=== PATIENT | male | born 1955 | race Caucasian/White ===

== ENCOUNTER → 2017-07-27 10:10 | Outpatient (POV) | payer BC, SELFPAY ==
[2017-07-27 10:22] VITALS: BP 158/114; PULSE 87; RESP 16; TEMP 36.4; O2SAT 94; BMI 31.2
--- NOTE | 2017-07-27 10:41 | HMH.PAINSOAP ---
[facility] Pain Management SOAP Note Subjective:: This patient is a pleasant 62-year-old white male who presents today for medication refills. Patient is being treated for pain secondary to degenerative disc disease of the cervical lumbar spine and cervical lumbar radiculopathy. Patient also has some low back pain. Patient has bilateral knee pain and right shoulder pain. Patient is currently being medically managed on Percocet 10 mg 1 p.o. 5 times daily. Patient is doing well on this and reports no side effects. Patient was taking anti-inflammatories however is no longer allowed to do to bleeding ulcers. Patient states that his medication helps up to 60-70%. His Kaspar #[id number] reviewed and appropriate. Patient's UDS has been appropriate in the past. Patient states he may be having a bilateral knee replacement I talked him about letting the office know if this occurs. ROS General: no recent weight change, no fever, no sleep disturbances Respiratory: no cough, no shortness of air, no recurring pulmonary infections Cardiovascular/Peripheral Vascular: No chest pain, No palpitations, no edema, no shortness of breath. Gastrointestinal: no incontinence, normal bowel movements reported Genitourinary: no incontinence Musculoskeletal: Back pain, neck pain, right shoulder pain Psychiatric: normal mood/ affect Neurological: [denies weakness in extremities], [denies balance issues] Objective:: Physical Exam General: Alert and oriented x3, no acute distress, pleasant and cooperative, [on room air] Lungs: Resps E/U, Symmetrical chest expansion, Musculoskeletal: Flexion and extension of cervical and lumbar spine somewhat guarded secondary to pain, deep tendon reflexes normal, strength in upper and lower extremities [5/5], no gait noted, positive straight leg test at 30? bilaterally. Neurological: speech clear, equipment service lead equal, no gross sensory deficits Assessment:: Degenerative disc disease cervical spine and lumbar spine, cervical and lumbar radiculopathy. Bilateral knee arthritis. Plan:: We will plan on refilling this patient's medication Percocet 10 mg 1 p.o. 5 times a day. I have discussed this with Dr. Rubio. he has reviewed the chart and approves. Patient's SHAMA #[id number] reviewed and appropriate patient's UDS has been appropriate in the past. We will follow with this patient in 3 months he was told that if he has surgery to us know if the surgeon makes any medication changes. 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 Patient has been prescribed a controlled substance after being counseled on the medication, medication safety, and possible side effects. SHAMA report has been obtained and reviewed prior to prescription and found to be appropriate. Opioid contract was reviewed and signed by the patient, and that they have agreed to all of the terms set forth by our compliance program. This note was dictated using voice recognition software may contain errors or omissions
--- NOTE | 2017-07-27 10:45 | P.CONS_ITS ---
[facility] Pain Management SOAP Note Subjective:: This patient is a pleasant 62-year-old white male who presents today for medication refills. Patient is being treated for pain secondary to degenerative disc disease of the cervical lumbar spine and cervical lumbar radiculopathy. Patient also has some low back pain. Patient has bilateral knee pain and right shoulder pain. Patient is currently being medically managed on Percocet 10 mg 1 p.o. 5 times daily. Patient is doing well on this and reports no side effects. Patient was taking anti-inflammatories however is no longer allowed to do to bleeding ulcers. Patient states that his medication helps up to 60-70%. His Kaspar #[id number] reviewed and appropriate. Patient's UDS has been appropriate in the past. Patient states he may be having a bilateral knee replacement I talked him about letting the office know if this occurs. ROS General: no recent weight change, no fever, no sleep disturbances Respiratory: no cough, no shortness of air, no recurring pulmonary infections Cardiovascular/Peripheral Vascular: No chest pain, No palpitations, no edema, no shortness of breath. Gastrointestinal: no incontinence, normal bowel movements reported Genitourinary: no incontinence Musculoskeletal: Back pain, neck pain, right shoulder pain Psychiatric: normal mood/ affect Neurological: [denies weakness in extremities], [denies balance issues] Objective:: Physical Exam General: Alert and oriented x3, no acute distress, pleasant and cooperative, [ on room air] Lungs: Resps E/U, Symmetrical chest expansion, Musculoskeletal: Flexion and extension of cervical and lumbar spine somewhat guarded secondary to pain, deep tendon reflexes normal, strength in upper and lower extremities [5/5], no gait noted, positive straight leg test at 30? bilaterally. Neurological: speech clear, lens cementer equal, no gross sensory deficits Assessment:: Degenerative disc disease cervical spine and lumbar spine, cervical and lumbar radiculopathy. Bilateral knee arthritis. Plan:: We will plan on refilling this patient's medication Percocet 10 mg 1 p.o. 5 times a day. I have discussed this with Dr. Rubio. he has reviewed the chart and approves. Patient's SHAMA #[id number] reviewed and appropriate patient's UDS has been appropriate in the past. We will follow with this patient in 3 months he was told that if he has surgery to us know if the surgeon makes any medication changes. Patient can pepper picker one prescription in the interim. Patient has been prescribed a controlled substance after being counseled on the medication, medication safety, and possible side effects. SHAMA report has been obtained and reviewed prior to prescription and found to be appropriate. Opioid contract was reviewed and signed by the patient, and that they have agreed to all of the terms set forth by our compliance program. This note was dictated using voice recognition software may contain errors or omissions
[2017-07-27 13:00] LABS: Amphetamine/Metha Screen,Urine Negative ng/mL (<1000); Barbiturates Screen,Urine Negative ng/mL (<200); Benzodiazepines Screen,Urine Negative ng/mL (200); Cannabinoid Screen,Urine Negative ng/mL (<50); Cocaine Screen,Urine Negative ng/g (<300); Methadone Screen,Urine Negative ng/mL (<300); Opiate Screen,Urine Positive ng/mL (<300); Phencyclidine Screen,Urine Negative ng/mL (<25)
[2017-08-02 13:09] LABS: Oxycodone (GC/MS) 2380 ng/mL (Cutoff=100)
[2017-08-03 06:27] LABS: Opiates Negative (Cutoff=100); Oxymorphone (GC/MS) 3100 ng/mL (Cutoff=100)
== END ==
PROVIDERS: Family Provider Family Medicine; PCP Family Medicine; Visit Provider Clinical Nurse Specialist Family Health
DX: M54.12 Radiculopathy, cervical region (principal); M54.16 Radiculopathy, lumbar region
CPT/HCPCS: 80305; 80361; 80365; 99212; G0480

== ENCOUNTER → 2017-10-18 09:41 | Outpatient (POV) | payer BC, SELFPAY ==
[2017-10-18 09:50] VITALS: BP 169/104; PULSE 85; RESP 18; TEMP 36.6; O2SAT 98; BMI 29.9
--- NOTE | 2017-10-18 10:13 | HMH.PAINSOAP ---
[facility] Pain Management SOAP Note Subjective:: Patient is a pleasant 62-year-old white male who presents today for medication refills. Patient is being treated for pain secondary to degenerative disc disease of the cervical and lumbar spine. Patient also is having right shoulder pain and right arm pain. Patient had an accident several years ago he is wearing a right wrist brace. Patient rates his pain a 6 out of 10 today. Patient is currently being medically managed with Percocet 10 mg 1 p.o. 5 times a day. Patient is doing well on this and reports no side effects. Patient is unable to take anti-inflammatories due to bleeding ulcers. Patient states that his medication helps him 60-70%. Patient's SHAMA #[id number] reviewed and appropriate. Patient's UDS has been appropriate in the past. Patient was seen by orthopedic surgeon for potential bilateral knee replacement however they have begun with cortisone injections which were not helpful and are currently trying to get insurance approval for Synvisc injections. ROS General: no recent weight change, no fever, no sleep disturbances Respiratory: no cough, no shortness of air, no recurring pulmonary infections Cardiovascular/Peripheral Vascular: No chest pain, No palpitations, no edema, no shortness of breath. Gastrointestinal: no incontinence, normal bowel movements reported Genitourinary: no incontinence Musculoskeletal: Back pain, neck pain, right shoulder pain, right arm pain, bilateral knee pain Psychiatric: normal mood/ affect Neurological: [denies weakness in extremities], [denies balance issues] Objective:: Physical Exam General: Alert and oriented x3, no acute distress, pleasant and cooperative, [on room air] Lungs: Resps E/U, Symmetrical chest expansion, Eyes: PERRL Musculoskeletal: Flexion and extension of cervical and lumbar spine somewhat guarded secondary to pain, deep tendon reflexes normal, strength in upper and lower extremities [5/5], no gait noted, positive straight leg test at 30? bilaterally Neurological: speech clear, billiard table repairer equal, no gross sensory deficits Assessment:: Degenerative disc disease of the cervical spine and lumbar spine, cervical and lumbar radiculopathy, bilateral knee arthritis Plan:: We will refill the patient's medication Percocet 10 mg 1 p.o. 5 times a day. We will give him 2 months worth of prescriptions. He can order picker the third month in the interim I will follow-up with him in [address] Rubio has reviewed this chart and approves. Shama and urine drug screen both reviewed. Patient has been prescribed a controlled substance after being counseled on the medication, medication safety, and possible side effects. [facility] report has been obtained and reviewed prior to prescription and found to be appropriate. Opioid contract was reviewed and signed by the patient, and that they have agreed to all of the terms set forth by our compliance program. This note was dictated using voice recognition software and may contain errors or omissions
--- NOTE | 2017-10-18 10:16 | P.CONS_ITS ---
[facility] Pain Management SOAP Note Subjective:: Patient is a pleasant 62-year-old white male who presents today for medication refills. Patient is being treated for pain secondary to degenerative disc disease of the cervical and lumbar spine. Patient also is having right shoulder pain and right arm pain. Patient had an accident several years ago he is wearing a right wrist brace. Patient rates his pain a 6 out of 10 today. Patient is currently being medically managed with Percocet 10 mg 1 p.o. 5 times a day. Patient is doing well on this and reports no side effects. Patient is unable to take anti-inflammatories due to bleeding ulcers. Patient states that his medication helps him 60-70%. Patient's SHAMA #[id number] reviewed and appropriate. Patient's UDS has been appropriate in the past. Patient was seen by orthopedic surgeon for potential bilateral knee replacement however they have begun with cortisone injections which were not helpful and are currently trying to get insurance approval for Synvisc injections. ROS General: no recent weight change, no fever, no sleep disturbances Respiratory: no cough, no shortness of air, no recurring pulmonary infections Cardiovascular/Peripheral Vascular: No chest pain, No palpitations, no edema, no shortness of breath. Gastrointestinal: no incontinence, normal bowel movements reported Genitourinary: no incontinence Musculoskeletal: Back pain, neck pain, right shoulder pain, right arm pain, bilateral knee pain Psychiatric: normal mood/ affect Neurological: [denies weakness in extremities], [denies balance issues] Objective:: Physical Exam General: Alert and oriented x3, no acute distress, pleasant and cooperative, [ on room air] Lungs: Resps E/U, Symmetrical chest expansion, Eyes: PERRL Musculoskeletal: Flexion and extension of cervical and lumbar spine somewhat guarded secondary to pain, deep tendon reflexes normal, strength in upper and lower extremities [5/5], no gait noted, positive straight leg test at 30? bilaterally Neurological: speech clear, compensation administrator equal, no gross sensory deficits Assessment:: Degenerative disc disease of the cervical spine and lumbar spine, cervical and lumbar radiculopathy, bilateral knee arthritis Plan:: We will refill the patient's medication Percocet 10 mg 1 p.o. 5 times a day. We will give him 2 months worth of prescriptions. 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 Rubio has reviewed this chart and approves. Shama and urine drug screen both reviewed. Patient has been prescribed a controlled substance after being counseled on the medication, medication safety, and possible side effects. SHAMA report has been obtained and reviewed prior to prescription and found to be appropriate. Opioid contract was reviewed and signed by the patient, and that they have agreed to all of the terms set forth by our compliance program. This note was dictated using voice recognition software and may contain errors or omissions
== END ==
PROVIDERS: Family Provider Family Medicine; PCP Family Medicine; Visit Provider Clinical Nurse Specialist Family Health
DX: M54.16 Radiculopathy, lumbar region (principal); M54.12 Radiculopathy, cervical region; M17.0 Bilateral primary osteoarthritis of knee
CPT/HCPCS: 99212

== ENCOUNTER → 2017-12-20 09:56 | Outpatient (POV) | payer BC, SELFPAY ==
[2017-12-20 10:10] VITALS: BP 156/108; PULSE 73; RESP 18; O2SAT 98; BMI 29.9
--- NOTE | 2017-12-20 10:15 | HMH.PAINSOAP ---
[facility] Pain Management SOAP Note Subjective:: Pleasant 62-year-old white male who presents today for medication refills. Patient is being treated for pain secondary to degenerative disc disease of the cervical and lumbar spine. 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 Patient was being medically managed with Percocet 10 mg however at his last visit he received [place] 10 mg 1 p.o. 5 times a day. We will switch him back to the Percocet he states that it does help him up. Patient's SHAMA #[id number] reviewed and appropriate. Patient has never tried gabapentin we will start him on this today to help with his neuropathy symptoms. Patient states he has burning and tingling in his right hand along with his right leg. Rates his pain an 8 out of 10 today. ROS General: no recent weight change, no fever, no sleep disturbances Respiratory: no cough, no shortness of air, no recurring pulmonary infections Cardiovascular/Peripheral Vascular: No chest pain, No palpitations, no edema, no shortness of breath. Gastrointestinal: no incontinence, normal bowel movements reported Genitourinary: no incontinence Musculoskeletal: Back pain, right arm pain, right leg pain Psychiatric: normal mood/ affect Neurological: [denies weakness in extremities], [denies balance issues] Objective:: Physical Exam General: Alert and oriented x3, no acute distress, pleasant and cooperative, [on room air] Lungs: Resps E/U, Symmetrical chest expansion, Eyes: PERRL Musculoskeletal: Flexion and extension of lumbar spine somewhat guarded secondary to pain, deep tendon reflexes normal, strength in upper and lower extremities [5/5], [abnormal gait noted] Neurological: speech clear, pneumatic tube repairer equal, no gross sensory deficits Assessment:: Degenerative disc disease of the cervical and lumbar spine, neuropathy Plan:: We will start the patient on gabapentin 300 mg 1 p.o. nightly we will give him 2 months worth of this medication. I will follow-up with him in 2 months. We will refill his Percocet 10 mg 1 p.o. 5 times a day and give him 2 months of this as well. Patient's SHAMA and previous urine drug screen reviewed and appropriate. Dr. Rubio has reviewed this chart and agrees with this plan of care. Patient has been prescribed a controlled substance after being counseled on the medication, medication safety, and possible side effects. SHAMA report has been obtained and reviewed prior to prescription and found to be appropriate. Opioid contract was reviewed and signed by the patient, and that they have agreed to all of the terms set forth by our compliance program. This note was dictated using voice recognition software and may contain errors or omissions
== END ==
PROVIDERS: Family Provider Family Medicine; PCP Family Medicine; Visit Provider Clinical Nurse Specialist Family Health
DX: M50.30 Other cervical disc degeneration, unspecified cervical region (principal); M51.36 Other intervertebral disc degeneration, lumbar region
CPT/HCPCS: 99212

== ENCOUNTER → 2018-02-14 14:37 | Outpatient (POV) | payer BC, SELFPAY ==
[2018-02-14 15:13] VITALS: BP 145/98; PULSE 74; RESP 18; O2SAT 98; BMI 30.7
--- NOTE | 2018-02-14 15:22 | HMH.PAINSOAP ---
[facility] Pain Management SOAP Note Subjective:: Patient is a pleasant 63-year-old white male who presents today for medication refills. We are treating him for pain secondary to degenerative disc disease of the cervical spine and lumbar spine with also neuropathy. Patient was started on 300 mg of gabapentin at nighttime and states that this has been helpful. Patient denies side effects to his medication. Patient also on Percocet 10 mg 1 p.o. 5 times a day. Patient Kaspar #[id number] reviewed and appropriate. Patient's urine drug screen has been appropriate in the past. States the medication helps up to 80%. ROS General: no recent weight change, no fever, no sleep disturbances Respiratory: no cough, no shortness of air, no recurring pulmonary infections Cardiovascular/Peripheral Vascular: No chest pain, No palpitations, no edema, no shortness of breath. Gastrointestinal: no incontinence, normal bowel movements reported Genitourinary: no incontinence Musculoskeletal: Neck pain, back pain Psychiatric: normal mood/ affect Neurological: [denies weakness in extremities], [denies balance issues] Objective:: Physical Exam General: Alert and oriented x3, no acute distress, pleasant and cooperative, [on room air] Lungs: Resps E/U, Symmetrical chest expansion, Eyes: PERRL Musculoskeletal: Flexion and extension of the cervical and lumbar spine somewhat guarded secondary to pain, deep tendon reflexes normal, strength in upper and lower extremities [5/5], slightly antalgic gait noted Neurological: speech clear, core winder machine operator equal, no gross sensory deficits Assessment:: Degenerative disc disease of the cervical spine and lumbar spine, neuropathy Plan:: We will refill his Percocet 10 mg 1 p.o. 5 times a day and give him 2 months worth of prescriptions. We will also call in gabapentin 300 mg 1 p.o. 3 times daily. We will follow-up with the patient in 3 months. Patient's Shama and urine drug screen have been reviewed. Dr. Rubio has reviewed this chart and agrees with this plan of care. I will follow-up with the patient in 3 months. Patient has been prescribed a controlled substance after being counseled on the medication, medication safety, and possible side effects. SHAMA report has been obtained and reviewed prior to prescription and found to be appropriate. Opioid contract was reviewed and signed by the patient, and that they have agreed to all of the terms set forth by our compliance program.. This note was dictated using voice recognition software and may contain errors or omissions
--- NOTE | 2018-02-14 15:25 | P.CONS_ITS ---
[facility] Pain Management SOAP Note Subjective:: Patient is a pleasant 63-year-old white male who presents today for medication refills. We are treating him for pain secondary to degenerative disc disease of the cervical spine and lumbar spine with also neuropathy. Patient was started on 300 mg of gabapentin at nighttime and states that this has been helpful. Patient denies side effects to his medication. Patient also on Percocet 10 mg 1 p.o. 5 times a day. Patient Kaspar #[id number] reviewed and appropriate. Patient's urine drug screen has been appropriate in the past. States the medication helps up to 80%. ROS General: no recent weight change, no fever, no sleep disturbances Respiratory: no cough, no shortness of air, no recurring pulmonary infections Cardiovascular/Peripheral Vascular: No chest pain, No palpitations, no edema, no shortness of breath. Gastrointestinal: no incontinence, normal bowel movements reported Genitourinary: no incontinence Musculoskeletal: Neck pain, back pain Psychiatric: normal mood/ affect Neurological: [denies weakness in extremities], [denies balance issues] Objective:: Physical Exam General: Alert and oriented x3, no acute distress, pleasant and cooperative, [on room air] Lungs: Resps E/U, Symmetrical chest expansion, Eyes: PERRL Musculoskeletal: Flexion and extension of the cervical and lumbar spine somewhat guarded secondary to pain, deep tendon reflexes normal, strength in upper and lower extremities [5/5], slightly antalgic gait noted Neurological: speech clear, stick inserter equal, no gross sensory deficits Assessment:: Degenerative disc disease of the cervical spine and lumbar spine, neuropathy Plan:: We will refill his Percocet 10 mg 1 p.o. 5 times a day and give him 2 months worth of prescriptions. We will also call in gabapentin 300 mg 1 p.o. 3 times daily. We will follow-up with the patient in 3 months. Patient's Shama and urine drug screen have been reviewed. Dr. Rubio has reviewed this chart and agrees with this plan of care. I will follow-up with the patient in 3 months. Patient has been prescribed a controlled substance after being counseled on the medication, medication safety, and possible side effects. SHAMA report has been obtained and reviewed prior to prescription and found to be appropriate. Opioid contract was reviewed and signed by the patient, and that they have agreed to all of the terms set forth by our compliance program.. This note was dictated using voice recognition software and may contain errors or omissions
== END ==
PROVIDERS: Family Provider Family Medicine; PCP Family Medicine; Visit Provider Clinical Nurse Specialist Family Health
DX: M50.30 Other cervical disc degeneration, unspecified cervical region (principal); M51.16 Intervertebral disc disorders with radiculopathy, lumbar region
CPT/HCPCS: 99213

== ENCOUNTER → 2018-02-14 15:46 | Outpatient (CLI) | payer BC, SELFPAY ==
[2018-02-14 16:14] LABS: Amphetamine/Metha Screen,Urine Negative ng/mL (<1000); Barbiturates Screen,Urine Negative ng/mL (<200); Benzodiazepines Screen,Urine Negative ng/mL (<200); Cannabinoid Screen,Urine Negative ng/mL (<50); Cocaine Screen,Urine Negative ng/mL (<300); Methadone Screen,Urine Negative ng/mL (<300); Opiate Screen,Urine Positive ng/mL (<300); Phencyclidine Screen,Urine Negative ng/mL (<25)
[2018-02-20 23:06] LABS: Oxycodone (GC/MS) >3000 ng/mL (Cutoff=100)
[2018-02-21 05:24] LABS: Opiates Negative (Cutoff=100); Oxymorphone (GC/MS) >3000 ng/mL (Cutoff=100)
== END ==
PROVIDERS: PCP Family Medicine; Visit Provider Clinical Nurse Specialist Family Health
DX: Z79.899 Other long term (current) drug therapy (principal)
CPT/HCPCS: 80305; 80361; 80365; G0480

== ENCOUNTER → 2018-05-16 11:34 | Outpatient (POV) | payer BC, SELFPAY ==
[2018-05-16 11:35] VITALS: BP 136/106; PULSE 61; RESP 18; TEMP 36.9; O2SAT 95; BMI 30.7
--- NOTE | 2018-05-16 11:49 | P.CONS_ITS ---
[facility] Pain Management SOAP Note Subjective:: Patient is a pleasant 63-year-old white male who presents today for medication refills. Patient is currently on gabapentin 300 mg 1 p.o. 3 times daily and 10 mg 1 p.o. 5 times a day patient's SHAMA reviewed and appropriate he states that it helps up to 80%. He rates his pain a 3 out of 10 today. Most of his pain is secondary to degenerative disc disease of the cervical spine and lumbar spine with neuropathy. ROS General: no recent weight change, no fever, no sleep disturbances Respiratory: no cough, no shortness of air, no recurring pulmonary infections Cardiovascular/Peripheral Vascular: No chest pain, No palpitations, no edema, no shortness of breath. Gastrointestinal: no incontinence, normal bowel movements reported Genitourinary: no incontinence Musculoskeletal: Neck pain, back pain Psychiatric: normal mood/ affect Neurological: [denies weakness in extremities], [denies balance issues] Objective:: Physical Exam General: Alert and oriented x3, no acute distress, pleasant and cooperative, [on room air] Lungs: Resps E/U, Symmetrical chest expansion, [CTA bilateral] Eyes: PERRL Musculoskeletal: Flexion and extension of cervical and lumbar spine somewhat guarded secondary to pain, deep tendon reflexes normal, strength in upper and lower extremities [5/5], lightly antalgic gait noted Neurological: speech clear, beam dyer equal, no gross sensory deficits Assessment:: Degenerative disc disease lumbar spine with lumbar radiculopathy along with cervical degenerative disc disease and neuropathy Plan:: We will refill his Percocet 10 mg 1 p.o. 5 times a day and give him 2 months worth of prescriptions we will also call in his gabapentin 300 mg 1 p.o. 3 times daily. 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 Dr. Rubio is reviewed this chart and agrees with this plan of care. Patient has been prescribed a controlled substance after being counseled on the medication, medication safety, and possible side effects. SHAMA report has been obtained and reviewed prior to prescription and found to be appropriate. Opioid contract was reviewed and signed by the patient, and that they have agreed to all of the terms set forth by our compliance program. This note was dictated using voice recognition software and may contain errors or omissions
[2018-05-16 12:36] LABS: Amphetamine/Metha Screen,Urine Negative ng/mL (<1000); Barbiturates Screen,Urine Negative ng/mL (<200); Benzodiazepines Screen,Urine Negative ng/mL (<200); Cannabinoid Screen,Urine Negative ng/mL (<50); Cocaine Screen,Urine Negative ng/mL (<300); Methadone Screen,Urine Negative ng/mL (<300); Opiate Screen,Urine Positive ng/mL (<300); Phencyclidine Screen,Urine Negative ng/mL (<25)
[2018-05-22 10:08] LABS: Oxycodone (GC/MS) >3000 ng/mL (Cutoff=100)
[2018-05-23 06:30] LABS: Opiates Negative (Cutoff=100); Oxymorphone (GC/MS) >3000 ng/mL (Cutoff=100)
== END ==
PROVIDERS: PCP Family Medicine; Visit Provider Clinical Nurse Specialist Family Health
DX: M51.16 Intervertebral disc disorders with radiculopathy, lumbar region (principal); M50.10 Cervical disc disorder with radiculopathy, unspecified cervical region; Z79.899 Other long term (current) drug therapy
CPT/HCPCS: 80305; 80361; 80365; 99213; G0480

== ENCOUNTER → 2018-08-15 11:37 | Outpatient (POV) | payer BC, SELFPAY ==
--- NOTE | 2018-08-15 11:54 | HMH.PAINSOAP ---
[facility] Pain Management SOAP Note Subjective:: Patient is a pleasant 63-year-old white male who presents today for medication refills. He is currently on Percocet 10 mg 1 p.o. 5 times a day along with gabapentin 300 mg 1 p.o. 3 times daily. He has been out of his gabapentin lately. Patient's SHAMA reviewed and appropriate. Patient's urine drug screen is appropriate. 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 Gastrointestinal: no incontinence, normal bowel movements reported Genitourinary: no incontinence Musculoskeletal: Neck pain, back pain, leg pain Psychiatric: normal mood/ affect, Neurological: [denies weakness in extremities], [denies balance issues] Objective:: Physical Exam General: Alert and oriented x3, no acute distress, pleasant and cooperative, [on room air] Lungs: Resps E/U, Symmetrical chest expansion, Eyes: PERRL Musculoskeletal: Flexion and extension of cervical and lumbar spine somewhat guarded secondary to pain, deep tendon reflexes normal, strength in upper and lower extremities [5/5], antalgic gait noted Neurological: speech clear, felt cutting machine operator equal, no gross sensory deficits Assessment:: Degenerative disc disease cervical spine, 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 5 times a day and give him 2 months worth of prescriptions he can belt picker his third month in the interim. We will also refill his gabapentin 300 mg 1 p.o. 3 times daily. Patient has been instructed to call the office if he has any issues prior to his next appointment we will see him back in 3 months and he can belt picker one prescription in the interim. Patient has been prescribed a controlled substance after being counseled on the medication, medication safety, and possible side effects. SHAMA report has been obtained and reviewed prior to prescription and found to be appropriate. Opioid contract was reviewed and signed by the patient, and that they have agreed to all of the terms set forth by our compliance program. Dr. Rubio has reviewed this note and agrees with this plan of care. This note was dictated using voice recognition software and may contain errors or omissions
[2018-08-15 11:55] VITALS: BP 185/87; PULSE 87; RESP 18; O2SAT 98; BMI 30.7
== END ==
PROVIDERS: PCP Family Medicine; Visit Provider Clinical Nurse Specialist Family Health
DX: M50.30 Other cervical disc degeneration, unspecified cervical region (principal); M51.16 Intervertebral disc disorders with radiculopathy, lumbar region; G62.9 Polyneuropathy, unspecified
CPT/HCPCS: 99213

== ENCOUNTER → 2018-10-13 11:37 | Outpatient (CLI) | payer BC, SELFPAY ==
[2018-10-13 12:11] LABS: Amphetamine/Metha Screen,Urine Negative ng/mL (<1000); Barbiturates Screen,Urine Negative ng/mL (<200); Benzodiazepines Screen,Urine Negative ng/mL (<200); Cannabinoid Screen,Urine Negative ng/mL (<50); Cocaine Screen,Urine Negative ng/mL (<300); Methadone Screen,Urine Negative ng/mL (<300); Opiate Screen,Urine Positive ng/mL (<300); Phencyclidine Screen,Urine Negative ng/mL (<25)
[2018-10-18 15:09] LABS: Oxycodone (GC/MS) >3000 ng/mL (Cutoff=100)
[2018-10-19 06:52] LABS: Opiates Negative (Cutoff=100); Oxymorphone (GC/MS) >3000 ng/mL (Cutoff=100)
== END ==
PROVIDERS: Visit Provider Anesthesiology
DX: Z79.899 Other long term (current) drug therapy (principal)
CPT/HCPCS: 80305; 80361; 80365; G0480

== ENCOUNTER → 2018-11-07 11:39 | Outpatient (POV) | payer BC, SELFPAY ==
[2018-11-07 11:58] VITALS: BP 146/87; PULSE 92; RESP 18; O2SAT 98; BMI 30.9
--- NOTE | 2018-11-07 12:07 | HMH.PAINSOAP ---
[facility] Pain Management SOAP Note Subjective:: Patient is a pleasant 63-year-old white male who presents today for medication refills. 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 He reports his pain is a 3 out of 10 today. Patient takes Percocet 10 mg 1 p.o. 5 times daily along with gabapentin 300 mg 1 p.o. 3 times daily. SHAMA #[id number] has been reviewed and is appropriate. ROS General: no recent weight change, no fever, no sleep disturbances Respiratory: no cough, no shortness of air, no recurring pulmonary infections Cardiovascular/Peripheral Vascular: No chest pain, No palpitations, no edema, no shortness of breath. Gastrointestinal: no incontinence, normal bowel movements reported Genitourinary: no incontinence Musculoskeletal: Pain, back pain, leg pain Psychiatric: normal mood/ affect, [denies depression], [denies anxiety] Neurological: [denies weakness in extremities], [denies balance issues] Objective:: Physical Exam General: Alert and oriented x3, no acute distress, pleasant and cooperative, [on room air] Lungs: Resps E/U, Symmetrical chest expansion, Eyes: PERRL Musculoskeletal: Flexion and extension of lumbar spine somewhat guarded secondary to pain, deep tendon reflexes normal, strength in upper and lower extremities [5/5], [abnormal gait noted] Neurological: speech clear, plumbing assembler 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 5 times daily and give him 2 months worth of prescriptions. He can brain picker his third month in the interim. We also refill his gabapentin 300 mg 1 p.o. 3 times daily. Is been instructed to call the office if he has any issues prior to his next appointment. We will see him back in 3 months Patient has been prescribed a controlled substance after being counseled on the medication, medication safety, and possible side effects. SHAMA report has been obtained and reviewed prior to prescription and found to be appropriate. Opioid contract was reviewed and signed by the patient, and that they have agreed to all of the terms set forth by our compliance program. Dr. Rubio has reviewed this note and agrees with this plan of care. This note was dictated using voice recognition software and may contain errors or omissions
--- NOTE | 2018-11-07 12:11 | P.CONS_ITS ---
[facility] Pain Management SOAP Note Subjective:: Patient is a pleasant 63-year-old white male who presents today for medication refills. 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 He reports his pain is a 3 out of 10 today. Patient takes Percocet 10 mg 1 p.o. 5 times daily along with gabapentin 300 mg 1 p.o. 3 times daily. SHAMA #[id number] has been reviewed and is appropriate. ROS General: no recent weight change, no fever, no sleep disturbances Respiratory: no cough, no shortness of air, no recurring pulmonary infections Cardiovascular/Peripheral Vascular: No chest pain, No palpitations, no edema, no shortness of breath. Gastrointestinal: no incontinence, normal bowel movements reported Genitourinary: no incontinence Musculoskeletal: Pain, back pain, leg pain Psychiatric: normal mood/ affect, [denies depression], [denies anxiety] Neurological: [denies weakness in extremities], [denies balance issues] Objective:: Physical Exam General: Alert and oriented x3, no acute distress, pleasant and cooperative, [on room air] Lungs: Resps E/U, Symmetrical chest expansion, Eyes: PERRL Musculoskeletal: Flexion and extension of lumbar spine somewhat guarded secondary to pain, deep tendon reflexes normal, strength in upper and lower extremities [5/5], [abnormal gait noted] Neurological: speech clear, engineer 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 5 times daily and give him 2 months worth of prescriptions. 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 We also refill his gabapentin 300 mg 1 p.o. 3 times daily. Is been instructed to call the office if he has any issues prior to his next appointment. We will see him back in 3 months Patient has been prescribed a controlled substance after being counseled on the medication, medication safety, and possible side effects. SHAMA report has been obtained and reviewed prior to prescription and found to be appropriate. Opioid contract was reviewed and signed by the patient, and that they have agreed to all of the terms set forth by our compliance program. Dr. Rubio has reviewed this note and agrees with this plan of care. This note was dictated using voice recognition software and may contain errors or omissions
== END ==
PROVIDERS: PCP Family Medicine; Visit Provider Clinical Nurse Specialist Family Health
DX: M48.062 Spinal stenosis, lumbar region with neurogenic claudication (principal)
CPT/HCPCS: 99212

== ENCOUNTER → 2019-02-07 10:17 | Outpatient (POV) | payer BC, SELFPAY ==
[2019-02-07 11:04] VITALS: BP 148/94; PULSE 78; RESP 18; O2SAT 98; BMI 28.5
--- NOTE | 2019-02-07 12:54 | P.CONS_ITS ---
[facility] Pain Management SOAP Note Subjective:: Patient is a pleasant 64-year-old white male who presents today for medication refills he is being treated for pain secondary to degenerative disc disease cervical spinal cervical radiculopathy along with degenerative disc disease lumbar spine with lumbar radiculopathy. He reports his pain is a 3 out of 10. This is his baseline. Patient denies side effects to his current regimen of Percocet 10 mg 1 p.o. 5 times a day. Patient's SHAMA #[id number] reviewed and appropriate. He is also on gabapentin 300 mg 1 p.o. 3 times daily. He states it helps up to 80%. He is currently in the process of losing some weight. Overall he looks well ROS General: no recent weight change, no fever, no sleep disturbances Respiratory: no cough, no shortness of air, no recurring pulmonary infections Cardiovascular/Peripheral Vascular: No chest pain, No palpitations, no edema, no shortness of breath. Gastrointestinal: no incontinence, normal bowel movements reported Genitourinary: no incontinence Musculoskeletal: Neck pain, back pain Psychiatric: normal mood/ affect Neurological: [denies weakness in extremities], [denies balance issues] Objective:: Physical Exam General: Alert and oriented x3, no acute distress, pleasant and cooperative, [on room air] Lungs: Resps E/U, Symmetrical chest expansion, Eyes: PERRL Musculoskeletal: Flexion and extension of cervical and lumbar spine somewhat guarded secondary to pain, deep tendon reflexes normal, strength in upper and lower extremities [5/5], lightly antalgic gait noted Neurological: speech clear, general maintenance mechanic equal, no gross sensory deficits Assessment:: Degenerative disc disease cervical spinal cervical radiculopathy, degenerative disc disease lumbar spine with lumbar radiculopathy Plan:: We will refill the patient's Percocet 10 mg 1 p.o. 5 times a day along with his gabapentin 300 mg 1 p.o. 3 times daily we will give him 2 months with medication we will see him back in 3 months reassess his symptoms at that time he is been instructed to call the office if he has any issues prior to his next appointment. 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 Patient has been prescribed a controlled substance after being counseled on the medication, medication safety, and possible side effects. SHAMA report has been obtained and reviewed prior to prescription and found to be appropriate. Opioid contract was reviewed and signed by the patient, and that they have agreed to all of the terms set forth by our compliance program. Dr. Rubio has reviewed this note and agrees with this plan of care. This note was dictated using voice recognition software and may contain errors or omissions [facility] [employer] [employer] *Have you ever received a pneumonia vaccine?: Yes *Have you received a flu vaccine this season?: Yes - *Social History *Occupational Status:: other *Travel in the last 8 weeks: None
== END ==
PROVIDERS: PCP Family Medicine; Visit Provider Clinical Nurse Specialist Family Health
DX: M50.10 Cervical disc disorder with radiculopathy, unspecified cervical region (principal); M51.16 Intervertebral disc disorders with radiculopathy, lumbar region
CPT/HCPCS: 99212

== ENCOUNTER → 2019-04-07 11:56 | Outpatient (CLI) | payer BC, SELFPAY ==
[2019-04-07 15:49] LABS: Amphetamine/Metha Screen,Urine Negative ng/mL (<1000); Barbiturates Screen,Urine Negative ng/mL (<200); Benzodiazepines Screen,Urine Negative ng/mL (<200); Cannabinoid Screen,Urine Negative ng/mL (<50); Cocaine Screen,Urine Negative ng/mL (<300); Methadone Screen,Urine Negative ng/mL (<300); Opiate Screen,Urine Positive ng/mL (<300); Phencyclidine Screen,Urine Negative ng/mL (<25)
[2019-04-14 10:15] LABS: Oxycodone (GC/MS) >3000 ng/mL (Cutoff=100)
[2019-04-14 17:15] LABS: Opiates Negative (Cutoff=100); Oxymorphone (GC/MS) >3000 ng/mL (Cutoff=100)
== END ==
PROVIDERS: Visit Provider Anesthesiology
DX: Z79.899 Other long term (current) drug therapy (principal)
CPT/HCPCS: 80305; 80361; 80365; G0480

== ENCOUNTER → 2019-05-08 10:44 | Outpatient (POV) | payer BC, SELFPAY ==
--- NOTE | 2019-05-08 11:04 | HMH.PAINSOAP ---
[facility] Pain Management SOAP Note Subjective:: Patient is a pleasant 64-year-old white male who presents today for medication refills he is being treated for pain secondary to degenerative disc disease cervical spinal cervical radiculopathy along with degenerative disc disease lumbar spine with lumbar radiculopathy. Patient reports his pain is a 5 out of 10. This is a little higher than normal due to weather. He denies side effects to his medication. Shama #[id number] reviewed and appropriate. Urine drug screens have been appropriate. Patient is currently on Percocet 10 mg 1 p.o. 5 times daily. Patient is also on gabapentin 300 mg 1 p.o. 3 times daily. Patient has lost 40 pounds and is continuing to lose weight. ROS General: no recent weight change, no fever, no sleep disturbances Respiratory: no cough, no shortness of air, no recurring pulmonary infections Cardiovascular/Peripheral Vascular: No chest pain, No palpitations, no edema, no shortness of breath. Gastrointestinal: no new onset incontinence, normal bowel movements reported Genitourinary: no new onset incontinence Musculoskeletal: Back pain, leg pain Psychiatric: normal mood/ affect, Neurological: [denies new onset weakness in extremities], [denies new onset balance issues] Objective:: Physical Exam General: Alert and oriented x3, no acute distress, pleasant and cooperative, [on room air] Lungs: Resps E/U, Symmetrical chest expansion, Eyes: PERRL Musculoskeletal: Flexion and extension of lumbar spine somewhat guarded secondary to pain, deep tendon reflexes normal, strength in upper and lower extremities [5/5], antalgic gait noted Neurological: speech clear, occupational health nurse equal, no gross sensory deficits Assessment:: Degenerative disc disease cervical spinal cervical radiculopathy degenerative disc disease lumbar spine with lumbar radiculopathy Plan:: We will give the patient his Percocet 10 mg 1 p.o. 5 times a day and gabapentin 300 mg 1 p.o. 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 We will see him back in 3 months reassess his symptoms at that time he is been instructed to call the office if he has any issues prior to his next appointment. Patient has been prescribed a controlled substance after being counseled on the medication, medication safety, and possible side effects. SHAMA report has been obtained and reviewed prior to prescription and found to be appropriate. Opioid contract was reviewed and signed by the patient, and that they have agreed to all of the terms set forth by our compliance program. Dr. Rubio has reviewed this note and agrees with this plan of care. This note was dictated using voice recognition software and may contain errors or omissions [facility] History I have reviewed the patient's past medical history: Yes *Have you ever received a pneumonia vaccine?: Yes *Have you received a flu vaccine this season?: Yes - *Social History *Occupational Status:: other *Travel in the last 8 weeks: None Family Hx:: Non-contributory
--- NOTE | 2019-05-08 11:08 | P.CONS_ITS ---
[facility] Pain Management SOAP Note Subjective:: Patient is a pleasant 64-year-old white male who presents today for medication refills he is being treated for pain secondary to degenerative disc disease cervical spinal cervical radiculopathy along with degenerative disc disease lumbar spine with lumbar radiculopathy. Patient reports his pain is a 5 out of 10. This is a little higher than normal due to weather. He denies side effects to his medication. Shama #[id number] reviewed and appropriate. Urine drug screens have been appropriate. Patient is currently on Percocet 10 mg 1 p.o. 5 times daily. Patient is also on gabapentin 300 mg 1 p.o. 3 times daily. Patient has lost 40 pounds and is continuing to lose weight. ROS General: no recent weight change, no fever, no sleep disturbances Respiratory: no cough, no shortness of air, no recurring pulmonary infections Cardiovascular/Peripheral Vascular: No chest pain, No palpitations, no edema, no shortness of breath. Gastrointestinal: no new onset incontinence, normal bowel movements reported Genitourinary: no new onset incontinence Musculoskeletal: Back pain, leg pain Psychiatric: normal mood/ affect, Neurological: [denies new onset weakness in extremities], [denies new onset balance issues] Objective:: Physical Exam General: Alert and oriented x3, no acute distress, pleasant and cooperative, [on room air] Lungs: Resps E/U, Symmetrical chest expansion, Eyes: PERRL Musculoskeletal: Flexion and extension of lumbar spine somewhat guarded secondary to pain, deep tendon reflexes normal, strength in upper and lower extremities [5/5], antalgic gait noted Neurological: speech clear, riffler tender equal, no gross sensory deficits Assessment:: Degenerative disc disease cervical spinal cervical radiculopathy degenerative disc disease lumbar spine with lumbar radiculopathy Plan:: We will give the patient his Percocet 10 mg 1 p.o. 5 times a day and gabapentin 300 mg 1 p.o. 3 times daily we will give him 1 month worth of medication he can pickle processor 2 months in the interim. We will see him back in 3 months reassess his symptoms at that time he is been instructed to call the office if he has any issues prior to his next appointment. Patient has been prescribed a controlled substance after being counseled on the medication, medication safety, and possible side effects. SHAMA report has been obtained and reviewed prior to prescription and found to be appropriate. Opioid contract was reviewed and signed by the patient, and that they have agreed to all of the terms set forth by our compliance program. Dr. Rubio has reviewed this note and agrees with this plan of care. This note was dictated using voice recognition software and may contain errors or omissions [facility] History I have reviewed the patient's past medical history: Yes *Have you ever received a pneumonia vaccine?: Yes *Have you received a flu vaccine this season?: Yes - *Social History *Occupational Status:: other *Travel in the last 8 weeks: None Family Hx:: Non-contributory
[2019-05-08 11:34] VITALS: BP 147/97; PULSE 89; RESP 18; O2SAT 99; BMI 27.4
== END ==
PROVIDERS: PCP Family Medicine; Visit Provider Clinical Nurse Specialist Family Health
DX: M50.10 Cervical disc disorder with radiculopathy, unspecified cervical region (principal); M51.16 Intervertebral disc disorders with radiculopathy, lumbar region
CPT/HCPCS: 99212

== ENCOUNTER → 2019-07-31 10:12 | Outpatient (POV) | payer BC, SELFPAY ==
[2019-07-31 10:40] VITALS: BP 127/92; PULSE 67; RESP 18; O2SAT 99; BMI 27.1
--- NOTE | 2019-07-31 10:47 | P.CONS_ITS ---
[facility] Pain Management SOAP Note Subjective:: Patient is a pleasant 64-year-old white male who presents today for medication refills. Patient rates his pain a 4 out of 10 today overall doing well. He is being treated for pain secondary to degenerative disc disease cervical spine with cervical radiculopathy along with degenerative disc disease lumbar spine with lumbar radiculopathy. Patient is currently on Percocet 10 mg 1 p.o. 5 times a day and gabapentin 300 mg 1 p.o. 3 times daily. Patient also ran out of his compounding cream. Patient states the medication helps him up to 80%. [facility] #[id number] reviewed and appropriate. ROS General: no recent weight change, no fever, no sleep disturbances Respiratory: no cough, no shortness of air, no recurring pulmonary infections Cardiovascular/Peripheral Vascular: No chest pain, No palpitations, no edema, no shortness of breath. Gastrointestinal: no new onset incontinence, normal bowel movements reported Genitourinary: no new onset incontinence Musculoskeletal: Back pain, leg pain Psychiatric: normal mood/ affect Neurological: [denies new onset weakness in extremities], [denies new onset balance issues] Objective:: Physical Exam General: Alert and oriented x3, no acute distress, pleasant and cooperative, [on room air] Lungs: Resps E/U, Symmetrical chest expansion, Eyes: PERRL Musculoskeletal: Flexion and extension of lumbar spine somewhat guarded secondary to pain, deep tendon reflexes normal, strength in upper and lower extremities [5/5], lightly antalgic gait noted Neurological: speech clear, pharmacy aide equal, no gross sensory deficits Assessment:: Degenerative disc disease lumbar spine with lumbar radiculopathy degenerative disc disease cervical spine with cervical radiculopathy Plan:: We will schedule the patient for a 3-month follow-up. We will refill his Percocet 10 mg 1 p.o. 5 times a day and gabapentin 3 mg 1 p.o. 3 times daily. We will also give him his compounding cream prescription. Patient will be given 2 months worth of medication and be able to pick his third month up in the interim. Dr. Rubio has reviewed this note and agrees with this plan of care. This note was dictated using voice recognition software and may contain errors or omissions [facility] History I have reviewed the patient's past medical history: Yes *Have you ever received a pneumonia vaccine?: Yes *Have you received a flu vaccine this season?: Yes - *Social History *Occupational Status:: other *Travel in the last 8 weeks: None Family Hx:: Non-contributory
== END ==
PROVIDERS: PCP Family Medicine; Visit Provider Clinical Nurse Specialist Family Health
DX: M51.16 Intervertebral disc disorders with radiculopathy, lumbar region (principal); M50.10 Cervical disc disorder with radiculopathy, unspecified cervical region
CPT/HCPCS: 99212

== ENCOUNTER → 2019-07-31 11:01 | Outpatient (CLI) | payer BC, SELFPAY ==
[2019-07-31 13:28] LABS: Amphetamine/Metha Screen,Urine Negative ng/ml (<1000)
[2019-07-31 13:29] LABS: Barbiturates Screen,Urine Negative ng/ml (<200); Benzodiazepines Screen,Urine Negative ng/ml (<200)
[2019-07-31 13:30] LABS: Cannabinoid Screen,Urine Negative ng/ml (<50)
[2019-07-31 13:31] LABS: Cocaine Screen,Urine Negative ng/ml (<300); Methadone Screen,Urine Negative ng/ml (<300)
[2019-07-31 13:32] LABS: Opiate Screen,Urine Positive ng/ml (<300); Phencyclidine Screen,Urine Negative ng/ml (<25)
[2019-08-04 13:06] LABS: Oxycodone (GC/MS) >3000 ng/mL (Cutoff=100)
[2019-08-04 14:07] LABS: Opiates Negative (Cutoff=100); Oxymorphone (GC/MS) >3000 ng/mL (Cutoff=100)
== END ==
PROVIDERS: Visit Provider Clinical Nurse Specialist Family Health
DX: Z79.899 Other long term (current) drug therapy (principal)
CPT/HCPCS: 80305; 80361; 80365; G0480

== ENCOUNTER → 2019-10-23 10:03 | Outpatient (POV) | payer BC, SELFPAY ==
[2019-10-23 10:14] VITALS: BP 158/82; PULSE 85; RESP 18; TEMP 36.4; O2SAT 98; BMI 28.5
--- NOTE | 2019-10-23 10:43 | P.CONS_ITS ---
[facility] Pain Management SOAP Note Subjective:: Patient is a pleasant 64-year-old white male who presents today for medication refills. Patient rates his pain today a 4 out of 10 and overall doing well he is being treated for pain secondary to degenerative disc disease cervical spine with cervical radiculopathy along with degenerative disc disease lumbar spine with lumbar radiculopathy. He is currently on Percocet 10 mg 1 p.o. 5 times a day and gabapentin 300 mg 1 p.o. 3 times daily. He is also on a compounding cream which helps him up to 80%. [facility] #[id number] reviewed and appropriate. Urine drug screens have been appropriate. Patient denies side effects to his medication. ROS General: no recent weight change, no fever, no sleep disturbances Respiratory: no cough, no shortness of air, no recurring pulmonary infections Cardiovascular/Peripheral Vascular: No chest pain, No palpitations, no edema, no shortness of breath. Gastrointestinal: no new onset incontinence, normal bowel movements reported Genitourinary: no new onset incontinence Musculoskeletal: Back pain, neck pain Psychiatric: normal mood/ affect Neurological: [denies new onset weakness in extremities], [denies new onset balance issues] Objective:: Physical Exam General: Alert and oriented x3, no acute distress, pleasant and cooperative, [on room air] Lungs: Resps E/U, Symmetrical chest expansion, Eyes: PERRL Musculoskeletal: Flexion and extension of cervical and lumbar spine somewhat guarded secondary to pain, deep tendon reflexes normal, strength in upper and lower extremities [5/5], slightly antalgic gait noted Neurological: speech clear, radioisotope technologist equal, no gross sensory deficits Assessment:: Degenerative disc disease lumbar spine with lumbar radiculopathy, degenerative disc disease cervical spine with cervical radiculopathy Plan:: We will refill the patient when he is due for his Percocet 10 mg 1 p.o. 5 times a day and gabapentin 300 mg 1 p.o. 3 times daily. We will also continue his gout compounding cream. He will be given 2 months worth of medication to be able to spanish moss picker 1 in the third month. He will see him back in 3 months reassess his symptoms at that time he has been instructed to call the office if he has any issues prior to his next appointment. Dr. Rubio has reviewed this note and agrees with this plan of care. This note was dictated using voice recognition software and may contain errors or omissions [facility] History I have reviewed the patient's past medical history: Yes *Have you ever received a pneumonia vaccine?: Yes *Have you received a flu vaccine this season?: Yes - *Social History *Occupational Status:: other *Travel in the last 8 weeks: None Family Hx:: Non-contributory
== END ==
PROVIDERS: PCP Family Medicine; Visit Provider Clinical Nurse Specialist Family Health
DX: M51.16 Intervertebral disc disorders with radiculopathy, lumbar region (principal); M50.10 Cervical disc disorder with radiculopathy, unspecified cervical region; Z76.0 Encounter for issue of repeat prescription
CPT/HCPCS: 99212

== ENCOUNTER → 2020-01-22 11:35 | Outpatient (POV) | payer BC, SELFPAY ==
[2020-01-22 11:43] VITALS: BP 125/78; PULSE 71; RESP 18; O2SAT 99; BMI 29.2
--- NOTE | 2020-01-22 13:18 | P.CONS_ITS ---
[facility] Pain Management SOAP Note Subjective:: Is a pleasant 65-year-old white male who presents today for medication refills. Patient rates his pain today a 3 out of 10. Overall doing well. He is currently on Percocet 10 mg 1 p.o. 5 times a day. Is also on gabapentin 300 mg 1 p.o. 3 times daily. He is also on compounding cream. Patient's [facility] #[id number] reviewed and appropriate. His current morphine equivalent is 75. He denies side effects to his medication. ROS General: no recent weight change, no fever, no sleep disturbances Respiratory: no cough, no shortness of air, no recurring pulmonary infections Cardiovascular/Peripheral Vascular: No chest pain, No palpitations, no edema, no shortness of breath. Gastrointestinal: no new onset incontinence, normal bowel movements reported Genitourinary: no new onset incontinence Musculoskeletal: Back pain, neck pain Psychiatric: normal mood/ affect Neurological: [denies new onset weakness in extremities], [denies new onset balance issues] Objective:: Physical Exam General: Alert and oriented x3, no acute distress, pleasant and cooperative, [on room air] Lungs: Resps E/U, Symmetrical chest expansion, Eyes: PERRL Musculoskeletal: Flexion and extension of cervical and lumbar spine somewhat guarded secondary to pain, deep tendon reflexes normal, strength in upper and lower extremities [5/5], antalgic gait noted Neurological: speech clear, clip riveter equal, no gross sensory deficits Assessment:: Degenerative disc disease lumbar spine with lumbar radiculopathy, degenerative disc disease cervical spine with cervical radiculopathy Plan:: We will continue his Percocet 10 mg 1 p.o. 5 times a day and gabapentin 3 mg 1 p.o. 3 times daily. We will continue his compounding cream. 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 He has been instructed to call the office if he has any issues prior to his next appointment. Patient has been prescribed a controlled substance after being counseled on the medication, medication safety, and possible side effects. [facility] report has been obtained and reviewed prior to prescription and found to be appropriate. Opioid contract was reviewed and signed by the patient, and that they have agreed to all of the terms set forth by our compliance program. Dr. Rubio has reviewed this note and agrees with this plan of care. This note was dictated using voice recognition software and may contain errors or omissions [facility] History I have reviewed the patient's past medical history: Yes *Have you ever received a pneumonia vaccine?: Yes *Have you received a flu vaccine this season?: Yes - *Social History *Occupational Status:: other *Travel in the last 8 weeks: None Family Hx:: Non-contributory
== END ==
PROVIDERS: PCP Family Medicine; Visit Provider Clinical Nurse Specialist Family Health
DX: M51.16 Intervertebral disc disorders with radiculopathy, lumbar region (principal); M50.10 Cervical disc disorder with radiculopathy, unspecified cervical region
CPT/HCPCS: 99212

== ENCOUNTER → 2020-04-15 11:33 | Outpatient (POV) | payer BC, SELFPAY ==
[2020-04-15 12:05] VITALS: BP 154/105; PULSE 79; RESP 19; TEMP 37.1; O2SAT 97; BMI 29.9
--- NOTE | 2020-04-15 12:22 | P.CONS_ITS ---
[facility] Pain Management SOAP Note Subjective:: Is a pleasant 65-year-old white male who presents today for medication refills. He rates his pain today 3 out of 10. He is overall doing well he currently is on Percocet 10 mg 1 p.o. 5 times a day. [facility] #[id number] reviewed and appropriate urine drug screens have been appropriate. His current morphine equivalent is 75. He denies side effects to his medication states it helps up to 80%. ROS General: no recent weight change, no fever, no sleep disturbances Respiratory: no cough, no shortness of air, no recurring pulmonary infections Cardiovascular/Peripheral Vascular: No chest pain, No palpitations, no edema, no shortness of breath. Gastrointestinal: no new onset incontinence, normal bowel movements reported Genitourinary: no new onset incontinence Musculoskeletal: Back pain, leg pain, neck pain Psychiatric: normal mood/ affect Neurological: [denies new onset weakness in extremities], [denies new onset balance issues] Objective:: Physical Exam General: Alert and oriented x3, no acute distress, pleasant and cooperative, [on room air] Lungs: Resps E/U, Symmetrical chest expansion, Eyes: PERRL Musculoskeletal: Flexion and extension of lumbar spine somewhat guarded secondary to pain, deep tendon reflexes normal, strength in upper and lower extremities [5/5], [abnormal gait noted] Neurological: speech clear, speeder tender equal, no gross sensory deficits Assessment:: Degenerative disc disease lumbar spine lumbar radiculopathy, degenerative disc disease cervical spine cervical radiculopathy Plan:: We will continue his Percocet 10 mg 1 p.o. 5 times a day and gabapentin 300 mg 1 p.o. 3 times daily. We will continue his compounding cream. We will see him back in 3 months reassess his symptoms at that time he has been instructed to call the office if he has any issues prior to his next appointment. Dr. Rubio has reviewed this note and agrees with this plan of care. This note was dictated using voice recognition software and may contain errors or omissions [facility] History I have reviewed the patient's past medical history: Yes *Have you ever received a pneumonia vaccine?: No *Have you received a flu vaccine this season?: No - *Social History *Occupational Status:: retired *Travel in the last 8 weeks: None Family Hx:: Non-contributory
== END ==
PROVIDERS: PCP Family Medicine; Visit Provider Clinical Nurse Specialist Family Health
DX: M51.16 Intervertebral disc disorders with radiculopathy, lumbar region (principal); M50.10 Cervical disc disorder with radiculopathy, unspecified cervical region
CPT/HCPCS: 99212

== ENCOUNTER → 2020-07-15 11:47 | Outpatient (POV) | payer BC, SELFPAY ==
[2020-07-15 12:00] VITALS: BP 144/95; PULSE 74; RESP 18; TEMP 36.6; O2SAT 97; BMI 30.1
--- NOTE | 2020-07-15 12:34 | P.CONS_ITS ---
[facility] Pain Management SOAP Note Subjective:: Patient is a pleasant 65-year-old white male who presents today for follow-up. Patient medically managed with Percocet 10 mg 1 p.o. 5 times a day. He rates his pain today 4 out of 10. Patient's [facility] #[id number] reviewed and appropriate. Drug screens have been appropriate. His current morphine eq uivalent is 75. He states his medications help up to 80% he denies any side effects. ROS General: no recent weight change, no fever, no sleep disturbances Respiratory: no cough, no shortness of air, no recurring pulmonary infections Cardiovascular/Peripheral Vascular: No chest pain, No palpitations, no edema, no shortness of breath. Gastrointestinal: no new onset incontinence, normal bowel movements reported Genitourinary: no new onset incontinence Musculoskeletal: Back pain, leg pain Psychiatric: normal mood/ affect Neurological: [denies new onset weakness in extremities], [denies new onset balance issues] Objective:: Physical Exam General: Alert and oriented x3, no acute distress, pleasant and cooperative, [on room air] Lungs: Resps E/U, Symmetrical chest expansion, Eyes: PERRL Musculoskeletal: Flexion and extension of lumbar spine somewhat guarded secondary to pain, deep tendon reflexes normal, strength in upper and lower extremities [5/5], [abnormal gait noted] Neurological: speech clear, recreation counselor equal, no gross sensory deficits Assessment:: Degenerative disc disease lumbar spine lumbar radiculopathy generative disc disease cervical spine cervical radiculopathy Plan:: We will continue the patient's Percocet 10 mg 1 p.o. 5 times a day and gabapentin 300 mg 1 p.o. 3 times daily. We will continue his compounding cream. We will see him back in 3 months reassess his symptoms at that time he has been instructed to call the office if he has any issues prior to his next appoint ment. Dr. Rubio has reviewed this note and agrees with this plan of care. This note was dictated using voice recognition software and may contain errors or omissions Patient has been prescribed a controlled substance after being counseled on the medication, medication safety, and possible side effects. [facility] report has been obtained and reviewed prior to prescription and found to be appropriate. Opioid contract was reviewed and signed by the patient, and that they have agreed to all of the terms set forth by our compliance program. [facility] History I have reviewed the patient's past medical history: Yes *Have you ever received a pneumonia vaccine?: No *Have you received a flu vaccine this season?: No - *Social History *Occupational Status:: retired *Travel in the last 8 weeks: None Family Hx:: Non-contributory
== END ==
PROVIDERS: PCP Family Medicine; Visit Provider Clinical Nurse Specialist Family Health
DX: M51.16 Intervertebral disc disorders with radiculopathy, lumbar region (principal); M50.10 Cervical disc disorder with radiculopathy, unspecified cervical region
CPT/HCPCS: 99212; G0463

== ENCOUNTER → 2020-10-10 11:06 | Outpatient (POV) | payer BC, SELFPAY ==
[2020-10-10 11:50] VITALS: BP 141/61; PULSE 69; RESP 18; O2SAT 98; BMI 29.9
--- NOTE | 2020-10-10 12:32 | P.CONS_ITS ---
[facility] Pain Management SOAP Note Subjective:: Patient is a pleasant 65-year-old white male who presents today for follow-up. Patient is being medically managed with Percocet 10 mg 1 p.o. 5 times a day he rates his pain a 4 out of 10. He is also on gabapentin 300 mg 1 p.o. 3 times daily. Patient's [facility] #[id number] reviewed and appropriate. Drug screens have been appropriate. He denies any side effects. His current morphine equivalent is 75. He states that it helps up to 80% with his pain symptomology ROS General: no recent weight change, no fever, no sleep disturbances Respiratory: no cough, no shortness of air, no recurring pulmonary infections Cardiovascular/Peripheral Vascular: No chest pain, No palpitations, no edema, no shortness of breath. Gastrointestinal: no new onset incontinence, normal bowel movements reported Genitourinary: no new onset incontinence Musculoskeletal: Back pain, leg pain Psychiatric: normal mood/ affect Neurological: [denies new onset weakness in extremities], [denies new onset balance issues] Objective:: Physical Exam General: Alert and oriented x3, no acute distress, pleasant and cooperative, [on room air] Lungs: Resps E/U, Symmetrical chest expansion, Eyes: PERRL Musculoskeletal: Flexion and extension of lumbar spine somewhat guarded secondary to pain, deep tendon reflexes normal, strength in upper and lower extremities [5/5], antalgic gait noted Neurological: speech clear, credit risk review officer equal, no gross sensory deficits Assessment:: Degenerative disc disease lumbar spine lumbar radiculopathy degenerative disc disease cervical spine cervical radiculopathy Plan:: We will continue his Percocet 10 mg 1 p.o. 5 times a day and gabapentin 300 mg 1 p.o. 3 times daily. Patient will be seen back in 3 months be reassessed at that time he has been instructed to call the office if he has any issues prior to his next appointment. Dr. Rubio has reviewed this note and agrees with this plan of care. This note was dictated using voice recognition software and may contain errors or omissions Patient has been prescribed a controlled substance after being counseled on the medication, medication safety, and possible side effects. [facility] report has been obtained and reviewed prior to prescription and found to be appropriate. Opioid contract was reviewed and signed by the patient, and that they have agreed to all of the terms set forth by our compliance program. [facility] History I have reviewed the patient's past medical history: Yes *Have you ever received a pneumonia vaccine?: Yes *Have you received a flu vaccine this season?: Yes - *Social History Smoking Status: Current every day smoker Alcohol Intake: never *Occupational Status:: other *Travel in the last 8 weeks: None Family Hx:: Non-contributory
== END ==
PROVIDERS: Visit Provider Clinical Nurse Specialist Family Health
DX: M51.16 Intervertebral disc disorders with radiculopathy, lumbar region (principal); M50.10 Cervical disc disorder with radiculopathy, unspecified cervical region
CPT/HCPCS: 99212; G0463

== ENCOUNTER → 2020-12-12 10:34 | Outpatient (POV) | payer BC, SELFPAY ==
[2020-12-12 10:53] VITALS: BP 153/100; PULSE 77; RESP 18; O2SAT 94; BMI 30.4
--- NOTE | 2020-12-12 12:47 | HMH.PAINSOAP ---
[facility] Pain Management SOAP Note Subjective:: Patient is a 65-year-old white male who presents today for medication refill and follow-up. He has been treated for degenerative disc disease cervical and lumbar spine with cervical and lumbar radiculopathy symptoms. He is managed with Percocet 10 mg 1 tablet p.o. 5 times a day and gabapentin 300 mg 1 tablet p.o. 3 times a day. He denies any side effects to the medication is doing well with his medicines at this time. His pain is a 3 out of 10. He gets up to 80% relief with his medication regimen. [facility] #[id number] has been reviewed and is appropriate. Drug screen is appropriate. He denies any side effects to the medication. Review of Systems General: No recent weight changes, no fever, no sleep disturbances Respiratory: No cough, no shortness of air, no recurring pulmonary infections Cardiovascular/peripheral vascular: No chest pain, no palpitations, no edema, no shortness of breath Gastrointestinal: No new onset incontinence, normal bowel movements reported Genitourinary: No new onset incontinence Musculoskeletal: Low back pain, neck pain Psychiatric: Normal mood/affect Neurological: [Denies weakness in extremities], [denies balance issues] Objective:: Physical exam General: Alert and oriented x3, no acute distress, pleasant and cooperative, [on room air] Lungs: Respirations even and unlabored, symmetrical chest expansion Eyes: PERRL Musculoskeletal: Flexion and extension of [] cervical and lumbar spine somewhat guarded secondary to pain, deep tendon reflexes normal, strength in upper and lower extremities [5/5], [abnormal gait noted] Neurological: Speech clear, pulverizer operator equal, no gross sensory deficit Assessment:: Degenerative disc disease cervical and lumbar spine with cervical and lumbar radiculopathy symptoms Plan:: We will refill the patient's Percocet 10 mg 1 tablet p.o. 5 times daily and gabapentin 300 mg 1 tablet p.o. 3 times daily. We will give the patient a month medication see him back in clinic in 1 month for reevaluation of symptoms. Patient has been instructed to contact the clinic with any concerns before the next appointment. Dr. Rubio has reviewed this note and agrees with this plan of care. This note was dictated using voice recognition software and make contain errors or omissions. Patient has been prescribed a controlled substance after being counseled on the medication, medication safety, and possible side effects. [facility] report has been obtained and reviewed prior to prescription and found to be appropriate. Opioid contract was reviewed and signed by the patient, and that they have agreed to all of the terms set forth by our compliance program. Risks and benefits of the medication have been explained in detail to the patient. The patient has been advised to consult with his/her primary care provider and pharmacist regarding drug-drug interaction of medications currently prescribed. [facility] History I have reviewed the patient's past medical history: Yes *Have you ever received a pneumonia vaccine?: No *Have you received a flu vaccine this season?: No - *Social History Smoking Status: Current every day smoker Alcohol Intake: never *Occupational Status:: unemployed *Travel in the last 8 weeks: None Family Hx:: Non-contributory
== END ==
PROVIDERS: Visit Provider Clinical Nurse Specialist Family Health
DX: M50.10 Cervical disc disorder with radiculopathy, unspecified cervical region (principal); M51.16 Intervertebral disc disorders with radiculopathy, lumbar region
CPT/HCPCS: 99212; G0463

== ENCOUNTER → 2021-01-02 11:44 | Outpatient (POV) | payer BC, MEDICARE, SELFPAY ==
[2021-01-02 11:49] VITALS: BP 136/89; PULSE 76; RESP 20; O2SAT 97; BMI 29.9
--- NOTE | 2021-01-02 11:53 | HMH.PAINSOAP ---
[facility] Pain Management SOAP Note Subjective:: Patient is a 65-year-old white male who presents today for follow-up. he is being treated for degenerative disc disease cervical and lumbar spine. Patient does have cervical and lumbar radicular symptoms as well. His pain is a 4.5 out of 10 today. He is managed with Percocet 10 mg 1 tablet p.o. 5 times daily, gabapentin 300 mg 1 tablet p.o. 3 times daily. Patient says that the medications are working well for him at this time. He is more functional and able to do more activity. He denies any side effects to the medication. [facility] #[id number] has been reviewed and is appropriate. Morphine equivalent is 75. Review of Systems General: No recent weight changes, no fever, no sleep disturbances Respiratory: No cough, [no shortness of air], no recurring pulmonary infections Cardiovascular/peripheral vascular: No chest pain, no palpitations, [no edema], no shortness of breath Gastrointestinal: No new onset incontinence, normal bowel movements reported Genitourinary: No new onset incontinence Musculoskeletal: [] Chronic neck and low back pain Psychiatric: [Normal mood/affect] Neurological: [Denies weakness in extremities], [denies balance issues] Objective:: Physical exam General: Alert and oriented x3, no acute distress, pleasant and cooperative, [on room air] Lungs: Respirations even and unlabored, symmetrical chest expansion Eyes: PERRL Musculoskeletal: Flexion and extension of [] lumbar and cervical [spine] somewhat guarded secondary to pain, strength in upper and lower extremities [5/5], [antalgic gait noted] Neurological: Speech clear, [regional recruiter equal], no gross sensory deficit Assessment:: Degenerative disc disease cervical spine and lumbar spine with cervical and lumbar radicular symptoms Plan:: We will refill the patient's Percocet 10 mg 1 tablet p.o. 5 times daily and gabapentin 3 mg 1 tablet p.o. 3 times daily. Patient was sent this week for a pill count which was appropriate. We will follow-up with him in 1 month for medication refill. Risks and benefits of the medication have been explained in detail to the patient. The patient has been advised to consult with his/her primary care provider and pharmacist regarding drug-drug interaction of medications currently prescribed. Patient has been prescribed a controlled substance after being counseled on the medication, medication safety, and possible side effects. [facility] report has been obtained and reviewed prior to prescription and found to be appropriate. Opioid contract was reviewed and signed by the patient, and that they have agreed to all of the terms set forth by our compliance program. Patient has been instructed to contact the clinic with any concerns before the next appointment. Dr. Rubio has reviewed this note and agrees with this plan of care. This note was dictated using voice recognition software and make contain errors or omissions. [facility] History I have reviewed the patient's past medical history: Yes *Have you ever received a pneumonia vaccine?: No *Have you received a flu vaccine this season?: No - *Social History Smoking Status: Current every day smoker Alcohol Intake: never *Occupational Status:: retired *Travel in the last 8 weeks: None Family Hx:: Non-contributory
== END ==
PROVIDERS: Visit Provider Clinical Nurse Specialist Family Health
DX: M50.10 Cervical disc disorder with radiculopathy, unspecified cervical region (principal); M51.16 Intervertebral disc disorders with radiculopathy, lumbar region
CPT/HCPCS: 99212; G0463

== ENCOUNTER → 2021-01-30 11:54 | Outpatient (POV) | payer BC, MEDICARE, SELFPAY ==
[2021-01-30 11:59] VITALS: BP 162/80; PULSE 71; RESP 18; O2SAT 96; BMI 29.9
--- NOTE | 2021-01-30 12:00 | P.CONS_ITS ---
[facility] Pain Management SOAP Note Subjective:: Patient is a 66-year-old white male who presents today for medication refills and follow-up. The patient is being treated for degenerative disc disease cervical and lumbar spine. Patient says that his medicines seem to be working very well for him at this time. His pain is 3 out of 10. The patient's baseline is a 4 to a 5 out of 10. He takes Percocet 10 mg 1 tablet p.o. 5 times daily and gabapentin 300 mg p.o. 3 times daily. He denies any side effects to the medication. Patient's [facility] #[id number] has been reviewed and is appropriate. Morphine equivalent is 75. Review of Systems General: No recent weight changes, no fever, no sleep disturbances Respiratory: No cough, no shortness of air, no recurring pulmonary infections Cardiovascular/peripheral vascular: No chest pain, no palpitations, no edema, no shortness of breath Gastrointestinal: No new onset incontinence, normal bowel movements reported Genitourinary: No new onset incontinence Musculoskeletal: Chronic neck and low back pain Psychiatric: [Normal mood/affect] Neurological: [Denies weakness in extremities], [denies balance issues] Objective:: Physical exam General: Alert and oriented x3, no acute distress, pleasant and cooperative, [on room air] Lungs: Respirations even and unlabored, symmetrical chest expansion Eyes: PERRL Musculoskeletal: Flexion and extension of cervical and lumbar [spine] somewhat guarded secondary to pain, strength in upper and lower extremities [5/5], [antalgic gait noted] Neurological: Speech clear, [medicaid biller equal], no gross sensory deficit Assessment:: Degenerative disc disease cervical lumbar spine with cervical and lumbar radicular symptoms Plan:: We will refill the patient's Percocet 10 mg 1 tablet p.o. 5 times daily and gabapentin 3 mg 1 tablet p.o. 3 times daily. We will give the patient a month medication see him back in the clinic in 1 month for reevaluation of symptoms. Patient has been instructed to contact clinic if he has any concerns before his next appointment. Risks and benefits of the medication have been explained in detail to the patient. The patient has been advised to consult with his/her primary care provider and pharmacist regarding drug-drug interaction of medications currently prescribed. Patient has been prescribed a controlled substance after being counseled on the medication, medication safety, and possible side effects. [facility] report has been obtained and reviewed prior to prescription and found to be appropriate. Opioid contract was reviewed and signed by the patient, and that they have agreed to all of the terms set forth by our compliance program. Patient has been instructed to contact the clinic with any concerns before the next appointment. Dr. Rubio has reviewed this note and agrees with this plan of care. This note was dictated using voice recognition software and make contain errors or omissions. [facility] History I have reviewed the patient's past medical history: Yes *Have you ever received a pneumonia vaccine?: No *Have you received a flu vaccine this season?: No - *Social History Smoking Status: Current every day smoker Alcohol Intake: never *Occupational Status:: retired *Travel in the last 8 weeks: None Family Hx:: Non-contributory
== END ==
PROVIDERS: Visit Provider Clinical Nurse Specialist Family Health
DX: M50.10 Cervical disc disorder with radiculopathy, unspecified cervical region (principal); M54.16 Radiculopathy, lumbar region
CPT/HCPCS: 99212; G0463

== ENCOUNTER → 2021-02-27 11:45 | Outpatient (POV) | payer BC, MEDICARE, SELFPAY ==
--- NOTE | 2021-02-27 11:55 | P.CONS_ITS ---
[facility] Pain Management SOAP Note Subjective:: Patient is a 66-year-old white male who presents today for medication refills. He has been treated for degenerative disc disease cervical spine with cervical radicular symptoms. Is also treated for degenerative disc disease lumbar spine with lumbar radicular symptoms. He rates his pain a 4 out of 10. Patient says his pain is worse in the mornings and when the weather is bad?raining or snow. He has managed with Percocet 10 mg 1 tablet p.o. 5 times daily and gabapentin 3 mg 1 tablet p.o. 3 times daily. He denies any side effects to medication. [facility] #[id number] has been reviewed and is appropriate. Drug screen is appropriate. Morphine equivalent is 75. Patient does continue with home s tretching and ice and heat therapies as well. Review of Systems General: No recent weight changes, no fever, no sleep disturbances Respiratory: No cough, no shortness of air, no recurring pulmonary infections Cardiovascular/peripheral vascular: No chest pain, no palpitations, no edema, no shortness of breath Gastrointestinal: No new onset incontinence, normal bowel movements reported Genitourinary: No new onset incontinence Musculoskeletal: Chronic neck and low back pain Psychiatric: [Normal mood/affect] Neurological: [Denies weakness in extremities], [denies balance issues] Objective:: Physical exam General: Alert and oriented x3, no acute distress, pleasant and cooperative, [on room air] Lungs: Respirations even and unlabored, symmetrical chest expansion Eyes: PERRL Musculoskeletal: Flexion and extension of [] cervical and lumbar [spine] somewhat guarded secondary to pain, strength in upper and lower extremities [5/5], [antalgic gait noted] Neurological: 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 3 times daily and Percocet 10 mg 1 tablet p.o. 5 times daily. The patient will get a month medication will be seen back in the clinic in 1 month for reevaluation of symptoms. He is doing well with his medication regimen. He does continue with home stretching and ice and heat therapies. Patient has been instructed to contact clinic if he has any concerns before his next appointment. Risks and benefits of the medication have been explained in detail to the patient. The patient has been advised to consult with his/her primary care provider and pharmacist regarding drug-drug interaction of medications currently prescribed. Patient has been prescribed a controlled substance after being counseled on the medication, medication safety, and possible side effects. [facility] report has been obtained and reviewed prior to prescription and found to be appropriate. Opioid contract was reviewed and signed by the patient, and that they have agreed to all of the terms set forth by our compliance program. Patient has been instructed to contact the clinic with any concerns before the next appointment. Dr. Rubio has reviewed this note and agrees with this plan of care. This note was dictated using voice recognition software and make contain errors or omissions. [facility] History I have reviewed the patient's past medical history: Yes *Have you ever received a pneumonia vaccine?: No *Have you received a flu vaccine this season?: No - *Social History Smoking Status: Current every day smoker Alcohol Intake: never *Occupational Status:: retired *Travel in the last 8 weeks: None Family Hx:: Non-contributory
[2021-02-27 12:59] VITALS: BP 148/90; PULSE 75; RESP 18; O2SAT 96; BMI 29.9
[2021-02-27 13:47] LABS: Amphetamine/Metha Screen,Urine Negative ng/ml (<1000); Benzodiazepines Screen,Urine Negative ng/ml (<200)
[2021-02-27 13:48] LABS: Barbiturates Screen,Urine Negative ng/ml (<200); Cannabinoid Screen,Urine Negative ng/ml (<50)
[2021-02-27 13:49] LABS: Cocaine Screen,Urine Negative ng/ml (<300)
[2021-02-27 13:50] LABS: Methadone Screen,Urine Negative ng/ml (<300); Opiate Screen,Urine Positive ng/ml (<300)
[2021-02-27 13:51] LABS: Phencyclidine Screen,Urine Negative ng/ml (<25)
== END ==
PROVIDERS: PCP Family Medicine; Visit Provider Clinical Nurse Specialist Family Health
DX: M50.10 Cervical disc disorder with radiculopathy, unspecified cervical region (principal); M54.16 Radiculopathy, lumbar region
CPT/HCPCS: 80305; 99212; G0463

== ENCOUNTER → 2021-03-27 12:48 | Outpatient (POV) | payer BC, MEDICARE, SELFPAY ==
[2021-03-27 13:01] VITALS: BP 152/85; PULSE 75; RESP 18; O2SAT 98; BMI 29.9
--- NOTE | 2021-03-27 13:09 | HMH.PAINSOAP ---
[facility] Pain Management SOAP Note Subjective:: Patient is a 66-year-old white male who presents today for medication refills. The patient says that he is doing well with his medication regimen overall. He has managed for chronic neck and low back pain. He does say that he has worsening pain with weather. He says when the weather turns to rain his pain does seem to worsen. We discussed anti-inflammatories. He is unable to take anti-inflammatories due to history of GI bleeding. We also discussed Tylenol. He has not tried Tylenol this may be an option for him in the future for breakthrough pain. He has managed in the clinic with Percocet 10 mg 1 tablet p.o. 5 times daily and gabapentin 300 mg 1 tablet p.o. 3 times daily. Medications are working well for him. [facility] #[id number] has been reviewed and is appropriate. Morphine equivalent is 75. Drug screens have been appropriate. Review of Systems General: No recent weight changes, no fever, no sleep disturbances Respiratory: No cough, no shortness of air, no recurring pulmonary infections Cardiovascular/peripheral vascular: No chest pain, no palpitations, no edema, no shortness of breath Gastrointestinal: No new onset incontinence, normal bowel movements reported Genitourinary: No new onset incontinence Musculoskeletal: Chronic neck and low back pain Psychiatric: [Normal mood/affect] Neurological: [Denies weakness in extremities], [denies balance issues] Objective:: Physical exam General: Alert and oriented x3, no acute distress, pleasant and cooperative Lungs: Respirations even and unlabored, symmetrical chest expansion Eyes: PERRL Musculoskeletal: Flexion and extension of cervical and lumbar [spine] somewhat guarded secondary to pain, [antalgic gait noted] Neurological: Speech clear, no gross sensory deficit Assessment:: Degenerative disc disease cervical lumbar spine with cervical and lumbar radiculopathy symptoms Plan:: We will refill the patient's Percocet 10 mg 1 tablet p.o. 5 times daily and the patient's gabapentin 300 mg 1 tablet p.o. 3 times daily. We will give the patient a month medication and see him back in the clinic in 1 month for reevaluation of symptoms. Risks and benefits of the medication have been explained in detail to the patient. The patient does understand the risk of dependence on the medication when given over a prolonged period. Patient has been advised of risks of oversedation with the prescribed medication. Narcan has been offered to the paitent in the event of oversedation. Patient has been advised that a family member should also be educated regarding administration of Narcan. The patient has been advised to consult with his/her primary care provider and pharmacist regarding drug-drug interaction of medications currently prescribed. Patient has been prescribed a controlled substance after being counseled on the medication, medication safety, and possible side effects. [facility] report has been obtained and reviewed prior to prescription and found to be appropriate. Opioid contract was reviewed and signed by the patient, and that they have agreed to all of the terms set forth by our compliance program. Patient has been instructed to contact the clinic with any concerns before the next appointment. Dr. Rubio has reviewed this note and agrees with this plan of care. This note was dictated using voice recognition software and make contain errors or omissions. [facility] History I have reviewed the patient's past medical history: Yes *Have you ever received a pneumonia vaccine?: No *Have you received a flu vaccine this season?: No - *Social History Smoking Status: Current every day smoker Alcohol Intake: never *Occupational Status:: unemployed *Travel in the last 8 weeks: None Family Hx:: Non-contributory
== END ==
PROVIDERS: Visit Provider Clinical Nurse Specialist Family Health
DX: M50.10 Cervical disc disorder with radiculopathy, unspecified cervical region (principal); M54.12 Radiculopathy, cervical region
CPT/HCPCS: 99212; G0463

== ENCOUNTER → 2021-04-24 11:43 | Outpatient (POV) | payer BC, MEDICARE, SELFPAY ==
[2021-04-24 11:49] VITALS: BP 175/80; PULSE 76; RESP 18; O2SAT 97; BMI 29.9
--- NOTE | 2021-04-24 11:55 | HMH.PAINSOAP ---
[facility] Pain Management SOAP Note Subjective:: Patient is a 66-year-old white male who presents today for medication refills. Patient does get Percocet 10 mg 1 tablet p.o. 5 times daily and gabapentin 3 mg 1 tablet p.o. 3 times daily. He is doing well with his medication regimen at this time and rates his pain a 4 out of 10 which is baseline. He denies any side effects. The cj that he has is in his low back area and neck. He is unable to take anti-inflammatories due to history of GI bleeding. He does take Tylenol as needed. He denies any side effects to the medicine. [facility] #[id number] has been reviewed and is appropriate. Drug screen is appropriate. Morphine equivalent is 75. Review of Systems General: No recent weight changes, no fever, no sleep disturbances Respiratory: No cough, no shortness of air, no recurring pulmonary infections Cardiovascular/peripheral vascular: No chest pain, no palpitations, no edema, no shortness of breath Gastrointestinal: No new onset incontinence, normal bowel movements reported Genitourinary: No new onset incontinence Musculoskeletal: Low back pain, neck pain Psychiatric: [Normal mood/affect] Neurological: [Denies weakness in extremities], [denies balance issues] Objective:: Physical exam General: Alert and oriented x3, no acute distress, pleasant and cooperative Lungs: Respirations even and unlabored, symmetrical chest expansion Eyes: PERRL Musculoskeletal: Flexion and extension of cervical and lumbar [spine] somewhat guarded secondary to pain, [antalgic gait noted] Neurological: Speech clear, no gross sensory deficit Assessment:: Degenerative disc disease lumbar spine and cervical spine with cervical lumbar radiculopathy symptoms Plan:: We will refill the patient's Percocet 10 mg 1 tablet p.o. 5 times daily and gabapentin 3 her milligrams 1 tablet p.o. 3 times daily. Patient will get a month medication will be seen back in clinic in 1 month. Risks and benefits of the medication have been explained in detail to the patient. The patient does understand the risk of dependence on the medication when given over a prolonged period. Patient has been advised of risks of oversedation with the prescribed medication. Narcan has been offered to the paitent in the event of oversedation. Patient has been advised that a family member should also be educated regarding administration of Narcan. The patient has been advised to consult with his/her primary care provider and pharmacist regarding drug-drug interaction of medications currently prescribed. Patient has been prescribed a controlled substance after being counseled on the medication, medication safety, and possible side effects. [facility] report has been obtained and reviewed prior to prescription and found to be appropriate. Opioid contract was reviewed and signed by the patient, and that they have agreed to all of the terms set forth by our compliance program. Patient has been instructed to contact the clinic with any concerns before the next appointment. Dr. Rubio has reviewed this note and agrees with this plan of care. This note was dictated using voice recognition software and make contain errors or omissions. [facility] History I have reviewed the patient's past medical history: Yes *Have you ever received a pneumonia vaccine?: No *Have you received a flu vaccine this season?: No - *Social History Smoking Status: Current every day smoker Alcohol Intake: never *Occupational Status:: unemployed *Travel in the last 8 weeks: None Family Hx:: Non-contributory
== END ==
PROVIDERS: Visit Provider Clinical Nurse Specialist Family Health
DX: M50.10 Cervical disc disorder with radiculopathy, unspecified cervical region (principal)
CPT/HCPCS: 99212; G0463

== ENCOUNTER → 2021-05-22 10:53 | Outpatient (POV) | payer BC, MEDICARE, SELFPAY ==
[2021-05-22 11:01] VITALS: PULSE 73; RESP 18; O2SAT 97; BMI 29.9
--- NOTE | 2021-05-22 11:36 | HMH.PAINSOAP ---
[facility] Pain Management SOAP Note Subjective:: Patient is a 66-year-old white male who presents today for follow-up and medication refills. He does have chronic low back pain with radiation to the into his bilateral lower extremities as well as chronic neck pain with radiation into bilateral upper extremities. Patient does take Tylenol as well as oral medications prescribed by our clinic. He does get Percocet 10 mg 1 tablet p.o. 5 times daily and gabapentin 300 mg 1 tablet p.o. 3 times daily. He says the medications do give him significant relief. He gets up to 60 to 70% relief with the medicines. He is at baseline pain scale of 4 out of 10 today. He denies any side effects to the medication. [facility] #[id number] has been reviewed and appropriate. Drug screen is appropriate. Morphine equivalent is 75. Review of Systems General: No recent weight changes, no fever, no sleep disturbances Respiratory: No cough, no shortness of air, no recurring pulmonary infections Cardiovascular/peripheral vascular: No chest pain, no palpitations, no edema, no shortness of breath Gastrointestinal: No new onset incontinence, normal bowel movements reported Genitourinary: No new onset incontinence Musculoskeletal: Neck and low back pain with radiation into upper and lower extremities Psychiatric: [Normal mood/affect] Neurological: [Denies weakness in extremities], [denies balance issues] Objective:: Physical exam General: Alert and oriented x3, no acute distress, pleasant and cooperative Lungs: Respirations even and unlabored, symmetrical chest expansion Eyes: PERRL Musculoskeletal: Flexion and extension of cervical and lumbar [spine] somewhat guarded secondary to pain, [antalgic gait noted] Neurological: Speech clear, no gross sensory deficit Assessment:: Degenerative disc disease cervical and lumbar spine with cervical lumbar radiculopathy symptoms Plan:: We will continue the patient's Percocet 10 mg 1 tablet p.o. 5 times daily and gabapentin 300 g 1 tablet p.o. 3 times daily. Patient will get a month medication will be seen back in the clinic in 1 month for further evaluation. Risks and benefits of the medication have been explained in detail to the patient. The patient does understand the risk of dependence on the medication when given over a prolonged period. Patient has been advised of risks of oversedation with the prescribed medication. Narcan has been offered to the paitent in the event of oversedation. Patient has been advised that a family member should also be educated regarding administration of Narcan. The patient has been advised to consult with his/her primary care provider and pharmacist regarding drug-drug interaction of medications currently prescribed. Patient has been prescribed a controlled substance after being counseled on the medication, medication safety, and possible side effects. [facility] report has been obtained and reviewed prior to prescription and found to be appropriate. Opioid contract was reviewed and signed by the patient, and that they have agreed to all of the terms set forth by our compliance program. Patient has been instructed to contact the clinic with any concerns before the next appointment. Dr. Rubio has reviewed this note and agrees with this plan of care. This note was dictated using voice recognition software and make contain errors or omissions. [facility] History I have reviewed the patient's past medical history: Yes *Have you ever received a pneumonia vaccine?: No *Have you received a flu vaccine this season?: No - *Social History Smoking Status: Current every day smoker Alcohol Intake: never *Occupational Status:: unemployed *Travel in the last 8 weeks: None Family Hx:: Non-contributory
[2021-05-22 12:33] LABS: Amphetamine/Metha Screen,Urine Negative ng/ml (<1000)
[2021-05-22 12:34] LABS: Barbiturates Screen,Urine Negative ng/ml (<200); Benzodiazepines Screen,Urine Negative ng/ml (<200)
[2021-05-22 12:35] LABS: Cannabinoid Screen,Urine Negative ng/ml (<50)
[2021-05-22 12:36] LABS: Cocaine Screen,Urine Negative ng/ml (<300); Methadone Screen,Urine Negative ng/ml (<300)
[2021-05-22 12:37] LABS: Opiate Screen,Urine Positive ng/ml (<300)
[2021-05-22 12:38] LABS: Phencyclidine Screen,Urine Negative ng/ml (<25)
[2021-06-10 12:25] LABS: Opiates Negative (Cutoff=100); Oxycodone (GC/MS) >3000 ng/mL (Cutoff=100); Oxymorphone (GC/MS) >3000 ng/mL (Cutoff=100)
== END ==
PROVIDERS: Visit Provider Clinical Nurse Specialist Family Health
DX: M50.10 Cervical disc disorder with radiculopathy, unspecified cervical region (principal); M51.36 Other intervertebral disc degeneration, lumbar region; Z79.891 Long term (current) use of opiate analgesic
CPT/HCPCS: 80305; 80361; 80365; 99212; G0463; G0480

== ENCOUNTER → 2021-07-08 11:24 | Outpatient (POV) | payer BC, MEDICARE, SELFPAY ==
--- NOTE | 2021-07-19 10:54 | P.CONS_ITS ---
[facility] PM Virtual Visit SOAP Consent for virtual visit:: With the recent concerns about the COVID-19, we are trying to minimize exposure to you by shifting to telehealth appointments whenever possible. It restricts me from seeing you in person, but the trade off is protecting you during this pandemic. Can you see and hear me okay, and do you consent to this option? If not, I would be happy to see if we can reschedule your appointment in the future, when feasible. Has patient consented to this virtual visit?: Yes Subjective:: Patient is a 66-year-old white male who is following up via telehealth medicine. He is treated for chronic low back pain with lumbar radicular symptoms in the clinic. We do manage him with Percocet 10 mg 1 tablet p.o. 5 times daily and gabapentin 300 mg 1 tablet p.o. 3 times daily. Patient says that he is doing well with his medication regimen at this time and does not need any changes. [facility] #[id number] has been reviewed and is appropriate. Drug screen is appropriate. Review of Systems General: No recent weight changes, no fever, no sleep disturbances Respiratory: No cough, no shortness of air, no recurring pulmonary infections Cardiovascular/peripheral vascular: No chest pain, no palpitations, no edema, no shortness of breath Gastrointestinal: No new onset incontinence, normal bowel movements reported Genitourinary: No new onset incontinence Musculoskeletal: Chronic low back pain Psychiatric: [Normal mood/affect] Neurological: [Denies weakness in extremities], [denies balance issues] Objective:: Physical exam General: Alert and oriented x3, no acute distress, pleasant and cooperative Assessment:: Degenerative disc disease lumbar spine with lumbar radiculopathy symptoms Plan:: We will continue the patient's Percocet 10 mg 1 tablet p.o. 5 times daily and gabapentin 300 mg 1 tablet p.o. 3 times daily. He will get a month medication will be seen in the clinic in 1 month. Risks and benefits of the medication have been explained in detail to the patient. The patient does understand the risk of dependence on the medication when given over a prolonged period. Patient has been advised of risks of oversedation with the prescribed medic ation. Narcan has been offered to the paitent in the event of oversedation. Patient has been advised that a family member should also be educated regarding administration of Narcan. The patient has been advised to consult with his/her primary care provider and pharmacist regarding drug-drug interaction of medications currently prescribed. Patient has been prescribed a controlled substance after being counseled on the medication, medication safety, and possible side effects. [facility] report has been obtained and reviewed prior to prescription and found to be appropriate. Opioid contract was reviewed and signed by the patient, and that they have agreed to all of the terms set forth by our compliance program. Patient has been instructed to contact the clinic with any concerns before the next appointment. Dr. Rubio has reviewed this note and agrees with this plan of care. This note was dictated using voice recognition software and make contain errors or omissions. Time In:: 11:00 Time Out:: 11:10 [facility] History I have reviewed the patient's past medical history: Yes *Have you ever received a pneumonia vaccine?: No *Have you received a flu vaccine this season?: No - *Social History Smoking Status: Current every day smoker Alcohol Intake: never *Occupational Status:: unemployed *Travel in the last 8 weeks: None Family Hx:: Non-c
== END ==
PROVIDERS: Visit Provider Clinical Nurse Specialist Family Health
DX: M51.16 Intervertebral disc disorders with radiculopathy, lumbar region (principal)
CPT/HCPCS: 99212; G0463

== ENCOUNTER → 2021-08-11 10:43 | Outpatient (POV) | payer BC, MEDICARE, SELFPAY ==
[2021-08-11 11:30] VITALS: BP 140/88; PULSE 81; RESP 18; TEMP 37.5; O2SAT 98; BMI 29.9
[2021-08-11 12:19] LABS: Amphetamine/Metha Screen,Urine Negative ng/ml (<1000); Barbiturates Screen,Urine Negative ng/ml (<200)
[2021-08-11 12:20] LABS: Benzodiazepines Screen,Urine Negative ng/ml (<200)
[2021-08-11 12:21] LABS: Cannabinoid Screen,Urine Negative ng/ml (<50); Cocaine Screen,Urine Negative ng/ml (<300)
[2021-08-11 12:22] LABS: Methadone Screen,Urine Negative ng/ml (<300); Opiate Screen,Urine Positive ng/ml (<300)
[2021-08-11 12:23] LABS: Phencyclidine Screen,Urine Negative ng/ml (<25)
--- NOTE | 2021-08-11 12:44 | HMH.PAINSOAP ---
[facility] Pain Management SOAP Note Subjective:: Patient is a 66 year old male who is here today for a follow-up and medication refill. Patient is currently being treated for degenerative disc disease of the lumbar spine with lumbar radiculopathy symptoms. Patient is being managed with gabapentin 300 mg 3 times a day and Percocet 10 mg 5 times a day. Patient reports no change in the location and type of pain. Patient says the current regimen is working well. Patient rates his pain today as 5 out of 10. [facility] number [id number] with an active morphine equivalent of 75. Drug screen has been reviewed and [no/appropriate]. ODT score is low risk. Review of Systems General: No recent weight changes, no fever, no sleep disturbances Respiratory: No cough, no shortness of air, no recurring pulmonary infections Cardiovascular/peripheral vascular: No chest pain, no palpitations, no edema, no shortness of breath Gastrointestinal: No new onset incontinence, normal bowel movements reported Genitourinary: No new onset incontinence Musculoskeletal: Low back pain Psychiatric: [Normal mood/affect] Neurological: [Denies weakness in extremities], [denies balance issues] Objective:: Physical exam General: Alert and oriented x3, no acute distress, pleasant and cooperative Lungs: Respirations even and unlabored, symmetrical chest expansion Eyes: PERRL Musculoskeletal: Flexion and extension of lumbar [spine] somewhat guarded secondary to pain, [antalgic gait noted] Neurological: Speech clear, no gross sensory deficit Assessment:: Degenerative disc disease of the lumbar spine with lumbar radiculopathy symptoms Plan:: We will continue the patient's gabapentin 300 mg 3 times a day and Percocet 10 mg 5 times a day. We will provide the patient with 1 month worth of refill. We would like to see the patient back in 1 month for follow-up and reevaluation of chronic pain syndrome. Patient has been instructed to contact the clinic with any concerns before the next appointment. This note was dictated using voice recognition software and may contain errors or omissions. [facility] History *Have you ever received a pneumonia vaccine?: No *Have you received a flu vaccine this season?: No - *Social History Smoking Status: Current every day smoker Alcohol Intake: never *Occupational Status:: retired *Travel in the last 8 weeks: None Family Hx:: Non-contributory
[2021-08-22 09:47] LABS: Opiates Negative (Cutoff=100); Oxycodone (GC/MS) >3000 ng/mL (Cutoff=100); Oxymorphone (GC/MS) >3000 ng/mL (Cutoff=100)
== END ==
PROVIDERS: Anesthesiology Pain Medicine; Visit Provider Student in an Organized Health Care Education/Training Program
DX: M51.16 Intervertebral disc disorders with radiculopathy, lumbar region (principal)
CPT/HCPCS: 80305; 80361; 80365; 99212; G0463; G0480

== ENCOUNTER → 2021-09-11 11:33 | Outpatient (POV) | payer BC, MEDICARE, SELFPAY ==
[2021-09-11 11:37] VITALS: BP 173/101; PULSE 71; RESP 20; O2SAT 97; BMI 30.8
--- NOTE | 2021-09-11 12:08 | P.CONS_ITS ---
[facility] Pain Management SOAP Note Subjective:: Patient is a pleasant 66-year-old male who is here for medication refill and follow-up. Patient is currently being treated for degenerative disc disease of lumbar spine with lumbar radiculopathy symptoms. Patient is being managed with gabapentin 300 mg 3 times a day and Percocet 10 mg 5 times a day. Patient denies any side effects from the medications. Patient denies any changes to the location and type of pain. Patient states that this is adequately helping manage their pain. Rates pain as 4 out of 10. [facility] number [id number] with an active morphine equivalent 75. Drug screens have been reviewed and appropriate. Review of Systems: General: No recent weight changes, no fever, no sleep disturbances Respiratory: No cough, no shortness of air, no recurring pulmonary infections Cardiovascular/peripheral vascular: No chest pain, no palpitations, no edema, no shortness of breath Gastrointestinal: No new onset incontinence, normal bowel movements reported Genitourinary: No new onset incontinence Musculoskeletal: Low back pain Psychiatric: [Normal mood/affect] Neurological: [Denies weakness in extremities], [denies balance issues] Objective:: Physical Exam: General: Alert and oriented x3, no acute distress, pleasant and cooperative, [on room air] Lungs: Respirations even and unlabored, symmetrical chest expansion Eyes: PERRL Musculoskeletal: Flexion and extension of lumbar [spine] somewhat guarded secondary to pain, [antalgic gait noted] Neurological: Speech clear, no gross sensory deficit Assessment:: Degenerative disc disease of lumbar spine with lumbar radiculopathy symptoms Plan:: We will continue the patient's gabapentin 300 mg 3 times a day and Percocet 10 mg 5 times a day. We will provide the patient with 1 month of refills. We would like to see the patient back in 1 month for follow-up and reevaluation of chronic pain syndrome. Patient has been advised of risks of oversedation with the prescribed medication. Narcan has been offered to the patient in the event of oversedat ion. Patient has been advised that a family member should also be educated regarding administration of Narcan. Patient has been instructed to contact the clinic with any concerns before the next appointment. Dr. Rubio has reviewed this note and agrees with this plan of care. This note was dictated using voice recognition software and make contain errors or omissions. [facility] History *Have you ever received a pneumonia vaccine?: No *Have you received a flu vaccine this season?: No - *Social History Smoking Status: Current every day smoker Alcohol Intake: never *Occupational Status:: retired *Travel in the last 8 weeks: None Family Hx:: Non-contributory
== END ==
PROVIDERS: Visit Provider Student in an Organized Health Care Education/Training Program
DX: M51.16 Intervertebral disc disorders with radiculopathy, lumbar region (principal)
CPT/HCPCS: 99212; G0463

== ENCOUNTER → 2021-10-09 11:39 | Outpatient (POV) | payer BC, MEDICARE, SELFPAY ==
--- NOTE | 2021-10-09 12:14 | P.CONS_ITS ---
[facility] Pain Management SOAP Note Subjective:: Patient is a pleasant 66-year-old male who is here for medication refill and follow-up. Patient is currently being treated for degenerative disc disease of lumbar spine with lumbar radiculopathy symptoms. Patient is being managed with gabapentin 300 mg 3 times a day and Percocet 10 mg 5 times a day. Patient denies any side effects from the medications. Patient denies any changes to the location and type of pain. Patient states that this is adequately helping manage their pain. Rates pain as 6 out of 10. [facility] number [id number] with an active morphine equivalent 75. Drug screens have been reviewed and appropriate. Review of Systems: General: No recent weight changes, no fever, no sleep disturbances Respiratory: No cough, no shortness of air, no recurring pulmonary infections Cardiovascular/peripheral vascular: No chest pain, no palpitations, no edema, no shortness of breath Gastrointestinal: No new onset incontinence, normal bowel movements reported Genitourinary: No new onset incontinence Musculoskeletal: Low back pain Psychiatric: [Normal mood/affect] Neurological: [Denies weakness in extremities], [denies balance issues] Objective:: Physical Exam: General: Alert and oriented x3, no acute distress, pleasant and cooperative Lungs: Respirations even and unlabored, symmetrical chest expansion Eyes: PERRL Musculoskeletal: Flexion and extension of lumbar [spine] somewhat guarded secondary to pain, [antalgic gait noted] Neurological: Speech clear, no gross sensory deficit Assessment:: Degenerative disc disease of lumbar spine with lumbar radiculopathy symptoms Plan:: We will continue the patient's gabapentin 300 mg 3 times a day and Percocet 10 mg 5 times a day. We will provide the patient with 1 month of refills. We would like to see the patient back in 1 month for follow-up and reevaluation of chronic pain syndrome. Patient has been advised of risks of oversedation with the prescribed medication. Narcan has been offered to the patient in the event of oversedation. Patient has been advised that a family member should also be educated regarding administration of Narcan. Patient has been instructed to contact the clinic with any concerns before the next appointment. Dr. Rubio has reviewed this note and agrees with this plan of care. This note was dictated using voice recognition software and make contain errors or omissions. [facility] History *Have you ever received a pneumonia vaccine?: No *Have you received a flu vaccine this season?: No - *Social History Smoking Status: Current every day smoker Alcohol Intake: never *Occupational Status:: retired *Travel in the last 8 weeks: [facility] Family Hx:: Non-contributory
[2021-10-09 12:18] VITALS: BP 160/116; PULSE 82; RESP 18; TEMP 36.2; O2SAT 95; BMI 29.2
== END ==
PROVIDERS: Visit Provider Student in an Organized Health Care Education/Training Program
DX: M51.16 Intervertebral disc disorders with radiculopathy, lumbar region (principal)
CPT/HCPCS: 99212; G0463

== ENCOUNTER → 2021-11-06 11:33 | Outpatient (POV) | payer BC, MEDICARE, SELFPAY ==
[2021-11-06 12:53] VITALS: BP 122/75; PULSE 74; RESP 18; TEMP 36.7; O2SAT 95; BMI 30.7
--- NOTE | 2021-11-06 15:27 | HMH.PAINSOAP ---
[facility] Pain Management SOAP Note Subjective:: Patient is a pleasant 66-year-old male who is here for medication refill and follow-up. Patient is currently being treated for degenerative disc disease of the lumbar spine with lumbar radiculopathy symptoms. Patient is being managed with gabapentin 300 mg 3 times a day and Percocet 10 mg 5 times a day. Patient denies any side effects from the medications. Patient denies any changes to the location and type of pain. Patient states that this is adequately helping manage their pain. Rates pain as 4 out of 10. [facility] number [id number] with an active morphine equivalent 60. Drug screens have been reviewed and appropriate. Review of Systems: General: No recent weight changes, no fever, no sleep disturbances Respiratory: No cough, no shortness of air, no recurring pulmonary infections Cardiovascular/peripheral vascular: No chest pain, no palpitations, no edema, no shortness of breath Gastrointestinal: No new onset incontinence, normal bowel movements reported Genitourinary: No new onset incontinence Musculoskeletal: Low back pain Psychiatric: [Normal mood/affect] Neurological: [Denies weakness in extremities], [denies balance issues] Objective:: Physical Exam: General: Alert and oriented x3, no acute distress, pleasant and cooperative Lungs: Respirations even and unlabored, symmetrical chest expansion Eyes: PERRL Musculoskeletal: Flexion and extension of lumbar [spine] somewhat guarded secondary to pain, [antalgic gait noted] Neurological: Speech clear, no gross sensory deficit Assessment:: Degenerative disc disease of the lumbar spine with lumbar radiculopathy symptoms Plan:: We will continue the patient's gabapentin 300 mg 3 times a day and Percocet 10 mg 5 times a day. We will provide the patient with 3 months worth of refill on his gabapentin and 1 month of refill for the Percocet. We would like to see the patient back in 1 month for follow-up and reevaluation of chronic pain syndrome. Patient has been advised of risks of oversedation with the prescribed medication. Narcan has been offered to the patient in the event of oversedation. Patient has been advised that a family member should also be educated regarding administration of Narcan. Patient has been instructed to contact the clinic with any concerns before the next appointment. Dr. Rubio has reviewed this note and agrees with this plan of care. This note was dictated using voice recognition software and make contain errors or omissions. [facility] History *Have you ever received a pneumonia vaccine?: No *Have you received a flu vaccine this season?: No - *Social History Smoking Status: Current every day smoker Alcohol Intake: never *Occupational Status:: employed *Travel in the last 8 weeks: None Family Hx:: Non-contributory
== END ==
PROVIDERS: Visit Provider Student in an Organized Health Care Education/Training Program
DX: M51.16 Intervertebral disc disorders with radiculopathy, lumbar region (principal)
CPT/HCPCS: 99212; G0463

== ENCOUNTER → 2021-11-06 12:20 | Outpatient (CLI) | payer BC, MEDICARE, SELFPAY ==
[2021-11-06 13:04] LABS: Amphetamine/Metha Screen,Urine Negative ng/ml (<1000); Benzodiazepines Screen,Urine Negative ng/ml (<200)
[2021-11-06 13:05] LABS: Barbiturates Screen,Urine Negative ng/ml (<200)
[2021-11-06 13:06] LABS: Cannabinoid Screen,Urine Negative ng/ml (<50); Cocaine Screen,Urine Negative ng/ml (<300)
[2021-11-06 13:07] LABS: Methadone Screen,Urine Negative ng/ml (<300)
[2021-11-06 13:08] LABS: Opiate Screen,Urine Positive ng/ml (<300); Phencyclidine Screen,Urine Negative ng/ml (<25)
[2021-11-24 16:30] LABS: Opiates Negative (Cutoff=100); Oxycodone (GC/MS) >3000 ng/mL (Cutoff=100); Oxymorphone (GC/MS) >3000 ng/mL (Cutoff=100)
== END ==
PROVIDERS: PCP Family Medicine; Visit Provider Student in an Organized Health Care Education/Training Program
DX: Z79.891 Long term (current) use of opiate analgesic (principal)
CPT/HCPCS: 80305; 80361; 80365; G0480

== ENCOUNTER → 2021-11-27 11:37 | Outpatient (POV) | payer BC, MEDICARE, SELFPAY ==
[2021-11-27 11:49] VITALS: BP 141/98; PULSE 74; RESP 20; O2SAT 95; BMI 29.9
--- NOTE | 2021-11-27 13:24 | HMH.PAINSOAP ---
[facility] Pain Management SOAP Note Subjective:: Patient is a pleasant 66-year-old white male who is here for medication refill and follow-up. Patient is currently being treated for degenerative disc disease of the lumbar spine with lumbar radiculopathy symptoms. We have been managing his pain with gabapentin 300 mg 3 times a day and Percocet 10 mg 5 times a day. He denies any side effects from this medication. And he denies any changes to the location or type of pain. He does state that this medication is helping manage his pain. Today he rates his pain a 3 out of 10. According to the patient, he has had injective therapy in the past but states it did not provide adequate pain relief. His Damian is [id number]. It has been reviewed and is appropriate. Review of Systems: General: No recent weight changes, no fever, no sleep disturbances Respiratory: No cough, no shortness of air, no recurring pulmonary infections Cardiovascular/peripheral vascular: No chest pain, no palpitations, no edema, no shortness of breath Gastrointestinal: No new onset incontinence, normal bowel movements reported Genitourinary: No new onset incontinence Musculoskeletal: low Back pain Psychiatric: [Normal mood/affect] Neurological: [Denies weakness in extremities], [denies balance issues] Objective:: Physical Exam: General: Alert and oriented x3, no acute distress, pleasant and cooperative Lungs: Respirations even and unlabored, symmetrical chest expansion Eyes: PERRL Musculoskeletal: Flexion and extension of bar [spine] somewhat guarded secondary to pain, [antalgic gait noted] Neurological: Speech clear, no gross sensory deficit Assessment:: Degenerative disc disease of the lumbar spine with lumbar radiculopathy symptoms Plan:: We will continue the patient's gabapentin 300 mg 3 times a day and Percocet 10 mg 5 times a day. I did discuss with patient about injective therapy however patient declines injections at this time. Patient will return to clinic in 1 month for follow-up and medication refill. Patient has been advised of the risk of oversedation with the prescribed medication. Narcan has been offered to the patient in the event of oversedation. Patient has been advised that a family member should also be educated regarding administration of Narcan. Patient has been instructed to contact the clinic with any concerns before the next appointment. Dr. Rubio has reviewed this note and agrees with this plan of care. This note was dictated using voice recognition software and make contain errors or omissions. [facility] History I have reviewed the patient's past medical history: Yes *Have you ever received a pneumonia vaccine?: No *Have you received a flu vaccine this season?: No - *Social History Smoking Status: Current every day smoker Alcohol Intake: never *Occupational Status:: retired *Travel in the last 8 weeks: Inside the [place] Family Hx:: Non-contributory
== END ==
PROVIDERS: Visit Provider Student in an Organized Health Care Education/Training Program
DX: M51.16 Intervertebral disc disorders with radiculopathy, lumbar region (principal); Z72.0 Tobacco use
CPT/HCPCS: 99212; G0463

== ENCOUNTER → 2021-12-25 10:45 | Outpatient (POV) | payer BC, MEDICARE, SELFPAY ==
[2021-12-25 10:51] VITALS: BP 137/97; PULSE 73; RESP 20; O2SAT 91; BMI 29.2
--- NOTE | 2021-12-25 13:18 | HMH.PAINSOAP ---
[facility] Pain Management SOAP Note Subjective:: Patient is a pleasant 66-year-old male who is here for medication refill and follow-up. Patient is currently being treated for degenerative disc disease of the lumbar spine with lumbar radiculopathy symptoms. Patient is being managed with gabapentin 300 mg 3 times a day and Percocet 10 mg 5 times a day. Patient denies any side effects from the medications. Patient denies any changes to the location and type of pain. Patient states that this is adequately helping manage their pain. Rates pain as 4 out of 10. [facility] number [id number] with an active morphine equivalent 75. Drug screens have been reviewed and appropriate. Patient also states that he pulled his back a few days ago while working on his yard. He is still having some pain around his left lower back. Review of Systems: General: No recent weight changes, no fever, no sleep disturbances Respiratory: No cough, no shortness of air, no recurring pulmonary infections Cardiovascular/peripheral vascular: No chest pain, no palpitations, no edema, no shortness of breath Gastrointestinal: No new onset incontinence, normal bowel movements reported Genitourinary: No new onset incontinence Musculoskeletal: Low back pain Psychiatric: [Normal mood/affect] Neurological: [Denies weakness in extremities], [denies balance issues] Objective:: Physical Exam: General: Alert and oriented x3, no acute distress, pleasant and cooperative Lungs: Respirations even and unlabored, symmetrical chest expansion Eyes: PERRL Musculoskeletal: Flexion and extension of lumbar [spine] somewhat guarded secondary to pain, [antalgic gait noted] Neurological: Speech clear, no gross sensory deficit Assessment:: Degenerative disc disease of lumbar spine with lumbar radiculopathy symptoms Plan:: We will continue the patient's gabapentin 300 mg 3 times a day and Percocet 10 mg 5 times a day. We will provide the patient with 1 month of refills. We would like to see the patient back in 1 month for follow-up and reevaluation of chronic pain syndrome. I will also start this patient on prednisone 20 mg twice a day for 5 days for his acute low back pain. Patient has been advised of risks of oversedation with the prescribed medication. Narcan has been offered to the patient in the event of oversedation. Patient has been advised that a family member should also be educated regarding administration of Narcan. Patient has been instructed to contact the clinic with any concerns before the next appointment. Dr. Rubio has reviewed this note and agrees with this plan of care. This note was dictated using voice recognition software and make contain errors or omissions. [facility] History *Have you ever received a pneumonia vaccine?: No *Have you received a flu vaccine this season?: No - *Social History Smoking Status: Current every day smoker Alcohol Intake: never *Occupational Status:: retired *Travel in the last 8 weeks: None Family Hx:: Non-contributory
== END ==
PROVIDERS: Visit Provider Student in an Organized Health Care Education/Training Program
DX: M51.16 Intervertebral disc disorders with radiculopathy, lumbar region (principal)
CPT/HCPCS: 99212; G0463

== ENCOUNTER → 2022-01-22 11:08 | Outpatient (POV) | payer BC, MEDICARE, SELFPAY ==
[2022-01-22 11:21] VITALS: BP 120/97; PULSE 86; RESP 20; BMI 29.9
--- NOTE | 2022-01-22 12:50 | HMH.PAINSOAP ---
[facility] Pain Management SOAP Note Subjective:: Patient is a pleasant 67-year-old male who is here for medication refill and follow-up. Patient is currently being treated for degenerative disc disease of the lumbar spine with lumbar radiculopathy symptoms. Patient is being managed with gabapentin 300 mg 3 times a day and Percocet 10 mg 5 times a day. Patient denies any side effects from the medications. Patient denies any changes to the location and type of pain. Patient states that this is adequately helping manage their pain. Rates pain as 3 out of 10. [facility] number [id number] with an active morphine equivalent 75. Drug screens have been reviewed and appropriate. Review of Systems: General: No recent weight changes, no fever, no sleep disturbances Respiratory: No cough, no shortness of air, no recurring pulmonary infections Cardiovascular/peripheral vascular: No chest pain, no palpitations, no edema, no shortness of breath Gastrointestinal: No new onset incontinence, normal bowel movements reported Genitourinary: No new onset incontinence Musculoskeletal: Low back pain Psychiatric: [Normal mood/affect] Neurological: [Denies weakness in extremities], [denies balance issues] Objective:: Physical Exam: General: Alert and oriented x3, no acute distress, pleasant and cooperative Lungs: Respirations even and unlabored, symmetrical chest expansion Eyes: PERRL Musculoskeletal: Flexion and extension of lumbar [spine] somewhat guarded secondary to pain, [antalgic gait noted] Neurological: Speech clear, no gross sensory deficit Assessment:: Degenerative disc disease of the lumbar spine with lumbar radiculopathy symptoms Plan:: We will continue the patient's Percocet 10 mg 5 times a day and gabapentin 300 mg 3 times a day. We will provide the patient with 1 month of refills. We would like to see the patient back in 1 month for follow-up and reevaluation of chronic pain syndrome. Patient has been advised of risks of oversedation with the prescribed medication. Narcan has been offered to the patient in the event of oversedation. Patient has been advised that a family member should also be educated regarding administration of Narcan. Patient has been instructed to contact the clinic with any concerns before the next appointment. Dr. Rubio has reviewed this note and agrees with this plan of care. This note was dictated using voice recognition software and make contain errors or omissions. [facility] History *Have you ever received a pneumonia vaccine?: No *Have you received a flu vaccine this season?: No - *Social History Smoking Status: Current every day smoker Alcohol Intake: never *Occupational Status:: retired *Travel in the last 8 weeks: None Family Hx:: Non-contributory
== END ==
PROVIDERS: PCP Family Medicine; Visit Provider Student in an Organized Health Care Education/Training Program
DX: M51.16 Intervertebral disc disorders with radiculopathy, lumbar region (principal)
CPT/HCPCS: 99212; G0463

== ENCOUNTER → 2022-02-16 11:23 | Outpatient (POV) | payer BC, MEDICARE, SELFPAY ==
--- NOTE | 2022-02-16 11:41 | A.OFFVIS_ITS ---
[facility] Pain Management SOAP Note Subjective:: Patient is a pleasant 66-year-old male who presents today for follow-up and medication refill. 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 Today the patient rates his pain a 3 out of 10. He states this pain is in his low back that radiates into his bilateral lower extremities. Patient denies any new trauma or injury to the site. Patient denies any change to the location or type of pain he experiences. Patient is currently managed with gabapentin 300 mg 3 times a day and Percocet 10 mg 5 times a day. Patient denies any side effects to this medication. He states this medication is adequately managing his pain. He is requesting refill at today's visit. His Damian is [id number]. It has been reviewed and appropriate. Review of Systems: General: No recent weight changes, no fever, no sleep disturbances Respiratory: No cough, no shortness of air, no recurring pulmonary infections Cardiovascular/peripheral vascular: No chest pain, no palpitations, no edema, no shortness of breath Gastrointestinal: No new onset incontinence, normal bowel movements reported Genitourinary: No new onset incontinence Musculoskeletal: Low back pain bilateral leg pain Psychiatric: [Normal mood/affect] Neurological: [Denies weakness in extremities], [denies balance issues] Objective:: Physical Exam: General: Alert and oriented x3, no acute distress, pleasant and cooperative Lungs: Respirations even and unlabored, symmetrical chest expansion Eyes: PERRL Musculoskeletal: Flexion and extension of lumbar [spine] somewhat guarded secondary to pain, [antalgic gait noted] Neurological: Speech clear, no gross sensory deficit Assessment:: Degenerative disc disease of lumbar spine with lumbar radiculopathy symptoms Plan:: Patient continues to have improvement in his pain symptoms with his current medication regimen. I will refill his gabapentin 300 mg 3 times a day and Percocet 10 mg 5 times a day and provide a 1 month supply of these medications. Patient will return to clinic in 1 month for follow-up, reevaluation of symptoms and medication refill. Patient has been advised of risks of oversedation with the prescribed medication. Narcan has been offered to the patient in the event of oversedation. Patient has been advised that a family member should also be educated regarding administration of Narcan. Patient has been instructed to contact the clinic with any concerns before the next appointment. Dr. Rubio has reviewed this note and agrees with this plan of care. This note was dictated using voice recognition software and make contain errors or omissions. PFSH PFSH Social History Smoking Status: Current every day smoker alcohol intake: never current occupational status: retired Travel in the last 8 weeks: None
[2022-02-16 11:45] VITALS: BP 115/73; PULSE 77; RESP 18; TEMP 36.5; O2SAT 94; BMI 29.2
== END | disposition home or self-care (01) ==
PROVIDERS: Visit Provider Nurse Practitioner Family
DX: M51.16 Intervertebral disc disorders with radiculopathy, lumbar region (principal)
CPT/HCPCS: 99212; G0463

== ENCOUNTER → 2022-03-16 11:34 | Outpatient (POV) | payer BC, MEDICARE, SELFPAY ==
[2022-03-16 12:01] VITALS: BP 160/86; PULSE 83; RESP 18; TEMP 36.5; O2SAT 94; BMI 29.9
--- NOTE | 2022-03-16 12:49 | A.OFFVIS_ITS ---
[facility] Pain Management SOAP Note Subjective:: Patient is a pleasant 67-year-old male who is here for medication refill and follow-up. Patient is currently being treated for degenerative disease lumbar spine with lumbar radiculopathy symptoms. Patient is being managed with gabapentin 300 mg 3 times a day and Percocet 10 mg 5 times a day. Patient denies any side effects from the medications. Patient denies any changes to the location and type of pain. Patient states that this is adequately helping manage their pain. Rates pain as 5 out of 10. [facility] number [id number] with an active morphine equivalent 75. Drug screens have been reviewed and appropriate. Patient has been having a lot of generalized joint pains especially in his shoulders and knees. He states that he used to be very active in the past; he has done skydiving and scuba diving. 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 Review of Systems: General: No recent weight changes, no fever, no sleep disturbances Respiratory: No cough, no shortness of air, no recurring pulmonary infections Cardiovascular/peripheral vascular: No chest pain, no palpitations, no edema, no shortness of breath Gastrointestinal: No new onset incontinence, normal bowel movements reported Genitourinary: No new onset incontinence Musculoskeletal: Low back pain Psychiatric: [Normal mood/affect] Neurological: [Denies weakness in extremities], [denies balance issues] Objective:: Physical Exam: General: Alert and oriented x3, no acute distress, pleasant and cooperative Lungs: Respirations even and unlabored, symmetrical chest expansion Eyes: PERRL Musculoskeletal: Flexion and extension of lumbar [spine] somewhat guarded seco ndary to pain, [antalgic gait noted] Neurological: Speech clear, no gross sensory deficit Assessment:: Degenerative disease of lumbar spine with lumbar radiculopathy symptoms, osteoarthritis of bilateral shoulders and knees Plan:: We will continue the patient's Percocet 10 mg 5 times a day and gabapentin 300 mg 3 times a day. We will provide the patient with 1 month of refills. We would like to see the patient back in 1 month for follow-up and reevaluation of chronic pain syndrome. We will also start this patient on Voltaren gel to help with his generalized joint pains. Patient has been advised of risks of oversedation with the prescribed medication. Narcan has been offered to the patient in the event of oversedation. Patient has been advised that a family member should also be educated regarding administration of Narcan. Patient has been instructed to contact the clinic with any concerns before the next appointment. Dr. Rubio has reviewed this note and agrees with this plan of care. This note was dictated using voice recognition software and make contain errors or omissions. PFSH PFS Social History Smoking Status: Current every day smoker alcohol intake: never current occupational status: retired Travel in the last 8 weeks: None
== END | disposition home or self-care (01) ==
PROVIDERS: Visit Provider Nurse Practitioner Family
DX: M51.16 Intervertebral disc disorders with radiculopathy, lumbar region (principal); M17.0 Bilateral primary osteoarthritis of knee; M19.011 Primary osteoarthritis, right shoulder; M19.012 Primary osteoarthritis, left shoulder; Z72.0 Tobacco use
CPT/HCPCS: 99212; G0463

== ENCOUNTER → 2022-04-16 11:47 | Outpatient (POV) | payer BC, MEDICARE, SELFPAY ==
[2022-04-16 12:03] VITALS: BP 142/105; PULSE 77; RESP 18; O2SAT 93; BMI 29.9
--- NOTE | 2022-04-16 12:11 | A.OFFVIS_ITS ---
[facility] Pain Management SOAP Note Subjective:: Patient is a pleasant 67-year-old male who presents today for medication refill and follow-up. 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 Today the patient rates his pain a 4 out of 10. He states his pain is in his low back that radiates into his bilateral lower extremities. Patient denies any new trauma or injury. He denies any change to location or type of pain he experiences. Patient is currently managed with gabapentin 300 mg 3 times a day and Percocet 10 mg 5 times a day. Patient states he does occasionally have some constipation however he does take [id number] medications to treat these. Patient states these medications do adequately help manage his pain symptoms. He is requesting a refill at today's visit. Patient did state that he recently changed pharmacies. His Damian is [id number]. It has been reviewed and appropriate. Review of Systems: General: No recent weight changes, no fever, no sleep disturbances Respiratory: No cough, no shortness of air, no recurring pulmonary infections Cardiovascular/peripheral vascular: No chest pain, no palpitations, no edema, no shortness of breath Gastrointestinal: No new onset incontinence, normal bowel movements reported Genitourinary: No new onset incontinence Musculoskeletal: Low back pain Psychiatric: [Normal mood/affect] Neurological: [Denies weakness in extremities], [denies balance issues] Objective:: Physical Exam: General: Alert and oriented x3, no acute distress, pleasant and cooperative Lungs: Respirations even and unlabored, symmetrical chest expansion Eyes: PERRL Musculoskeletal: Flexion and extension of lumbar [spine] somewhat guarded secondary to pain, [antalgic gait noted] Neurological: Speech clear, no gross sensory deficit Assessment:: Degenerative disc disease of lumbar spine with lumbar radiculopathy symptoms Plan:: Patient continues to have pain in his low back that radiates into his bilateral lower extremities however patient is managed well with his current medication regimen. I will refill the patient's gabapentin 300 mg 3 times a day and Percocet 10 mg 5 times a day and provide a 1 month supply of this medication. Patient will return to clinic in 1 month for reevaluation of symptoms, medication refill and follow-up. Patient has been advised of risks of oversedation with the prescribed medication. Narcan has been offered to the patient in the event of oversedation. Patient has been advised that a family member should also be educated regarding administration of Narcan. Patient has been instructed to contact the clinic with any concerns before the next appointment. Dr. Rubio has reviewed this note and agrees with this plan of care. This note was dictated using voice recognition software and make contain errors or omissions. PFSH PFS Social History Smoking Status: Current every day smoker alcohol intake: never current occupational status: retired Travel in the last 8 weeks: None
[2022-04-16 15:22] LABS: Amphetamine/Metha Screen,Urine Negative ng/ml (<1000)
[2022-04-16 15:23] LABS: Barbiturates Screen,Urine Negative ng/ml (<200)
[2022-04-16 15:24] LABS: Benzodiazepines Screen,Urine Negative ng/ml (<200); Cannabinoid Screen,Urine Negative ng/ml (<50)
[2022-04-16 15:25] LABS: Cocaine Screen,Urine Negative ng/ml (<300); Methadone Screen,Urine Negative ng/ml (<300)
[2022-04-16 15:26] LABS: Opiate Screen,Urine Positive ng/ml (<300)
[2022-04-16 15:27] LABS: Phencyclidine Screen,Urine Negative ng/ml (<25)
[2022-04-25 08:14] LABS: Opiates Negative (Cutoff=100); Oxycodone (GC/MS) >3000 ng/mL (Cutoff=100); Oxymorphone (GC/MS) >3000 ng/mL (Cutoff=100)
== END | disposition home or self-care (01) ==
PROVIDERS: PCP Family Medicine; Visit Provider Nurse Practitioner Family
DX: M51.16 Intervertebral disc disorders with radiculopathy, lumbar region (principal)
CPT/HCPCS: 80305; 80361; 80365; 99212; G0463; G0480

== ENCOUNTER → 2022-05-19 11:39 | Outpatient (POV) | payer BC, MEDICARE, SELFPAY ==
--- NOTE | 2022-05-19 11:49 | EXP.PAIN.SOA ---
[facility] Pain Management SOAP Note Subjective:: Patient is a pleasant 67-year-old male who presents today for medication refill and follow-up. 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 Today he rates his pain a 4 out of 10. Patient denies any new trauma or injury. Patient denies any change location or type of pain he experiences. Patient is currently managed with gabapentin 300 mg 3 times a day and Percocet 10 mg 5 times a day. Patient denies any side effects from this medication. He states these medications do adequately help manage his pain symptoms. He is requesting refill at today's visit. His Damian is [id number]. It has been reviewed and appropriate. Review of Systems: General: No recent weight changes, no fever, no sleep disturbances Respiratory: No cough, no shortness of air, no recurring pulmonary infections Cardiovascular/peripheral vascular: No chest pain, no palpitations, no edema, no shortness of breath Gastrointestinal: No new onset incontinence, normal bowel movements reported Genitourinary: No new onset incontinence Musculoskeletal: Low back pain Psychiatric: [Normal mood/affect] Neurological: [Denies weakness in extremities], [denies balance issues] Objective:: Physical Exam: General: Alert and oriented x3, no acute distress, pleasant and cooperative Lungs: Respirations even and unlabored, symmetrical chest expansion Eyes: PERRL Musculoskeletal: Flexion and extension of lumbar [spine] somewhat guarded secondary to pain, [antalgic gait noted] Neurological: Speech clear, no gross sensory deficit Assessment:: Degenerative disc disease of lumbar spine with lumbar radiculopathy symptoms Plan:: Patient is experiencing significant pain in his low back however he is managed well with his current medication regimen. I will refill the patient's Percocet 10 mg 5 times a day and gabapentin 300 mg 3 times a day and provide a 1 month supply of this medication. Patient will return to clinic in 1 month for reevaluation of symptoms, medication refill and follow-up. Patient has been advised of risks of oversedation with the prescribed medication. Narcan has been offered to the patient in the event of oversedation. Patient has been advised that a family member should also be educated regarding administration of Narcan. Patient has been instructed to contact the clinic with any concerns before the next appointment. Dr. Rubio has reviewed this note and agrees with this plan of care. This note was dictated using voice recognition software and make contain errors or omissions. [facility] Disclaimer: The information contained in this section may have been updated after the patient was seen, as this information can be updated by other users. Social History Smoking Status: Current every day smoker alcohol intake: never current occupational status: retired Travel in the last 8 weeks: None
[2022-05-19 11:51] VITALS: BMI 29.9
== END | disposition home or self-care (01) ==
PROVIDERS: PCP Family Medicine; Visit Provider Nurse Practitioner Family
DX: M51.16 Intervertebral disc disorders with radiculopathy, lumbar region (principal); F17.210 Nicotine dependence, cigarettes, uncomplicated
CPT/HCPCS: 99212; G0463

== ENCOUNTER → 2022-06-15 11:38 | Outpatient (POV) | payer BC, MEDICARE, SELFPAY ==
[2022-06-15 11:48] VITALS: BP 133/97; PULSE 77; RESP 18; O2SAT 98; BMI 29.9
--- NOTE | 2022-06-15 12:16 | A.OFFVIS_ITS ---
[facility] Pain Management SOAP Note Subjective:: Patient is a pleasant 67-year-old male who presents today for medication refill and follow-up. 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 He rates his pain today a 4 out of 10. Patient denies any new trauma or injury. Patient denies any change location or type of pain he experiences. Patient does state his pain is all in his low back with some radiating symptoms into his legs. He is currently managed with Percocet 10 mg 5 times a day and gabapentin 300 mg 3 times a day. Patient denies any side effects from these medications. He states these medications do adequately manage his pain symptoms. He is requesting a refill at today's visit. His Damian is [id number]. Its been reviewed and appropriate. Review of Systems: General: No recent weight changes, no fever, no sleep disturbances Respiratory: No cough, no shortness of air, no recurring pulmonary infections Cardiovascular/peripheral vascular: No chest pain, no palpitations, no edema, no shortness of breath Gastrointestinal: No new onset incontinence, normal bowel movements reported Genitourinary: No new onset incontinence Musculoskeletal: Low back pain Psychiatric: [Normal mood/affect] Neurological: [Denies weakness in extremities], [denies balance issues] Objective:: Physical Exam: General: Alert and oriented x3, no acute distress, pleasant and cooperative Lungs: Respirations even and unlabored, symmetrical chest expansion Eyes: PERRL Musculoskeletal: Flexion and extension of lumbar [spine] somewhat guarded secondary to pain, [antalgic gait noted] Neurological: Speech clear, no gross sensory deficit ORT score updated with low risk of 0 Assessment:: Degenerative disc disease of lumbar spine with lumbar radiculopathy symptoms Plan:: Patient continues to experience significant pain in his low back and bilateral lower extremities however he is doing well on his current medication regimen. I will refill the patient's Percocet 10 mg 5 times a day and gabapentin 300 mg 3 times a day and provide a 1 month supply of this medication. Patient will return to clinic in 1 month for reevaluation of symptoms, medication refill and follow-up. Patient has been advised of risks of oversedation with the prescribed medication. Narcan has been offered to the patient in the event of ov ersedation. Patient has been advised that a family member should also be educated regarding administration of Narcan. Patient has been instructed to contact the clinic with any concerns before the next appointment. Dr. Rubio has reviewed this note and agrees with this plan of care. This note was dictated using voice recognition software and make contain errors or omissions. [facility] Disclaimer: The information contained in this section may have been updated after the patient was seen, as this information can be updated by other users. Social History Smoking Status: Current every day smoker alcohol intake: never current occupational status: retired Travel in the last 8 weeks: None
== END | disposition home or self-care (01) ==
PROVIDERS: Visit Provider Nurse Practitioner Family
DX: M51.16 Intervertebral disc disorders with radiculopathy, lumbar region (principal); Z72.0 Tobacco use; Z79.899 Other long term (current) drug therapy
CPT/HCPCS: 99212; G0463

== ENCOUNTER → 2022-07-14 11:49 | Outpatient (POV) | payer BC, MEDICARE, SELFPAY ==
--- NOTE | 2022-07-14 12:09 | A.OFFVIS_ITS ---
[facility] Pain Management SOAP Note Subjective:: This patient is a very pleasant 67-year-old male that comes our clinic today for medication refill appointment. We currently manage him with Percocet 10 mg 5 times daily. Also gabapentin 300 mg 1 p.o. 3 times daily. Patient is doing very well with his current medications. He does not report any side effects from the medications. He rates his pain today 4/10. He is under our care for degenerative disc lumbar spine multilevels. Lumbar radiculopathy. Objective:: Patient is awake alert [place] x3. No acute distress. Flexion-extension lumbar spine normal. Deep tendon reflexes upper and lower extremities normal. Motor strength upper and lower extremities normal. There is no gross sensory deficit. Gait is normal. Assessment:: Degenerative disc disease lumbar spine multilevels. Lumbar radiculopathy Plan:: We will refill the patient's pain medication as above. His Damian and UDS have always been appropriate. [facility] Disclaimer: The information contained in this section may have been updated after the patient was seen, as this information can be updated by other users. Social History Smoking Status: Current every day smoker alcohol intake: never substance use type: denies use current occupational status: retired Travel in the last 8 weeks: None
== END | disposition home or self-care (01) ==
PROVIDERS: PCP Family Medicine; Visit Provider Nurse Anesthetist, Certified Registered
DX: M51.16 Intervertebral disc disorders with radiculopathy, lumbar region (principal)
CPT/HCPCS: 99212; G0463

== ENCOUNTER → 2022-08-10 11:40 | Outpatient (POV) | payer BC, MEDICARE, SELFPAY ==
--- NOTE | 2022-08-10 11:41 | A.OFFVIS_ITS ---
[facility] Pain Management SOAP Note Subjective:: Patient is a pleasant 67-year-old male who presents today for 1 month follow-up and medication refill.? We are currently treating the patient for degenerative disc disease of lumbar spine with lumbar radiculopathy symptoms.? He rates his pain today a 4 out of 10.? Patient denies any new trauma or injury.? Patient denies any change location or type of pain he experiences.? His pain is a aching, throbbing sensation in his low back with radiating symptoms into his bilateral lower extremities. He is currently managed with Percocet 10 mg 5 times a day and gabapentin 300 mg 3 times a day.? Patient denies any side effects from these medications.? He states these medications do adequately alejandrina ge his pain symptoms. Patient is also on testosterone therapy by Dr. Macdonald.? He does state that 05 September his son is scheduled to go for a baseball tournament in [place] and that he would like to go to this. He states it is his son senior year and that he does have some concerns for making sure that he has his prescriptions filled prior to leaving. His Damian is [id number].? Its been reviewed and appropriate. Review of Systems: General: No recent weight changes, no fever, no sleep disturbances Respiratory: No cough, no shortness of air, no recurring pulmonary infections Cardiovascular/peripheral vascular: No chest pain, no palpitations, no edema, no shortness of breath Gastrointestinal: No new onset incontinence, normal bowel movements reported Genitourinary: No new onset incontinence Musculoskeletal: Low back pain Psychiatric: [Normal mood/affect] Neurological: [Denies weakness in extremities], [denies balance issues] Objective:: Physical Exam: General: Alert and oriented x3, no acute distress, pleasant and cooperative Lungs: Respirations even and unlabored, symmetrical chest expansion Eyes: PERRL Musculoskeletal: Flexion and extension of lumbar [spine] somewhat guarded secondary to pain, [antalgic gait noted] Neurological: Speech clear, no gross sensory deficit Assessment:: Degenerative disc disease of lumbar spine with lumbar radiculopathy symptoms Plan:: Patient continues to experience pain in his low back however he is doing well with his current medication regimen. I will refill his Percocet 10 mg 5 times a day and gabapentin 300 mg 3 times a day and provide a 1 month supply of this medication. Patient has been counseled to make his follow-up appointments a little under 1 month in order to get his prescription refill prior to leaving for [place]. Patient will return to clinic at the end of this month for ree valuation of symptoms, medication refill and follow-up. Patient has been advised of risks of oversedation with the prescribed medication. Narcan has been offered to the patient in the event of over sedation. Patient has been advised that a family member should also be educated regarding administration of Narcan. Patient has been instructed to contact the clinic with any concerns before the next appointment. Dr. Rubio has reviewed this note and agrees with this plan of care. This note was dictated using voice recognition software and make contain errors or omissions. [facility] Disclaimer: The information contained in this section may have been updated after the patient was seen, as this information can be updated by other users. Social History (Updated 07/14/22 @ 12:10 by Mack Deleon CRNA) Smoking Status: Current every day smoker alcohol intake: never substance use type: denies use current occupational status: retired Travel in the last 8 weeks: None
[2022-08-10 12:18] VITALS: BP 147/99; PULSE 77; RESP 18; O2SAT 97; BMI 30.7
== END | disposition home or self-care (01) ==
PROVIDERS: PCP Family Medicine; Visit Provider Nurse Practitioner Family
DX: M51.16 Intervertebral disc disorders with radiculopathy, lumbar region (principal); Z79.899 Other long term (current) drug therapy; Z72.0 Tobacco use
CPT/HCPCS: 99212; G0463

== ENCOUNTER → 2022-08-10 11:57 | Outpatient (CLI) | payer BC, MEDICARE, SELFPAY ==
[2022-08-10 13:15] LABS: Amphetamine/Metha Screen,Urine Negative ng/ml (<1000)
[2022-08-10 13:16] LABS: Barbiturates Screen,Urine Negative ng/ml (<200); Benzodiazepines Screen,Urine Negative ng/ml (<200)
[2022-08-10 13:21] LABS: Cannabinoid Screen,Urine Negative ng/ml (<50)
[2022-08-10 13:22] LABS: Cocaine Screen,Urine Negative ng/ml (<300)
[2022-08-10 13:23] LABS: Methadone Screen,Urine Negative ng/ml (<300)
[2022-08-10 13:25] LABS: Opiate Screen,Urine Positive ng/ml (<300)
[2022-08-10 13:26] LABS: Phencyclidine Screen,Urine Negative ng/ml (<25)
[2022-08-17 07:13] LABS: Opiates Negative (Cutoff=100); Oxycodone (GC/MS) >3000 ng/mL (Cutoff=100); Oxymorphone (GC/MS) >3000 ng/mL (Cutoff=100)
== END ==
PROVIDERS: PCP Family Medicine; Visit Provider Nurse Practitioner Family
DX: Z79.891 Long term (current) use of opiate analgesic (principal)
CPT/HCPCS: 80305; 80361; 80365; G0480

== ENCOUNTER → 2022-09-02 12:17 | Outpatient (POV) | payer BC, MEDICARE, SELFPAY ==
--- NOTE | 2022-09-02 12:30 | EXP.PAIN.SOA ---
[facility] Pain Management SOAP Note Subjective:: Patient is a pleasant 67-year-old male who presents today for 1 month follow-up and medication refill. We are currently treating the patient for degenerative disc disease of lumbar spine with lumbar radiculopathy symptoms today he rates his pain a 5 out of 10. Patient denies any new trauma or injury. Patient denies any change to location or type of pain he experiences. He is currently managed with Percocet 10 mg 5 times a day and gabapentin 300 mg 3 times a day. Patient denies any side effects from these medications. He is requesting refills at today's visit. He is scheduled to leave for [place] for a baseball tournament with his son coming up. His Damian is [id number]. Its been reviewed and appropriate. Review of Systems: General: No recent weight changes, no fever, no sleep disturbances Respiratory: No cough, no shortness of air, no recurring pulmonary infections Cardiovascular/peripheral vascular: No chest pain, no palpitations, no edema, no shortness of breath Gastrointestinal: No new onset incontinence, normal bowel movements reported Genitourinary: No new onset incontinence Musculoskeletal: Low back pain Psychiatric: [Normal mood/affect] Neurological: [Denies weakness in extremities], [denies balance issues] Objective:: Physical Exam: General: Alert and oriented x3, no acute distress, pleasant and cooperative Lungs: Respirations even and unlabored, symmetrical chest expansion Eyes: PERRL Musculoskeletal: Flexion and extension of lumbar [spine] somewhat guarded secondary to pain, [antalgic gait noted] Neurological: Speech clear, no gross sensory deficit Assessment:: Degenerative disc disease of lumbar spine with lumbar radiculopathy symptoms Plan:: Patient is doing well with his current medication regimen. I will refill his gabapentin 300 mg 3 times a day and Percocet 10 mg 5 times a day and provide a 1 month supply of this medication. Patient will return to clinic in 1 month for reevaluation of symptoms, medication refill and follow-up. Patient has been advised of risks of oversedation with the prescribed medication. Narcan has been offered to the patient in the event of oversedation. Patient has been advised that a family member should also be educated regarding administration of Narcan. Patient has been instructed to contact the clinic with any concerns before the next appointment. Dr. Rubio has reviewed this note and agrees with this plan of care. This note was dictated using voice recognition software and make contain errors or omissions. [facility] Disclaimer: The information contained in this section may have been updated after the patient was seen, as this information can be updated by other users. Social History (Updated 07/14/22 @ 12:10 by Mack Deleon CRNA) Smoking Status: Current every day smoker alcohol intake: never substance use type: denies use current occupational status: retired Travel in the last 8 weeks: None
[2022-09-02 13:15] VITALS: BP 137/96; PULSE 83; RESP 18; O2SAT 97; BMI 29.9
== END | disposition home or self-care (01) ==
PROVIDERS: PCP Family Medicine; Visit Provider Nurse Practitioner Family
DX: M51.16 Intervertebral disc disorders with radiculopathy, lumbar region (principal)
CPT/HCPCS: 99212; G0463

== ENCOUNTER → 2022-10-01 11:49 | Outpatient (POV) | payer BC, MEDICARE, SELFPAY ==
--- NOTE | 2022-10-01 12:01 | EXP.PAIN.SOA ---
[facility] Pain Management SOAP Note Subjective:: Patient is a pleasant 67-year-old male who presents today for medication refill and follow-up. 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 Today he rates his pain a 4 out of 10. Patient denies any new trauma or injury. Patient denies any change in location or type of pain he experiences. Patient did just get back from his son's baseball tournament there in [place] and states they had a wonderful time. He is currently managed with Percocet 10 mg 5 times a day and gabapentin 300 mg 3 times a day. Patient denies any side effects from this medication. His Damian is [id number]. Its been reviewed and appropriate. Review of Systems: General: No recent weight changes, no fever, no sleep disturbances Respiratory: No cough, no shortness of air, no recurring pulmonary infections Cardiovascular/peripheral vascular: No chest pain, no palpitations, no edema, no shortness of breath Gastrointestinal: No new onset incontinence, normal bowel movements reported Genitourinary: No new onset incontinence Musculoskeletal: Low back pain Psychiatric: [Normal mood/affect] Neurological: [Denies weakness in extremities], [denies balance issues] Objective:: Physical Exam: General: Alert and oriented x3, no acute distress, pleasant and cooperative Lungs: Respirations even and unlabored, symmetrical chest expansion Eyes: PERRL Musculoskeletal: Flexion and extension of lumbar [spine] somewhat guarded secondary to pain, [antalgic gait noted] Neurological: Speech clear, no gross sensory deficit Assessment:: Degenerative disc disease of lumbar spine with lumbar radiculopathy symptoms Plan:: Patient continues to do well with his medication regimen. I will refill his Percocet 10 mg 5 times a day and gabapentin 300 mg 3 times a day and provide a 1 month supply of this medication. Patient will return to clinic in 1 month for reevaluation of symptoms and medication refill. Patient has been advised of risks of oversedation with the prescribed medication. Narcan has been offered to the patient in the event of oversedation. Patient has been advised that a family member should also be educated regarding administration of Narcan. Patient has been instructed to contact the clinic with any concerns before the next appointment. Dr. Rubio has reviewed this note and agrees with this plan of care. This note was dictated using voice recognition software and make contain errors or omissions. [facility] Disclaimer: The information contained in this section may have been updated after the patient was seen, as this information can be updated by other users. Social History (Updated 07/14/22 @ 12:10 by Mack Deleon CRNA) Smoking Status: Current every day smoker alcohol intake: never substance use type: denies use current occupational status: retired Travel in the last 8 weeks: None
[2022-10-01 12:20] VITALS: BP 128/76; PULSE 85; RESP 18; O2SAT 97; BMI 30.7
== END | disposition home or self-care (01) ==
PROVIDERS: PCP Family Medicine; Visit Provider Nurse Practitioner Family
DX: M51.16 Intervertebral disc disorders with radiculopathy, lumbar region (principal)
CPT/HCPCS: 99212; G0463

== ENCOUNTER → 2022-10-29 11:21 | Outpatient (POV) | payer BC, MEDICARE, SELFPAY ==
--- NOTE | 2022-10-29 11:23 | EXP.PAIN.SOA ---
[facility] Pain Management SOAP Note Subjective:: Patient is a pleasant 67-year-old male who presents today for medication refill and follow-up.? We are currently treating the patient for degenerative disc disease of lumbar spine with lumbar radiculopathy symptoms.? Today he rates his pain a 4 out of 10.? Patient denies any new trauma or injury.? Patient denies any change in location or type of pain he experiences.? He states he continues to have low back pain that is worse with increased walking or standing. He states he has been trying to increase his activity to lose some weight and help his overall back pain however it is difficult and he frequently has to take a break after 20 to 30 yards. He does state the pain interferes with his ability to perform activities of daily living such as cooking and cleaning. He also states that he frequently has to lean over a shopping cart when he is at the grocery store or in times of doing things like the dishes. He is currently managed with Percocet 10 mg 5 times a day and gabapentin 300 mg 3 times a day.? Patient denies any side effects from this medication.? His Damian is [id number]. Its been reviewed and appropriate..? Its been reviewed and appropriate. Review of Systems: General: No recent weight changes, no fever, no sleep disturbances Respiratory: No cough, no shortness of air, no recurring pulmonary infections Cardiovascular/peripheral vascular: No chest pain, no palpitations,? no edema, no shortness of breath Gastrointestinal: No new onset incontinence, normal bowel movements reported Genitourinary: No new onset incontinence Musculoskeletal: Low back pain Psychiatric: [Normal mood/affect] Neurological: [Denies weakness in extremities], [denies balance issues] Objective:: Physical Exam: General: Alert and oriented x3, no acute distress, pleasant and cooperative Lungs: Respirations even and unlabored, symmetrical chest expansion Eyes: PERRL Musculoskeletal: Flexion and extension of lumbar [spine] somewhat guarded secondary to pain, [antalgic gait noted] Neurological: Speech clear, no gross sensory deficit Assessment:: Degenerative disc disease of lumbar spine with lumbar radiculopathy symptoms Spinal stenosis with neurogenic claudication symptoms Plan:: Patient is experiencing worsening pain in his low back with limited range of motion. I have discussed with patient that he may benefit in the future from a minimally invasive lumbar decompression procedure. Patient does have findings consistent with neurogenic claudication and spinal stenosis. Risk and benefits and educational handouts were given during today's visit. We will discuss this at a later date and in the future plan for a lumbar epidural steroid injection with epidurogram to see if he is a candidate for the lumbar decompression. We will refill his Percocet 10 mg 5 times a day and gabapentin 300 mg 3 times a day and provide a 1 month supply of this medication. Patient will return to clinic in 1 month for reevaluation of symptoms and medication refill. Patient has been advised of risks of oversedation with the prescribed medication. Narcan has been offered to the patient in the event of oversedation. Patient has been advised that a family member should also be educated regarding administration of Narcan. Patient has been instructed to contact the clinic with any concerns before the next appointment. Dr. Rubio has reviewed this note and agrees with this plan of care. This note was dictated using voice recognition software and make contain errors or omissions. [facility] Disclaimer: The information contained in this section may have been updated after the patient was seen, as this information can be updated by other users. Social History (Updated 07/14/22 @ 12:10 by Mack Deleon CRNA) Smoking Status: Current every day smoker alcohol intake: never substance use type: denies use current occupational status: retired Travel in the last 8 weeks
[2022-10-29 11:30] VITALS: BP 150/97; PULSE 75; RESP 18; O2SAT 97; BMI 31.8
== END | disposition home or self-care (01) ==
PROVIDERS: PCP Family Medicine; Visit Provider Nurse Practitioner Family
DX: M51.16 Intervertebral disc disorders with radiculopathy, lumbar region (principal); M48.062 Spinal stenosis, lumbar region with neurogenic claudication
CPT/HCPCS: 99212; G0463

== ENCOUNTER → 2022-11-26 11:22 | Outpatient (POV) | payer BC, MEDICARE, SELFPAY ==
--- NOTE | 2022-11-26 11:46 | EXP.PAIN.SOA ---
[facility] Pain Management SOAP Note Subjective:: Patient is a pleasant 67-year-old male who presents today for medication refill and follow-up. 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 Today he rates his pain a 5 out of 10. Patient denies any new trauma or injury. Patient denies any change to location or type of pain he experiences. Patient is currently managed with Percocet 10 mg 5 times a day and gabapentin 300 mg 3 times a day. Patient denies any side effects from his medications. His Damian is [id number]. Its been reviewed and appropriate. Review of Systems: General: No recent weight changes, no fever, no sleep disturbances Respiratory: No cough, no shortness of air, no recurring pulmonary infections Cardiovascular/peripheral vascular: No chest pain, no palpitations, no edema, no shortness of breath Gastrointestinal: No new onset incontinence, normal bowel movements reported Genitourinary: No new onset incontinence Musculoskeletal: Low back pain Psychiatric: [Normal mood/affect] Neurological: [Denies weakness in extremities], [denies balance issues] Objective:: Physical Exam: General: Alert and oriented x3, no acute distress, pleasant and cooperative Lungs: Respirations even and unlabored, symmetrical chest expansion Eyes: PERRL Musculoskeletal: Flexion and extension of lumbar [spine] somewhat guarded secondary to pain, [antalgic gait noted] Neurological: Speech clear, no gross sensory deficit Assessment:: Degenerative disc disease of lumbar spine with lumbar radiculopathy symptoms Plan:: Patient continues to do well with his current medication regimen. I will refill his Percocet 10 mg 5 times a day and gabapentin 300 mg 3 times a day and provide a 1 month supply of this medication. Patient will return to clinic in 1 month for reevaluation of symptoms and medication refill. Patient has been advised of risks of oversedation with the prescribed medication. Narcan has been offered to the patient in the event of oversedation. Patient has been advised that a family member should also be educated regarding administration of Narcan. Patient has been instructed to contact the clinic with any concerns before the next appointment. Dr. Rubio has reviewed this note and agrees with this plan of care. This note was dictated using voice recognition software and make contain errors or omissions. [facility] Disclaimer: The information contained in this section may have been updated after the patient was seen, as this information can be updated by other users. Social History (Updated 07/14/22 @ 12:10 by Mack Deleon CRNA) Smoking Status: Current every day smoker alcohol intake: never substance use type: denies use current occupational status: retired Travel in the last 8 weeks: None
[2022-11-26 12:24] VITALS: BP 128/95; PULSE 71; RESP 18; O2SAT 97; BMI 31.4
== END | disposition home or self-care (01) ==
PROVIDERS: PCP Family Medicine; Visit Provider Nurse Practitioner Family
DX: M51.16 Intervertebral disc disorders with radiculopathy, lumbar region (principal)
CPT/HCPCS: 99212; G0463

== ENCOUNTER → 2022-12-28 11:08 | Outpatient (POV) | payer BC, MEDICARE, SELFPAY ==
[2022-12-28 11:10] VITALS: BP 168/99; PULSE 70; RESP 20; BMI 30.7
--- NOTE | 2022-12-28 11:10 | EXP.PAIN.SOA ---
[facility] Pain Management SOAP Note Subjective:: Patient is a pleasant 67-year-old male who presents today for medication refill and follow-up. 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 Today he rates his pain a 5 out of 10. He does state that he has recently torn his hamstring along the left leg. He does also state he continues to have significant pain in his low back and legs and describes it as an aching, throbbing sensation that is worse with increased activity. He states he frequently cannot tolerate prolonged standing or walking due to the pain. He has to sit down and take multiple breaks to get relief. He also states that even while doing grocery shopping he has to lean over the cart for relief. In previous we have talked about that he may be a beneficial candidate for the minimally invasive lumbar decompression. Today he states he would like to proceed forward with this option. Patient is currently managed with Percocet 10 mg 5 times a day and gabapentin 300 mg 3 times a day. Patient denies any side effects from his medications. He does state that he feels like the medication is not working as well is what it originally had and that he has more increased pain. His Damian is [id number]. Its been reviewed and appropriate. Review of Systems: General: No recent weight changes, no fever, no sleep disturbances Respiratory: No cough, no shortness of air, no recurring pulmonary infections Cardiovascular/peripheral vascular: No chest pain, no palpitations, no edema, no shortness of breath Gastrointestinal: No new onset incontinence, normal bowel movements reported Genitourinary: No new onset incontinence Musculoskeletal: Low back pain, bilateral leg pain Psychiatric: [Normal mood/affect] Neurological: [Denies weakness in extremities], [denies balance issues] Objective:: Physical Exam: General: Alert and oriented x3, no acute distress, pleasant and cooperative Lungs: Respirations even and unlabored, symmetrical chest expansion Eyes: PERRL Musculoskeletal: Flexion and extension of lumbar [spine] somewhat guarded secondary to pain, [antalgic gait noted] positive shopping cart sign Neurological: Speech clear, no gross sensory deficit Assessment:: Degenerative disc disease of lumbar spine with lumbar radiculopathy symptoms, spinal stenosis with neurogenic claudication symptoms Plan:: We will refill the patient's Percocet 10 mg 5 times a day and gabapentin 300 mg 3 times a day and provide a 1 month supply of this medication. I will also send in a new prescription of methocarbamol 500 mg twice daily and provide a 2-week supply of this medication. I have counseled the patient that he still can take his tizanidine at bedtime. I have reviewed over the risk and benefits of the minimally invasive lumbar decompression and he would like to proceed forward with this plan of care. Patient had a positive shopping cart sign and symptoms consistent with spinal stenosis with neurogenic claudication symptoms. We will schedule the patient for a LESI L4-L5 with epidurogram for possible M ILD in the future. Patient has been advised of risks of oversedation with the prescribed medication. Narcan has been offered to the patient in the event of oversedation. Patient has been advised that a family member should also be educated regarding administration of Narcan. Patient has been instructed to contact the clinic with any concerns before the next appointment. Dr. Rubio has reviewed this note and agrees with this plan of care. This note was dictated using voice recognition software and make contain errors or omissions. [facility] Disclaimer: The information contained in this section may have been updated after the patient was seen, as this information can be updated by other users. Social History (Updated 07/14/22 @ 12:10 by Mack Deleon CRNA) Smoking Status: Current every day smoker alcohol i
== END | disposition home or self-care (01) ==
PROVIDERS: PCP Family Medicine; Visit Provider Nurse Practitioner Family
DX: M51.16 Intervertebral disc disorders with radiculopathy, lumbar region (principal); M48.062 Spinal stenosis, lumbar region with neurogenic claudication
CPT/HCPCS: 99212; G0463

== ENCOUNTER 2023-01-01 13:51 | Day surgery (SDC) | payer BC, MEDICARE, SELFPAY ==
[2023-01-01 14:12] VITALS: BP 139/85; PULSE 81; RESP 16; TEMP 36.4; O2SAT 95; BMI 31.4
[2023-01-01 15:18] VITALS: BP 150/93; PULSE 70; RESP 18; O2SAT 98
--- NOTE | 2023-01-01 15:30 | P.PCN_ITS ---
Procedure Date: 01/01/23 Time: 15:30 Anesthesiologist:: Wiley Rubio MD Complications:: None Pre-procedure Diagnosis:: Degenerative disc disease of lumbar spine with lumbar spinal stenosis and neurogenic claudication symptoms Post-procedure Diagnosis:: Same Indications for Procedure:: This patient is a pleasant 67-year-old white male who we are treating for low back pain with lumbar spinal stenosis and neurogenic claudication symptoms. He has increasing pain while walking and standing. MRI does show significant stenosis with ligamentum flavum hypertrophy. He presents for lumbar epidural steroid injection with epidurogram today we will assess levels of stenosis and candidacy for minimally invasive lumbar decompression. Procedure Details:: Informed consent was obtained and the risk and benefits of the procedure was explained to the patient. The patient was taken to the procedure room. The patient was placed prone on the procedure table. The patient was prepped and draped in sterile fashion. C-arm fluoroscopy was used to view the lumbar spine. Skin and subcutaneous tissues were anesthetized using lidocaine. I placed an 18-gauge epidural needle and advanced into the L4-L5 interspace using fluoroscopic guidance and [id number] to air. After confirmation of needle placement in the epidural space with dye I injected 2 mL of lidocaine 1.5% with Depo-Medrol 80 mg. Patient tolerated the procedure well with no com plications. Plan and Disposition:: Based on epidurogram the patient does have significant stenosis at L3-L4 and L4- L5 and most likely would benefit from the mild procedure. We will plan on minimally invasive lumbar decompression bilateral L3-L4 and L4-L5.
== END 2023-01-01 15:21 | disposition home or self-care (01) ==
LOC: SC.PAINP 13:54
PROVIDERS: PCP Family Medicine; Visit Provider Anesthesiology
DX: M51.36 Other intervertebral disc degeneration, lumbar region (principal); M48.062 Spinal stenosis, lumbar region with neurogenic claudication
CPT/HCPCS: 62323; J1040; Q9966

== ENCOUNTER → 2023-01-14 13:53 | Outpatient (POV) | payer BC, MEDICARE, SELFPAY ==
--- NOTE | 2023-01-14 14:35 | EXP.PAIN.SOA ---
[facility] Pain Management SOAP Note Subjective:: Patient is a pleasant 68-year-old male who presents today for medication refill and follow-up of lumbar epidural steroid injection with epidurogram L4-L5 on 01/01/2023. We are currently treating the patient for degenerative disc disease of lumbar spine with lumbar radiculopathy symptoms, lumbar spinal stenosis with neurogenic claudication symptoms, chronic pain. Today he rates his pain a 6 out of 10. He states that he did get approximately 60% improvement following this injection however it only lasted 2 days. Patient does state that he was able to move around easier with decreased pain and felt overall more functional. He does state he is back to his baseline today and that can only tolerate approximately 10 to 15 minutes up on his feet or walking. Patient does state he continues to walk hunched over due to having some improvement in this posture. Patient states that frequently when he has been up about 15 minutes he does get very pale due to the pain and even causes nausea. Patient has to take frequent breaks and even feels like his legs have gotten weaker. Patient's epidurogram did show that he was a appropriate candidate for the minimally invasive lumbar decompression most prominent at L3-L4 and L4-L5 bilaterally however his insurance has denied this procedure. Patient would like to still proceed forward with this option. He is currently managed with Percocet 10 mg 5 times a day and gabapentin 300 mg 3 times a day. Patient denies any side effects from this medication. His Damian is [id number]. Its been reviewed and appropriate. Review of Systems: General: No recent weight changes, no fever, no sleep disturbances Respiratory: No cough, no shortness of air, no recurring pulmonary infections Cardiovascular/peripheral vascular: No chest pain, no palpitations, no edema, no shortness of breath Gastrointestinal: No new onset incontinence, normal bowel movements reported Genitourinary: No new onset incontinence Musculoskeletal: Low back pain, leg pain Psychiatric: [Normal mood/affect] Neurological: [Denies weakness in extremities], [denies balance issues] Objective:: Physical Exam: General: Alert and oriented x3, no acute distress, pleasant and cooperative Lungs: Respirations even and unlabored, symmetrical chest expansion Eyes: PERRL Musculoskeletal: Flexion and extension of lumbar [spine] somewhat guarded secondary to pain, [antalgic gait noted] Neurological: Speech clear, no gross sensory deficit Assessment:: Degenerative disc disease of lumbar spine with lumbar radiculopathy symptoms, lumbar spinal stenosis with neurogenic claudication symptoms, chronic pain syndrome Plan:: I will refill the patient's Percocet 10 mg 5 times a day and gabapentin 300 mg 3 times a day and provide a 1 month supply of this medication. I have counseled the patient to contact his insurance company and see if he can also discuss with them regarding getting scheduled for the lumbar decompression procedure. We will continue to appeal giovana's decision against doing the minimally invasive lumbar decompression. Patient will return to clinic in 1 month for reevaluation of symptoms, medication refill and follow-up. Patient has been advised of risks of oversedation with the prescribed medication. Narcan has been offered to the patient in the event of oversedation. Patient has been advised that a family member should also be educated regarding administration of Narcan. Patient has been instructed to contact the clinic with any concerns before the next appointment. Dr. Rubio has reviewed this note and agrees with this plan of care. This note was dictated using voice recognition software and make contain errors or omissions. [facility] Disclaimer: The information contained in this section may have been updated after the patient was seen, as this information can be updated by other users. Medical History (Updated 01/01/23 @ 14:16 by Jonas
[2023-01-14 14:44] VITALS: BP 139/98; PULSE 81; RESP 18; O2SAT 94; BMI 31.4
== END | disposition home or self-care (01) ==
PROVIDERS: PCP Family Medicine; Visit Provider Nurse Practitioner Family
DX: M51.16 Intervertebral disc disorders with radiculopathy, lumbar region (principal); M48.062 Spinal stenosis, lumbar region with neurogenic claudication; G89.29 Other chronic pain
CPT/HCPCS: 99212; G0463

== ENCOUNTER → 2023-02-18 10:06 | Outpatient (POV) | payer BC, MEDICARE, SELFPAY ==
--- NOTE | 2023-02-18 11:41 | EXP.PAIN.SOA ---
[facility] Pain Management SOAP Note Subjective:: Patient is a pleasant 68-year-old male who presents today for medication refill and follow-up. We are currently treating the patient for degenerative disc disease of lumbar spine with lumbar radiculopathy symptoms, lumbar spinal stenosis with neurogenic claudication symptoms, chronic pain. Today he rates his pain a 6 out of 10. Patient denies any new trauma or injury. Patient did previously have a lumbar epidural with epidurogram that showed he would be a beneficial candidate of the minimally invasive lumbar decompression however his insurance has denied this both times its been submitted stating it was experimental and not covered. Patient states that he continues to have low back pain that is worse with ambulation. He states he can only walk about 3 minutes before having to stop and take multiple breaks. Patient is currently managed with Percocet 10 mg 5 times a day and gabapentin 300 mg 3 times a day along with methocarbamol 500 mg twice daily. She denies any side effects from these medications. He does state that at his last refill his pharmacist said initially they did not have his medication then ended up calling back saying they had 120 tablets. Patient states then he received another phone call stating that they can give him 145 tablets. Patient states that once he had gotten the prescription home and after a couple of weeks he noticed that it seemed like the numbers were still off. Patient states he believes that he only got 120 tablets however they did state they gave 145. Patient does state that he has concerns with the lack of medications for that extra week. His Damian is [id number]. Its been reviewed and appropriate. Review of Systems: General: No recent weight changes, no fever, no sleep disturbances Respiratory: No cough, no shortness of air, no recurring pulmonary infections Cardiovascular/peripheral vascular: No chest pain, no palpitations, no edema, no shortness of breath Gastrointestinal: No new onset incontinence, normal bowel movements reported Genitourinary: No new onset incontinence Musculoskeletal: Low back pain, bilateral leg pain Psychiatric: [Normal mood/affect] Neurological: [Denies weakness in extremities], [denies balance issues] Objective:: Physical Exam: General: Alert and oriented x3, no acute distress, pleasant and cooperative Lungs: Respirations even and unlabored, symmetrical chest expansion Eyes: PERRL Musculoskeletal: Flexion and extension of lumbar [spine] somewhat guarded secondary to pain, [antalgic gait noted] Neurological: Speech clear, no gross sensory deficit Assessment:: Degenerative disc disease of lumbar spine with lumbar radiculopathy symptoms lumbar spinal stenosis with neurogenic claudication symptoms, chronic pain syndrome Plan:: Patient continues to experience significant pain in his low back and legs with limited range of motion. I have discussed with the patient in future he may be a beneficial candidate for a intrathecal pain pump trial. Risk and benefits and educational handouts were given during today's visit. We will discuss this at future visits. I will refill the patient's Percocet 10 mg 5 times a day, gabapentin 300 mg 3 times a day and methocarbamol 500 mg twice daily and provide a 1 month supply of these medications. Patient will return to clinic in 1 month for reevaluation of symptoms and plan of care. I have counseled the patient due to the documentation from his pharmacy that it does show 145 tablets were given that we cannot do anything further if there was a true discrepancy within the medication. Patient has requested his medications be sent to [facility] in [place] instead of [facility]. Patient has been advised of risks of oversedation with the prescribed medication. Narcan has been offered to the patient in the event of oversedation. Patient has been advised that a family member should also be educated regarding administration of Narcan.
[2023-02-18 12:05] VITALS: BP 149/101; PULSE 86; RESP 20; O2SAT 95; BMI 30.7
== END | disposition home or self-care (01) ==
PROVIDERS: PCP Family Medicine; Visit Provider Nurse Practitioner Family
DX: M51.16 Intervertebral disc disorders with radiculopathy, lumbar region (principal); M48.062 Spinal stenosis, lumbar region with neurogenic claudication; G89.4 Chronic pain syndrome
CPT/HCPCS: 99212; G0463

== ENCOUNTER → 2023-03-19 11:22 | Outpatient (POV) | payer BC, MEDICARE, SELFPAY ==
[2023-03-19 11:41] VITALS: BP 146/100; PULSE 78; RESP 20; BMI 31.4
--- NOTE | 2023-03-19 12:02 | EXP.PAIN.SOA ---
[facility] Pain Management SOAP Note Subjective:: This patient is a very pleasant 68-year-old male that comes our clinic today for medication refills. We have been treating this patient for multiple years regarding low back pain he describes as constant, dull, aching. Also bilateral hip and leg radicular symptoms. Patient's lumbar MRI shows degenerative disc lumbar spine multilevels. Lumbar radiculopathy. Lumbar spinal stenosis with neurogenic claudication symptoms. He rates his pain today 10. Patient is currently being managed with gabapentin 300 mg 1 p.o. 3 times daily. Patient requesting increase in this medication. I think this is reasonable. We will increase him to 600 mg 1 p.o. 3 times daily. Oxycodone 10 mg 1 p.o. 5 times daily. Patient also requesting a refill on compound pain cream. Patient does not complain of any side effects from the above medications. Patient had lumbar epidural steroid injection on 01/01/2023. He reports some relief in terms of his low back pain. However, significant improvement in his bilateral hip and leg radicular symptoms. Patient's Damian #[id number] is been reviewed and appropriate. I discussed at length with the patient and his regarding intrathecal pain pump therapy. I talked in detail with him regarding trial, implantation, risk versus benefits. Answered his questions. Answered the 's questions. This is something they are seriously considering. I think this would be a viable option for this patient given his pathology as well as dose of medication required. Patient states he has not been able to do any light housework or light yard work for several years due to the pain. Objective:: Patient is awake alert [place] x3. In no acute distress. Flexion-extension lumbar spine very guarded secondary to pain. Deep tendon reflexes upper lower extremities normal. Motor strength upper and lower extremities normal. There is no gross sensory deficit. Gait is normal. Assessment:: Degenerative disc lumbar spine multilevels. Lumbar radiculopathy. Lumbar spinal stenosis. Chronic pain syndrome. Plan:: We julianna refill the patient's pain medications as noted above. Also, I gave the patient a brochure regarding intrathecal pain pump management. He and his will discuss and get back with us regarding moving forward. [facility] Disclaimer: The information contained in this section may have been updated after the patient was seen, as this information can be updated by other users. Medical History (Updated 01/01/23 @ 14:16 by Josy Ramirez RN) Benign prostatic hyperplasia Chronic pain Hypertension Surgical History (Updated 01/01/23 @ 14:16 by Josy Ramirez RN) No significant past surgical history Family History (Updated 01/01/23 @ 14:13 by Josy Ramirez RN) Other No significant family history Social History (Updated 01/01/23 @ 14:13 by Josy Ramirez RN) Smoking Status: Never smoker alcohol intake: current substance use type: denies use current occupational status: other Travel in the last 8 weeks: None
[2023-03-19 13:50] LABS: Amphetamine/Metha Screen,Urine Negative ng/ml (<1000); Barbiturates Screen,Urine Negative ng/ml (<200)
[2023-03-19 13:51] LABS: Cannabinoid Screen,Urine Negative ng/ml (<50)
[2023-03-19 13:52] LABS: Benzodiazepines Screen,Urine Negative ng/ml (<200); Methadone Screen,Urine Negative ng/ml (<300)
[2023-03-19 13:53] LABS: Cocaine Screen,Urine Negative ng/ml (<300); Phencyclidine Screen,Urine Negative ng/ml (<25)
[2023-03-19 13:54] LABS: Opiate Screen,Urine Positive ng/ml (<300)
[2023-03-24 17:20] LABS: Opiates Negative (Cutoff=100); Oxycodone (GC/MS) >3000 ng/mL (Cutoff=100); Oxymorphone (GC/MS) >3000 ng/mL (Cutoff=100)
== END | disposition home or self-care (01) ==
PROVIDERS: Nurse Practitioner Family; PCP Family Medicine; Visit Provider Nurse Anesthetist, Certified Registered
DX: M51.16 Intervertebral disc disorders with radiculopathy, lumbar region (principal); M48.061 Spinal stenosis, lumbar region without neurogenic claudication; G89.4 Chronic pain syndrome
CPT/HCPCS: 80305; 80361; 80365; 99212; G0463; G0480

== ENCOUNTER → 2023-04-22 10:57 | Outpatient (POV) | payer BC, MEDICARE, SELFPAY ==
[2023-04-22 11:37] VITALS: RESP 18; BMI 31.4
--- NOTE | 2023-04-22 11:46 | EXP.PAIN.SOA ---
[facility] Pain Management SOAP Note Subjective:: Patient is a pleasant 68-year-old male who presents today for medication refill and follow-up. We are currently treating the patient for degenerative disc disease of lumbar spine with lumbar radiculopathy symptoms, lumbar spinal stenosis, chronic pain syndrome. Today he rates his pain a 6 out of 10. Patient denies any new trauma or injury. He denies any change in location or type of pain he experiences. Patient does state he constantly deals with low back and leg pain that is worse with increased activity or ambulation. He does state that his back pain can be debilitating. Patient states the pain continues to interfere with activities of daily living such as cooking and cleaning. Patient has continued to do with this pain for years. He is currently managed with gabapentin 600 mg 3 times a day and oxycodone 10 mg 5 times a day. He denies any side effects from this medication. He has been previously prescribed diclofenac gel in the past and states that did help some of his daily arthritis symptoms. His Damian has been reviewed and is appropriate. Review of Systems: General: No recent weight changes, no fever, no sleep disturbances Respiratory: No cough, no shortness of air, no recurring pulmonary infections Cardiovascular/peripheral vascular: No chest pain, no palpitations, no edema, no shortness of breath Gastrointestinal: No new onset incontinence, normal bowel movements reported Genitourinary: No new onset incontinence Musculoskeletal: Low back pain, leg pain Psychiatric: [Normal mood/affect] Neurological: [Denies weakness in extremities], [denies balance issues] Objective:: Physical Exam: General: Alert and oriented x3, no acute distress, pleasant and cooperative Lungs: Respirations even and unlabored, symmetrical chest expansion Eyes: PERRL Musculoskeletal: Flexion and extension of lumbar [spine] somewhat guarded secondary to pain, [antalgic gait noted] Neurological: Speech clear, no gross sensory deficit Assessment:: Degenerative disc disease of lumbar spine with lumbar radiculopathy symptoms, lumbar spinal stenosis with neurogenic claudication symptoms, chronic pain syndrome Plan:: Patient continues to experience significant pain in his low back and legs with limited range of motion. I have discussed with the patient that he may be a beneficial candidate of a intrathecal pain pump trial in the future. Risk and benefits and educational handouts were given to the patient and he would like to proceed forward with this plan of care. I will order the patient a psychological evaluation and if he is deemed an appropriate candidate we will plan on proceeding forward with the trial at a later date. I have also discussed with the patient that we will have to decrease his pain medication prior to the trial to get a accurate picture of how much improvement the trial would provide. Patient acknowledges this. I will refill the patient's gabapentin 600 mg 3 times a day oxycodone 10 mg 5 times a day and diclofenac gel and provide a 1 month supply of these medications. Patient has been advised of risks of oversedation with the prescribed medication. Narcan has been offered to the patient in the event of oversedation. Patient has been advised that a family member should also be educated regarding administration of Narcan. Patient has been instructed to contact the clinic with any concerns before the next appointment. Dr. Rubio has reviewed this note and agrees with this plan of care. This note was dictated using voice recognition software and make contain errors or omissions. [facility] Disclaimer: The information contained in this section may have been updated after the patient was seen, as this information can be updated by other users. Medical History (Updated 01/01/23 @ 14:16 by Josy Ramirez RN) Benign prostatic hyperplasia Chronic pain Hypertension Surgical History (Updated 01/01/23 @ 14:16 b
== END | disposition home or self-care (01) ==
PROVIDERS: PCP Family Medicine; Visit Provider Nurse Practitioner Family
DX: M51.16 Intervertebral disc disorders with radiculopathy, lumbar region (principal); M48.062 Spinal stenosis, lumbar region with neurogenic claudication; G89.4 Chronic pain syndrome
CPT/HCPCS: 99212; G0463

== ENCOUNTER → 2023-05-20 11:30 | Outpatient (POV) | payer BC, MEDICARE, SELFPAY ==
--- NOTE | 2023-05-20 12:08 | A.OFFVIS_ITS ---
[facility] Pain Management SOAP Note Subjective:: Patient is a pleasant 68-year-old male who presents today for medication refill and follow-up. We are currently treating the patient for degenerative disc disease of lumbar spine with lumbar radiculopathy symptoms, lumbar spinal stenosis, chronic pain syndrome. Today he rates his pain a 6 out of 10. Patient denies any new trauma or injury. At his last visit he did want to proceed forward with a intrathecal pain pump trial in the future and we did send him for referral for a psychological evaluation. He states he has decided to hold off on this until after the first of the year due to scheduling conflicts and the holidays. Patient is currently managed with gabapentin 600 mg 3 times a day and oxycodone 10 mg 5 times a day. He denies any side effects from these medications. His Damian has been reviewed and is appropriate. Review of Systems: General: No recent weight changes, no fever, no sleep disturbances Respiratory: No cough, no shortness of air, no recurring pulmonary infections Cardiovascular/peripheral vascular: No chest pain, no palpitations, no edema, no shortness of breath Gastrointestinal: No new onset incontinence, normal bowel movements reported Genitourinary: No new onset incontinence Musculoskeletal: Low back pain Psychiatric: [Normal mood/affect] Neurological: [Denies weakness in extremities], [denies balance issues] Objective:: Physical Exam: General: Alert and oriented x3, no acute distress, pleasant and cooperative Lungs: Respirations even and unlabored, symmetrical chest expansion Eyes: PERRL Musculoskeletal: Flexion and extension of lumbar [spine] somewhat guarded secondary to pain, [antalgic gait noted] Neurological: Speech clear, no gross sensory deficit Assessment:: Degenerative disc disease of lumbar spine with lumbar radiculopathy symptoms, lumbar spinal stenosis, chronic pain syndrome Plan:: We will refill the patient's gabapentin 600 mg 3 times a day and oxycodone 10 mg 5 times a day and provide a 1 month supply of this medication. Patient will return to clinic in 1 month for reevaluation of symptoms and plan of care. Patient has been advised of risks of oversedation with the prescribed medication. Narcan has been offered to the patient in the event of oversedation. Patient has been advised that a family member should also be educated regarding administration of Narcan. Patient has been instructed to contact the clinic with any concerns before the next appointment. Dr. Rubio has reviewed this note and agrees with this plan of care. This note was dictated using voice recognition software and make contain errors or omissions. [facility] Disclaimer: The information contained in this section may have been updated after the patient was seen, as this information can be updated by other users. Medical History (Updated 01/01/23 @ 14:16 by Joys Ramirez RN) Benign prostatic hyperplasia Chronic pain Hypertension Surgical History (Updated 01/01/23 @ 14:16 by Josy Ramirez RN) No significant past surgical history Family History (Updated 01/01/23 @ 14:13 by Josy Ramirez RN) Other No significant family history Social History (Updated 01/01/23 @ 14:13 by Josy Ramirez RN) Smoking Status: Never smoker alcohol intake: current substance use type: denies use current occupational status: other Travel in the last 8 weeks: None
[2023-05-20 12:15] VITALS: BP 111/72; PULSE 78; RESP 18; O2SAT 95; BMI 32.1
== END ==
PROVIDERS: PCP Family Medicine; Visit Provider Nurse Practitioner Family
DX: M51.16 Intervertebral disc disorders with radiculopathy, lumbar region (principal); M48.061 Spinal stenosis, lumbar region without neurogenic claudication; G89.4 Chronic pain syndrome
CPT/HCPCS: 99212; G0463

== ENCOUNTER → 2023-06-17 11:18 | Outpatient (POV) | payer BC, MEDICARE, SELFPAY ==
--- NOTE | 2023-06-17 12:04 | EXP.PAIN.SOA ---
[facility] Pain Management SOAP Note Subjective:: Patient is a pleasant 68-year-old male who presents today for medication refill and follow-up. We are currently treating the patient for degenerative disc disease of lumbar spine with lumbar radiculopathy symptoms, lumbar spinal stenosis, chronic pain syndrome. Today he rates his pain a 6 out of 10. Patient denies any new trauma or injury. Patient had previously discussed doing a psychological evaluation for a pain pump trial in the future however he wanted to hold off to the new year. Patient does state he is still interested in this option as well as the mild procedure that we have discussed in the past. Patient does state that his medication last month was a little messed up with pharmacy and then he ended up going without medicine for about a day and really had to struggle to get back on his schedule and feels that the pain was improved with the medication. 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 He is currently managed with gabapentin 600 mg 3 times a day and oxycodone 10 mg 5 times a day. He denies any side effects from these medications. His Damian has been reviewed and is appropriate. Review of Systems: General: No recent weight changes, no fever, no sleep disturbances Respiratory: No cough, no shortness of air, no recurring pulmonary infections Cardiovascular/peripheral vascular: No chest pain, no palpitations, no edema, no shortness of breath Gastrointestinal: No new onset incontinence, normal bowel movements reported Genitourinary: No new onset incontinence Musculoskeletal: Low back pain, leg pain Psychiatric: [Normal mood/affect] Neurological: [Denies weakness in extremities], [denies balance issues] Objective:: Physical Exam: General: Alert and oriented x3, no acute distress, pleasant and cooperative Lungs: Respirations even and unlabored, symmetrical chest expansion Eyes: PERRL Musculoskeletal: Flexion and extension of lumbar [spine] somewhat guarded secondary to pain, [antalgic gait noted] Neurological: Speech clear, no gross sensory deficit Assessment:: Degenerative disc disease of lumbar spine with lumbar radiculopathy symptoms, lumbar spinal stenosis with neurogenic claudication symptoms, chronic pain syndrome Plan:: I have reviewed over the risk and benefits of the intrathecal pain pump trial and mild procedure again with the patient. We will follow-up with this at future visits. I have also discussed with the patient that I will send in a prescription again with it stating that it can be picked up early. I will send in refills of his oxycodone 10 mg 5 times a day and gabapentin 600 mg 3 times a day and provide a 1 month supply of these medications. Patient will return to clinic in 1 month for reevaluation of symptoms and plan of care. Patient has been advised of risks of oversedation with the prescribed medication. Narcan has been offered to the patient in the event of oversedation. Patient has been advised that a family member should also be educated regarding administration of Narcan. Patient has been instructed to contact the clinic with any concerns before the next appointment. Dr. Rubio has reviewed this note and agrees with this plan of care. This note was dictated using voice recognition software and make contain errors or omissions. [facility] Disclaimer: The information contained in this section may have been updated after the patient was seen, as this information can be updated by other users. Medical History (Updated 01/01/23 @ 14:16 by Josy Ramirez RN) Benign prostatic hyperplasia Chronic pain Hypertension Surgical History (Updated 01/01/23 @ 14:16 by Josy Ramirez RN) No significant past surgical history Family History (Updated 01/01/23 @ 14:13 by Josy Ramirez RN) Other No significant family history Social History (Updated 01/01/23 @ 14:13 by Josy Ramirez RN) Smoking Status: Never smoker alcohol intake: current substance use type: denies use current occupational status: retired Travel in the last 8 weeks: None
[2023-06-17 12:05] VITALS: BP 139/95; PULSE 81; RESP 18; O2SAT 94; BMI 32.8
== END | disposition home or self-care (01) ==
PROVIDERS: PCP Family Medicine; Visit Provider Nurse Practitioner Family
DX: M51.16 Intervertebral disc disorders with radiculopathy, lumbar region (principal); M48.062 Spinal stenosis, lumbar region with neurogenic claudication; G89.4 Chronic pain syndrome
CPT/HCPCS: 99212; G0463

== ENCOUNTER → 2023-07-19 11:18 | Outpatient (POV) | payer BC, MEDICARE, SELFPAY ==
[2023-07-19 11:44] VITALS: BP 158/99; PULSE 80; RESP 18; O2SAT 94; BMI 32.8
--- NOTE | 2023-07-19 11:44 | EXP.PAIN.SOA ---
[facility] Pain Management SOAP Note Subjective:: Patient is a pleasant 68-year-old male who presents today for medication refill and follow-up. We are currently treating the patient for degenerative disc disease of lumbar spine with lumbar radiculopathy symptoms, lumbar spinal stenosis with neurogenic claudication symptoms, chronic pain syndrome. Today he rates his pain a 6 out of 10. Patient denies any new trauma or injury. He does state that he continues to have his typical aches and pains on a daily basis. From his last visit he was still having some trouble with his pharmacy however he states that they ended up saying they were out of his pain medication and so he had to wait a couple of days. He states that he is contemplating switching pharmacies but is going to see how this month and denies. Patient in the past was found to be a beneficial candidate of the intrathecal pain pump trial or the minimally invasive lumbar decompression procedure however due to his current insurance he states he will have to wait. Patient is currently managed with Percocet 10 mg 5 times a day, gabapentin 600 mg 3 times a day and methocarbamol 500 mg twice daily. He denies any side effects from this medication. His Damian has been reviewed and is appropriate. Review of Systems: General: No recent weight changes, no fever, no sleep disturbances Respiratory: No cough, no shortness of air, no recurring pulmonary infections Cardiovascular/peripheral vascular: No chest pain, no palpitations, no edema, no shortness of breath Gastrointestinal: No new onset incontinence, normal bowel movements reported Genitourinary: No new onset incontinence Musculoskeletal: Low back pain Psychiatric: [Normal mood/affect] Neurological: [Denies weakness in extremities], [denies balance issues] Objective:: Physical Exam: General: Alert and oriented x3, no acute distress, pleasant and cooperative Lungs: Respirations even and unlabored, symmetrical chest expansion Eyes: PERRL Musculoskeletal: Flexion and extension of lumbar [spine] somewhat guarded secondary to pain, [antalgic gait noted] Neurological: Speech clear, no gross sensory deficit Assessment:: Degenerative disc disease of lumbar spine with lumbar radiculopathy symptoms, lumbar spinal stenosis with neurogenic claudication symptoms, chronic pain syndrome Plan:: I will refill the patient's gabapentin 600 mg 3 times a day, Percocet 10 mg 5 times a day and methocarbamol 500 mg twice daily and provide a 1 month supply of this medication. I have counseled the patient that he does have to take his medication as prescribed. Patient will return to clinic in 1 month for reevaluation of symptoms and plan of care. Risks and benefits of the medication have been explained in detail to the patient. The patient does understand the risk of dependence on the medication when given over a prolonged period. Patient has been advised of risks of oversedation with the prescribed medication. Narcan has been offered to the paitent in the event of oversedation. Patient has been advised that a family member should also be educated regarding administration of Narcan. The patient has been advised to consult with his/her primary care provider and pharmacist regarding drug-drug interaction of medications currently prescribed. Patient has been prescribed a controlled substance after being counseled on the medication, medication safety, and possible side effects. Opioid contract was reviewed and signed by the patient, and that they have agreed to all of the terms set forth by our compliance program. Patient has been instructed to contact the clinic with any concerns before the next appointment. Dr. Rubio has reviewed this note and agrees with this plan of care. This note was dictated using voice recognition software and make contain errors or omissions. [facility] Disclaimer: The information contained in this section may have been updated after the patient was seen, as this information can be updated by other users. Medical History (Updated 01/01/23 @ 14:16 by Josy Ramirez RN) Benign prostatic hyperplasia Chronic pain Hypertension Surgical History (Updated 01/01/23 @ 14:16 by Josy Ramirez RN) No significant past surgical history Family History (Updated 01/01/23 @ 14:13 by Josy Ramirez RN) Other No significant family history Social History (Updated 01/01/23 @ 14:13 by Josy Ramirez RN) Smoking Status: Never smoker alcohol intake: current substance use type: denies use current occupational status: retired Travel in the last 8 weeks: None
[2023-07-19 15:36] LABS: Barbiturates Screen,Urine Negative ng/ml (<200)
[2023-07-19 15:38] LABS: Cannabinoid Screen,Urine Negative ng/ml (<50); Cocaine Screen,Urine Negative ng/ml (<300)
[2023-07-19 15:39] LABS: Methadone Screen,Urine Negative ng/ml (<300)
[2023-07-19 15:40] LABS: Opiate Screen,Urine Positive ng/ml (<300)
[2023-07-19 15:54] LABS: Benzodiazepines Screen,Urine Negative ng/ml (<200); Phencyclidine Screen,Urine Negative ng/ml (<25)
[2023-07-19 15:55] LABS: Amphetamine/Metha Screen,Urine Negative ng/ml (<1000)
[2023-07-24 17:37] LABS: Opiates Negative (Cutoff=100); Oxycodone (GC/MS) >3000 ng/mL (Cutoff=100); Oxymorphone (GC/MS) >3000 ng/mL (Cutoff=100)
== END ==
LOC: SC.PAIN 11:18
PROVIDERS: PCP Family Medicine; Visit Provider Nurse Practitioner Family
DX: M51.16 Intervertebral disc disorders with radiculopathy, lumbar region (principal); M48.062 Spinal stenosis, lumbar region with neurogenic claudication; G89.4 Chronic pain syndrome
CPT/HCPCS: 80307; 80361; 80365; 99212; G0463; G0480

== ENCOUNTER 2023-08-16 11:01 | Outpatient (POV) | payer BC, MEDICARE, SELFPAY ==
[2023-08-16 11:11] VITALS: BP 144/103; PULSE 79; RESP 18; O2SAT 94; BMI 32.8
--- NOTE | 2023-08-16 11:17 | EXP.PAIN.SOA ---
[facility] Pain Management SOAP Note Subjective:: Patient is a pleasant 68-year-old male who presents today for medication refill. We are currently treating the patient for degenerative disc disease of lumbar spine with lumbar radiculopathy symptoms, lumbar spinal stenosis with neurogenic claudication symptoms, chronic pain syndrome. Today he rates his pain a 6 out of 10. Patient denies any new trauma or injury. He is currently managed with Percocet 10 mg 5 times a day, gabapentin 600 mg 3 times a day and methocarbamol 500 mg twice a day. Patient denies any side effects from these medications. He is requesting a refill at today's visit as well has on his compounded cream. He states that this is helping with his hands, shoulders and low back. His Damian has been reviewed and is appropriate. Review of Systems: General: No recent weight changes, no fever, no sleep disturbances Respiratory: No cough, no shortness of air, no recurring pulmonary infections Cardiovascular/peripheral vascular: No chest pain, no palpitations, no edema, no shortness of breath Gastrointestinal: No new onset incontinence, normal bowel movements reported Genitourinary: No new onset incontinence Musculoskeletal: Low back pain Psychiatric: [Normal mood/affect] Neurological: [Denies weakness in extremities], [denies balance issues] Objective:: Physical Exam: General: Alert and oriented x3, no acute distress, pleasant and cooperative Lungs: Respirations even and unlabored, symmetrical chest expansion Eyes: PERRL Musculoskeletal: Flexion and extension of lumbar [spine] somewhat guarded secondary to pain, [antalgic gait noted] Neurological: Speech clear, no gross sensory deficit Assessment:: degenerative disc disease of lumbar spine with lumbar radiculopathy symptoms, lumbar spinal stenosis with neurogenic claudication symptoms, chronic pain syndrome Plan:: I will refill the patient's compounded cream, Percocet 10 mg 5 times a day, gabapentin 600 mg 3 times a day and methocarbamol 500 mg twice a day and provide a 1 month supply of these medications. Patient will return to clinic in 1 month for reevaluation of symptoms and plan of care. Risks and benefits of the medication have been explained in detail to the patient. The patient does understand the risk of dependence on the medication when given over a prolonged period. Patient has been advised of risks of oversedation with the prescribed medication. Narcan has been offered to the paitent in the event of oversedation. Patient has been advised that a family member should also be educated regarding administration of Narcan. The patient has been advised to consult with his/her primary care provider and pharmacist regarding drug-drug interaction of medications currently prescribed. Patient has been prescribed a controlled substance after being counseled on the medication, medication safety, and possible side effects. Opioid contract was reviewed and signed by the patient, and that they have agreed to all of the terms set forth by our compliance program. Patient has been instructed to contact the clinic with any concerns before the next appointment. Dr. Rubio has reviewed this note and agrees with this plan of care. This note was dictated using voice recognition software and make contain errors or omissions. [facility] Disclaimer: The information contained in this section may have been updated after the patient was seen, as this information can be updated by other users. Medical History (Updated 01/01/23 @ 14:16 by Josy Ramirez RN) Chronic pain Benign prostatic hyperplasia Hypertension Surgical History (Updated 01/01/23 @ 14:16 by Josy Ramirez RN) No significant past surgical history Family History (Updated 01/01/23 @ 14:13 by Josy Ramirez RN) Other No significant family history Social History (Updated 01/01/23 @ 14:13 by Josy Ramirez RN) Smoking Status: Never smoker alcohol intake: current substance use type: denies use current occupational status: retired Travel in the last 8 weeks: None
== END 2023-08-16 23:59 | disposition home or self-care (01) ==
PROVIDERS: PCP Family Medicine; Visit Provider Nurse Practitioner Family
DX: M51.16 Intervertebral disc disorders with radiculopathy, lumbar region (principal); M48.062 Spinal stenosis, lumbar region with neurogenic claudication; G89.4 Chronic pain syndrome
CPT/HCPCS: 99212; G0463

== ENCOUNTER 2023-09-16 11:23 | Outpatient (POV) | payer BC, MEDICARE, SELFPAY ==
[2023-09-16 11:34] VITALS: BP 156/106; PULSE 76; RESP 16; O2SAT 94; BMI 32.1
--- NOTE | 2023-09-16 11:39 | EXP.PAIN.SOA ---
[facility] Pain Management SOAP Note Subjective:: Patient is a pleasant 68-year-old male who presents today for medication refill and 1 month follow-up. Today he rates his pain a 6 out of 10. He denies any new trauma or injury. He is managed with Percocet 10 mg 5 times a day, gabapentin 600 mg 3 times a day and methocarbamol 500 mg twice a day. He denies any side effects from this medication. He does state he is doing well with this current medication regimen and that it is helping. He does state that the muscle relaxer significantly improves his daytime symptoms without causing drowsiness. His Damian has been reviewed and is appropriate. Appointment review of Systems: General: No recent weight changes, no fever, no sleep disturbances Respiratory: No cough, no shortness of air, no recurring pulmonary infections Cardiovascular/peripheral vascular: No chest pain, no palpitations, no edema, no shortness of breath Gastrointestinal: No new onset incontinence, normal bowel movements reported Genitourinary: No new onset incontinence Musculoskeletal: Low back pain Psychiatric: [Normal mood/affect] Neurological: [Denies weakness in extremities], [denies balance issues] Objective:: Physical Exam: General: Alert and oriented x3, no acute distress, pleasant and cooperative Lungs: Respirations even and unlabored, symmetrical chest expansion Eyes: PERRL Musculoskeletal: Flexion and extension of lumbar [spine] somewhat guarded secondary to pain, [antalgic gait noted] Neurological: Speech clear, no gross sensory deficit Assessment:: degenerative disc disease of lumbar spine with lumbar radiculopathy symptoms, lumbar spinal stenosis with neurogenic claudication symptoms, chronic pain syndrome Plan:: I will refill the patient's Percocet 10 mg 5 times a day, gabapentin 600 mg 3 times a day and methocarbamol 500 mg twice a day and provide a 1 month supply of this medication. Patient presents to clinic for reevaluation of symptoms and plan of care. Risks and benefits of the medication have been explained in detail to the patient. The patient does understand the risk of dependence on the medication when given over a prolonged period. Patient has been advised of risks of oversedation with the prescribed medication. Narcan has been offered to the paitent in the event of oversedation. Patient has been advised that a family member should also be educated regarding administration of Narcan. The patient has been advised to consult with his/her primary care provider and pharmacist regarding drug-drug interaction of medications currently prescribed. Patient has been prescribed a controlled substance after being counseled on the medication, medication safety, and possible side effects. Opioid contract was reviewed and signed by the patient, and that they have agreed to all of the terms set forth by our compliance program. Patient has been instructed to contact the clinic with any concerns before the next appointment. Dr. Rubio has reviewed this note and agrees with this plan of care. This note was dictated using voice recognition software and make contain errors or omissions. [facility] Disclaimer: The information contained in this section may have been updated after the patient was seen, as this information can be updated by other users. Medical History Chronic pain Benign prostatic hyperplasia Hypertension Surgical History No significant past surgical history Family History Other No significant family history Social History Smoking Status: Never smoker alcohol intake: current substance use type: denies use current occupational status: other Travel in the last 8 weeks: None
== END 2023-09-16 23:59 | disposition home or self-care (01) ==
PROVIDERS: PCP Family Medicine; Visit Provider Nurse Practitioner Family
DX: M51.16 Intervertebral disc disorders with radiculopathy, lumbar region (principal); M48.062 Spinal stenosis, lumbar region with neurogenic claudication; G89.4 Chronic pain syndrome
CPT/HCPCS: 99212; G0463

== ENCOUNTER 2023-10-14 11:23 | Outpatient (POV) | payer BC, MEDICARE, SELFPAY ==
[2023-10-14 11:46] VITALS: BP 125/78; PULSE 84; RESP 18; O2SAT 97; BMI 32.1
--- NOTE | 2023-10-14 11:51 | EXP.PAIN.SOA ---
[facility] Pain Management SOAP Note Subjective:: Patient is a pleasant 68-year-old male who presents today for medication refill. Today he rates his pain a 6 out of 10. He denies any trauma or injury. He states he is still doing well with his medicine of Percocet 10 mg 5 times a day, gabapentin 600 mg 3 times a day and methocarbamol 500 mg twice a day. He denies any side effects from these medications. His Damian has been reviewed and is appropriate. Review of Systems: General: No recent weight changes, no fever, no sleep disturbances Respiratory: No cough, no shortness of air, no recurring pulmonary infections Cardiovascular/peripheral vascular: No chest pain, no palpitations, no edema, no shortness of breath Gastrointestinal: No new onset incontinence, normal bowel movements reported Genitourinary: No new onset incontinence Musculoskeletal: Low back pain Psychiatric: [Normal mood/affect] Neurological: [Denies weakness in extremities], [denies balance issues] Objective:: Physical Exam: General: Alert and oriented x3, no acute distress, pleasant and cooperative Lungs: Respirations even and unlabored, symmetrical chest expansion Eyes: PERRL Musculoskeletal: Flexion and extension of lumbar [spine] somewhat guarded secondary to pain, [antalgic gait noted] Neurological: Speech clear, no gross sensory deficit Assessment:: Degenerative disc disease of lumbar spine with lumbar radiculopathy symptoms, lumbar spinal stenosis with neurogenic claudication symptoms, chronic pain syndrome Plan:: I will refill the patient's Percocet and gabapentin along with his methocarbamol and provide a 1 month supply of these medications. Patient will return to clinic in 1 month for reevaluation of symptoms and plan of care. Risks and benefits of the medication have been explained in detail to the patient. The patient does understand the risk of dependence on the medication when given over a prolonged period. Patient has been advised of risks of oversedation with the prescribed medication. Narcan has been offered to the paitent in the event of oversedation. Patient has been advised that a family member should also be educated regarding administration of Narcan. The patient has been advised to consult with his/her primary care provider and pharmacist regarding drug-drug interaction of medications currently prescribed. Patient has been prescribed a controlled substance after being counseled on the medication, medication safety, and possible side effects. Opioid contract was reviewed and signed by the patient, and that they have agreed to all of the terms set forth by our compliance program. Patient has been instructed to contact the clinic with any concerns before the next appointment. Dr. Rubio has reviewed this note and agrees with this plan of care. This note was dictated using voice recognition software and make contain errors or omissions. [facility] Disclaimer: The information contained in this section may have been updated after the patient was seen, as this information can be updated by other users. Medical History Chronic pain Benign prostatic hyperplasia Hypertension Surgical History No significant past surgical history Family History Other No significant family history Social History Smoking Status: Never smoker alcohol intake: current substance use type: denies use current occupational status: other Travel in the last 8 weeks: None
== END 2023-10-14 23:59 | disposition home or self-care (01) ==
PROVIDERS: PCP Family Medicine; Visit Provider Nurse Practitioner Family
DX: M51.16 Intervertebral disc disorders with radiculopathy, lumbar region (principal); M48.062 Spinal stenosis, lumbar region with neurogenic claudication; G89.4 Chronic pain syndrome
CPT/HCPCS: 99212; G0463

== ENCOUNTER 2023-11-18 11:20 | Outpatient (POV) | payer BC, MEDICARE, SELFPAY ==
[2023-11-18 11:39] VITALS: BP 145/90; BP 147/90; PULSE 74; RESP 16; O2SAT 95; BMI 32.2
--- NOTE | 2023-11-18 11:44 | EXP.PAIN.SOA ---
[facility] Pain Management SOAP Note Subjective:: Patient is a pleasant 68-year-old male who presents today for medication refill and follow-up. Today he rates his pain a 5 out of 10. Patient denies any new trauma or injury. He states overall he is still been doing well and maintaining. Patient states when the weather was a little bit cooler he felt like he had a little bit worse pain however the warmer weather it has seemed to improve his symptoms. Patient is currently managed with Percocet 10 mg 5 times a day, gabapentin 600 mg 3 times a day and methocarbamol 500 mg twice a day. He denies any side effects from this medication. His Damian has been reviewed and is appropriate. Review of Systems: General: No recent weight changes, no fever, no sleep disturbances Respiratory: No cough, no shortness of air, no recurring pulmonary infections Cardiovascular/peripheral vascular: No chest pain, no palpitations, no edema, no shortness of breath Gastrointestinal: No new onset incontinence, normal bowel movements reported Genitourinary: No new onset incontinence Musculoskeletal: Low back pain Psychiatric: [Normal mood/affect] Neurological: [Denies weakness in extremities], [denies balance issues] Objective:: physical Exam: General: Alert and oriented x3, no acute distress, pleasant and cooperative Lungs: Respirations even and unlabored, symmetrical chest expansion Eyes: PERRL Musculoskeletal: Flexion and extension of lumbar [spine] somewhat guarded secondary to pain, [antalgic gait noted] Neurological: Speech clear, no gross sensory deficit Assessment:: Degenerative disc disease of lumbar spine with lumbar radiculopathy symptoms, lumbar spinal stenosis with neurogenic claudication symptoms, chronic pain syndrome Plan:: I will refill the patient's Percocet, gabapentin and methocarbamol and provide a 1 month supply of this medication. Patient will return to clinic in 1 month for reevaluation of symptoms and plan of care. Risks and benefits of the medication have been explained in detail to the patient. The patient does understand the risk of dependence on the medication when given over a prolonged period. Patient has been advised of risks of oversedation with the prescribed medication. Narcan has been offered to the paitent in the event of oversedation. Patient has been advised that a family member should also be educated regarding administration of Narcan. The patient has been advised to consult with his/her primary care provider and pharmacist regarding drug-drug interaction of medications currently prescribed. Patient has been prescribed a controlled substance after being counseled on the medication, medication safety, and possible side effects. Opioid contract was reviewed and signed by the patient, and that they have agreed to all of the terms set forth by our compliance program. Patient has been instructed to contact the clinic with any concerns before the next appointment. Dr. Rubio has reviewed this note and agrees with this plan of care. This note was dictated using voice recognition software and make contain errors or omissions. [facility] Disclaimer: The information contained in this section may have been updated after the patient was seen, as this information can be updated by other users. Medical History Chronic pain Benign prostatic hyperplasia Hypertension Surgical History No significant past surgical history Family History Other No significant family history Social History Smoking Status: Never smoker alcohol intake: current substance use type: denies use current occupational status: retired Travel in the last 8 weeks: None
[2023-11-18 12:30] LABS: Amphetamine/Metha Screen,Urine Negative ng/ml (<1000)
[2023-11-18 12:31] LABS: Barbiturates Screen,Urine Negative ng/ml (<200); Benzodiazepines Screen,Urine Negative ng/ml (<200)
[2023-11-18 12:32] LABS: Cannabinoid Screen,Urine Negative ng/ml (<50)
[2023-11-18 12:33] LABS: Cocaine Screen,Urine Negative ng/ml (<300); Methadone Screen,Urine Negative ng/ml (<300)
[2023-11-18 12:34] LABS: Opiate Screen,Urine Positive ng/ml (<300)
[2023-11-18 12:35] LABS: Phencyclidine Screen,Urine Negative ng/ml (<25)
[2023-11-23 08:18] LABS: Opiates Negative (Cutoff=100); Oxycodone (GC/MS) >3000 ng/mL (Cutoff=100); Oxymorphone (GC/MS) >3000 ng/mL (Cutoff=100)
== END 2023-11-18 23:59 | disposition home or self-care (01) ==
PROVIDERS: PCP Family Medicine; Visit Provider Nurse Practitioner Family
DX: M51.16 Intervertebral disc disorders with radiculopathy, lumbar region (principal); M48.062 Spinal stenosis, lumbar region with neurogenic claudication; G89.4 Chronic pain syndrome
CPT/HCPCS: 80307; 80361; 80365; 99212; G0463; G0480

== ENCOUNTER 2023-12-16 11:21 | Outpatient (POV) | payer BC, MEDICARE, SELFPAY ==
--- NOTE | 2023-12-16 11:55 | EXP.PAIN.SOA ---
[facility] Disclaimer: The information contained in this section may have been updated after the patient was seen, as this information can be updated by other users. Medical History (Updated 12/16/23 @ 11:57 by Fabienne Young APRN) Chronic pain Benign prostatic hyperplasia Hypertension Surgical History No significant past surgical history Family History Other No significant family history Social History Smoking Status: Never smoker alcohol intake: current substance use type: denies use current occupational status: retired Travel in the last 8 weeks: None PM Subjective & Objective Subjective Subjective:: Patient is a pleasant 68-year-old male who presents today for medication refill. Today he rates his pain a 5 out of 10. He denies any new trauma or injury. He does state that [place]. Patient is currently managed with Percocet 10 mg 5 times a day, gabapentin 600 mg 3 times a day and methocarbamol 500 mg twice a day. He denies any side effects from this medication. His Damian has been reviewed and is appropriate. Review of Systems: General: No recent weight changes, no fever, no sleep disturbances Respiratory: No cough, no shortness of air, no recurring pulmonary infections Cardiovascular/peripheral vascular: No chest pain, no palpitations, no edema, no shortness of breath Gastrointestinal: No new onset incontinence, normal bowel movements reported Genitourinary: No new onset incontinence Musculoskeletal: Low back pain Psychiatric: [Normal mood/affect] Neurological: [Denies weakness in extremities], [denies balance issues] Pain at rest (0-10 scale): 5 Objective Objective:: Physical Exam: General: Alert and oriented x3, no acute distress, pleasant and cooperative Lungs: Respirations even and unlabored, symmetrical chest expansion Eyes: PERRL Musculoskeletal: Flexion and extension of lumbar [spine] somewhat guarded secondary to pain, [antalgic gait noted] Neurological: Speech clear, no gross sensory deficit Has patient had previous pain injection?: No Conservative treatment options previously tried: Home exercise plan Length of treatment: Longer than 6 weeks and Prescription medications Length of treatment: Longer than 6 weeks Meds Home Medications and Allergies Home Medications Medication Instructions Recorded Confirmed Type amlodipine 5 mg tablet 5 mg PO DAILY BLOOD PRESSURE 01/02/21 11/18/23 History carvedilol 25 mg tablet 25 mg PO BID BLOOD PRESSURE 01/02/21 11/18/23 History lisinopril 40 mg tablet 40 mg PO DAILY BLOOD PRESSURE 01/02/21 11/18/23 History sildenafil (pulm.hypertension) 20 20 mg PO DAILYP PRN . 01/02/21 11/18/23 History mg tablet tamsulosin 0.4 mg capsule 0.4 mg PO HS PROSTATE 01/02/21 11/18/23 History testosterone 30 mg/actuation (1.5 2 pump TD DAILY HRT 01/02/21 11/18/23 History mL) transderm solution metered pump tizanidine 4 mg capsule 4 mg PO Q6HP PRN MUSCLE SPASMS 01/02/21 11/18/23 History naloxone 4 mg/actuation nasal spray 4 mg NS ONCE . 08/11/21 11/18/23 History gabapentin 300 mg capsule 300 mg PO TID Pain #90 caps 02/18/23 11/18/23 Rx diclofenac sodium 1 % topical gel 4 g topical QID Pain #100 grams 04/22/23 11/18/23 Rx gabapentin 600 mg tablet 600 mg PO TID #90 tabs 11/18/23 Rx methocarbamol 500 mg tablet 500 mg PO BID #60 tabs 11/18/23 Rx oxycodone-acetaminophen 10 mg-325 1 tab PO 5XDAY #150 tabs 11/18/23 Rx mg tablet (Percocet) New Prescriptions to Start Prescriptions: Allergies Allergy/AdvReac Type Severity Reaction Status Date / Time No Known Allergies Allergy Verified 09/16/23 11:35 Assessment and Plan *Assessment and plan (1) Degenerative disc disease, lumbar: Status: Acute Category: Medical Code(s): M51.36 - Other intervertebral disc degeneration, lumbar region (2) Lumbar radiculopathy: Status: Acute Category: Medical Code(s): M54.16 - Radiculopathy, lumbar region (3) Spinal stenosis, lumbar region with neurogenic claudication: Status: Acute Category: Medical Code(s): M48.062 - Spinal stenosis, lumbar region with neurogenic claudication Plan I will refill the patient's Percocet, gabapentin and methocarbamol provide a 1 month supply of this medication. Patient will return to clinic in 1 month for reevaluation of symptoms and plan of care. Risks and benefits of the medication have been explained in detail to the patient. The patient does understand the risk of dependence on the medication when given over a prolonged period. Patient has been advised of risks of oversedation with the prescribed medication. Narcan has been offered to the paitent in the event of oversedation. Patient has been advised that a family member should also be educated regarding administration of Narcan. The patient has been advised to consult with his/her primary care provider and pharmacist regarding drug-drug interaction of medications currently prescribed. Patient has been prescribed a controlled substance after being counseled on the medication, medication safety, and possible side effects. Opioid contract was reviewed and signed by the patient, and that they have agreed to all of the terms set forth by our compliance program. Patient has been instructed to contact the clinic with any concerns before the next appointment. Dr. Rubio has reviewed this note and agrees with this plan of care. This note was dictated using voice recognition software and make contain errors or omissions.
[2023-12-16 12:34] VITALS: BP 143/98; PULSE 72; RESP 18; O2SAT 94; BMI 31.4
== END 2023-12-16 23:59 | disposition home or self-care (01) ==
PROVIDERS: PCP Family Medicine; Visit Provider Nurse Practitioner Family
DX: M51.16 Intervertebral disc disorders with radiculopathy, lumbar region (principal); M48.062 Spinal stenosis, lumbar region with neurogenic claudication; Z79.899 Other long term (current) drug therapy
CPT/HCPCS: 99212; G0463

== ENCOUNTER 2024-01-13 11:14 | Outpatient (POV) | payer BC, MEDICARE, SELFPAY ==
--- NOTE | 2024-01-13 11:25 | EXP.PAIN.SOA ---
[facility] Disclaimer: The information contained in this section may have been updated after the patient was seen, as this information can be updated by other users. Medical History (Updated 12/16/23 @ 11:57 by Fabienne Young APRN) Chronic pain Benign prostatic hyperplasia Hypertension Surgical History No significant past surgical history Family History Other No significant family history Social History Smoking Status: Never smoker alcohol intake: current substance use type: denies use current occupational status: retired Travel in the last 8 weeks: None PM Subjective & Objective Subjective Subjective:: Patient is a pleasant 68-year-old male who presents today for medication refill. Today he rates his pain a 5 out of 10. He denies any new trauma or injury. He does state today overall he is still doing well and maintaining. Patient is currently managed with Percocet 10 mg 5 times a day, gabapentin 600 mg 3 times a day and methocarbamol 500 mg twice a day. He denies any side effects from this medication. His Damian has been reviewed and is appropriate. Review of Systems: General: No recent weight changes, no fever, no sleep disturbances Respiratory: No cough, no shortness of air, no recurring pulmonary infections Cardiovascular/peripheral vascular: No chest pain, no palpitations, no edema, no shortness of breath Gastrointestinal: No new onset incontinence, normal bowel movements reported Genitourinary: No new onset incontinence Musculoskeletal: Low back pain Psychiatric: [Normal mood/affect] Neurological: [Denies weakness in extremities], [denies balance issues] Pain at rest (0-10 scale): 5 Objective Objective:: Physical Exam: General: Alert and oriented x3, no acute distress, pleasant and cooperative Lungs: Respirations even and unlabored, symmetrical chest expansion Eyes: PERRL Musculoskeletal: Flexion and extension of lumbar [spine] somewhat guarded secondary to pain, [antalgic gait noted] Neurological: Speech clear, no gross sensory deficit Has patient had previous pain injection?: No Conservative treatment options previously tried: Home exercise plan Length of treatment: Longer than 6 weeks and Prescription medications Length of treatment: Longer than 6 weeks Meds Home Medications and Allergies Home Medications ?Medication ?Instructions ?Recorded ?Confirmed ?Type amlodipine 5 mg tablet 5 mg PO DAILY BLOOD PRESSURE 01/02/21 12/16/23 History carvedilol 25 mg tablet 25 mg PO BID BLOOD PRESSURE 01/02/21 12/16/23 History lisinopril 40 mg tablet 40 mg PO DAILY BLOOD PRESSURE 01/02/21 12/16/23 History sildenafil (pulm.hypertension) 20 20 mg PO DAILYP PRN . 01/02/21 12/16/23 History mg tablet tamsulosin 0.4 mg capsule 0.4 mg PO HS PROSTATE 01/02/21 12/16/23 History testosterone 30 mg/actuation (1.5 2 pump TD DAILY HRT 01/02/21 12/16/23 History mL) transderm solution metered pump tizanidine 4 mg capsule 4 mg PO Q6HP PRN MUSCLE SPASMS 01/02/21 12/16/23 History naloxone 4 mg/actuation nasal spray 4 mg NS ONCE . 08/11/21 12/16/23 History gabapentin 300 mg capsule 300 mg PO TID Pain #90 caps 02/18/23 12/16/23 Rx diclofenac sodium 1 % topical gel 4 g topical QID Pain #100 grams 04/22/23 12/16/23 Rx gabapentin 600 mg tablet 600 mg PO TID #90 tabs 12/16/23 Rx methocarbamol 500 mg tablet 500 mg PO BID #60 tabs 12/16/23 Rx oxycodone-acetaminophen 10 mg-325 1 tab PO 5XDAY #150 tabs 12/16/23 Rx mg tablet (Percocet) New Prescriptions to Start Prescriptions: Allergies Allergy/AdvReac Type Severity Reaction Status Date / Time No Known Allergies Allergy Verified 09/16/23 11:35 Assessment and Plan *Assessment and plan (1) Spinal stenosis, lumbar region with neurogenic claudication: Status: Acute Category: Medical Code(s): M48.062 - Spinal stenosis, lumbar region with neurogenic claudication (2) Lumbar radiculopathy: Status: Acute Category: Medical Code(s): M54.16 - Radiculopathy, lumbar region (3) Degenerative disc disease, lumbar: Status: Acute Category: Medical Code(s): M51.36 - Other intervertebral disc degeneration, lumbar region Plan Patient is still doing well with his current medication regimen. We will refill his Percocet, gabapentin and methocarbamol provide 1 month supply of his medications. Patient will return to clinic in 1 month for reevaluation of symptoms and plan of care. Risks and benefits of the medication have been explained in detail to the patient. The patient does understand the risk of dependence on the medication when given over a prolonged period. Patient has been advised of risks of oversedation with the prescribed medication. Narcan has been offered to the paitent in the event of oversedation. Patient has been advised that a family member should also be educated regarding administration of Narcan. The patient has been advised to consult with his/her primary care provider and pharmacist regarding drug-drug interaction of medications currently prescribed. Patient has been prescribed a controlled substance after being counseled on the medication, medication safety, and possible side effects. Opioid contract was reviewed and signed by the patient, and that they have agreed to all of the terms set forth by our compliance program. Patient has been instructed to contact the clinic with any concerns before the next appointment. Dr. Rubio has reviewed this note and agrees with this plan of care. This note was dictated using voice recognition software and make contain errors or omissions.
[2024-01-13 11:36] VITALS: BP 153/80; PULSE 75; RESP 19; O2SAT 94; BMI 31.4
== END 2024-01-13 23:59 | disposition home or self-care (01) ==
PROVIDERS: PCP Family Medicine; Visit Provider Nurse Practitioner Family
DX: M48.062 Spinal stenosis, lumbar region with neurogenic claudication (principal); M51.16 Intervertebral disc disorders with radiculopathy, lumbar region; Z79.899 Other long term (current) drug therapy
CPT/HCPCS: 99212; G0463

== ENCOUNTER 2024-03-09 11:23 | Outpatient (POV) | payer BC, MEDICARE, SELFPAY ==
--- NOTE | 2024-03-09 11:26 | A.OFFVIS_ITS ---
[facility] Disclaimer: The information contained in this section may have been updated after the patient was seen, as this information can be updated by other users. Medical History (Updated 03/09/24 @ 11:41 by Fabienne Young APRN) Chronic pain Benign prostatic hyperplasia Hypertension Surgical History No significant past surgical history Family History Other No significant family history Social History Smoking Status: Never smoker alcohol intake: current substance use type: denies use current occupational status: other Travel in the last 8 weeks: None PM Subjective & Objective Subjective Subjective:: Patient is a pleasant 69-year-old male who presents today for medication refill. Today he rates his pain a 6 out of 10. He does state starting last night he was experiencing nosebleed that just would not stop. He ended up going to the ER where they did apply pressure and then he ended up trying to cauterize the bleed however did not have any success. Today he does present with a Rhino Rocket in his nose to help stop the bleeding. He does state that he is scheduled to see ENT on Wednesday. Patient does state that he has had nosebleed issues in the past about 20 years ago and it was on the right nostril however this is the left. He is currently managed with Percocet 10 mg 5 times a day, gabapentin 600 mg 3 times a day and methocarbamol 500 mg twice a day. He denies any side effects from this medication. His Damian has been reviewed and is appropriate. Review of Systems: General: No recent weight changes, no fever, no sleep disturbances Respiratory: No cough, no shortness of air, no recurring pulmonary infections Cardiovascular/peripheral vascular: No chest pain, no palpitations, no edema, no shortness of breath Gastrointestinal: No new onset incontinence, normal bowel movements reported Genitourinary: No new onset incontinence Musculoskeletal: Low back pain Psychiatric: [Normal mood/affect] Neurological: [Denies weakness in extremities], [denies balance issues] Pain at rest (0-10 scale): 6 Objective Objective:: Physical Exam: General: Alert and oriented x3, no acute distress, pleasant and cooperative Lungs: Respirations even and unlabored, symmetrical chest expansion Eyes: PERRL Musculoskeletal: Flexion and extension of lumbar [spine] somewhat guarded secondary to pain, [antalgic gait noted] Neurological: Speech clear, no gross sensory deficit Has patient had previous pain injection?: No Conservative treatment options previously tried: Home exercise plan Length of treatment: Longer than 12 weeks Meds Home Medications and Allergies Home Medications ?Medication ?Instructions ?Recorded ?Confirmed ?Type amlodipine 5 mg tablet 5 mg PO DAILY BLOOD PRESSURE 01/02/21 01/13/24 History carvedilol 25 mg tablet 25 mg PO BID BLOOD PRESSURE 01/02/21 01/13/24 History lisinopril 40 mg tablet 40 mg PO DAILY BLOOD PRESSURE 01/02/21 01/13/24 History sildenafil (pulm.hypertension) 20 20 mg PO DAILYP PRN . 01/02/21 01/13/24 History mg tablet tamsulosin 0.4 mg capsule 0.4 mg PO HS PROSTATE 01/02/21 01/13/24 History testosterone 30 mg/actuation (1.5 2 pump TD DAILY HRT 01/02/21 01/13/24 History mL) transderm solution metered pump tizanidine 4 mg capsule 4 mg PO Q6HP PRN MUSCLE SPASMS 01/02/21 01/13/24 History naloxone 4 mg/actuation nasal spray 4 mg NS ONCE . 08/11/21 01/13/24 History gabapentin 300 mg capsule 300 mg PO TID Pain #90 caps 02/18/23 01/13/24 Rx diclofenac sodium 1 % topical gel 4 g topical QID Pain #100 grams 04/22/23 01/13/24 Rx oxycodone-acetaminophen 10 mg-325 1 tab PO 5XDAY #150 tabs 01/13/24 Rx mg tablet (Percocet) gabapentin 600 mg tablet 600 mg PO TID #90 tabs 02/16/24 Rx methocarbamol 500 mg tablet 500 mg PO BID #60 tabs 02/16/24 Rx New Prescriptions to Start Prescriptions: Allergies Allergy/AdvReac Type Severity Reaction Status Date / Time No Known Allergies Allergy Verified 09/16/23 11:35 Assessment and Plan *Assessment and plan (1) Spinal stenosis, lumbar region with neurogenic claudication: Status: Acute Category: Medical Code(s): M48.062 - Spinal stenosis, lumbar region with neurogenic claudication (2) Lumbar radiculopathy: Status: Acute Category: Medical Code(s): M54.16 - Radiculopathy, lumbar region (3) Degenerative disc disease, lumbar: Status: Acute Qualifiers: Disc-related pain type: discogenic back pain and lower extremity pain Qualified Code(s): M51.362 - Other intervertebral disc degeneration, lumbar region with discogenic back pain and lower extremity pain Category: Medical Code(s): M51.36 - Other intervertebral disc degeneration, lumbar region Plan We will refill the patient's Percocet, gabapentin and methocarbamol and provide a 1 month supply of these medications. Patient was counseled in future if something like this happens again that he can call and we can just do a telehealth visit. Patient was counseled this would only be a random occurrence that we could do it however due to the fact that I do know he has been in the ER all night and did not leave until around 3 AM that we can make exceptions from time to time. Patient acknowledges understanding. Patient will return to clinic in 1 month for reevaluation of symptoms and plan of care. Risks and benefits of the medication have been explained in detail to the patient. The patient does understand the risk of dependence on the medication when given over a prolonged period. Patient has been advised of risks of oversedation with the prescribed medication. Narcan has been offered to the paitent in the event of oversedation. Patient has been advised that a family member should also be educated regarding administration of Narcan. The patient has been advised to consult with his/her primary care provider and pharmacist regarding drug-drug interaction of medications currently prescribed. Patient has been prescribed a controlled substance after being counseled on the medication, medication safety, and possible side effects. Opioid contract was reviewed and signed by the patient, and that they have agreed to all of the terms set forth by our compliance program. Patient has been instructed to contact the clinic with any concerns before the next appointment. Dr. Rubio has reviewed this note and agrees with this plan of care. This note was dictated using voice recognition software and make contain errors or omissions.
[2024-03-09 11:40] VITALS: BP 141/86; PULSE 82; RESP 18; O2SAT 94; BMI 31.4
== END 2024-03-09 23:59 | disposition home or self-care (01) ==
PROVIDERS: PCP Family Medicine; Visit Provider Nurse Practitioner Family
DX: M48.062 Spinal stenosis, lumbar region with neurogenic claudication (principal); M51.16 Intervertebral disc disorders with radiculopathy, lumbar region
CPT/HCPCS: 99212; G0463

== ENCOUNTER 2024-04-10 11:26 | Outpatient (POV) | payer BC, SELFPAY ==
[2024-04-10 11:44] VITALS: BP 136/89; PULSE 77; RESP 18; O2SAT 95; BMI 30.7
--- NOTE | 2024-04-10 11:56 | EXP.PAIN.SOA ---
[facility] Disclaimer: The information contained in this section may have been updated after the patient was seen, as this information can be updated by other users. Medical History (Updated 03/09/24 @ 11:41 by Fabienne Young APRN) Chronic pain Benign prostatic hyperplasia Hypertension Surgical History No significant past surgical history Family History Other No significant family history Social History Smoking Status: Never smoker alcohol intake: current substance use type: denies use current occupational status: other Travel in the last 8 weeks: None PM Subjective & Objective Subjective Subjective:: Patient is a pleasant 69-year-old male who presents today for medication refill and follow-up. Today he rates his pain a 6 out of 10. Patient does state that he ended up getting his nose cauterized after he had the last bleed. He states as of right now he is doing well and has not had any other issues with this. Patient does state from the last visit he did end up having issues with his pharmacy and that they ended up losing their pharmacist and did not tell anybody but did not fill the medications when they were due. He states he had about a day and a half where he was completely out of medication and in severe pain. Patient does states he is planning on switching to [facility] there in [place]. Patient is currently managed with Percocet 10 mg 5 times a day, gabapentin 600 mg 3 times a day and methocarbamol 500 mg twice a day. He denies any side effects from this medication. His Damian has been reviewed and is appropriate. Review of Systems: General: No recent weight changes, no fever, no sleep disturbances Respiratory: No cough, no shortness of air, no recurring pulmonary infections Cardiovascular/peripheral vascular: No chest pain, no palpitations, no edema, no shortness of breath Gastrointestinal: No new onset incontinence, normal bowel movements reported Genitourinary: No new onset incontinence Musculoskeletal: Low back pain Psychiatric: [Normal mood/affect] Neurological: [Denies weakness in extremities], [denies balance issues] Pain at rest (0-10 scale): 6 Objective Objective:: Physical Exam: General: Alert and oriented x3, no acute distress, pleasant and cooperative Lungs: Respirations even and unlabored, symmetrical chest expansion Eyes: PERRL Musculoskeletal: Flexion and extension of lumbar [spine] somewhat guarded secondary to pain, [antalgic gait noted] Neurological: Speech clear, no gross sensory deficit Has patient had previous pain injection?: No Conservative treatment options previously tried: Home exercise plan Length of treatment: Longer than 12 weeks Meds Home Medications and Allergies Home Medications ?Medication ?Instructions ?Recorded ?Confirmed ?Type amlodipine 5 mg tablet 5 mg PO DAILY BLOOD PRESSURE 01/02/21 04/10/24 History carvedilol 25 mg tablet 25 mg PO BID BLOOD PRESSURE 01/02/21 04/10/24 History lisinopril 40 mg tablet 40 mg PO DAILY BLOOD PRESSURE 01/02/21 04/10/24 History sildenafil (pulm.hypertension) 20 20 mg PO DAILYP PRN . 01/02/21 04/10/24 History mg tablet tamsulosin 0.4 mg capsule 0.4 mg PO HS PROSTATE 01/02/21 04/10/24 History testosterone 30 mg/actuation (1.5 2 pump TD DAILY HRT 01/02/21 04/10/24 History mL) transderm solution metered pump tizanidine 4 mg capsule 4 mg PO Q6HP PRN MUSCLE SPASMS 01/02/21 04/10/24 History naloxone 4 mg/actuation nasal spray 4 mg NS ONCE . 08/11/21 04/10/24 History gabapentin 300 mg capsule 300 mg PO TID Pain #90 caps 02/18/23 04/10/24 Rx diclofenac sodium 1 % topical gel 4 g topical QID Pain #100 grams 04/22/23 04/10/24 Rx gabapentin 600 mg tablet 600 mg PO TID #90 tabs 03/09/24 04/10/24 Rx methocarbamol 500 mg tablet 500 mg PO BID #60 tabs 03/09/24 04/10/24 Rx oxycodone-acetaminophen 10 mg-325 1 tab PO 5XDAY #150 tabs 03/09/24 04/10/24 Rx mg tablet (Percocet) New Prescriptions to Start Prescriptions: Allergies Allergy/AdvReac Type Severity Reaction Status Date / Time No Known Allergies Allergy Verified 09/16/23 11:35 Assessment and Plan *Assessment and plan (1) Spinal stenosis, lumbar region with neurogenic claudication: Status: Acute Category: Medical Code(s): M48.062 - Spinal stenosis, lumbar region with neurogenic claudication (2) Lumbar radiculopathy: Status: Acute Category: Medical Code(s): M54.16 - Radiculopathy, lumbar region (3) Degenerative disc disease, lumbar: Status: Acute Qualifiers: Disc-related pain type: discogenic back pain and lower extremity pain Qualified Code(s): M51.362 - Other intervertebral disc degeneration, lumbar region with discogenic back pain and lower extremity pain Category: Medical Code(s): M51.36 - Other intervertebral disc degeneration, lumbar region Plan We will refill the patient's gabapentin, Percocet and methocarbamol and provide a 1 month supply of these medications. Patient will return to clinic in 1 month for reevaluation of symptoms and plan of care Risks and benefits of the medication have been explained in detail to the patient. The patient does understand the risk of dependence on the medication when given over a prolonged period. Patient has been advised of risks of oversedation with the prescribed medication. Narcan has been offered to the paitent in the event of oversedation. Patient has been advised that a family member should also be educated regarding administration of Narcan. The patient has been advised to consult with his/her primary care provider and pharmacist regarding drug-drug interaction of medications currently prescribed. Patient has been prescribed a controlled substance after being counseled on the medication, medication safety, and possible side effects. Opioid contract was reviewed and signed by the patient, and that they have agreed to all of the terms set forth by our compliance program. Patient has been instructed to contact the clinic with any concerns before the next appointment. Dr. Rubio has reviewed this note and agrees with this plan of care. This note was dictated using voice recognition software and make contain errors or omissions.
== END 2024-04-10 23:59 | disposition home or self-care (01) ==
PROVIDERS: PCP Family Medicine; Visit Provider Nurse Practitioner Family
DX: M48.062 Spinal stenosis, lumbar region with neurogenic claudication (principal); M51.16 Intervertebral disc disorders with radiculopathy, lumbar region
CPT/HCPCS: 99212; G0463

== ENCOUNTER 2024-05-11 11:32 | Outpatient (POV) | payer BC, SELFPAY ==
[2024-05-11 11:57] VITALS: BP 155/88; PULSE 68; RESP 14; O2SAT 94; BMI 30.7
--- NOTE | 2024-05-11 12:09 | EXP.PAIN.SOA ---
[facility] Disclaimer: The information contained in this section may have been updated after the patient was seen, as this information can be updated by other users. Medical History (Updated 03/09/24 @ 11:41 by Fabienne Young APRN) Chronic pain Benign prostatic hyperplasia Hypertension Surgical History No significant past surgical history Family History Other No significant family history Social History Smoking Status: Never smoker alcohol intake: current substance use type: denies use current occupational status: other Travel in the last 8 weeks: None PM Subjective & Objective Subjective Subjective:: Patient is a pleasant 69-year-old male who presents today for medication refill and follow-up. Today he rates his pain a 5 out of 10. He denies any new changes. He is currently managed with Percocet 10 mg 5 times a day, gabapentin 600 mg 3 times a day and methocarbamol 500 mg twice a day. He denies any side effects from this medication. His Damian has been reviewed and is appropriate. Patient is requesting that his prescriptions be sent to [facility]. Review of Systems: General: No recent weight changes, no fever, no sleep disturbances Respiratory: No cough, no shortness of air, no recurring pulmonary infections Cardiovascular/peripheral vascular: No chest pain, no palpitations, no edema, no shortness of breath Gastrointestinal: No new onset incontinence, normal bowel movements reported Genitourinary: No new onset incontinence Musculoskeletal: Low back pain Psychiatric: [Normal mood/affect] Neurological: [Denies weakness in extremities], [denies balance issues] Pain at rest (0-10 scale): 5 Objective Objective:: Physical Exam: General: Alert and oriented x3, no acute distress, pleasant and cooperative Lungs: Respirations even and unlabored, symmetrical chest expansion Eyes: PERRL Musculoskeletal: Flexion and extension of lumbar [spine] somewhat guarded secondary to pain, [antalgic gait noted] Neurological: Speech clear, no gross sensory deficit Has patient had previous pain injection?: No Conservative treatment options previously tried: Prescription medications Length of treatment: Longer than 12 weeks Meds Home Medications and Allergies Home Medications ?Medication ?Instructions ?Recorded ?Confirmed ?Type amlodipine 5 mg tablet 5 mg PO DAILY BLOOD PRESSURE 01/02/21 05/11/24 History carvedilol 25 mg tablet 25 mg PO BID BLOOD PRESSURE 01/02/21 05/11/24 History lisinopril 40 mg tablet 40 mg PO DAILY BLOOD PRESSURE 01/02/21 05/11/24 History sildenafil (pulm.hypertension) 20 20 mg PO DAILYP PRN . 01/02/21 05/11/24 History mg tablet tamsulosin 0.4 mg capsule 0.4 mg PO HS PROSTATE 01/02/21 05/11/24 History testosterone 30 mg/actuation (1.5 2 pump TD DAILY HRT 01/02/21 05/11/24 History mL) transderm solution metered pump tizanidine 4 mg capsule 4 mg PO Q6HP PRN MUSCLE SPASMS 01/02/21 05/11/24 History naloxone 4 mg/actuation nasal spray 4 mg NS ONCE . 08/11/21 05/11/24 History gabapentin 300 mg capsule 300 mg PO TID Pain #90 caps 02/18/23 05/11/24 Rx diclofenac sodium 1 % topical gel 4 g topical QID Pain #100 grams 04/22/23 05/11/24 Rx gabapentin 600 mg tablet 600 mg PO TID #90 tabs 04/10/24 05/11/24 Rx methocarbamol 500 mg tablet 500 mg PO BID #60 tabs 04/10/24 05/11/24 Rx oxycodone-acetaminophen 10 mg-325 1 tab PO 5XDAY #150 tabs 04/12/24 05/11/24 Rx mg tablet (Percocet) New Prescriptions to Start Prescriptions: Allergies Allergy/AdvReac Type Severity Reaction Status Date / Time No Known Allergies Allergy Verified 09/16/23 11:35 Assessment and Plan *Assessment and plan (1) Spinal stenosis, lumbar region with neurogenic claudication: Status: Acute Category: Medical Code(s): M48.062 - Spinal stenosis, lumbar region with neurogenic claudication (2) Lumbar radiculopathy: Status: Acute Category: Medical Code(s): M54.16 - Radiculopathy, lumbar region (3) Degenerative disc disease, lumbar: Status: Acute Qualifiers: Disc-related pain type: discogenic back pain and lower extremity pain Qualified Code(s): M51.362 - Other intervertebral disc degeneration, lumbar region with discogenic back pain and lower extremity pain Category: Medical Code(s): M51.36 - Other intervertebral disc degeneration, lumbar region Plan I will refill the patient's Percocet, gabapentin and methocarbamol and provide a 1 month supply of this medication. Patient will return to clinic in 1 month for reevaluation of symptoms and plan of care. Risks and benefits of the medication have been explained in detail to the patient. The patient does understand the risk of dependence on the medication when given over a prolonged period. Patient has been advised of risks of oversedation with the prescribed medication. Narcan has been offered to the paitent in the event of oversedation. Patient has been advised that a family member should also be educated regarding administration of Narcan. The patient has been advised to consult with his/her primary care provider and pharmacist regarding drug-drug interaction of medications currently prescribed. Patient has been prescribed a controlled substance after being counseled on the medication, medication safety, and possible side effects. Opioid contract was reviewed and signed by the patient, and that they have agreed to all of the terms set forth by our compliance program. Patient has been instructed to contact the clinic with any concerns before the next appointment. Dr. Rubio has reviewed this note and agrees with this plan of care. This note was dictated using voice recognition software and make contain errors or omissions.
== END 2024-05-11 23:59 | disposition home or self-care (01) ==
PROVIDERS: PCP Family Medicine; Visit Provider Nurse Practitioner Family
DX: M48.062 Spinal stenosis, lumbar region with neurogenic claudication (principal); M51.16 Intervertebral disc disorders with radiculopathy, lumbar region
CPT/HCPCS: 99212; G0463

== ENCOUNTER 2024-06-08 11:21 | Outpatient (POV) | payer BC, SELFPAY ==
[2024-06-08 12:11] VITALS: BP 165/115; PULSE 78; RESP 16; O2SAT 98; BMI 32.1
--- NOTE | 2024-06-08 12:13 | A.OFFVIS_ITS ---
[facility] Disclaimer: The information contained in this section may have been updated after the patient was seen, as this information can be updated by other users. Medical History (Updated 03/09/24 @ 11:41 by Fabienne Young APRN) Chronic pain Benign prostatic hyperplasia Hypertension Surgical History No significant past surgical history Family History Other No significant family history Social History Smoking Status: Never smoker alcohol intake: current substance use type: denies use current occupational status: other Travel in the last 8 weeks: None Have you lived/traveled outside [place] in past 30 days?: No Contact w/someone who lives/traveled outside [place] past 30 days?: No Exposure to someone with infectious disease in past 14 days?: No Do you have a fever (greater than 100.4 F or 38 C)?: No Have you tested positive for COVID-19: No Exposed to someone with COVID-19 in past 14 days?: No Do you have a sore throat?: No Do you have a cough?: No Do you have any weakness?: No Do you have any diarrhea?: No Are you experiencing any unusual bleeding?: No Do you have any muscle aches/pain?: No Do you have any abdominal pain?: No Are you experiencing loss of taste or smell?: No PM Subjective & Objective Subjective Subjective:: Patient is a pleasant 69-year-old male who presents today for medication refill. Today he rates his pain a 6 out of 10. He denies any new trauma or injury. He is currently managed with Percocet 10 mg 5 times a day, gabapentin 600 mg 3 times a day and methocarbamol 500 mg twice a day. He denies any side effects. His Damian has been reviewed and is appropriate. Review of Systems: General: No recent weight changes, no fever, no sleep disturbances Respiratory: No cough, no shortness of air, no recurring pulmonary infections Cardiovascular/peripheral vascular: No chest pain, no palpitations, no edema, no shortness of breath Gastrointestinal: No new onset incontinence, normal bowel movements reported Genitourinary: No new onset incontinence Musculoskeletal: Low back pain Psychiatric: [Normal mood/affect] Neurological: [Denies weakness in extremities], [denies balance issues] Pain at rest (0-10 scale): 6 Objective Objective:: Physical Exam: General: Alert and oriented x3, no acute distress, pleasant and cooperative Lungs: Respirations even and unlabored, symmetrical chest expansion Eyes: PERRL Musculoskeletal: Flexion and extension of lumbar [spine] somewhat guarded secondary to pain, [antalgic gait noted] Neurological: Speech clear, no gross sensory deficit Has patient had previous pain injection?: No Conservative treatment options previously tried: Prescription medications Length of treatment: Longer than 12 weeks Meds Home Medications and Allergies Home Medications ?Medication ?Instructions ?Recorded ?Confirmed ?Type amlodipine 5 mg tablet 5 mg PO DAILY BLOOD PRESSURE 01/02/21 05/11/24 History carvedilol 25 mg tablet 25 mg PO BID BLOOD PRESSURE 01/02/21 05/11/24 History lisinopril 40 mg tablet 40 mg PO DAILY BLOOD PRESSURE 01/02/21 05/11/24 History sildenafil (pulm.hypertension) 20 20 mg PO DAILYP PRN . 01/02/21 05/11/24 History mg tablet tamsulosin 0.4 mg capsule 0.4 mg PO HS PROSTATE 01/02/21 05/11/24 History testosterone 30 mg/actuation (1.5 2 pump TD DAILY HRT 01/02/21 05/11/24 History mL) transderm solution metered pump tizanidine 4 mg capsule 4 mg PO Q6HP PRN MUSCLE SPASMS 01/02/21 05/11/24 History naloxone 4 mg/actuation nasal spray 4 mg NS ONCE . 08/11/21 05/11/24 History gabapentin 300 mg capsule 300 mg PO TID Pain #90 caps 02/18/23 05/11/24 Rx diclofenac sodium 1 % topical gel 4 g topical QID Pain #100 grams 04/22/23 05/11/24 Rx gabapentin 600 mg tablet 600 mg PO TID #90 tabs 04/10/24 05/11/24 Rx methocarbamol 500 mg tablet 500 mg PO BID #60 tabs 04/10/24 05/11/24 Rx oxycodone-acetaminophen 10 mg-325 1 tab PO 5XDAY #150 tabs 05/11/24 Rx mg tablet (Percocet) New Prescriptions to Start Prescriptions: Allergies Allergy/AdvReac Type Severity Reaction Status Date / Time No Known Allergies Allergy Verified 09/16/23 11:35 Assessment and Plan *Assessment and plan (1) Spinal stenosis, lumbar region with neurogenic claudication: Status: Acute Category: Medical Code(s): M48.062 - Spinal stenosis, lumbar region with neurogenic claudication (2) Lumbar radiculopathy: Status: Acute Category: Medical Code(s): M54.16 - Radiculopathy, lumbar region (3) Degenerative disc disease, lumbar: Status: Acute Qualifiers: Disc-related pain type: discogenic back pain and lower extremity pain Qualified Code(s): M51.362 - Other intervertebral disc degeneration, lumbar region with discogenic back pain and lower extremity pain Category: Medical Code(s): M51.369 - Other intervertebral disc degeneration, lumbar region without mention of lumbar back pain or lower extremity pain Plan We will refill the patient's Percocet, gabapentin and methocarbamol. Patient will return to clinic in 1 month for reevaluation of symptoms and plan of care. Risks and benefits of the medication have been explained in detail to the patient. The patient does understand the risk of dependence on the medication when given over a prolonged period. Patient has been advised of risks of oversedation with the prescribed medication. Narcan has been offered to the paitent in the event of o versedation. Patient has been advised that a family member should also be educated regarding administration of Narcan. The patient has been advised to consult with his/her primary care provider and pharmacist regarding drug-drug interaction of medications currently prescribed. Patient has been prescribed a controlled substance after being counseled on the medication, medication safety, and possible side effects. Opioid contract was reviewed and signed by the patient, and that they have agreed to all of the terms set forth by our compliance program. A UDS is needed to verify patient's compliance with our office pain contract. This is ordered based off specific treatments related to chronic pain with the potential to abuse certain medications. Patient has been instructed to contact the clinic with any concerns before the next appointment. Dr. Rubio has reviewed this note and agrees with this plan of care. This note was dictated using voice recognition software and make contain errors or omissions.
== END 2024-06-08 23:59 | disposition home or self-care (01) ==
PROVIDERS: PCP Family Medicine; Visit Provider Nurse Practitioner Family
DX: M48.062 Spinal stenosis, lumbar region with neurogenic claudication (principal); M51.16 Intervertebral disc disorders with radiculopathy, lumbar region
CPT/HCPCS: 99212; G0463

== ENCOUNTER 2024-07-06 11:25 | Outpatient (POV) | payer BC, SELFPAY ==
[2024-07-06 11:40] VITALS: BP 129/110; PULSE 72; RESP 14; O2SAT 97; BMI 30.7
--- NOTE | 2024-07-06 11:53 | EXP.PAIN.SOA ---
[facility] Disclaimer: The information contained in this section may have been updated after the patient was seen, as this information can be updated by other users. Medical History Chronic pain Benign prostatic hyperplasia Hypertension Surgical History No significant past surgical history Family History Other No significant family history Social History Smoking Status: Never smoker alcohol intake: current substance use type: denies use current occupational status: other Travel in the last 8 weeks: None PM Subjective & Objective Subjective Subjective:: Patient is a pleasant 69-year-old male who presents today for medication refill and follow-up. Today he rates his pain a 6 out of 10. He denies any new trauma or injury. He states he is still doing well with his medication. He is currently managed with Percocet 10 mg 5 times a day, gabapentin 600 mg 3 times a day and methocarbamol 500 mg twice a day. He denies any side effects. His Damian has been reviewed and is appropriate. Review of Systems: General: No recent weight changes, no fever, no sleep disturbances Respiratory: No cough, no shortness of air, no recurring pulmonary infections Cardiovascular/peripheral vascular: No chest pain, no palpitations, no edema, no shortness of breath Gastrointestinal: No new onset incontinence, normal bowel movements reported Genitourinary: No new onset incontinence Musculoskeletal: Low back pain Psychiatric: [Normal mood/affect] Neurological: [Denies weakness in extremities], [denies balance issues] Pain at rest (0-10 scale): 6 Objective Objective:: Physical Exam: General: Alert and oriented x3, no acute distress, pleasant and cooperative Lungs: Respirations even and unlabored, symmetrical chest expansion Eyes: PERRL Musculoskeletal: Flexion and extension of lumbar [spine] somewhat guarded secondary to pain, [antalgic gait noted] Neurological: Speech clear, no gross sensory deficit Has patient had previous pain injection?: No Conservative treatment options previously tried: Prescription medications Length of treatment: Longer than 12 weeks Meds Home Medications and Allergies Home Medications ?Medication ?Instructions ?Recorded ?Confirmed ?Type amlodipine 5 mg tablet 5 mg PO DAILY BLOOD PRESSURE 01/02/21 07/06/24 History carvedilol 25 mg tablet 25 mg PO BID BLOOD PRESSURE 01/02/21 07/06/24 History lisinopril 40 mg tablet 40 mg PO DAILY BLOOD PRESSURE 01/02/21 07/06/24 History sildenafil (pulm.hypertension) 20 20 mg PO DAILYP PRN . 01/02/21 07/06/24 History mg tablet tamsulosin 0.4 mg capsule 0.4 mg PO HS PROSTATE 01/02/21 07/06/24 History testosterone 30 mg/actuation (1.5 2 pump TD DAILY HRT 01/02/21 07/06/24 History mL) transderm solution metered pump tizanidine 4 mg capsule 4 mg PO Q6HP PRN MUSCLE SPASMS 01/02/21 07/06/24 History naloxone 4 mg/actuation nasal spray 4 mg NS ONCE . 08/11/21 07/06/24 History gabapentin 300 mg capsule 300 mg PO TID Pain #90 caps 02/18/23 07/06/24 Rx diclofenac sodium 1 % topical gel 4 g topical QID Pain #100 grams 04/22/23 07/06/24 Rx gabapentin 600 mg tablet 600 mg PO TID #90 tabs 04/10/24 07/06/24 Rx methocarbamol 500 mg tablet 500 mg PO BID #60 tabs 04/10/24 07/06/24 Rx oxycodone-acetaminophen 10 mg-325 1 tab PO 5XDAY #150 tabs 06/08/24 07/06/24 Rx mg tablet (Percocet) New Prescriptions to Start Prescriptions: Allergies Allergy/AdvReac Type Severity Reaction Status Date / Time No Known Allergies Allergy Verified 09/16/23 11:35 Assessment and Plan *Assessment and plan (1) Degenerative disc disease, lumbar: Status: Acute Qualifiers: Disc-related pain type: discogenic back pain and lower extremity pain Qualified Code(s): M51.362 - Other intervertebral disc degeneration, lumbar region with discogenic back pain and lower extremity pain Category: Medical Code(s): M51.369 - Other intervertebral disc degeneration, lumbar region without mention of lumbar back pain or lower extremity pain (2) Lumbar radiculopathy: Status: Acute Category: Medical Code(s): M54.16 - Radiculopathy, lumbar region Plan I will refill his medication including the Percocet, gabapentin and methocarbamol. Patient will return to clinic in 1 month for reevaluation of symptoms and plan of care. Risks and benefits of the medication have been explained in detail to the patient. The patient does understand the risk of dependence on the medication when given over a prolonged period. Patient has been advised of risks of oversedation with the prescribed medication. Narcan has been offered to the paitent in the event of oversedation. Patient has been advised that a family member should also be educated regarding administration of Narcan. The patient has been advised to consult with his/her primary care provider and pharmacist regarding drug-drug interaction of medications currently prescribed. Patient has been prescribed a controlled substance after being counseled on the medication, medication safety, and possible side effects. Opioid contract was reviewed and signed by the patient, and that they have agreed to all of the terms set forth by our compliance program. A UDS is needed to verify patient's compliance with our office pain contract. This is ordered based off specific treatments related to chronic pain with the potential to abuse certain medications. Patient has been instructed to contact the clinic with any concerns before the next appointment. Dr. Rubio has reviewed this note and agrees with this plan of care. This note was dictated using voice recognition software and make contain errors or omissions.
== END 2024-07-06 23:59 | disposition home or self-care (01) ==
PROVIDERS: PCP Family Medicine; Visit Provider Nurse Practitioner Family
DX: M51.16 Intervertebral disc disorders with radiculopathy, lumbar region (principal)
CPT/HCPCS: 99212; G0463

== ENCOUNTER 2024-08-03 11:31 | Outpatient (POV) | payer BC, SELFPAY ==
[2024-08-03 11:47] VITALS: BP 153/93; PULSE 69; RESP 14; O2SAT 99; BMI 30.7
--- NOTE | 2024-08-03 12:00 | EXP.PAIN.SOA ---
[facility] Disclaimer: The information contained in this section may have been updated after the patient was seen, as this information can be updated by other users. Medical History Chronic pain Benign prostatic hyperplasia Hypertension Surgical History No significant past surgical history Family History Other No significant family history Social History Smoking Status: Never smoker alcohol intake: current substance use type: denies use current occupational status: other Travel in the last 8 weeks: None Have you lived/traveled outside US in past 30 days?: No Contact w/someone who lives/traveled outside US past 30 days?: No Exposure to someone with infectious disease in past 14 days?: No Do you have a fever (greater than 100.4 F or 38 C)?: No Have you tested positive for COVID-19: No Exposed to someone with COVID-19 in past 14 days?: No Do you have a sore throat?: No Do you have a cough?: No Do you have any weakness?: No Do you have any diarrhea?: No Are you experiencing any unusual bleeding?: No Do you have any muscle aches/pain?: No Do you have any abdominal pain?: No Are you experiencing loss of taste or smell?: No PM Subjective & Objective Subjective Subjective:: Patient is a pleasant 69-year-old male who presents today for medication refill and follow-up. Today he rates his pain a 6 out of 10. He denies any new trauma or injury. He states that overall his medications are working well. He is prescribed Percocet 10 mg 5 times a day, gabapentin 600 mg 3 times a day and methocarbamol 500 mg twice a day. He denies any side effects. His Damian has been reviewed and is appropriate. Review of Systems: General: No recent weight changes, no fever, no sleep disturbances Respiratory: No cough, no shortness of air, no recurring pulmonary infections Cardiovascular/peripheral vascular: No chest pain, no palpitations, no edema, no shortness of breath Gastrointestinal: No new onset incontinence, normal bowel movements reported Genitourinary: No new onset incontinence Musculoskeletal: Low back pain Psychiatric: [Normal mood/affect] Neurological: [Denies weakness in extremities], [denies balance issues] Pain at rest (0-10 scale): 6 Objective Objective:: Physical Exam: General: Alert and oriented x3, no acute distress, pleasant and cooperative Lungs: Respirations even and unlabored, symmetrical chest expansion Eyes: PERRL Musculoskeletal: Flexion and extension of lumbar [spine] somewhat guarded secondary to pain, [antalgic gait noted] Neurological: Speech clear, no gross sensory deficit Has patient had previous pain injection?: No Conservative treatment options previously tried: Home exercise plan Length of treatment: Longer than 12-week Meds Home Medications and Allergies Home Medications ?Medication ?Instructions ?Recorded ?Confirmed ?Type amlodipine 5 mg tablet 5 mg PO DAILY BLOOD PRESSURE 01/02/21 07/06/24 History carvedilol 25 mg tablet 25 mg PO BID BLOOD PRESSURE 01/02/21 07/06/24 History lisinopril 40 mg tablet 40 mg PO DAILY BLOOD PRESSURE 01/02/21 07/06/24 History sildenafil (pulm.hypertension) 20 20 mg PO DAILYP PRN . 01/02/21 07/06/24 History mg tablet tamsulosin 0.4 mg capsule 0.4 mg PO HS PROSTATE 01/02/21 07/06/24 History testosterone 30 mg/actuation (1.5 2 pump TD DAILY HRT 01/02/21 07/06/24 History mL) transderm solution metered pump tizanidine 4 mg capsule 4 mg PO Q6HP PRN MUSCLE SPASMS 01/02/21 07/06/24 History naloxone 4 mg/actuation nasal spray 4 mg NS ONCE . 08/11/21 07/06/24 History gabapentin 300 mg capsule 300 mg PO TID Pain #90 caps 02/18/23 07/06/24 Rx diclofenac sodium 1 % topical gel 4 g topical QID Pain #100 grams 04/22/23 07/06/24 Rx gabapentin 600 mg tablet 600 mg PO TID #90 tabs 07/06/24 Rx methocarbamol 500 mg tablet 500 mg PO BID #60 tabs 07/06/24 Rx oxycodone-acetaminophen 10 mg-325 1 tab PO 5XDAY #150 tabs 07/06/24 Rx mg tablet (Percocet) New Prescriptions to Start Prescriptions: Allergies Allergy/AdvReac Type Severity Reaction Status Date / Time No Known Allergies Allergy Verified 09/16/23 11:35 Assessment and Plan *Assessment and plan (1) Lumbar radiculopathy: Status: Acute Category: Medical Code(s): M54.16 - Radiculopathy, lumbar region (2) Degenerative disc disease, lumbar: Status: Acute Qualifiers: Disc-related pain type: discogenic back pain and lower extremity pain Qualified Code(s): M51.362 - Other intervertebral disc degeneration, lumbar region with discogenic back pain and lower extremity pain Category: Medical Code(s): M51.369 - Other intervertebral disc degeneration, lumbar region without mention of lumbar back pain or lower extremity pain (3) Spinal stenosis, lumbar region with neurogenic claudication: Status: Acute Category: Medical Code(s): M48.062 - Spinal stenosis, lumbar region with neurogenic claudication Plan I will refill the patient's Percocet, gabapentin and methocarbamol provide a 1 month supply of this medication. Patient will return to clinic in 1 month. Risks and benefits of the medication have been explained in detail to the patient. The patient does understand the risk of dependence on the medication when given over a prolonged period. Patient has been advised of risks of oversedation with the prescribed medication. Narcan has been offered to the paitent in the event of oversedation. Patient has been advised that a family member should also be educated regarding administration of Narcan. The patient has been advised to consult with his/her primary care provider and pharmacist regarding drug-drug interaction of medications currently prescribed. Patient has been prescribed a controlled substance after being counseled on the medication, medication safety, and possible side effects. Opioid contract was reviewed and signed by the patient, and that they have agreed to all of the terms set forth by our compliance program. A UDS is needed to verify patient's compliance with our office pain contract. This is ordered based off specific treatments related to chronic pain with the potential to abuse certain medications. Patient has been instructed to contact the clinic with any concerns before the next appointment. Dr. Rubio has reviewed this note and agrees with this plan of care. This note was dictated using voice recognition software and make contain errors or omissions.
== END 2024-08-03 23:59 | disposition home or self-care (01) ==
PROVIDERS: PCP Family Medicine; Visit Provider Nurse Practitioner Family
DX: M51.16 Intervertebral disc disorders with radiculopathy, lumbar region (principal); M48.062 Spinal stenosis, lumbar region with neurogenic claudication
CPT/HCPCS: 99212; G0463

== ENCOUNTER 2024-08-30 11:20 | Outpatient (POV) | payer BC, SELFPAY ==
[2024-08-30 11:43] VITALS: BP 154/93; BP 156/118; RESP 16; O2SAT 97; BMI 31.4
--- NOTE | 2024-08-30 12:06 | EXP.PAIN.SOA ---
[facility] Disclaimer: The information contained in this section may have been updated after the patient was seen, as this information can be updated by other users. Medical History Chronic pain Benign prostatic hyperplasia Hypertension Surgical History No significant past surgical history Family History Other No significant family history Social History Smoking Status: Never smoker alcohol intake: current substance use type: denies use current occupational status: other Travel in the last 8 weeks: None PM Subjective & Objective Subjective Subjective:: Patient is a pleasant 69-year-old male who presents today for his monthly medication refill. Today he rates his pain a 7 out of 10. He denies any new falls or injuries. Overall he states everything is maintaining. Patient is currently managed with Percocet 10 mg 5 times a day, gabapentin 600 mg 3 times a day and methocarbamol 500 mg twice a day. He denies any side effects from this medication. He does state that he did still have difficulty getting his prescriptions at the last visit. He states that he frequently has trouble with the Percocet not being in stock. Patient states that he will contact these pharmacies after our appointment today and get clarification as if they have the medication in stock. And let our office know where to send the prescriptions. His Damian has been reviewed and is appropriate. Review of Systems: General: No recent weight changes, no fever, no sleep disturbances Respiratory: No cough, no shortness of air, no recurring pulmonary infections Cardiovascular/peripheral vascular: No chest pain, no palpitations, no edema, no shortness of breath Gastrointestinal: No new onset incontinence, normal bowel movements reported Genitourinary: No new onset incontinence Musculoskeletal: Low back pain Psychiatric: [Normal mood/affect] Neurological: [Denies weakness in extremities], [denies balance issues] Pain at rest (0-10 scale): 7 Objective Objective:: Physical Exam: General: Alert and oriented x3, no acute distress, pleasant and cooperative Lungs: Respirations even and unlabored, symmetrical chest expansion Eyes: PERRL Musculoskeletal: Flexion and extension of lumbar [spine] somewhat guarded secondary to pain, [antalgic gait noted] Neurological: Speech clear, no gross sensory deficit Has patient had previous pain injection?: No Conservative treatment options previously tried: Home exercise plan Length of treatment: Longer than 12 weeks Meds Home Medications and Allergies Home Medications ?Medication ?Instructions ?Recorded ?Confirmed ?Type amlodipine 5 mg tablet 5 mg PO DAILY BLOOD PRESSURE 01/02/21 08/30/24 History carvedilol 25 mg tablet 25 mg PO BID BLOOD PRESSURE 01/02/21 08/30/24 History lisinopril 40 mg tablet 40 mg PO DAILY BLOOD PRESSURE 01/02/21 08/30/24 History sildenafil (pulm.hypertension) 20 20 mg PO DAILYP PRN . 01/02/21 08/30/24 History mg tablet tamsulosin 0.4 mg capsule 0.4 mg PO HS PROSTATE 01/02/21 08/30/24 History testosterone 30 mg/actuation (1.5 2 pump TD DAILY HRT 01/02/21 08/30/24 History mL) transderm solution metered pump tizanidine 4 mg capsule 4 mg PO Q6HP PRN MUSCLE SPASMS 01/02/21 08/30/24 History naloxone 4 mg/actuation nasal spray 4 mg NS ONCE . 08/11/21 08/30/24 History gabapentin 300 mg capsule 300 mg PO TID Pain #90 caps 02/18/23 08/30/24 Rx diclofenac sodium 1 % topical gel 4 g topical QID Pain #100 grams 04/22/23 08/30/24 Rx gabapentin 600 mg tablet 600 mg PO TID #90 tabs 07/06/24 08/30/24 Rx methocarbamol 500 mg tablet 500 mg PO BID #60 tabs 07/06/24 08/30/24 Rx oxycodone-acetaminophen 10 mg-325 1 tab PO 5XDAY #150 tabs 08/03/24 08/30/24 Rx mg tablet (Percocet) New Prescriptions to Start Prescriptions: Allergies Allergy/AdvReac Type Severity Reaction Status Date / Time No Known Allergies Allergy Verified 09/16/23 11:35 Assessment and Plan *Assessment and plan (1) Lumbar radiculopathy: Status: Acute Category: Medical Code(s): M54.16 - Radiculopathy, lumbar region (2) Degenerative disc disease, lumbar: Status: Acute Qualifiers: Disc-related pain type: discogenic back pain and lower extremity pain Qualified Code(s): M51.362 - Other intervertebral disc degeneration, lumbar region with discogenic back pain and lower extremity pain Category: Medical Code(s): M51.369 - Other intervertebral disc degeneration, lumbar region without mention of lumbar back pain or lower extremity pain (3) Spinal stenosis, lumbar region with neurogenic claudication: Status: Acute Category: Medical Code(s): M48.062 - Spinal stenosis, lumbar region with neurogenic claudication Plan We will refill the patient's gabapentin, methocarbamol and Percocet and provide a 1 month supply of these medications. We will wait to send these prescriptions until after the patient has clarified that the pharmacy does have these in stock. Patient agrees with this plan of care. Risks and benefits of the medication have been explained in detail to the patient. The patient does understand the risk of dependence on the medication when given over a prolonged period. Patient has been advised of risks of oversedation with the prescribed medication. Narcan has been offered to the paitent in the event of oversedation. Patient has been advised that a family member should also be educated regarding administration of Narcan. The patient has been advised to consult with his/her primary care provider and pharmacist regarding drug-drug interaction of medications currently prescribed. Patient has been prescribed a controlled substance after being counseled on the medication, medication safety, and possible side effects. Opioid contract was reviewed and signed by the patient, and that they have agreed to all of the terms set forth by our compliance program. A UDS is needed to verify patient's compliance with our office pain contract. This is ordered based off specific treatments related to chronic pain with the potential to abuse certain medications. Patient has been instructed to contact the clinic with any concerns before the next appointment. Dr. Rubio has reviewed this note and agrees with this plan of care. This note was dictated using voice recognition software and make contain errors or omissions.
== END 2024-08-30 23:59 | disposition home or self-care (01) ==
PROVIDERS: PCP Family Medicine; Visit Provider Nurse Practitioner Family
DX: M51.16 Intervertebral disc disorders with radiculopathy, lumbar region (principal); M48.062 Spinal stenosis, lumbar region with neurogenic claudication
CPT/HCPCS: 99212; G0463

== ENCOUNTER 2024-09-27 11:28 | Outpatient (POV) | payer BC, SELFPAY ==
--- OUTSIDE RECORDS SUMMARY | 2024-09-27 11:31 | XMS_ITS | Continuity of Care Document ---
Author Organization [facility] Adam [facility] Address [address] [place] [address] Care Team Providers Care Fruit Sprayer Name Role Phone ELIMIKEYA Primary Care Provider ROGER WYATT Referring Provider Assessment Encounter Date Assessment Date Assessment LastModified by Organization Details LastModified Time 08/25/2024 08/25/2024 We reviewed the risks of testosterone replacement therapy including cardiovascular disease, stroke risk, hepatic dysfunction, polycythemia, prostate growth - benign and cancerous, decreased sperm count, etc. Medical management of testicular hypofunction with Axiron. Medical management of erectile dysfunction with sildenafil and tamsulosin for treatment of lower urinary symptoms. [email or web address] Not available 08/25/2024 09:43:56 Plan of Treatment Reminders Order Date Submit Date Provider Last Modified By Organization Details Last Modified Time Details Appointments RECHECK 2024 11:30A Juan Carlos MINAYA MD Not available Not available Not available Lab CBC w/ auto diff 2024 025 [email or web address] 4 [facility], [address] [place] [address], [id number], 08/25/2024 16:28:21 CMP, serum or plasma 2024 025 [facility], [address] [place] [address], [phone], 08/25/2024 18:04:45 testoster one, total, serum 2024 025 [facility], [address] [place] [address], [phone], 08/25/2024 18:11:14 PSA, total, serum or plasma 2024 025 [facility], [address] [place], [phone], 08/25/2024 18:11:13 Referral None recorded. Procedures None recorded. Surgeries None recorded. Imaging None recorded. Medication Orders testoster one 30 mg/actuat ion (1.5 mL) transderm solution metered pump 2024 025 [facility], [address] [place], [place], [address], 08/27/2024 10:51:49 Patient TargetsNo targets recorded. Patient InstructionsNo instructions recorded. Reason for Referral None Reported. Problems Name Problem SNOMED Code Status Onset Date Resolution Date Notes Provider Name and Address Organization Details Recorded Time Testicula r hypofunct ion 239749349 Active 2015 From Automated Load;Provi en: Mellissa Minaya;Sta tus: Active Not Available [facility] 6 04:00:35 Problem Notes None recorded. Procedures Surgical History Date Name Laterality Status Provider Name and Address Organization Details Recorded Time 021 Tympanogram completed ROCKY HANCOCK [address] [place], [address], [facility] 03/13/2021 15:11:54 021 Cerumen removal - Instruments, Unilateral completed Kirsten Keller [facility] 03/13/2021 15:52:28 018 Electromyography (EMG) with Nerve Conduction Study (NCV) completed Kirsten Cornejo (Nicky) [facility] 11/15/2017 15:01:44 Vasectomy completed Davidson Dunne [facility] 11/05/2016 14:38:08 procedure on hand completed Luli Lemons [facility] 03/13/2021 14:52:03 Imaging Results None recorded. Procedure Notes None recorded. Medical Equipment None Reported. Allergies No known drug allergies Medications Name Sig Start Date Stop Date Status Note LastModified by Organization Details LastModified Time Multiple Vitamin capsule Daily active Duration : 30 days;Ruddy quency: daily;Me dication Descript ion: multivit kimbrough; Dosage:1 ; Route:or al; refills: 3; Quantity :100 capsule Not Available Not Available Not Available tizanidin e 4 mg tablet Take 1 tablet every 6 hours by oral route. active Not Available Not Available No t Available Zyrtec 10 mg tablet active Duration : 10 days;Med ication Descript ion: cetirizi ne; Route:or al; refills: 0; Quantity :30 tablet Not Available Not Available Not Available amlodipin e 5 mg tablet Take 1 tablet every day by oral route. active Not Available Not Available No t Available sildenafi l 100 mg tablet Take 1 tablet every day by oral route as needed for 90 days. 03/13 completed Not Available Not Available Not Available tamsulosi n 0.4 mg capsule Take 1 capsule by mouth once daily 2023 active Not Available Not Available Not Avai lable Cipro 500 mg tablet Take 1 tablet twice a day by oral route for 7 days. 04/15 completed Not Available Not Available Not Available diclofena c potassium 50 mg tablet Every eight hours 03/13 completed Duration : 30 days;Ruddy quency: q8h;Alt Frequenc y: prn;Medi cation Descript ion: diclofen ac; Dosage:1 ; Route:or al; refills: 0; Quantity :90 tablet Not Available Not Available Not Available gabapenti n 300 mg capsule Take 1 capsule 3 times a day by oral route. active Not Available Not Available No t Available lisinopri l 40 mg tablet Take 1 tablet every day by oral route. active Not Available Not Available No t Available sildenafi l (pulmonar y hypertens ion) 20 mg tablet Take by oral route for 6 days. 2023 active Not Available Not Available Not Avai lable carvedilo l active Medicati on Descript ion: carvedil ol; Route:or al; refills: 0 Not Available Not Available Not Available fluticaso ne propionat e active Medicati on Descript ion: fluticas one topical; Route:to pical; refills: 0 Not Available Not Available Not Available Oxycodone Hydrochlo ride active Medicati on Descript ion: oxycodon e; refills: 0 Not Available Not Available Not Available loratadin e 5 mg disintegr ating tablet Take by oral route. active Not Available Not Available No t Available testoster one 30 mg/actuat ion (1.5 mL) transderm solution metered pump Apply 2 pumps every day by topical route for 30 days. 2024 active Not Available Not Available Not Avai lable Vitals Date Recorded Body height Body mass index (BMI) Body weight Provider Name and Address Organization Details Last Updated DateTime 08/25/2024 179.07 cm 31.8 kg/m2 115336.28 g Alejandra Neil [facility] 08/25/2024 10:59:53 Social History Question Answer Notes LastModified by Organizat ion Details LastModified Time Tobacco Smoking Status [facility]/2016 14:37:44 What Is Your Level Of Alcohol Consumption? Occasional [email or web address] Information not available 03/13/2021 How Much Tobacco Do You Chew? None [email or web address] Information not available 07/12/2018 Marital Status [email or web address] Informati on not available 11/05/2016 What Was The Date Of Your Most Recent Tobacco Screening? 07/12/2018 Information not available 07/25/2019 What Is Your Relationship Status? [email or web address] Information not available 04/15/2021 How Much Tobacco Do You Smoke? No [email or web address] Information not available 01/27/2019 Do You Use Any Illicit Or Recreational Drugs? No [email or web address] Information not available 04/15/2021 Has Tobacco Cessation Counseling Been Provided? No [email or web address] Information not available 04/15/2021 Have You Recently Traveled Abroad? No [email or web address] Information not available 04/15/2021 Do You Or Have You Ever Used Any Other Forms Of Tobacco Or Nicotine? No [email or web address] Information not available 04/15/2021 Sex: Unknown Functional Status None recorded. Mental Status None recorded. Family History Relationship Description Onset Age of this Age Resolved Age Notes LastModified by Organization Details LastModified Time Father No current problems or disability [email or web address] Not available 06/2016 14:37:40 Mother No current problems or disability [email or web address] Not available 06/2016 14:37:40 Sister Family history of malignant neoplasm [email or web address] Not available 03/13 14:58:53 Medical History Condition Response Allergies/Hayfever Y Arthritis Y Hypertension Y Sleep Apnea Y Sleep Disorder Y Past Encounters Encounter ID Performer Location Encounter Start Date Encounter Closed Date Diagnosis/Indication Diagnosis SNOMED-CT Code Diagnosis ICD10 Code Diagnosis Note [id number] MELLISSA MINAYA MD [facility] [address] [place] [address] 08/25/2024 10:24:09 08/25/2024 11:33:35 Testicular hypofunction 887699231 E29.1 Benign pro static hyperplasia with outflow obstruction 589135371 N40.1 Primary er ectile dysfunction 025062593 N52.9 Health Concerns Section Related Observation LastModified by Organization Detai ls LastModified Time None Recorded Concern Status LastModified by Organization Details LastModified Time None Recorded Payers Encounter Date Sequence Insurance Name Policy Number Policy Guevara Covered Member ID Guevara Member ID Guarantor Name 08/25/2024 1 [place] [id number] Opal Meier [id number] Bethel Meier Notes Date Note Type Note Provider Name and Address Organization Details Recorded Time 08/25/2024 text/html 69-year-old male in the office for follow-up evaluation of testicular hypofunction, benign prostatic hyperplasia with lower urinary symptoms, and erectile dysfunction. He uses Axiron 2 pumps daily and reports good energy level. He uses sildenafil as needed for erectile dysfunction. He uses tamsulosin for management of lower urinary symptoms. Occasional hesitancy. Daytime frequency every 2-2.5 hours. No nocturia. No gross hematuria. No dysuria. MELLISSA MINAYA MD [facility] [place], [address], [facility] 08/27/2024 10:51:55
--- NOTE | 2024-09-27 11:40 | A.OFFVIS_ITS ---
[facility] Disclaimer: The information contained in this section may have been updated after the patient was seen, as this information can be updated by other users. Medical History Chronic pain Benign prostatic hyperplasia Hypertension Surgical History No significant past surgical history Family History Other No significant family history Social History Smoking Status: Never smoker alcohol intake: current substance use type: denies use current occupational status: other Travel in the last 8 weeks: None PM Subjective & Objective Subjective Subjective:: Patient is a pleasant 69-year-old male who presents today for 1 month follow-up medication refill. He rates his pain today a 5 out of 10. He denies any new trauma or injury.patient is still doing well with his current medications Percocet 10 mg 5 times a day, gabapentin 600 mg 3 times a day methocarbamol 500 mg twice a day. He does state that he did call his pharmacy before coming today and they did verify that they had enough of his current medications. His Damian has been reviewed and is appropriate. Review of Systems: General: No recent weight changes, no fever, no sleep disturbances Respiratory: No cough, no shortness of air, no recurring pulmonary infections Cardiovascular/peripheral vascular: No chest pain, no palpitations, no edema, no shortness of breath Gastrointestinal: No new onset incontinence, normal bowel movements reported Genitourinary: No new onset incontinence Musculoskeletal: Low back pain Psychiatric: [Normal mood/affect] Neurological: [Denies weakness in extremities], [denies balance issues] Pain at rest (0-10 scale): 5 Objective Objective:: Physical Exam: General: Alert and oriented x3, no acute distress, pleasant and cooperative Lungs: Respirations even and unlabored, symmetrical chest expansion Eyes: PERRL Musculoskeletal: Flexion and extension of lumbar [spine] somewhat guarded secondary to pain, [antalgic gait noted] Neurological: Speech clear, no gross sensory deficit Has patient had previous pain injection?: No Conservative treatment options previously tried: Prescription medications Length of treatment: Longer than 12 weeks Meds Home Medications and Allergies Home Medications ?Medication ?Instructions ?Recorded ?Confirmed ?Type amlodipine 5 mg tablet 5 mg PO DAILY BLOOD PRESSURE 01/02/21 08/30/24 History carvedilol 25 mg tablet 25 mg PO BID BLOOD PRESSURE 01/02/21 08/30/24 History lisinopril 40 mg tablet 40 mg PO DAILY BLOOD PRESSURE 01/02/21 08/30/24 History sildenafil (pulm.hypertension) 20 20 mg PO DAILYP PRN . 01/02/21 08/30/24 History mg tablet tamsulosin 0.4 mg capsule 0.4 mg PO HS PROSTATE 01/02/21 08/30/24 History testosterone 30 mg/actuation (1.5 2 pump TD DAILY HRT 01/02/21 08/30/24 History mL) transderm solution metered pump tizanidine 4 mg capsule 4 mg PO Q6HP PRN MUSCLE SPASMS 01/02/21 08/30/24 History naloxone 4 mg/actuation nasal spray 4 mg NS ONCE . 08/11/21 08/30/24 History gabapentin 300 mg capsule 300 mg PO TID Pain #90 caps 02/18/23 08/30/24 Rx diclofenac sodium 1 % topical gel 4 g topical QID Pain #100 grams 04/22/23 08/30/24 Rx oxycodone-acetaminophen 10 mg-325 1 tab PO 5XDAY #150 tabs 08/30/24 Rx mg tablet (Percocet) gabapentin 600 mg tablet 600 mg PO TID #90 tabs 09/27/24 Rx methocarbamol 500 mg tablet 500 mg PO BID #60 tabs 09/27/24 Rx New Prescriptions to Start Prescriptions: gabapentin Fabienne Young A methocarbamol Fabienne Young Allergies Allergy/AdvReac Type Severity Reaction Status Date / Time No Known Allergies Allergy Verified 09/16/23 11:35 Assessment and Plan *Assessment and plan (1) Spinal stenosis, lumbar region with neurogenic claudication: Status: Acute Category: Medical Code(s): M48.062 - Spinal stenosis, lumbar region with neurogenic claudication (2) Lumbar radiculopathy: Status: Acute Category: Medical Code(s): M54.16 - Radiculopathy, lumbar region (3) Degenerative disc disease, lumbar: Status: Acute Qualifiers: Disc-related pain type: discogenic back pain and lower extremity pain Qualified Code(s): M51.362 - Other intervertebral disc degeneration, lumbar region with discogenic back pain and lower extremity pain Category: Medical Code(s): M51.369 - Other intervertebral disc degeneration, lumbar region without mention of lumbar back pain or lower extremity pain Plan Patient will be refilled on his Percocet, gabapentin and methocarbamol. Patient will return to clinic in 1 month. Risks and benefits of the medication have been explained in detail to the patient. The patient does understand the risk of dependence on the medication when given over a prolonged period. Patient has been advised of risks of oversedation with the prescribed medication. Narcan has been offered to the paitent in the event of oversedation. Patient has been advised that a family member should also be educated regarding administration of Narcan. The patient has been advised to consult with his/her primary care provider and pharmacist regarding drug-drug interaction of medications currently prescribed. Patient has been prescribed a controlled substance after being counseled on the medication, medication safety, and possible side effects. Opioid contract was reviewed and signed by the patient, and that they have agreed to all of the terms set forth by our compliance program. A UDS is needed to verify patient's compliance with our office pain contract. This is ordered based off specific treatments related to chronic pain with the potential to abuse certain medications. Patient has been instructed to contact the clinic with any concerns before the next appointment. Dr. Rubio has reviewed this note and agrees with this plan of care. This note was dictated using voice recognition software and make contain errors or omissions.
[2024-09-27 11:53] VITALS: BP 140/89; PULSE 71; RESP 14; O2SAT 96; BMI 30.7
== END 2024-09-27 23:59 | disposition home or self-care (01) ==
PROVIDERS: PCP Family Medicine; Visit Provider Nurse Practitioner Family
DX: M48.062 Spinal stenosis, lumbar region with neurogenic claudication (principal); M51.16 Intervertebral disc disorders with radiculopathy, lumbar region
CPT/HCPCS: 99212; G0463

== ENCOUNTER 2024-10-26 11:29 | Outpatient (POV) | payer BC, SELFPAY ==
--- OUTSIDE RECORDS SUMMARY | 2024-10-26 11:32 | XMS_ITS | Data Portability ---
Author Organization 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 Plan of Treatment Reminders Order Date Submit Date Provider Last Modified By Organization Details Last Modified Time Details Appointments None recorded. Lab None recorded. Referral None recorded. Procedures None recorded. Surgeries None recorded. Imaging None recorded. Medication Orders mupirocin 2 % topical ointment 2023 [facility], [address] [place] [address], [id number], 15:29:00 Augmentin 875 mg-125 mg tablet 2023 [facility] [address], [address] [place] [address], [id number], 09:30:54 Patient TargetsNo targets recorded. Patient InstructionsNo instructions recorded. Reason for Referral None Reported. Problems Name Problem SNOMED Code Status Onset Date Resolution Date Notes Provider Name and Address Organization Details Recorded Time Acute sinusitis 90614948 Active 2023 NAVEEN BENITO MD [address], [address], [place], [address], [facility] & [place] 09:36:14 Nasal vestibulitis 75404851 Active 2023 NAVEEN BENITO MD [address], [address], [place], [address], [facility] [place] 16:02:53 Anterior epistaxis 718296051 Active 2023 NAVEEN BENITO MD [address], [address], [place], [address], [facility] & [place] 09:17:27 Problem Notes None recorded. Procedures Surgical History Date Name Laterality Status Provider Name and Address Organization Details Recorded Time 4 Nasal Endoscopy completed NAVEEN BENITO MD [address] [facility], [address], [place], [address], [facility] & [place] 03/24/2024 15:36:32 Control Nasal Hemorrhage, Simple completed NAVEEN BENITO MD [address] [facility], [address], [place], [address], [facility] & [place] 03/15/2024 14:41:56 4 Control Nasal Hemorrhage, Complex completed NAVEEN BENITO MD [address] [facility], [address], [place], [address], [facility] & [place] 03/13/2024 11:54:07 Imaging Results None recorded. Procedure Notes None recorded. Medical Equipment None Reported. Allergies No known drug allergies Medications Name Sig Start Date Stop Date Status Note LastModified by Organization Details LastModified Time mupirocin (dispersapr o) 20mg capsule # EMPTY CONTENTS OF ONE CAPSULE INTO NETIFLO, ADD DISTILLED WATER AND IRRIGATE 2 TIMES DAILY active Not Available Not Available No t Available amantadine HCl 100 mg tablet active Not Available Not Available Not Available methocarbam ol 500 mg tablet TAKE 1 TABLET BY MOUTH TWICE DAILY active Not Available Not Available No t Available carvedilol 25 mg tablet TAKE 1 TABLET BY MOUTH TWICE DAILY . APPOINTME NT REQUIRED FOR FUTURE REFILLS active Not Available Not Available No t Available gabapentin 600 mg tablet TAKE 1 TABLET BY MOUTH THREE TIMES DAILY active Not Available Not Available No t Available doxycycline hyclate 100 mg capsule TAKE 1 CAPSULE BY MOUTH TWICE DAILY FOR 10 DAYS active Not Available Not Available No t Available tizanidine 4 mg tablet TAKE 1 TABLET BY MOUTH EVERY 6 TO 8 HOURS NEEDED active Not Available Not Available No t Available amlodipine 5 mg tablet TAKE 1 TABLET BY MOUTH ONCE DAILY active Not Available Not Available No t Available oxycodone-a cetaminophe n 10 mg-325 mg tablet TAKE 1 TABLET BY MOUTH FIVE TIMES DAILY active Not Available Not Available No t Available tamsulosin 0.4 mg capsule TAKE 1 CAPSULE BY MOUTH ONCE DAILY active Not Available Not Available No t Available mupirocin 2 % topical ointment APPLY A SMALL AMOUNT OF OINTMENT TO EACH NOSTRIL TWICE DAILY FOR 14 DAYS active Not Available Not Available No t Available albuterol sulfate HFA 90 mcg/actuati on aerosol inhaler INHALE 2 PUFFS BY MOUTH EVERY 4 HOURS NEEDED active Not Available Not Available No t Available lisinopril 40 mg tablet TAKE 1 TABLET BY MOUTH ONCE DAILY . APPOINTME NT REQUIRED FOR FUTURE REFILLS active Not Available Not Available No t Available fluticasone propionate 50 mcg/actuati on nasal spray,suspe nsion USE 2 SPRAY(S) IN EACH NOSTRIL ONCE DAILY NEEDED active Not Available Not Available No t Available amoxicillin 875 mg-potassiu m clavulanate 125 mg tablet TAKE 1 TABLET BY MOUTH EVERY 12 HOURS FOR 7 DAYS 04/20 completed Not Available Not Available Not Available sildenafil (pulmonary hypertensio n) 20 mg tablet TAKE 1 TO 5 TABLETS BY MOUTH ONCE DAILY NEEDED 1 HOUR PRIOR TO ACTIVITY active Not Available Not Available No t Available diclofenac 1 % topical gel active Not Available Not Available Not Available testosteron e 30 mg/actuatio n (1.5 mL) transderm solution metered pump APPLY 2 PUMPS TOPICALLY ONCE DAILY FOR 30 DAYS active Not Available Not Available No t Available Vitals Date Recorded Body height Body mass index (BMI) Body weight Body temperature Oxygen saturation Oxygen saturation in Arterial blood by Pulse oximetry Provider Name and Address Organization Details Last Updated DateTime 4 180.34 cm 31.4 kg/m2 247382. 56 g 97.8 [degF] 98 % 98 % Marilu Raphael [place] - [place] - [place] & [place] 4 08:30:13 Date Recorded Body height Body mass index (BMI) Body weight Body temperature Oxygen saturation Oxygen saturation in Arterial blood by Pulse oximetry Provider Name and Address Organization Details Last Updated DateTime 4 180.34 cm 31.4 kg/m2 069472. 92 g 98.2 [degF] 99 % 99 % Marilu TRAMME[facility] & [place] 4 13:55:20 Date Recorded Body height Body mass index (BMI) Body weight Body temperature Oxygen saturation Oxygen saturation in Arterial blood by Pulse oximetry Provider Name and Address Organization Details Last Updated DateTime 4 180.34 cm 31.4 kg/m2 400157. 28 g 97.8 [degF] 99 % 99 % Marilu TRAMMELL [facility] & [place] 4 15:11:09 Date Recorded Body height Body mass index (BMI) Body weight Body temperature Oxygen saturation Oxygen saturation in Arterial blood by Pulse oximetry Provider Name and Address Organization Details Last Updated DateTime 4 180.34 cm 35.1 kg/m2 056557. 28 g 98.1 [degF] 98 % 98 % Marilu TRAMME[facility] & [place] 4 15:05:10 Social History Question Answer Notes LastModified by [employer] Details LastModified Time Tobacco Smoking Status Never Smoker Marilu parry [place] [facility] & [place] 03/13/2024 08:23:41 Has Tobacco Cessation Counseling Been Provided? No Information not available 03/13/2024 Sex: Unknown Functional Status Question Answer Note LastModified by [employer] Details LastModified Time Do you use any illicit or recreational drugs? No Information not available 03/13/2024 Do you or have you ever used any other forms of tobacco or nicotine? No Information not available 03/13/2024 What is your level of alcohol consumption? None Information not available 03/13/2024 Mental Status None recorded. Family History Relationship Description Onset Age of this Age Resolved Age Notes LastModified by Organization Details LastModified Time Father No current problems or disability Not available 03/13 08:23:35 Mother No current problems or disability Not available 03/13 08:23:35 Medical History Condition Response Allergies/Hayfever N Heart Problems N None N Heart Conditions N Emphysema N Migraines N Thyroid Problems N Developmental Delay N Depression N Glaucoma N Anemia N Immune System Disorder N Anesthesia Complications N Heart Attack ([place]) N Anxiety Disorder N Diabetes N Bleeding Disorder N Arthritis N Hearing Loss N Tuberculosis N Acid Reflux (GERD) N Hyperlipidemia N Cancer N Stroke N Asthma N Sleep Disorder N GERD/Reflux N Heart Disease N Fibromyalgia N Headaches N Hypertension N Speech Delay N Kidney Disease N Past Encounters Encounter ID Performer Location Encounter Start Date Encounter Closed Date Diagnosis/Indication Diagnosis SNOMED-CT Code Diagnosis ICD10 Code Diagnosis Note [id number] NAVEEN BENITO MD [facility] [address] [place] [address] 03/13/2024 08:26:05 03/13/2024 09:37:33 Anterior epistaxis 501528482 R04.0 - Left sided rhinorocke t removed and dissolvabl e packing placed- Start Augmentin x 7 days for purulent nasal drainage- Stop flonase use for now- Recommend conservati ve medical treatment with use of {{Vaseline * Mupiroci n}} applied inside the nasal vestibule twice daily and nasal saline spray 3-4x daily for 2 weeks - Humidifica tion while sleeping at night - In 3 days start nasal saline spray 2-3x daily- Return to clinic in 2 weeks [id number] NAVEEN BENITO MD [facility] [address] [place] [address] 03/15/2024 13:50:04 03/15/2024 14:20:03 Anterior epistaxis 874945098 R04.0 - Left anterior nasal cavity cauterized in office today- Continue Augmentin- Start vaseline and saline spray tomorrow- Continue sinus precaution s x 2 weeks- Return to clinic in 2 weeks [id number] NAVEEN BENITO MD [facility] [address] [place] [address] 03/24/2024 15:03:02 03/24/2024 15:33:54 Anterior epistaxis 031795931 R04.0 - Significan t crusting in the left nasal cavity which was debrided in office today. No further bleeding- Continue saline and Vaseline use- Get a humidifier - Return to clinic in 3-4 weeks [id number] NAVEEN BENITO MD [facility] [address] [place] [address] 04/21/2024 15:05:18 04/21/2024 15:31:22 Anterior epistaxis 568804601 R04.0 - Significan t crusting in the left nasal cavity which was debrided in office today. No further bleeding- Continue saline and Vaseline use- Get a humidifier - Return to clinic in 3-4 weeks Nasal vestibulitis [address] 000 J34.89 [id number] NAVEEN BENITO MD [facility] [address] [place] [address] 05/26/2024 15:01:12 05/26/2024 15:10:47 Anterior epistaxis 607750606 R04.0 - Nose looks the best I have seen it. No further crusting- Continue vaseline and saline spray BID- Return to clinic as needed Health Concerns Section Related Observation LastModified by Organization Detai ls LastModified Time None Recorded Concern Status LastModified by Organization Details LastModified Time None Recorded Advance Directives Directive None Recorded Payers Insurance Date Sequence Insurance Name Policy Number Policy Guevara Covered Member ID Guevara Member ID Guarantor Name 05/29/2024 1 [place] HART [facility] [id number] Bethel Meier [id number] Opal Meier Notes Date Note Type Note Provider Name and Address Organization Details Recorded Time 03/13/2024 text/html Patient presents to clinic for evaluation and management of epistaxis. Bleeding started on Wednesday night. Symptoms worsened Wednesday night which prompted him to present to the ED in [place] where his nose was ultimately packed. He has had issues with nosebleeds for several years. Mainly the right side. This is the first time he has had issues on the left. He is currently on flonase on a daily basis. He is not currently on anticoagulation. NAVEEN BENITO MD [address] [place] [address], [address], [place], [address], [facility] - [facility] & [place] 03/13/2024 11:54:51 03/15/2024 text/html Patient presents to clinic for follow up of epistaxis. Had some issues with bleeding yesterday. This stopped on its own with use of Afrin. NAVEEN BENITO MD [address] [place] [address], [address], [place], [address], [place] - [facility] - [place] & [place] 03/15/2024 14:43:00 03/24/2024 text/html Patient presents to clinic for follow up of epistaxis. No bleeding since last visit. Has been using saline spray and Vaseline in his nose. Isn't breathing well through the left side of his nose. NAVEEN BENITO MD [address] [place] [address], [address], [place], [address], [facility] - [facility] & [place] 03/24/2024 15:37:51 04/21/2024 text/html Patient presents to clinic for follow up of epistaxis. No recent bleeding from the nose. Has a lot of crusting in his left nostril however which he frequently has to blow out. He is currently using nasal rinses and saline spray. NAVEEN BENITO MD [address] [place] [address], [address], [place], [address], [facility] - [facility] & [place] 04/21/2024 16:03:10 05/26/2024 text/html Patient presents to clinic for follow up of epistaxis. Nose has been doing very well. No bleeding. Feels like he is breathing much better through the left side. NAVEEN BENITO MD [address] [facility], [address], [place], [address], [facility] - [facility] & [place] 05/26/2024 15:12:23
--- OUTSIDE RECORDS SUMMARY | 2024-10-26 11:33 | XMS_ITS | Data Portability ---
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 35.4 g/dL 32.0-3 6.0 normal Not Available [facility] [place] [facility] [address] [place], [address], 04/01/2019 08:35:17 03/31/2004/01/2019 CBC w/ auto diff RDW 13.3 % 11.0-1 5.0 normal Not Available [facility] [address] [place], [address], 04/01/2019 08:35:17 03/31/2004/01/2019 CBC w/ auto diff platelet count 275 thous and/u L 140-40 0 normal Not Available [facility] [address] [place], [address], 04/01/2019 08:35:17 03/31/2004/01/2019 CBC w/ auto diff MPV 10.4 fL 7.5-12 .5 normal Not Available [facility] [place] [facility] [address], [place], [address], 04/01/2019 08:35:17 03/31/20 19 04/01/2019 CBC w/ auto diff absolute neutrophils 28925 cells /uL 1500-7 800 high Not Available [facility] [place] [facility] [address], [place], [address], 04/01/2019 08:35:17 03/31/2004/01/2019 CBC w/ auto diff absolute lymphocytes 4197 cells /uL 850-39 00 high Not Available [facility] [place] [facility] [address] [place], [address], 04/01/2019 08:35:17 03/31/2004/01/2019 CBC w/ auto diff absolute monocytes 1084 cells /uL 200-95 0 high Not Available [facility] [place] [facility] [address], [place], [address], 04/01/2019 08:35:17 03/31/20 19 04/01/2019 CBC w/ auto diff absolute eosinophils 310 cells /uL 15-500 normal Not Available [facility] [place] [facility] [address], [place], [address], 04/01/2019 08:35:17 03/31/2004/01/2019 CBC w/ auto diff absolute basophils 86 cells /uL 0-200 normal Not Available [facility] [place] [facility] [address] [place], [address], 04/01/2019 08:35:17 03/31/2004/01/2019 CBC w/ auto diff neutrophils 67 % normal Not Available [facility] [place] [facility] [address], [place], [address], 04/01/2019 08:35:17 03/31/20 19 04/01/2019 CBC w/ auto diff lymphocytes 24.4 % normal Not Available [facility] [place] [facility] [address] [place], [address], 04/01/2019 08:35:17 03/31/20 19 04/01/2019 CBC w/ auto diff monocytes 6.3 % normal Not Available [facility] [place] [address] [place], [address], 04/01/2019 08:35:17 03/31/20 19 04/01/2019 CBC w/ auto diff eosinophils 1.8 % normal Not Available [facility] [place] [facility] [address] [place], [address], 04/01/2019 08:35:17 03/31/20 19 04/01/2019 CBC w/ auto diff basophils 0.5 % normal Not Available [facility] [place], [address], 04/01/2019 08:35:17 04/12/20 20 04/13/2020 lipid panel , serum cholesterol, total 151 mg/dL <200 normal Not Available [facility] [place], [address], 04/13/2020 08:06:49 04/12/2004/13/2020 lipid panel , serum HDL cholesterol 32 mg/dL > or = 40 low Not Available [facility] [address] [place] [address], [address], 04/13/2020 08:06:49 04/12/2004/13/2020 lipid panel , serum triglyceride s 203 mg/dL <150 high If a non-f astin g speci men was colle cted, consi en repea t trigl yceri de testi ng on a fasti ng speci men if clini nichelle indic ated. Rick torres et al. J. of Clin. Lipid ol. 2015; 9:129 -169. Not Available [facility] [place] [facility] [address], [place], [address], 04/13/2020 08:06:49 04/12/20 20 04/13/2020 lipid panel , serum LDL-choleste rol 90 mg/dL _(oliva c) normal Refer ence range : <100 Jenae able range <100 mg/dL for prima ry preve ntion ; <70 mg/dL for patie nts with CHD or diabe tic patie nts with > or = 2 CHD risk facto rs. LDL-C is now calcu lated using the Sharri n-Hop kins calcu latio n, which is a valid ated novel aj marrufo chaz r accur acy than the Fried micha equat ion in the estim ation of LDL-C . Sharri kimbrough SS et al. KENNEDY. 2013; 310(1 9): 2061- 2068 (http ://ed ucati on.Qu darrellPharmaco K[employer]is. Salesfusion/f aq/FA Q164) Not Available [email or web address] [place] [facility] [address], [place], [address], 04/13/2020 08:06:49 04/12/2004/13/2020 lipid panel , serum chol/HDLC ratio 4.7 (calc ) <5.0 normal Not Available [facility] [place] [facility] [address] [facility], [place], [address], 04/13/2020 08:06:49 04/12/20 20 04/13/2020 lipid panel , serum non HDL cholesterol 119 mg/dL _(oliva c) <130 normal For patie nts with diabe adam plus 1 major ASCVD risk facto r, treat ing to a non-H DL-C goal of <100 mg/dL (LDL- C of <70 mg/dL ) is consi dered a therladi huerta c optio n. Not Available [facility] [place] [facility] [address], [place], [address], 04/13/2020 08:06:49 04/12/2004/13/2020 CMP, serum or plasm a glucose 112 mg/dL 65-99 high Fasti ng refer ence inter merle For someo ne witho ut known diabe adam, a gluco se value betwe en 100 and 125 mg/dL is consi stent with predi abete s and shoul d be confi rmed with a follo w-up test. Not Available [email or web address] [place] [facility] [address] [place], [address], 04/13/2020 08:06:50 04/12/2004/13/2020 CMP, serum or plasm a urea nitrogen (BUN) 19 mg/dL 7-25 normal Not Available [email or web address] [place] [facility] [address] [place], [address], 04/13/2020 08:06:50 04/12/2004/13/2020 CMP, serum or plasm a creatinine 1.03 mg/dL 0.70-1 .25 normal For patie nts >49 years of age, the refer ence limit for Creat inine is appro ximat nigel 13% highe r for peopl e ident ified as Afric an-Am micah n. Not Available [email or web address] [place] [facility] [address] [place], [address], 04/13/2020 08:06:50 04/12/2004/13/2020 CMP, serum or plasm a eGFR non-afr. [place] 76 mL/mi n/1.7 3m2 > or = 60 normal Not Available [email or web address] [place] [facility] [address] [place], [address], 04/13/2020 08:06:50 04/12/2004/13/2020 CMP, serum or plasm a eGFR 89 mL/mi n/1.7 3m2 > or = 60 normal Not Available [email or web address] [place] [facility] [address] [place], [address], 04/13/2020 08:06:50 04/12/2004/13/2020 CMP, serum or plasm a BUN/creatini ne ratio NOT APPLIC ABLE (calc ) 6-22 Not Available [facility] [place] [place], [address], 04/13/2020 08:06:50 04/12/2004/13/2020 CMP, serum or plasm a sodium 142 mmol/ L 135-14 6 normal Not Available [facility] [address] [place], [place] [address], [address], 04/13/2020 08:06:50 04/12/2004/13/2020 CMP, serum or plasm a potassium 4.5 mmol/ L 3.5-5. 3 normal Not Available [facility] [address] [place], [place] [address], [address], 04/13/2020 08:06:50 04/12/2004/13/2020 CMP, serum or plasm a chloride 105 mmol/ L 98-110 normal Not Available [facility] [address] [place], [place] [address], [place], [address], 04/13/2020 08:06:50 04/12/2004/13/2020 CMP, serum or plasm a carbon dioxide 30 mmol/ L 20-32 normal Not Available [facility] [address] [place], [place] [address], [address], 04/13/2020 08:06:50 04/12/2004/13/2020 CMP, serum or plasm a calcium 10.0 mg/dL 8.6-10 .3 normal Not Available [facility] [address] [place], [place] [address], [address], 04/13/2020 08:06:50 04/12/2004/13/2020 CMP, serum or plasm a protein, total 6.8 g/dL 6.1-8. 1 normal Not Available [facility] [address] [place], [place] [address], [place], [address], 04/13/2020 08:06:50 04/12/2004/13/2020 CMP, serum or plasm a albumin 4.5 g/dL 3.6-5. 1 normal Not Available [facility] [address] [place], [address], 04/13/2020 08:06:50 04/12/2004/13/2020 CMP, serum or plasm a globulin 2.3 g/dL_ (calc ) 1.9-3. 7 normal Not Available [facility] [address] [place], [place] [address], [address], 04/13/2020 08:06:50 04/12/2004/13/2020 CMP, serum or plasm a albumin/glob ulin ratio 2.0 (calc ) 1.0-2. 5 normal Not Available [facility] [address] [place], [place] [address], [address], 04/13/2020 08:06:50 04/12/2004/13/2020 CMP, serum or plasm a bilirubin, total 0.8 mg/dL 0.2-1. 2 normal Not Available [facility] [place] [place], [address], 04/13/2020 08:06:50 04/12/2004/13/2020 CMP, serum or plasm a alkaline phosphatase 46 U/L 35-144 normal Not Available [facility] [address] [place], [place] [address], [place], [address], 04/13/2020 08:06:50 04/12/2004/13/2020 CMP, serum or plasm a AST 26 U/L 10-35 normal Not Available [facility] [place] [place], [address], 04/13/2020 08:06:50 04/12/2004/13/2020 CMP, serum or plasm a ALT 32 U/L 9-46 normal Not Available [facility] [place] [facility] [address] [place], [address], 04/13/2020 08:06:50 04/12/2004/13/2020 HbA1c (hemo globi n A1c), blood hemoglobin A1C 5.8 %_of_ total _HGB <5.7 high For someo ne witho ut known diabe adam, a hemog lobin A1c value betwe en 5.7% and 6.4% is consi stent with predi abete s and shoul d be confi rmed with a follo w-up test. For someo ne with known diabe adam, a value <7% indic ates that their diabe adam is well contr olled . A1c targe ts shoul d be indiv idual ized based on durat ion of diabe adam, age, comor bid condi tions , and other consi derat ions. This assay resul t is consi stent with an incre ased risk of diabe adam. Curre ntly, no conse nsus exist s regar ding use of hemog lobin A1c for diagn osis of diabe adam for child carmen. Not Available [email or web address] [place] [facility] [address] [place], [address], 04/13/2020 08:06:50 04/12/2004/13/2020 TSH, serum or plasm a TSH 3.04 mIU/L 0.40-4 .50 normal Not Available [facility] [place] [facility] [address] [place], [address], 04/13/2020 08:06:50 04/12/2004/13/2020 CBC w/ auto diff white blood cell count 9.6 thous and/u L 3.8-10 .8 normal Not Available [facility] [place] [facility] [address] [place], [address], 04/13/2020 08:06:51 04/12/2004/13/2020 CBC w/ auto diff red blood cell count 6.14 keysha on/uL 4.20-5 .80 high Not Available [facility] [address] [place], [address], 04/13/2020 08:06:51 04/12/2004/13/2020 CBC w/ auto diff hemoglobin 18.6 g/dL 13.2-1 7.1 high Not Available [facility] [address] [place] [place], [address], 04/13/2020 08:06:51 04/12/2004/13/2020 CBC w/ auto diff hematocrit 55.0 % 38.5-5 0.0 high Not Available [facility] [address] [place], [address], 04/13/2020 08:06:51 04/12/2004/13/2020 CBC w/ auto diff MCV 89.6 fL 80.0-1 00.0 normal Not Available [facility] [address] [place], [place] [address], [address], 04/13/2020 08:06:51 04/12/2004/13/2020 CBC w/ auto diff MCH 30.3 pg 27.0-3 3.0 normal Not Available [facility] [address] [place] [address], [address], 04/13/2020 08:06:51 04/12/2004/13/2020 CBC w/ auto diff MCHC 33.8 g/dL 32.0-3 6.0 normal Not Available [facility] [address] [place], [place] [address], [address], 04/13/2020 08:06:51 04/12/2004/13/2020 CBC w/ auto diff RDW 13.1 % 11.0-1 5.0 normal Not Available [facility] [address] [place] [address], [address], 04/13/2020 08:06:51 04/12/2004/13/2020 CBC w/ auto diff platelet count 231 thous and/u L 140-40 0 normal Not Available [facility] [place] [facility] [address] [place], [address], 04/13/2020 08:06:51 04/12/2004/13/2020 CBC w/ auto diff MPV 10.3 fL 7.5-12 .5 normal Not Available [facility] [address] [place], [address], 04/13/2020 08:06:51 04/12/2004/13/2020 CBC w/ auto diff absolute neutrophils 4934 cells /uL 1500-7 800 normal Not Available [facility] [address] [place], [address], 04/13/2020 08:06:51 04/12/2004/13/2020 CBC w/ auto diff absolute lymphocytes 3600 cells /uL 850-39 00 normal Not Available [facility] [address] [place], [address], 04/13/2020 08:06:51 04/12/2004/13/2020 CBC w/ auto diff absolute monocytes 787 cells /uL 200-95 0 normal Not Available [facility] [address] [place], [address], 04/13/2020 08:06:51 04/12/2004/13/2020 CBC w/ auto diff absolute eosinophils 221 cells /uL 15-500 normal Not Available [facility] [address] [place], [address], 04/13/2020 08:06:51 04/12/2004/13/2020 CBC w/ auto diff absolute basophils 58 cells /uL 0-200 normal Not Available [facility] [address] [place], [address], 04/13/2020 08:06:51 04/12/20 20 04/13/2020 CBC w/ auto diff neutrophils 51.4 % normal Not Available [facility] [place] [facility] [address] [place], [address], 04/13/2020 08:06:51 04/12/20 20 04/13/2020 CBC w/ auto diff lymphocytes 37.5 % normal Not Available [facility] [place] [facility] [address] [place], [address], 04/13/2020 08:06:51 04/12/20 20 04/13/2020 CBC w/ auto diff monocytes 8.2 % normal Not Available [facility] [place] [facility] [address] [place], [address], 04/13/2020 08:06:51 04/12/20 20 04/13/2020 CBC w/ auto diff eosinophils 2.3 % normal Not Available [facility] [place] [facility] [address] [place], [address], 04/13/2020 08:06:51 04/12/2004/13/2020 CBC w/ auto diff basophils 0.6 % normal Not Available [facility] [place] [facility] [address] [place], [address], 04/13/2020 08:06:51 06/24/19 22 06/24/2021 CBC AUTO W DIFF WBC 8.2 10 4.5-11 .5 Not Available [facility] (Lab Registration) [address] [place], [address], 06/24/2021 13:47:08 06/24/19 22 06/24/2021 CBC AUTO W DIFF RBC 5.93 10 4.25-5 .57 high Not Available [facility] (Lab Registration) [address] [place], [address], 06/24/2021 13:47:08 06/24/19 22 06/24/2021 CBC AUTO W DIFF HGB 17.8 g/dL 13.5-1 7.2 high Not Available [facility] (Lab Registration) [address] [place], [address], 06/24/2021 13:47:08 06/24/19 22 06/24/2021 CBC AUTO W DIFF HCT 53.0 % 42.0-5 2.0 high Not Available [facility] [place] (Lab Registration) [address] [place], [address], 06/24/2021 13:47:08 06/24/19 22 06/24/2021 CBC AUTO W DIFF MCV 89.4 fL 80-95 Not Available [facility] [place] [facility] (Lab Registration) [address] [place], [address], 06/24/2021 13:47:08 06/24/19 22 06/24/2021 CBC AUTO W DIFF MCH 30.0 pg 27.0-3 4.0 Not Available [facility] (Lab Registration) [address] [place], [address], 06/24/2021 13:47:08 06/24/19 22 06/24/2021 CBC AUTO W DIFF MCHC 33.6 g/dL 32.0-3 6.0 Not Available [facility] (Lab Registration) [address] [place], [address], 06/24/2021 13:47:08 06/24/19 22 06/24/2021 CBC AUTO W DIFF platelet count 214 10 150-45 0 Not Available [facility] (Lab Registration) [address] [place], [address], 06/24/2021 13:47:08 06/24/19 22 06/24/2021 CBC AUTO W DIFF RDW 12.6 % 12.3-1 5.1 Not Available [facility] (Lab Registration) [address] [place], [address], 06/24/2021 13:47:08 06/24/19 22 06/24/2021 CBC AUTO W DIFF MPV 10.5 fL 7.4-10 .4 high Not Available [facility] (Lab Registration) [address] [place], [address], 06/24/2021 13:47:08 06/24/19 22 06/24/2021 CBC AUTO W DIFF granulocyte% 61.6 % 40-75 Not Available [facility] (Lab Registration) [address] [place], [address], 06/24/2021 13:47:08 06/24/19 22 06/24/2021 CBC AUTO W DIFF lymphocyte% 27.4 % 15-57 Not Available [facility] (Lab Registration) [address] [place], [address], 06/24/2021 13:47:08 06/24/19 22 06/24/2021 CBC AUTO W DIFF monocyte% 10.3 % 4.0-12 .0 Not Available [facility] (Lab Registration) [address] [place], [address], 06/24/2021 13:47:08 06/24/19 22 06/24/2021 CBC AUTO W DIFF eosinophil% 0.0 % 0.0-4. 0 Not Available [facility] (Lab Registration) [address] [place], [address], 06/24/2021 13:47:08 06/24/19 22 06/24/2021 CBC AUTO W DIFF basophil% 0.1 % 0.0-1. 0 Not Available [facility] (Lab Registration) [address] [place], [address], 06/24/2021 13:47:08 06/24/19 22 06/24/2021 CBC AUTO W DIFF immature granulocytes % 0.6 % 0.0-0. 8 Not Available [facility] (Lab Registration) [address] [place], [address], 06/24/2021 13:47:08 06/24/19 22 06/24/2021 CBC AUTO W DIFF granulocyte# 5.02 10 Not Available [facility] (Lab Registration) [address] [place], [address], 06/24/2021 13:47:08 06/24/19 22 06/24/2021 CBC AUTO W DIFF lymphocyte# 2.23 10 Not Available [facility] (Lab Registration) [address] [place], [address], 06/24/2021 13:47:08 06/24/19 22 06/24/2021 CBC AUTO W DIFF monocyte# 0.84 10 Not Available [facility] (Lab Registration) [address] [place], [address], 06/24/2021 13:47:08 06/24/19 22 06/24/2021 CBC AUTO W DIFF eosinophil# 0.00 10 Not Available [facility] (Lab Registration) [address] [place], [address], 06/24/2021 13:47:08 06/24/19 22 06/24/2021 CBC AUTO W DIFF basophil# 0.01 10 Not Available [facility] (Lab Registration) [address] [place], [address], 06/24/2021 13:47:08 06/24/19 22 06/24/2021 CBC AUTO W DIFF immature granulocytes # 0.05 10 Not Available [facility] (Lab Registration) [address] [place], [address], 06/24/2021 13:47:08 06/24/19 22 06/24/2021 CBC AUTO W DIFF manual differential NO Not Available [facility] (Lab Registration) [address] [place], [address], 06/24/2021 13:47:08 06/24/19 22 06/24/2021 CBC AUTO W DIFF note Unles s other sequeira noted testi ng perfo rmed at: [facility] [address] [place] [address] [phone] Dez haley MD CLIA: [id number] Not Available [facility] (Lab Registration) [address] [place], [address], 06/24/2021 13:47:08 06/24/19 22 06/24/2021 COMP METAB OLIC PANEL sodium 138 mmol/ L 136-14 5 Not Available [facility] (Lab Registration) [address] [place], [address], 06/24/2021 14:03:51 06/24/19 22 06/24/2021 COMP METAB OLIC PANEL potassium 4.3 mmol/ L 3.5-5. 1 Not Available [facility] (Lab Registration) [address] [place], [address], 06/24/2021 14:03:51 06/24/19 22 06/24/2021 COMP METAB OLIC PANEL chloride 99 mmol/ L 98-107 Not Available [facility] (Lab Registration) [address] [place], [address], 06/24/2021 14:03:51 06/24/19 22 06/24/2021 COMP METAB OLIC PANEL carbon dioxide 26 mmol/ L 21-32 Not Available [facility] (Lab Registration) [address] [place], [address], 06/24/2021 14:03:51 06/24/19 22 06/24/2021 COMP METAB OLIC PANEL anion gap 13.0 Not Available [facility] (Lab Registration) [address] [place], [address], 06/24/2021 14:03:51 06/24/19 22 06/24/2021 COMP METAB OLIC PANEL glucose 102 mg/dL 70-110 Not Available [facility] (Lab Registration) [address] [place], [address], 06/24/2021 14:03:51 06/24/19 22 06/24/2021 COMP METAB OLIC PANEL blood urea nitrogen 30 mg/dL 7-18 high Not Available [facility] (Lab Registration) [address] [place], [address], 06/24/2021 14:03:51 06/24/19 22 06/24/2021 COMP METAB OLIC PANEL creatinine 1.3 mg/dL 0.8-1. 3 Not Available [facility] (Lab Registration) [address] [place], [address], 06/24/2021 14:03:51 06/24/19 22 06/24/2021 COMP METAB OLIC PANEL BUN/creatini ne ratio 23.1 ratio 9-21 high Not Available [facility] (Lab Registration) [address] [place], [address], 06/24/2021 14:03:51 06/24/19 22 06/24/2021 COMP METAB OLIC PANEL estimated glom filtration rate 59 mL/mi n >60- low Not Available [facility] (Lab Registration) [address] [place], [address], 06/24/2021 14:03:51 06/24/19 22 06/24/2021 COMP METAB OLIC PANEL total protein 8.2 g/dL 6.4-8. 2 Not Available [facility] (Lab Registration) [address] [place], [address], 06/24/2021 14:03:51 06/24/19 22 06/24/2021 COMP METAB OLIC PANEL albumin 3.4 g/dL 3.4-5. 0 Not Available [facility] (Lab Registration) [address] [place], [address], 06/24/2021 14:03:51 06/24/19 22 06/24/2021 COMP METAB OLIC PANEL calcium 9.0 mg/dL 8.5-10 .1 Not Available [facility] (Lab Registration) [address] [place], [address], 06/24/2021 14:03:51 06/24/19 22 06/24/2021 COMP METAB OLIC PANEL corrected calcium 9.5 mg/dL 8.5-10 .1 Not Available [facility] (Lab Registration) [address] [place], [address], 06/24/2021 14:03:51 06/24/19 22 06/24/2021 COMP METAB OLIC PANEL bilirubin total 0.9 mg/dL 0.4-1. 5 Not Available [facility] (Lab Registration) [address] [place], [address], 06/24/2021 14:03:51 06/24/19 22 06/24/2021 COMP METAB OLIC PANEL AST (SGOT) 104 U/L 15-37 high Not Available [facility] (Lab Registration) [address] [place], [address], 06/24/2021 14:03:51 06/24/19 22 06/24/2021 COMP METAB OLIC PANEL ALT (SGPT) 67 U/L 12-78 Not Available [facility] (Lab Registration) [address] [place], [address], 06/24/2021 14:03:51 06/24/19 22 06/24/2021 COMP METAB OLIC PANEL alk phosphatase 41 U/L 56-119 low Not Available [facility] (Lab Registration) [address] [place], [address], 06/24/2021 14:03:51 06/24/19 22 06/24/2021 COMP METAB OLIC PANEL note Unles s other sequeira noted testi ng perfo rmed at: [facility] [address] [place] [address] [phone] Dez haley MD CLIA: [id number] Not Available [facility] (Lab Registration) [address], [place], [address], 06/24/2021 14:03:51 06/24/19 22 06/24/2021 TROPO [place] QUANT troponin 12.2 pg/mL 0-5 critical high HIGH SENSI TVITY TROPO [place] I REFER ENCE RANGE LOW RISK OF CARDI AC EVENT IF RESUL TS ARE /= 75.1 PG/ML FOR MALE PATIE NTS >/= 50.1 PG/ML FOR FEMAL E PATIE NTS 2-JARAD R TROPO [place] IS RECOM VERENA D FOR ANY PATIE NT THAT FALLS INTO THE INDET ERMIN ATE OR HIGH RISK CATEG ORIES . BIO TIN AND OTHER SUPPL EMENT S HAVE BEEN KNOWN TO ELEVA TE TROPO [place] VAUES IN IRVING L INDIV IDUAL S Not Available [facility] (Lab Registration) [address], [place], [address], 06/24/2021 14:26:56 06/24/19 22 06/24/2021 TROPO [place] QUANT note Unles s other sequeira noted testi ng perfo rmed at: [facility] [address] [id number] [phone] Dez perry haley MD CLIA: [id number] Not Available [facility] (Lab Registration) [address] [place], [address], 06/24/2021 14:26:56 06/24/19 22 06/24/2021 D-DIM ER QUANT ITATI VE D-dimer quantitative 587 NG/mL 0-500 critical high Not Available [facility] (Lab Registration) [address] [place], [address], 06/24/2021 14:52:16 06/24/19 22 06/24/2021 D-DIM ER QUANT ITATI VE note Unles s other sequeira noted testi ng perfo rmed at: [facility] [address] [place] [address] [phone] Dez haley MD CLIA: [id number] Not Available [facility] (Lab Registration) [address], [place], [address], 06/24/2021 14:52:16 06/24/19 22 06/24/2021 TROPO [place] I 2 HOUR MARIANNA COL troponin 14.2 pg/mL 0-5 critical high HIGH SENSI TVITY TROPO [place] I REFER ENCE RANGE LOW RISK OF CARDI AC EVENT IF RESUL TS ARE /= 75.1 PG/ML FOR MALE PATIE NTS >/= 50.1 PG/ML FOR FEMAL E PATIE NTS 2-JARAD R TROPO [place] IS RECOM VERENA D FOR ANY PATIE NT THAT FALLS INTO THE INDET ERMIN ATE OR HIGH RISK CATEG ORIES . BIO TIN AND OTHER SUPPL EMENT S HAVE BEEN KNOWN TO ELEVA TE TROPO [place] VAUES IN IRVING L INDIV IDUAL S Not Available [facility] (Lab Registration) [address], [place], [address], 06/24/2021 15:57:27 06/24/19 22 06/24/2021 TROPO [place] I 2 HOUR MARIANNA COL note Unles s other sequeira noted testi ng perfo rmed at: [facility] [address] [place] [address] [phone] Dez haley MD CLIA: [id number] Not Available [facility] (Lab Registration) [address] [place], [address], 06/24/2021 15:57:27 06/24/19 22 06/24/2021 RVP PANEL WITH COVID 19 - [facility] adenovirus NOT DETECT ED not detect ed Not Available [facility] (Lab Registration) [address], [place], [address], 06/24/2021 16:07:58 06/24/19 22 06/24/2021 RVP PANEL WITH COVID 19 - [facility] coronavirus 229E NOT DETECT ED not detect ed Not Available [facility] (Lab Registration) [address] [place], [address], 06/24/2021 16:07:58 06/24/19 22 06/24/2021 RVP PANEL WITH COVID 19 - [facility] coronavirus hku1 NOT DETECT ED not detect ed Not Available [facility] (Lab Registration) [address] [place], [address], 06/24/2021 16:07:58 06/24/19 22 06/24/2021 RVP PANEL WITH COVID 19 - [facility] coronavirus [id number] NOT DETECT ED not detect ed Not Available [facility] (Lab Registration) [address] [place], [address], 06/24/2021 16:07:58 06/24/19 22 06/24/2021 RVP PANEL WITH COVID 19 - [facility] coronavirus oc43 NOT DETECT ED not detect ed Not Available [facility] (Lab Registration) [address] [place], [address], 06/24/2021 16:07:58 06/24/19 22 06/24/2021 RVP PANEL WITH COVID 19 - [facility] coronavirus 2 (sars-cov-2) DETECT ED not detect ed delta Not Available [facility] (Lab Registration) [address] [place], [address], 06/24/2021 16:07:58 06/24/19 22 06/24/2021 RVP PANEL WITH COVID 19 - [facility] human metapneumovi roxi NOT DETECT ED not detect ed Not Available [facility] (Lab Registration) [address] [place], [address], 06/24/2021 16:07:58 06/24/19 22 06/24/2021 RVP PANEL WITH COVID 19 - [facility] human rhinovirus/e nterovirus NOT DETECT ED not detect ed Not Available [facility] (Lab Registration) [address] [place], [address], 06/24/2021 16:07:58 06/24/19 22 06/24/2021 RVP PANEL WITH COVID 19 - [facility] influenza A NOT DETECT ED not detect ed Not Available [facility] (Lab Registration) [address] [place], [address], 06/24/2021 16:07:58 06/24/19 22 06/24/2021 RVP PANEL WITH COVID 19 - [facility] influenza A/H1 N/A not detect ed Not Available [facility] (Lab Registration) [address] [place], [address], 06/24/2021 16:07:58 06/24/19 22 06/24/2021 RVP PANEL WITH COVID 19 - [facility] influenza A/H1 2009 N/A not detect ed Not Available [facility] (Lab Registration) [address] [place], [address], 06/24/2021 16:07:58 06/24/19 22 06/24/2021 RVP PANEL WITH COVID 19 - [facility] influenza A/H3 N/A not detect ed Not Available [facility] (Lab Registration) [address] [place], [address], 06/24/2021 16:07:58 06/24/19 22 06/24/2021 RVP PANEL WITH COVID 19 - [facility] influenza B NOT DETECT ED not detect ed Not Available [facility] (Lab Registration) [address] [place], [address], 06/24/2021 16:07:58 06/24/19 22 06/24/2021 RVP PANEL WITH COVID 19 - [facility] parainfluenz a 1 (piv1) NOT DETECT ED not detect ed Not Available [facility] (Lab Registration) [address] [place], [address], 06/24/2021 16:07:58 06/24/19 22 06/24/2021 RVP PANEL WITH COVID 19 - [facility] parainfluenz a 2 (piv2) NOT DETECT ED not detect ed Not Available [facility] (Lab Registration) [address], [place], [address], 06/24/2021 16:07:58 06/24/19 22 06/24/2021 RVP PANEL WITH COVID 19 - [facility] parainfluenz a 3 (piv3) NOT DETECT ED not detect ed Not Available [facility] (Lab Registration) [address], [place], [address], 06/24/2021 16:07:58 06/24/19 22 06/24/2021 RVP PANEL WITH COVID 19 - [facility] parainfluenz a 4 (piv4) NOT DETECT ED not detect ed Not Available [facility] (Lab Registration) [address], [place], [address], 06/24/2021 16:07:58 06/24/19 22 06/24/2021 RVP PANEL WITH COVID 19 - [facility] respiratory syncytial virus NOT DETECT ED not detect ed Not Available [facility] (Lab Registration) [address] [place], [address], 06/24/2021 16:07:58 06/24/19 22 06/24/2021 RVP PANEL WITH COVID 19 - [facility] bordetella parapertussi s NOT DETECT ED not detect ed Not Available [facility] (Lab Registration) [address] [place], [address], 06/24/2021 16:07:58 06/24/19 22 06/24/2021 RVP PANEL WITH COVID 19 - [facility] bordetella pertussis NOT DETECT ED not detect ed Not Available [facility] (Lab Registration) [address] [place], [address], 06/24/2021 16:07:58 06/24/19 22 06/24/2021 RVP PANEL WITH COVID 19 - [facility] chlamydophil a pneumoniae NOT DETECT ED not detect ed Not Available [facility] (Lab Registration) [address] , [place], [address], 06/24/2021 16:07:58 06/24/19 22 06/24/2021 RVP PANEL WITH COVID 19 - [facility] mycoplasma pneumoniae NOT DETECT ED not detect ed Not Available [facility] (Lab Registration) [address] , [place], [address], 06/24/2021 16:07:58 06/24/19 22 06/24/2021 RVP PANEL WITH COVID 19 - BRBN note Unles s other sequeira noted testi ng perfo rmed at: [facility] [address] [address] [phone] Dez haley MD CLIA: [id number] Not Available [facility] (Lab Registration) [address] , [place], [address], 06/24/2021 16:07:58 03/19/20 23 03/22/2023 LIPID PANEL , STAND SARAN cholesterol, total 152 mg/dL <200 normal Not Available [facility] [address] [place], [address], 03/22/2023 12:35:59 03/19/2003/22/2023 LIPID PANEL , STAND SARAN HDL cholesterol 29 mg/dL > or = 40 low Not Available [facility] [address] [place], [address], 03/22/2023 12:35:59 03/19/2003/22/2023 LIPID PANEL , STAND SARAN triglyceride s 233 mg/dL <150 high If a non-f astin g speci men was colle cted, consi en repea t trigl yceri de testi ng on a fasti ng speci men if clini nichelle indic ated. Rick torres et al. J. of Clin. Lipid ol. 2015; 9:129 -169. Not Available [facility] [address], [place], [address], 03/22/2023 12:35:59 03/19/2003/22/2023 LIPID PANEL , STAND SARAN LDL-choleste rol 91 mg/dL _(oliva c) normal Refer ence range : <100 Jenae able range <100 mg/dL for prima ry preve ntion ; <70 mg/dL for patie nts with CHD or diabe tic patie nts with > or = 2 CHD risk facto rs. LDL-C is now calcu lated using the Sharri n-Hop kins calcu latio n, which is a valid ated novel metho d provi ding chaz r accur acy than the Fried micha equat ion in the estim ation of LDL-C . Sharri kimbrough SS et al. KENNEDY. 2013; 310(1 9): 2061- 2068 (http ://ed ucati on.Goomeo darrellPharmaco Kinesis. Salesfusion/f aq/FA Q164) Not Available [facility] [address], [place], [address], 03/22/2023 12:35:59 03/19/2003/22/2023 LIPID PANEL , STAND SARAN chol/HDLC ratio 5.2 (calc ) <5.0 high Not Available [facility] [address], [place], [address], 03/22/2023 12:35:59 03/19/2003/22/2023 LIPID PANEL , STAND SARAN non HDL cholesterol 123 mg/dL _(oliva c) <130 normal For patie nts with diabe adam plus 1 major ASCVD risk facto r, treat ing to a non-H DL-C goal of <100 mg/dL (LDL- C of <70 mg/dL ) is consi rachana huerta c optio n. Not Available [email or web address] [address], [place], [address], 03/22/2023 12:35:59 03/19/2003/22/2023 COMPR EHENS EMELY METAB OLIC PANEL glucose 113 mg/dL 65-99 high Fasti ng refer ence inter merle For someo ne witho ut known diabe adam, a gluco se value betwe en 100 and 125 mg/dL is consi stent with predi abete s and shoul d be confi rmed with a follo w-up test. Not Available [email or web address] [address] [place], [address], 03/22/2023 12:36:00 03/19/2003/22/2023 COMPR EHENS EMELY METAB OLIC PANEL urea nitrogen (BUN) 13 mg/dL 7-25 normal Not Available [facility] [address] [place], [address], 03/22/2023 12:36:00 03/19/2003/22/2023 COMPR EHENS EMELY METAB OLIC PANEL creatinine 1.03 mg/dL 0.70-1 .35 normal Not Available [email or web address] [address] [place], [address], 03/22/2023 12:36:00 03/19/2003/22/2023 COMPR EHENS EMELY METAB OLIC PANEL eGFR 80 mL/mi n/1.7 3m2 > or = 60 normal Not Available [email or web address] [address] [place], [address], 03/22/2023 12:36:00 03/19/2003/22/2023 COMPR EHENS EMELY METAB OLIC PANEL BUN/creatini ne ratio SEE NOTE: (calc ) 6-22 Not Repor carmen: BUN and Creat inine are withi n refer ence range . Not Available [email or web address] [address] [place], [address], 03/22/2023 12:36:00 03/19/2003/22/2023 COMPR EHENS EMELY METAB OLIC PANEL sodium 134 mmol/ L 135-14 6 low Not Available [facility] [address] [place], [address], 03/22/2023 12:36:00 03/19/2003/22/2023 COMPR EHENS EMELY METAB OLIC PANEL potassium 4.5 mmol/ L 3.5-5. 3 normal Not Available [facility] [address] [place], [address], 03/22/2023 12:36:00 03/19/2003/22/2023 COMPR EHENS EMELY METAB OLIC PANEL chloride 99 mmol/ L 98-110 normal Not Available [facility] [address] [place], [address], 03/22/2023 12:36:00 03/19/2003/22/2023 COMPR EHENS EMELY METAB OLIC PANEL carbon dioxide 26 mmol/ L 20-32 normal Not Available [facility] [address] [place], [address], 03/22/2023 12:36:00 03/19/2003/22/2023 COMPR EHENS EMELY METAB OLIC PANEL calcium 9.6 mg/dL 8.6-10 .3 normal Not Available [facility] [address] [place], [address], 03/22/2023 12:36:00 03/19/2003/22/2023 COMPR EHENS EMELY METAB OLIC PANEL protein, total 6.9 g/dL 6.1-8. 1 normal Not Available [facility] [address] [place], [address], 03/22/2023 12:36:00 03/19/2003/22/2023 COMPR EHENS EMELY METAB OLIC PANEL albumin 4.4 g/dL 3.6-5. 1 normal Not Available [facility] [address] [place], [address], 03/22/2023 12:36:00 03/19/2003/22/2023 COMPR EHENS EMELY METAB OLIC PANEL globulin 2.5 g/dL_ (calc ) 1.9-3. 7 normal Not Available [facility] [address] [place], [address], 03/22/2023 12:36:00 03/19/2003/22/2023 COMPR EHENS EMELY METAB OLIC PANEL albumin/glob ulin ratio 1.8 (calc ) 1.0-2. 5 normal Not Available [facility] [address] [place], [address], 03/22/2023 12:36:00 03/19/2003/22/2023 COMPR EHENS EMELY METAB OLIC PANEL bilirubin, total 0.7 mg/dL 0.2-1. 2 normal Not Available [facility] [address] [place], [address], 03/22/2023 12:36:00 03/19/2003/22/2023 COMPR EHENS EMELY METAB OLIC PANEL alkaline phosphatase 57 U/L 35-144 normal Not Available [facility] [address] [place], [address], 03/22/2023 12:36:00 03/19/2003/22/2023 COMPR EHENS EMELY METAB OLIC PANEL AST 42 U/L 10-35 high Not Available [facility] [address] [place], [address], 03/22/2023 12:36:00 03/19/2003/22/2023 COMPR EHENS EMELY METAB OLIC PANEL ALT 58 U/L 9-46 high Not Available [facility] [address] [place], [address], 03/22/2023 12:36:00 03/19/2003/22/2023 HEMOG LOBIN A1C hemoglobin A1C 5.9 %_of_ total _HGB <5.7 high For someo ne witho ut known diabe adam, a hemog lobin A1c value betwe en 5.7% and 6.4% is consi stent with predi abete s and shoul d be confi rmed with a follo w-up test. For someo ne with known diabe adam, a value <7% indic ates that their diabe adam is well contr olled . A1c targe ts shoul d be indiv idual ized based on durat ion of diabe adam, age, comor bid condi tions , and other consi derat ions. This assay resul t is consi stent with an incre ased risk of diabe adam. Curre ntly, no conse nsus exist s regar ding use of hemog lobin A1c for diagn osis of diabe adam for child carmen. Not Available [facility] [address] [place], [address], 03/22/2023 12:36:01 03/19/2003/22/2023 TSH TSH 2.75 mIU/L 0.40-4 .50 normal Not Available [facility] [address] [place], [address], 03/22/2023 12:36:01 03/19/2003/22/2023 CBC (INCL UDES DIFF/ PLT) white blood cell count 9.1 thous and/u L 3.8-10 .8 normal Not Available [facility] [address] [place], [address], 03/22/2023 12:36:02 03/19/2003/22/2023 CBC (INCL UDES DIFF/ PLT) red blood cell count 6.01 keysha on/uL 4.20-5 .80 high Not Available [facility] [address] [place], [address], 03/22/2023 12:36:02 03/19/2003/22/2023 CBC (INCL UDES DIFF/ PLT) hemoglobin 18.5 g/dL 13.2-1 7.1 high Not Available [facility] [address] [place], [address], 03/22/2023 12:36:02 03/19/2003/22/2023 CBC (INCL UDES DIFF/ PLT) hematocrit 56.1 % 38.5-5 0.0 high Not Available [facility] [address] [place], [address], 03/22/2023 12:36:02 03/19/2003/22/2023 CBC (INCL UDES DIFF/ PLT) MCV 93.3 fL 80.0-1 00.0 normal Not Available [facility] [address] [place], [address], 03/22/2023 12:36:02 03/19/2003/22/2023 CBC (INCL UDES DIFF/ PLT) MCH 30.8 pg 27.0-3 3.0 normal Not Available [facility] [address] [place] [address], [address], 03/22/2023 12:36:02 03/19/2003/22/2023 CBC (INCL UDES DIFF/ PLT) MCHC 33.0 g/dL 32.0-3 6.0 normal Not Available [facility] [address] [place], [address], 03/22/2023 12:36:02 03/19/2003/22/2023 CBC (INCL UDES DIFF/ PLT) RDW 13.3 % 11.0-1 5.0 normal Not Available [facility] [address] [place], [address], 03/22/2023 12:36:02 03/19/2003/22/2023 CBC (INCL UDES DIFF/ PLT) platelet count 238 thous and/u L 140-40 0 normal Not Available [facility] [address], [place], [address], 03/22/2023 12:36:02 03/19/2003/22/2023 CBC (INCL UDES DIFF/ PLT) MPV 10.1 fL 7.5-12 .5 normal Not Available [facility] [address], [place], [address], 03/22/2023 12:36:02 03/19/2003/22/2023 CBC (INCL UDES DIFF/ PLT) absolute neutrophils 3804 cells /uL 1500-7 800 normal Not Available [facility] [address] [place], [address], 03/22/2023 12:36:02 03/19/2003/22/2023 CBC (INCL UDES DIFF/ PLT) absolute lymphocytes 4213 cells /uL 850-39 00 high Not Available [facility] [address], [place], [address], 03/22/2023 12:36:02 03/19/2003/22/2023 CBC (INCL UDES DIFF/ PLT) absolute monocytes 810 cells /uL 200-95 0 normal Not Available [facility] [address], [place], [address], 03/22/2023 12:36:02 03/19/2003/22/2023 CBC (INCL UDES DIFF/ PLT) absolute eosinophils 209 cells /uL 15-500 normal Not Available [facility] [address] [place], [address], 03/22/2023 12:36:02 03/19/2003/22/2023 CBC (INCL UDES DIFF/ PLT) absolute basophils 64 cells /uL 0-200 normal Not Available [facility] [address] [place], [address], 03/22/2023 12:36:02 03/19/2003/22/2023 CBC (INCL UDES DIFF/ PLT) neutrophils 41.8 % normal Not Available [facility] [address] [place], [address], 03/22/2023 12:36:02 03/19/2003/22/2023 CBC (INCL UDES DIFF/ PLT) lymphocytes 46.3 % normal Not Available [facility] [address] [place], [address], 03/22/2023 12:36:02 03/19/2003/22/2023 CBC (INCL UDES DIFF/ PLT) monocytes 8.9 % normal Not Available [facility] [address] [place], [address], 03/22/2023 12:36:02 03/19/2003/22/2023 CBC (INCL UDES DIFF/ PLT) eosinophils 2.3 % normal Not Available [facility] [address] [place], [address], 03/22/2023 12:36:02 03/19/2003/22/2023 CBC (INCL UDES DIFF/ PLT) basophils 0.7 % normal Not Available [facility] [address] [place], [address], 03/22/2023 12:36:02 03/19/2003/22/2023 HEPAT ITIS C AB W/REF L TO HCV RNA, QN, PCR hepatitis C antibody NON-RE ACTIVE non-re active normal HCV antib roselyn was non-r eacti ve. There is no labor atory evide nce of HCV infec tion. In most cases , no furth er actio n is requi red. Howev er, if recen t HCV expos ure is suspe cted, a test for HCV RNA (test code 30889 ) is sugge sted. For addit ional infor matio n pleas e refer to http: //[facility] catio n.que stdia gnost ics.c om/fa q/FAQ 22v1 (This link is being provi ded for infor matio nal/ educa hailey l purpo ses only. ) Not Available [facility] [address] [facility], [place], [address], 03/22/2023 12:36:03 06/24/19 22 06/24/2021 CT, chest , w/o contr ast [facility] [address] [place] [address] Phone: Fax: Name: HARMONY TILLEY Exam Date: 022 : [birth year] Age 66 Gender : M Access ion: [id number] Physic nery: JESSICA MCLAUGHLIN [facility] Fac[facility] ty HSV: Outpat ient Exam: CT CHEST WO CONTRA ST CT SCAN OF THE CHEST WITHOU T CONTRA ST COMPAR PONCE: None. HISTOR Y: Abnorm al chest X-ray. PROCED URE: Axial images were obtain ed from the lung apex to the mid abdome n by comput ed tomogr aphy. FINDIN GS: CHEST: There is no axilla ry adenop athy. There is no hilar or medias tinal adenop athy. Heart size is normal . There is no perica rdial or pleura l effusi on. Limite d images of the upper abdome n demons trate hepati c steato sis and disten tion of the gallbl adder. There are multif ocal periph eral ground glass opacit ies. IMPRES CELESTINE: Multif ocal periph eral ground glass opacit ies consis tent with Covid pneumo nikolay. Films review ed , interp reted and dictat ed by Dr. Paola Mendosa . Transc ribed by Mohsen Vogt PA-C. Dictat ed By: MELVIN MENDOSA Transc ribed By: MELVIN MENDOSA Transc ribed On: 4:27 PM Electr onical ly signed by: MELVIN MENDOSA Thank you for referr ing HARMONY TILLEY to [facility]. Legall y authen ticate d by MELVIN MENDOSA IVO 06-24 16:27: 12 CC'ed Logic: Orderi ng Provid er: ELEUTERIO Rangel CC Provid er: KAVYA Magallanes Attend ing Provid er: ELEUTERIO Rangel Referr ing Provid er: ELEUTERIO Rangel Admitt ing Provid er: ELEUTERIO high [facility] (Radiology) [address] [place], [address], 06/24/2021 22:55:26 07/22/19 22 07/21/2021 [facility]R, [facility] , [facility] [place] [address] Phone: Fax: Name: HARMONY TILLEY Exam Date: : [birth year] Age 66 Gender : M Access ion: [id number] Physic nery: MIKEY ALEXIS Facili ty: [facility] Facili ty HSV: Outpat ient Exam: CHEST PA ^ LAT CHEST, 2 VIEWS HISTOR Y: Cough. Recent Covid pneumo nikolay. COMPAR PONCE: 017 FINDIN GS: The heart and medias tinum are unrema rkable . The lungs demons trate patchy bilate ral airspa ce opacit ies that may repres ent the sequel a of post Covid pneumo nikolay. The bony struct ures are intact . IMPRES CELESTINE: Patchy bilate ral airspa ce opacit ies that may repres ent the sequel a of post Covid pneumo nikolay. Films review ed , interp reted and dictat ed by Dr. Paola Mendosa Transc ribed by Mohsen Vogt PA-C. Dictat ed By: MELVIN MENDOSA Transc ribed By: MELVIN MENDOSA Transc ribed On: 8:42 AM Electr onical ly signed by: MELVIN MENDOSA Thank you for referr HARMONY Alvarado to [facility]. Legall y authen ticate d by MELVIN GUTIERREZ 07-22 08:42: 16 CC'ed Logic: Orderi ng Provid er: KAVYA Magallanes CC Provid er: KAVYA Magallanes Attend ing Provid er: KAVYA Magallanes Referr ing Provid er: KAVYA Magallanes Admitt ing Provid er: KAVYA [address]aney[address] [place] [address] (Radiology) [address] , [place], [address], 03/25/2023 16:47:43 Result Notes None recorded. Problems Name Problem SNOMED Code Status Onset Date Resolution Date Notes Provider Name and Address Organization Details Recorded Time Blood glucose outside reference range 172707168 Chepe Rueda MD [address], [address] [place] [address], [facility] 6 11:22:12 Fatigue 57262436 Active Salena Rueda MD [address] [place] [address], [facility] 6 11:22:12 Tremor [id number] Chepe Rueda MD [address] [address], [facility] 6 11:22:12 Respiratory symptom [id number] Chepe Rueda MD [address] [place] [address], [facility] 6 11:22:12 Abnormal testosterone [id number] Active [facility] 6 12:11:00 Dyspnea [id number] Active Salena Rueda MD [address] [place] [address], [facility] 6 11:22:12 Carpal tunnel syndrome [id number] Active Salena Rueda MD [address] [place] [address], [facility] 6 11:22:12 Wheezing [id number] Chepe Rueda MD [address] [place] [address], [facility] 6 11:22:12 Benign essential hypertension [id number] Active Salena Rueda MD [address] [place] [address], [facility] 6 11:22:12 Chronic pain due to injury [id number] Chepe Rueda MD [address] [place] [address], [facility] 6 11:22:12 Allergic rhinitis [id number] Chepe Rueda MD [address] [place] [address], [facility] 6 11:22:12 Disorder of peripheral autonomic nervous system [id number] Chepe Rueda MD [address] [place] [address], [facility] 6 11:22:12 Shoulder joint pain [id number] Chepe Rueda MD 2016 [place] [address], [facility] 6 11:22:12 Acute sinusitis 80006556 Active Salena Rueda MD [address] [place] [address], [place] [facility] 6 11:22:12 Acute stress disorder 74701400 Active Salena Rueda MD [address] [place] [address], [facility] 6 11:22:12 Verruca vulgaris 86154478 Active Salena Rueda MD [address] [place] [address], [facility] 6 11:22:12 Electrocardiog sukhwinder abnormal 105039643 Active Salena Rueda MD [address] [place] [address], [facility] 6 11:22:12 Chest pain 44794030 Active Salena Rueda MD [address] [place] [address], [facility] 6 11:22:12 Spasm 83454931 Active Salena Rueda MD [address] [place] [address], [facility] 6 11:22:12 Low back pain 279036416 Chepe Rueda MD [address] [place] [address], [facility] 6 11:22:12 Degeneration of cervical intervertebral disc 35815251 Active Salena Rueda MD [address] [place] [address], [facility] 6 11:22:12 Asthma 222342834 Active Salena Rueda MD [address] [place] [address], [facility] 6 11:22:12 Acute asthma 012191453 Active Salena Rueda MD [address] [place] [address], [place] [facility] 6 11:22:12 Acute bronchitis 99952799 Active Salena Rueda MD [address] [place] [address], [place] [facility] 6 21:27:16 Multiple actinic keratoses 474063011 Active Salena Rueda MD [address] [place] [address], [facility] 6 11:22:12 Neoplasm of skin 656758404 Active Salena Rueda MD [address] [place] [address], [facility] 6 11:22:12 Laryngitis 94143524 Active Salena Rueda MD [address] [place] [address], [facility] 6 21:27:16 Problem Notes None recorded. Procedures Surgical History Date Name Laterality Status Provider Name and Address Organization Details Recorded Time 04/14/20 17 Colonoscopy completed Salena Rueda MD [address] [place] [address], [facility] 05/08/2017 12:28:22 04/14/20 17 Colonoscopy completed Salena Rueda MD [address] [place] [address], [facility] 06/23/2017 18:01:50 03/26/20 17 cryotherapy surgery completed Salena Rueda MD 2017 [facility], [facility] [address], [place], [address], [facility] 03/28/2017 21:24:48 04/22/20 16 Hand tendon/muscle transfer completed [facility] 07/31/2016 10:21:26 08/03/19 15 cryotherapy surgery completed Salena Rueda MD 2017 [facility] [address], [place], [address], [facility] 08/03/2014 17:35:11 07/28/19 14 cryotherapy surgery completed Salena Rueda MD 2017 [facility] [address], [place], [address], [facility] 07/28/2013 16:46:57 01/07/20 12 cryotherapy surgery completed Salena Rueda MD 2016 [facility] [address], [place], [address], [facility] 01/07/2012 11:54:40 06/07/19 05 Vasectomy completed Not Available [facility] 1 04:58:32 Imaging Results Imaging Date Name Status LastModified by Organiz ation Details LastModified Time 06/24/2021 CT, chest, w/o contrast completed [address] (Radiology) [address] [place], [id number], 06/24/2021 22:55:26 07/21/2021 XR, chest, 2 view completed [address] (Radiology) [place], [address], 03/25/2023 16:47:43 Procedure Notes None recorded. Medical Equipment None [...] active Not Available Not Available Not Available amoxicillin 500 mg capsule TAKE ONE CAPSULE BY MOUTH EVERY TWELVE HOURS FOR 10 DAYS 03/25 completed Not Available Not Available Not Available methocarbam ol 500 mg tablet TAKE 1 TABLET BY MOUTH TWICE DAILY active Not Available Not Available No t Available promethazin e-DM 6.25 mg-15 mg/5 mL oral syrup TAKE 5 ML BY MOUTH EVERY 4 HOURS NEEDED active Not Available Not Available No t Available carvedilol 25 mg tablet TAKE 1 TABLET BY MOUTH TWICE DAILY . APPOINTME NT REQUIRED FOR FUTURE REFILLS 2024 active Not Available Not Available Not Avai lable cefprozil 500 mg tablet Take 1 tablet twice a day by oral route with meals for 10 days. 02/11 completed Not Available Not Available Not Available gabapentin 600 mg tablet TAKE 1 TABLET BY MOUTH THREE TIMES DAILY active Not Available Not Available No t Available doxycycline hyclate 100 mg capsule TAKE 1 CAPSULE BY MOUTH TWICE DAILY FOR 10 DAYS active Not Available Not Available No t Available nabumetone 750 mg tablet active Not Available Not Available Not Available azithromyci n 250 mg tablet TAKE 2 TABLETS BY MOUTH ON DAY 1, AND THEN TAKE 1 TABLET BY MOUTH ONCE A DAY ON DAY 2 THROUGH DAY 5. TAKE WITH FOOD. active Not Available Not Available No t Available tizanidine 4 mg tablet TAKE 1 TABLET BY MOUTH EVERY 6 TO 8 HOURS NEEDED 2024 active Not Available Not Available Not Avai lable benzonatate 200 mg capsule Take 1 capsule 3 times a day by oral route as needed. 09/07 completed Not Available Not Available Not Available lisinopril 20 mg tablet Take 1 tablet twice a day by oral route for 30 days. 12/19 completed Not Available Not Available Not Available prednisone 20 mg tablet TAKE 1 TABLET BY MOUTH TWICE DAILY 03/25 completed Not Available Not Available Not Available metronidazo le 500 mg tablet 08/25 completed Not Available Not Available Not Available chlorthalid one 25 mg tablet Take 1 tablet every day by oral route in the morning. 08/19 completed Not Available Not Available Not Available amlodipine 5 mg tablet Take 1 tablet by mouth once daily 2024 active Not Available Not Available Not Avai lable ciprofloxac in 500 mg tablet 07/21 completed Not Available Not Available Not Available sulfamethox azole 800 mg-trimetho prim 160 mg tablet Take 1 tablet twice a day by oral route. active Not Available Not Available No t Available hydrocodone 10 mg-acetamin ophen 325 mg tablet Take 1 tablet 4 times a day by oral route as needed. 11/29 completed Not Available Not Available Not Available aspirin 81 mg tablet,richardson yed release Take 1 tablet every day by oral route. 03/25 completed Not Available Not Available Not Available lidocaine-p rilocaine 2.5 %-2.5 % topical cream as needed on knees and wrist 04/16 completed Not Available Not Available Not Available ceftriaxone 1 gram solution for injection Take 0.5 g by injection route. 03/25 completed Not Available Not Available Not Available oxycodone-a cetaminophe n 10 mg-325 mg tablet TAKE 1 TABLET BY MOUTH FIVE TIMES DAILY active Not Available Not Available No t Available tamsulosin 0.4 mg capsule TAKE 1 CAPSULE BY MOUTH ONCE DAILY active Not Available Not Available No t Available benzonatate 100 mg capsule Take 1 capsule 3 times a day by oral route for 10 days. active Not Available Not Available No t Available oseltamivir 75 mg capsule Take 1 capsule twice a day by oral route for 5 days. 08/25 completed Not Available Not Available Not Available nitroglycer in 0.4 mg sublingual tablet 04/04 completed Not Available Not Available Not Available gabapentin 300 mg capsule TAKE 1 CAPSULE BY MOUTH THREE TIMES DAILY FOR PAIN 03/25 completed Not Available Not Available Not Available diclofenac sodium 75 mg tablet,richardson yed release q po bid 04/12 completed Not Available Not Available Not Available mupirocin 2 % topical ointment APPLY A SMALL AMOUNT OF OINTMENT TO EACH NOSTRIL TWICE DAILY FOR 14 DAYS active Not Available Not Available No t Available dexamethaso ne sodium phosphate 4 mg/mL injection solution Take 1 mL by injection route. 04/16 completed Not Available Not Available Not Available azelastine 137 mcg (0.1 %) nasal spray [place] 2 sprays into each nostril twice a day. active Not Available Not Available No t Available Viagra 100 mg tablet Take 1 tablet every day by oral route. 02/19 completed Not Available Not Available Not Available prednisone 5 mg tablets in a dose pack TAKE DIRECTED 03/25 completed Not Available Not Available Not Available polyethylen e glycol 3350 17 gram/dose oral powder 05/07 completed Not Available Not Available Not Available levofloxaci n 500 mg tablet Take 1 tablet every 24 hours by oral route. 08/25 completed Not Available Not Available Not Available methylpredn isolone 4 mg tablets in a dose pack TAKE DIRECTED FOR CHEST CONGESTIO N 07/21 completed Not Available Not Available Not Available albuterol sulfate HFA 90 mcg/actuati on aerosol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
--- NOTE | 2024-10-26 11:43 | A.OFFVIS_ITS ---
[facility] Disclaimer: The information contained in this section may have been updated after the patient was seen, as this information can be updated by other users. Medical History Chronic pain Benign prostatic hyperplasia Hypertension Surgical History No significant past surgical history Family History Other No significant family history Social History Smoking Status: Never smoker alcohol intake: current substance use type: denies use current occupational status: other Travel in the last 8 weeks?: None PM Subjective & Objective Subjective Subjective:: Patient is a pleasant 69-year-old male who presents tonight for his 1 month medication refill. Today he rates his pain a 7 out of 10. He denies any new changes from our last appointment. He does state that he has already called [facility] and they do have his current medications in stock. Patient is currently managed with Percocet 10 mg 5 times a day, gabapentin 600 mg 3 times a day and methocarbamol 500 mg twice a day. He denies any side effects. His Damian has been reviewed and is appropriate. Review of Systems: General: No recent weight changes, no fever, no sleep disturbances Respiratory: No cough, no shortness of air, no recurring pulmonary infections Cardiovascular/peripheral vascular: No chest pain, no palpitations, no edema, no shortness of breath Gastrointestinal: No new onset incontinence, normal bowel movements reported Genitourinary: No new onset incontinence Musculoskeletal: Low back pain Psychiatric: [Normal mood/affect] Neurological: [Denies weakness in extremities], [denies balance issues] Pain at rest (0-10 scale): 7 Objective Objective:: Physical Exam: General: Alert and oriented x3, no acute distress, pleasant and cooperative Lungs: Respirations even and unlabored, symmetrical chest expansion Eyes: PERRL Musculoskeletal: Flexion and extension of lumbar [spine] somewhat guarded secondary to pain, [antalgic gait noted] Neurological: Speech clear, no gross sensory deficit Has patient had previous pain injection?: No Conservative treatment options previously tried: Home exercise plan Length of treatment: Longer than 12 weeks Meds Home Medications and Allergies Home Medications ?Medication ?Instructions ?Recorded ?Confirmed ?Type amlodipine 5 mg tablet 5 mg PO DAILY BLOOD PRESSURE 01/02/21 09/27/24 History carvedilol 25 mg tablet 25 mg PO BID BLOOD PRESSURE 01/02/21 09/27/24 History lisinopril 40 mg tablet 40 mg PO DAILY BLOOD PRESSURE 01/02/21 09/27/24 History sildenafil (pulm.hypertension) 20 20 mg PO DAILYP PRN . 01/02/21 09/27/24 History mg tablet tamsulosin 0.4 mg capsule 0.4 mg PO HS PROSTATE 01/02/21 09/27/24 History testosterone 30 mg/actuation (1.5 2 pump TD DAILY HRT 01/02/21 09/27/24 History mL) transderm solution metered pump tizanidine 4 mg capsule 4 mg PO Q6HP PRN MUSCLE SPASMS 01/02/21 09/27/24 History naloxone 4 mg/actuation nasal spray 4 mg NS ONCE . 08/11/21 09/27/24 History gabapentin 300 mg capsule 300 mg PO TID Pain #90 caps 02/18/23 09/27/24 Rx diclofenac sodium 1 % topical gel 4 g topical QID Pain #100 grams 04/22/23 09/27/24 Rx gabapentin 600 mg tablet 600 mg PO TID #90 tabs 09/27/24 Rx methocarbamol 500 mg tablet 500 mg PO BID #60 tabs 09/27/24 Rx oxycodone-acetaminophen 10 mg-325 1 tab PO 5XDAY #150 tabs 09/27/24 Rx mg tablet (Percocet) New Prescriptions to Start Prescriptions: Allergies Allergy/AdvReac Type Severity Reaction Status Date / Time No Known Allergies Allergy Verified 09/16/23 11:35 Assessment and Plan *Assessment and plan (1) Lumbar radiculopathy: Status: Acute Category: Medical Code(s): M54.16 - Radiculopathy, lumbar region (2) Degenerative disc disease, lumbar: Status: Acute Qualifiers: Disc-related pain type: discogenic back pain and lower extremity pain Qualified Code(s): M51.362 - Other intervertebral disc degeneration, lumbar region with discogenic back pain and lower extremity pain Category: Medical Code(s): M51.369 - Other intervertebral disc degeneration, lumbar region without mention of lumbar back pain or lower extremity pain (3) Spinal stenosis, lumbar region with neurogenic claudication: Status: Acute Category: Medical Code(s): M48.062 - Spinal stenosis, lumbar region with neurogenic claudication Plan I will refill the patient's Percocet and make sure he does have refills on his gabapentin and methocarbamol. Patient will return to clinic in 1 month. Risks and benefits of the medication have been explained in detail to the patient. The patient does understand the risk of dependence on the medication when given over a prolonged period. Patient has been advised of risks of oversedation with the prescribed medication. Narcan has been offered to the paitent in the event of oversedation. Patient has been advised that a family member should also be educated regarding administration of Narcan. The patient has been advised to consult with his/her primary care provider and pharmacist regarding drug-drug interaction of medications currently prescribed. Patient has been prescribed a controlled substance after being counseled on the medication, medication safety, and possible side effects. Opioid contract was reviewed and signed by the patient, and that they have agreed to all of the terms set forth by our compliance program. A UDS is needed to verify patient's compliance with our office pain contract. This is ordered based off specific treatments related to chronic pain with the potential to abuse certain medications. Patient has been instructed to contact the clinic with any concerns before the next appointment. Dr. Rubio has reviewed this note and agrees with this plan of care. This note was dictated using voice recognition software and make contain errors or omissions.
[2024-10-26 12:11] VITALS: BP 129/100; PULSE 78; RESP 18; O2SAT 99; BMI 32.1
== END 2024-10-26 23:59 | disposition home or self-care (01) ==
PROVIDERS: PCP Family Medicine; Visit Provider Nurse Practitioner Family
DX: M51.16 Intervertebral disc disorders with radiculopathy, lumbar region (principal); M48.062 Spinal stenosis, lumbar region with neurogenic claudication
CPT/HCPCS: 99212; G0463

== ENCOUNTER 2024-11-23 13:23 | Outpatient (POV) | payer BC, SELFPAY ==
--- OUTSIDE RECORDS SUMMARY | 2024-11-23 13:32 | XMS_ITS | Data Portability ---
Author Organization [facility] & Janell MIKE ADMIN Address [address] [place] [address] Care Team Providers Care Insole Doubler Name Role Phone BRAYDEN BENITEZ Primary Care Provider Assessment No assessment recorded. Plan of Treatment Reminders Order Date Submit Date Provider Last Modified By Organization Details Last Modified Time Details Appointments None recorded. Lab None recorded. Referral None recorded. Procedures None recorded. Surgeries None recorded. Imaging None recorded. Medication Orders mupirocin 2 % topical ointment 2023 [facility], [address] [place] [address], [address], 15:29:00 Augmentin 875 mg-125 mg tablet 2023 [facility] [address], [address] [place] [address], [address], 09:30:54 Patient TargetsNo targets recorded. Patient InstructionsNo instructions recorded. Reason for Referral None Reported. Problems Name Problem SNOMED Code Status Onset Date Resolution Date Notes Provider Name and Address Organization Details Recorded Time Acute sinusitis 55668155 Active 2023 NAVEEN BENITO MD [address], [address], [place], [address], [facility] [place] 09:36:14 Nasal vestibulitis 05182723 Active 2023 NAVEEN BENITO MD [address], [address], [place], [address], [facility] [place] 16:02:53 Anterior epistaxis 945463579 Active 2023 NAVEEN BENITO MD [address], [address], [place], [address], [facility] & [place] 09:17:27 Problem Notes None recorded. Procedures Surgical History Date Name Laterality Status Provider Name and Address Organization Details Recorded Time 4 Nasal Endoscopy completed NAVEEN BENITO MD [address] [facility], [address], [place], [address], [facility] & [place] 03/24/2024 15:36:32 Control Nasal Hemorrhage, Simple completed NAVEEN BENITO MD [address] [facility], [address], [place], [address], [facility] & [place] 03/15/2024 14:41:56 4 Control Nasal Hemorrhage, Complex completed NAVEEN BENITO MD [address] [facility], [address], [place], [address], [facility] & [place] 03/13/2024 11:54:07 Imaging Results None recorded. Procedure [...] Updated DateTime 4 180.34 cm 31.4 kg/m2 769314. 56 g 97.8 [degF] 98 % 98 % Marilu Raphael [place] - [place] - [place] & [place] 4 08:30:13 Date Recorded Body height Body mass index (BMI) Body weight Body temperature Oxygen saturation Oxygen saturation in Arterial blood by Pulse oximetry Provider Name and Address Organization Details Last Updated DateTime 4 180.34 cm 31.4 kg/m2 974253. 92 g 98.2 [degF] 99 % 99 % Marilu TRAMMELL [facility] & [place] 4 13:55:20 Date Recorded Body height Body mass index (BMI) Body weight Body temperature Oxygen saturation Oxygen saturation in Arterial blood by Pulse oximetry Provider Name and Address Organization Details Last Updated DateTime 4 180.34 cm 31.4 kg/m2 913964. 28 g 97.8 [degF] 99 % 99 % Marilu TRAMMELL [facility] & [place] 4 15:11:09 Date Recorded Body height Body mass index (BMI) Body weight Body temperature Oxygen saturation Oxygen saturation in Arterial blood by Pulse oximetry Provider Name and Address Organization Details Last Updated DateTime 4 180.34 cm 35.1 kg/m2 076382. 28 g 98.1 [degF] 98 % 98 % Marilu TRAMMELL [facility] & [place] 4 15:05:10 Social History Question Answer Notes LastModified by Njini Details LastModified Time Tobacco Smoking Status Never Smoker Marilu parry [facility] & [place] 03/13/2024 08:23:41 Has Tobacco Cessation Counseling Been Provided? No Information not available 03/13/2024 Sex: Unknown Functional Status Question Answer Note LastModified by Njini Details LastModified Time Do you use any [...] Emphysema N Migraines N Thyroid Problems N Glaucoma N Depression N Developmental Delay N Anemia N Immune System Disorder N Anesthesia Complications N Heart Attack (DE) N Anxiety Disorder N Diabetes N Bleeding [...] SNOMED-CT Code Diagnosis ICD10 Code Diagnosis Note [id number] NAVEEN BENITO MD [facility] [address] [place], [facility] [phone] 03/13/2024 08:26:05 03/13/2024 09:37:33 Anterior epistaxis 394097756 R04.0 - Left sided rhinorocke t removed and dissolvabl e packing placed- Start Augmentin x 7 days for purulent nasal drainage- Stop flonase use for now- Recommend conservati ve medical treatment with use of Vaseline applied inside the nasal vestibule twice daily and nasal saline spray 3-4x daily for 2 weeks - Humidifica tion while sleeping at night - In 3 days start nasal saline spray 2-3x daily- Return to clinic in 2 weeks [id number] NAVEEN BENITO MD [facility] [address] [place], [place] [phone] 03/15/2024 13:50:04 03/15/2024 14:20:03 Anterior epistaxis 408294107 R04.0 - Left anterior nasal cavity cauterized in office today- Continue Augmentin- Start vaseline and saline spray tomorrow- Continue sinus precaution s x 2 weeks- Return to clinic in 2 weeks [id number] NAVEEN BENITO MD [facility] [address] [place], [place] [phone] 03/24/2024 15:03:02 03/24/2024 15:33:54 Anterior epistaxis 887667575 R04.0 - Significan t crusting in the left nasal cavity which was debrided in office today. No further bleeding- Continue saline and Vaseline use- Get a humidifier - Return to clinic in 3-4 weeks [id number] NAVEEN BENITO MD [facility] [address] [place] [phone] 04/21/2024 15:05:18 04/21/2024 15:31:22 Anterior epistaxis 840823868 R04.0 - Significan t crusting in the left nasal cavity which was debrided in office today. No further bleeding- Continue saline and Vaseline use- Get a humidifier - Return to clinic in 3-4 weeks Nasal vestibulitis 71376 000 J34.89 [id number] NAVEEN BENITO MD [facility] [address] [place] [phone] 05/26/2024 15:01:12 05/26/2024 15:10:47 Anterior epistaxis 943942757 R04.0 - Nose looks the best I [...] Guevara Member ID Guarantor Name 05/29/2024 1 [place] HART [facility] [id number] Bethel Meier [id number] Opal Meier Notes Date Note Type Note Provider Name and Address Organization Details Recorded Time 03/13/2024 text/html Patient presents to clinic for evaluation and management of epistaxis. Bleeding started on Wednesday night. Symptoms worsened Wednesday night which prompted him to present to the ED in [place] where his nose was ultimately packed. He has had issues with nosebleeds for several years. Mainly the right side. This is the first time he has had issues on the left. He is currently on flonase on a daily basis. He is not currently on anticoagulation. NAVEEN BENITO MD [address] [place] [address], [address], [place], [address], [facility] & [place] 03/13/2024 11:54:51 03/15/2024 text/html Patient presents to clinic for follow up of epistaxis. Had some issues with bleeding yesterday. This stopped on its own with use of Afrin. NAVEEN BENITO MD [address] [place] [address], [address], [place], [address], [facility] & [place] 03/15/2024 14:43:00 03/24/2024 text/html Patient presents to clinic for follow up of epistaxis. No bleeding since last visit. Has been using saline spray and Vaseline in his nose. Isn't breathing well through the left side of his nose. NAVEEN BENITO MD [address] [place] [address], [address], [place], [address], [facility] & [place] 03/24/2024 15:37:51 04/21/2024 text/html Patient presents to clinic for follow up of epistaxis. No recent bleeding from the nose. Has a lot of crusting in his left nostril however which he frequently has to blow out. He is currently using nasal rinses and saline spray. NAVEEN BENITO MD [address] [place] [address], [address], [place], [address], [facility] & [place] 04/21/2024 16:03:10 05/26/2024 text/html Patient presents to clinic for follow up of epistaxis. Nose has been doing very well. No bleeding. Feels like he is breathing much better through the left side. NAVEEN BENITO MD [address] [place] [address], [address], [place], [address], [facility] & [place] 05/26/2024 15:12:23
--- OUTSIDE RECORDS SUMMARY | 2024-11-23 13:32 | XMS_ITS | Data Portability ---
Author Organization [facility] Mustafa [facility] CLOSED Address [address] [place] [address] Care Team Providers Care Briquette Operator Name Role Phone ELI BRAYDEN Primary Care Provider ROGER WYATT Referring Provider Assessment Encounter Date Assessment Date Assessment LastModified by Organization Details LastModified Time 06/23/2022 06/23/2022 Medical management of testicular hypofunction with topical transdermal testosterone placement therapy. Medical management of erectile dysfunction with sildenafil and BPH symptoms with tamsulosin. [email or web address] Not available 06/30/2022 18:22:08 12/29/2022 12/29/2022 Medical management of testicular hypofunction with topical transdermal testosterone placement therapy. Medical management of erectile dysfunction with sildenafil and BPH symptoms with tamsulosin. [email or web address] Not available 12/29/2022 12:35:01 07/06/2023 07/06/2023 We reviewed the risks of testosterone replacement therapy including cardiovascular disease, stroke risk, hepatic dysfunction, polycythemia, prostate growth - benign and cancerous, decreased sperm count, etc. Medical management of lower urinary symptoms with tamsulosin. Sildenafil for erectile dysfunction as needed. Brian [email or web address] Not available 07/18/2023 08:14:00 01/11/2024 01/11/2024 We reviewed the risks of testosterone replacement therapy including cardiovascular disease, stroke risk, hepatic dysfunction, polycythemia, prostate growth - benign and cancerous, decreased sperm count, etc. Medical management of testicular hypofunction with Axiron. Medical management of erectile dysfunction with sildenafil and tamsulosin for treatment of lower urinary symptoms. [email or web address] Not available 01/16/2024 11:32:23 08/25/2024 08/25/2024 We reviewed the risks of [...] Modified Time Details Appointments RECHECK 2024 11:30A M MELLISSA MACDONALD MD Not available Not available Not available Lab CBC w/ auto diff 2024 025 [email or web address] 4 [facility], [address] [place] [address], [address], 08/25/2024 16:28:21 CMP, serum or plasma 2024 025 [email or web address], [address] [place] [address], [address], 08/25/2024 18:04:45 testoster one, total, serum 2024 025 [email or web address], [address] [place] [address], [address], 08/25/2024 18:11:14 PSA, total, serum or plasma 2024 025 [email or web address], [address] [place] [address], [address], 08/25/2024 18:11:13 PSA, serum or plasma 2023 024 [email or web address] 4 [facility], [address], [place], [address], 01/16/2024 11:33:22 CBC w/ auto diff 2023 024 [email or web address] 4 [facility], [address] [place] [address], [address], 01/11/2024 15:36:33 CMP, serum or plasma 2023 024 [email or web address], [address] [place] [address], [address], 01/11/2024 15:37:34 testoster one, total, serum 2023 024 [email or web address] 4 [facility], [address] [place] [address], [address], 01/11/2024 15:36:33 testoster one, free, serum 2023 024 [facility], [address] [place] [address], [address], 01/20/2024 04:13:13 PSA, serum or plasma 2023 024 [email or web address] 4 [facility], [address] [facility], [place], [address], 07/18/2023 08:13:38 CMP, serum or plasma 2023 024 [email or web address], [address] [place] [address], [address], 07/06/2023 16:48:24 CBC w/ auto diff 2023 024 [email or web address] 4 [facility], [address] [place] [address], [address], 07/06/2023 16:20:55 testoster one, total, serum 2023 024 [facility], [address] [place] [address], [address], 07/06/2023 16:51:00 PSA, total, serum or plasma 2022 023 [email or web address] 4 [facility], [address] [place] [address], [address], 2023 12:33:31 urinalysi s panel, auto 2022 023 [email or web address] 4 [facility], [address], [place], [address], 01/10/2023 16:21:12 CMP, serum or plasma 2022 023 [email or web address] 4 [facility], [address] [place] [address], [address], 2023 12:33:31 CBC w/ auto diff 2022 023 [email or web address] 4 [facility], [address] [place] [address], [address], 2023 12:33:31 testoster one, total, serum 2022 023 4 [facility], [address] [place] [address], [address], 2023 12:33:31 testoster one, free, serum 2022 023 [email or web address] 4 [facility], [address] [place] [address], [address], 2023 12:33:31 testoster one, free + total, serum 2022 023 [email or web address] 4 [facility], [address] [place] [address], [address], 06/23/2022 17:01:24 CBC w/ auto diff 2022 023 [email or web address] 4 [facility], [address] [place] [address], [address], 06/23/2022 17:01:24 CMP, serum or plasma 2022 023 [email or web address] 4 [facility], [address] [facility], [place], [address], 06/23/2022 17:01:24 PSA, serum or plasma 2022 023 [facility], [address] [facility] [address], [place], [address], 06/24/2022 08:35:13 Referral None recorded. Procedures None recorded. Surgeries None recorded. Imaging None recorded. Medication Orders testoster one 30 mg/actuat ion (1.5 mL) transderm solution metered pump 2024 025 [facility], [address] [place], [address], 08/27/2024 10:51:49 sildenafi l (pulmonar y hypertens ion) 20 mg tablet 2023 024 [facility], [address], [place], [address], 01/16/2024 11:33:29 tamsulosi n 0.4 mg capsule 2023 024 [facility], [address] [place], [address], 01/16/2024 11:33:30 testoster one 30 mg/actuat ion (1.5 mL) transderm solution metered pump 2023 024 [facility], [address] [place], [address], 01/16/2024 11:33:33 sildenafi l (pulmonar y hypertens ion) 20 mg tablet 2023 024 [facility], [address], [place], [address], 07/18/2023 08:13:41 tamsulosi n 0.4 mg capsule 2023 024 [facility], [address], [place], [address], 07/18/2023 08:13:42 testoster one 30 mg/actuat ion (1.5 mL) transderm solution metered pump 2023 024 [facility], [address], [place], [address], 07/18/2023 08:13:42 testoster one 30 mg/actuat ion (1.5 mL) transderm solution metered pump 2022 023 [facility], [address], [place], [address], 01/10/2023 16:21:18 sildenafi l (pulmonar y hypertens ion) 20 mg tablet 2022 023 [facility], [address] [place] [address], [address], 06/30/2022 18:22:52 tamsulosi n 0.4 mg capsule 2022 023 [facility], [address] [place] [address], [address], 06/30/2022 18:22:57 testoster one 30 mg/actuat ion (1.5 mL) transderm solution metered pump 2022 023 [place] [address], [address] [place] [address], [address], 06/30/2022 18:22:55 Patient TargetsNo targets recorded. Patient InstructionsNo instructions recorded. Reason for Referral None Reported. Results Created Date Observation Date Name Description Value Unit Range Abnormal Flag Note LastModifiedBy Organization Detail LastModifiedTime 06/23/19 23 06/23/2022 COMPL ETE BLOOD COUNT white blood cells 9.3 K/uL 3.8-10 .8 normal Not Available [facility] [address] [place] [address], [address], 06/23/2022 14:49:19 06/23/19 23 06/23/2022 COMPL ETE BLOOD COUNT red blood cells 5.93 M/uL 4.20-5 .80 high Not Available [facility] [address] [place] [address], [address], 06/23/2022 14:49:19 06/23/19 23 06/23/2022 COMPL ETE BLOOD COUNT hemoglobin 17.7 g/dL 14.0-1 8.0 normal Not Available [facility] [address] [place] [address], [address], 06/23/2022 14:49:19 06/23/19 23 06/23/2022 COMPL ETE BLOOD COUNT hematocrit 51.6 % 40.0-5 2.0 normal Not Available [facility] [address] [place] [address], [address], 06/23/2022 14:49:19 06/23/19 23 06/23/2022 COMPL ETE BLOOD COUNT MCV 87 fL 80-100 normal Not Available [facility] [address] [place] [address], [address], 06/23/2022 14:49:19 06/23/19 23 06/23/2022 COMPL ETE BLOOD COUNT MCH 30 pg 26-35 normal Not Available [facility] [address] [place] [address], [address], 06/23/2022 14:49:19 06/23/19 23 06/23/2022 COMPL ETE BLOOD COUNT MCHC 34 g/dL 32-36 normal Not Available [facility] [address] [place] [address], [address], 06/23/2022 14:49:19 06/23/19 23 06/23/2022 COMPL ETE BLOOD COUNT RDW 14.5 % 11.0-1 5.0 normal Not Available [facility] [address] [place] [address], [address], 06/23/2022 14:49:06/23/19 23 06/23/2022 COMPL ETE BLOOD COUNT MPV 8.0 fL 6.2-10 .5 normal Not Available [facility] [address] [place] [address], [address], 06/23/2022 14:49:06/23/19 23 06/23/2022 COMPL ETE BLOOD COUNT platelet count 217 K/uL 130-40 0 normal Not Available [facility] [address] [place] [address], [address], 06/23/2022 14:49:06/23/19 23 06/23/2022 COMPL ETE BLOOD COUNT neutrophil,a bsolute 4.2 K/uL 1.6-8. 4 normal Not Available [facility] [address] [place] [address], [address], 06/23/2022 14:49:06/23/19 23 06/23/2022 COMPL ETE BLOOD COUNT lymphocyte,a bsolute 4.0 K/uL 0.4-5. 1 normal Not Available [facility] [address] [place] [address], [address], 06/23/2022 14:49:19 06/23/19 23 06/23/2022 COMPL ETE BLOOD COUNT monocyte,abs olute 0.8 K/uL 0.0-1. 2 normal Not Available [facility] [address] [place] [address], [address], 06/23/2022 14:49:19 06/23/19 23 06/23/2022 COMPL ETE BLOOD COUNT eosinophil,a bsolute 0.1 K/uL 0.0-0. 8 normal Not Available [facility] [address] [place] [address], [address], 06/23/2022 14:49:06/23/1906/23/2022 COMPL ETE BLOOD COUNT basophil,abs olute 0.0 K/uL 0.0-0. 3 normal Not Available [facility] [address] [place] [address], [address], 06/23/2022 14:49:06/23/19 23 06/23/2022 COMPL ETE BLOOD COUNT % neutrophils 45.7 % 42.0-7 8.0 normal Not Available [facility] [address] [place] [address], [address], 06/23/2022 14:49:06/23/19 23 06/23/2022 COMPL ETE BLOOD COUNT % lymphocytes 43.2 % 11.0-4 7.0 normal Not Available [facility] [address] [place] [address], [address], 06/23/2022 14:49:06/23/19 23 06/23/2022 COMPL ETE BLOOD COUNT % monocytes 9.0 % 0.0-11 .0 normal Not Available [facility] [address] [place] [address], [address], 06/23/2022 14:49:19 06/23/1906/23/2022 COMPL ETE BLOOD COUNT % eosinophils 1.6 % 0.0-7. 0 normal Not Available [facility] [address] [place] [address], [address], 06/23/2022 14:49:06/23/1906/23/2022 COMPL ETE BLOOD COUNT % basophils 0.5 % 0.0-3. 0 normal Not Available [facility] [address] [place] [address], [address], 06/23/2022 14:49:19 01/17/06/23/2022 COMPL ETE BLOOD COUNT nucleated red cells 0.1 % 0.0-0. 9 normal Not Available [facility] [address] [place], [address], 06/23/2022 14:49:19 06/23/19 23 06/23/2022 COMPL ETE BLOOD COUNT nucleated RBCs, absolute 0.01 K/uL not estab. normal Not Available [facility] [address] [place], [address], 06/23/2022 14:49:19 06/23/19 23 06/23/2022 TESTO STERO NE,TO RED/F REE testosterone , total 159 NG/dL 193-74 0 low Refer ence range is for age 50 years and over. Not Available [facility] [address] [place], [address], 06/27/2022 13:47:01 06/23/19 23 06/27/2022 TESTO STERO NE,TO RED/F REE testosterone , free 14.8 pg/mL 46.0-2 24.0 low (Note ) The henry ntrat ion of free testo stero ne is deriv ed from a ulices vega al model using total testo stero ne by LCMSM S, sex hormo ne donny ng globu ricci and album in. This test was devel oped and its abe tical perfo rmanc e ernesto cteri stics have been deter mined by [facility]. It has not been clear ed or appro niya by the FDA. This assay has been valid ated pursu ant to the CLIA regul ation s and is used for clini oliva purpo ses. MDF med fusio n [address] [facility] [address] [place] [address] [phone] Fran esteban MD TEST PERFO RMED AT: [facility] [address] [facility] [address] [facility] [address] FRAN Esteban MD Not Available [facility] [address] [place], [address], 06/27/2022 13:47:01 06/23/19 23 06/23/2022 COMP. METAB OLIC PANEL glucose 111 mg/dL 74-100 high Not Available [facility] [address] [place] [address], [address], 06/23/2022 16:08:11 06/23/19 23 06/23/2022 COMP. METAB OLIC PANEL blood urea nitrogen 18 mg/dL 6-20 normal Not Available [facility] [address] [place] [address], [address], 06/23/2022 16:08:11 06/23/19 23 06/23/2022 COMP. METAB OLIC PANEL creatinine 0.97 mg/dL 0.70-1 .28 normal Not Available [facility] [address] [place] [address], [address], 06/23/2022 16:08:11 06/23/19 23 06/23/2022 COMP. METAB OLIC PANEL BUN/creatini ne ratio 19 (calc ) 10-20 normal Not Available [facility] [address] [place] [address], [address], 06/23/2022 16:08:11 06/23/19 23 06/23/2022 COMP. METAB OLIC PANEL sodium 139 mmol/ L 136-14 5 normal Not Available [facility] [address] [place] [address], [address], 06/23/2022 16:08:11 06/23/19 23 06/23/2022 COMP. METAB OLIC PANEL potassium 4.8 mmol/ L 3.4-5. 0 normal Not Available [facility] [address] [place] [address], [address], 06/23/2022 16:08:11 06/23/19 23 06/23/2022 COMP. METAB OLIC PANEL chloride 103 mmol/ L 98-107 normal Not Available [facility] [address] [place] [address], [address], 06/23/2022 16:08:11 06/23/19 23 06/23/2022 COMP. METAB OLIC PANEL carbon dioxide 25 mmol/ L 22-31 normal Not Available [facility] [address] [place] [address], [address], 06/23/2022 16:08:11 06/23/19 23 06/23/2022 COMP. METAB OLIC PANEL anion gap 11 (calc ) 7-25 normal Not Available [facility] [address] [place] [address], [address], 06/23/2022 16:08:11 06/23/19 23 06/23/2022 COMP. METAB OLIC PANEL calcium 9.6 mg/dL 8.6-10 .2 normal Not Available [facility] [address] [place] [address], [address], 06/23/2022 16:08:11 06/23/19 23 06/23/2022 COMP. METAB OLIC PANEL total protein 6.8 g/dL 6.4-8. 3 normal Not Available [facility] [address] [place] [address], [address], 06/23/2022 16:08:11 06/23/19 23 06/23/2022 COMP. METAB OLIC PANEL albumin 4.3 g/dL 3.5-5. 2 normal Not Available [facility] [address] [place] [address], [address], 06/23/2022 16:08:11 06/23/19 23 06/23/2022 COMP. METAB OLIC PANEL globulin 2.5 g/dL_ (calc ) 1.5-4. 5 normal Not Available [facility] [address] [place] [address], [address], 06/23/2022 16:08:11 06/23/19 23 06/23/2022 COMP. METAB OLIC PANEL albumin/glob ulin ratio 1.7 (calc ) 1.1-2. 5 normal Not Available [facility] [address] [place] [address], [address], 06/23/2022 16:08:11 06/23/19 23 06/23/2022 COMP. METAB OLIC PANEL bilirubin, total 0.6 mg/dL 0.1-1. 2 normal Not Available [facility] [address] [place] [address], [address], 06/23/2022 16:08:11 06/23/19 23 06/23/2022 COMP. METAB OLIC PANEL alkaline phosphatase 59 U/L 40-129 normal Not Available [facility] [address] [place] [address], [address], 06/23/2022 16:08:11 06/23/19 23 06/23/2022 COMP. METAB OLIC PANEL AST 54 U/L 0-40 high Not Available [facility] [address] [place] [address], [address], 06/23/2022 16:08:11 06/23/19 23 06/23/2022 COMP. METAB OLIC PANEL ALT 74 U/L 0-41 high Not Available [facility] [address] [place] [address], [address], 06/23/2022 16:08:11 06/23/19 23 06/23/2022 COMP. METAB OLIC PANEL GFR 86 >= 60 normal NOT E New calcu latio n for GFR (CKD- EPI 2020) is formu lated witho ut race adjus tment facto rs at the recom menda tion of the [facility] whalen and Marcelo srivast[facility] [employer] ty of Nephr ology . This calcu latio n has not been valid ated in pregn ant women . For pedia tric patie nts refer to https ://nadine dior.o rg/pr ofess ional s/KDO QI/gf r_cal culat orPed Not Available [facility] [address] [place] [address], [address], 06/23/2022 16:08:11 06/24/19 23 06/24/2022 PSA, serum or plasm a PSA 0.23 NG/mL 0.0 - 4.0 Not Available [facility] [address] [facility] [address], [place], [address], 06/23/2022 11:52:57 12/30/19 23 12/29/2022 COMPL ETE BLOOD COUNT white blood cells 9.5 10*3/ uL 3.8-10 .8 normal Not Available [facility] [address] [place] [address], [address], 12/29/2022 15:21:47 12/30/19 23 12/29/2022 COMPL ETE BLOOD COUNT red blood cells 6.00 10*6/ uL 4.20-5 .80 high Not Available [facility] [address] [place] [address], [address], 12/29/2022 15:21:47 12/30/19 23 12/29/2022 COMPL ETE BLOOD COUNT hemoglobin 18.1 g/dL 14.0-1 8.0 high Not Available [facility] [address] [place] [address], [address], 12/29/2022 15:21:47 12/30/19 23 12/29/2022 COMPL ETE BLOOD COUNT hematocrit 52.4 % 40.0-5 2.0 high Not Available [facility] [address] [place] [address], [address], 12/29/2022 15:21:47 12/30/19 23 12/29/2022 COMPL ETE BLOOD COUNT MCV 87 fL 80-100 normal Not Available [facility] [address] [place] [address], [address], 12/29/2022 15:21:47 12/30/19 23 12/29/2022 COMPL ETE BLOOD COUNT MCH 30 pg 26-35 normal Not Available [facility] [address] [place] [address], [address], 12/29/2022 15:21:47 12/30/19 23 12/29/2022 COMPL ETE BLOOD COUNT MCHC 35 g/dL 32-36 normal Not Available [facility] [address] [place] [address], [address], 12/29/2022 15:21:47 12/30/19 23 12/29/2022 COMPL ETE BLOOD COUNT RDW 14.0 % 11.0-1 5.0 normal Not Available [facility] [address] [place] [address], [address], 12/29/2022 15:21:47 12/30/19 23 12/29/2022 COMPL ETE BLOOD COUNT MPV 8.2 fL 6.2-10 .5 normal Not Available [facility] [address] [place] [address], [address], 12/29/2022 15:21:47 12/30/19 23 12/29/2022 COMPL ETE BLOOD COUNT platelet count 211 10*3/ uL 130-40 0 normal Not Available [facility] [address] [place] [address], [address], 12/29/2022 15:21:47 12/30/19 23 12/29/2022 COMPL ETE BLOOD COUNT neutrophil,a bsolute 4.5 10*3/ uL 1.6-8. 4 normal Not Available [facility] [address] [place] [address], [address], 12/29/2022 15:21:47 12/30/19 23 12/29/2022 COMPL ETE BLOOD COUNT lymphocyte,a bsolute 4.0 10*3/ uL 0.4-5. 1 normal Not Available [facility] [address] [place] [address], [address], 12/29/2022 15:21:47 12/30/19 23 12/29/2022 COMPL ETE BLOOD COUNT monocyte,abs olute 0.8 10*3/ uL 0.0-1. 2 normal Not Available [facility] [address] [place] [address], [address], 12/29/2022 15:21:47 12/30/19 23 12/29/2022 COMPL ETE BLOOD COUNT eosinophil,a bsolute 0.2 10*3/ uL 0.0-0. 8 normal Not Available [facility] [address] [place] [address], [address], 12/29/2022 15:21:47 12/30/19 23 12/29/2022 COMPL ETE BLOOD COUNT basophil,abs olute 0.0 10*3/ uL 0.0-0. 3 normal Not Available [facility] [address] [place] [address], [address], 12/29/2022 15:21:47 12/30/19 23 12/29/2022 COMPL ETE BLOOD COUNT % neutrophils 46.9 % 42.0-7 8.0 normal Not Available [facility] [address] [place] [address], [address], 12/29/2022 15:21:47 12/30/19 23 12/29/2022 COMPL ETE BLOOD COUNT % lymphocytes 41.9 % 11.0-4 7.0 normal Not Available [facility] [address] [place] [address], [address], 12/29/2022 15:21:47 12/30/19 23 12/29/2022 COMPL ETE BLOOD COUNT % monocytes 8.9 % 0.0-11 .0 normal Not Available [facility] [address] [place] [address], [address], 12/29/2022 15:21:47 12/30/19 23 12/29/2022 COMPL ETE BLOOD COUNT % eosinophils 1.8 % 0.0-7. 0 normal Not Available [facility] [address] [place], [address], 12/29/2022 15:21:47 12/30/19 23 12/29/2022 COMPL ETE BLOOD COUNT % basophils 0.5 % 0.0-3. 0 normal Not Available [facility] [address] [place] [address], [address], 12/29/2022 15:21:47 12/30/19 23 12/29/2022 COMPL ETE BLOOD COUNT nucleated red cells 0.1 % 0.0-0. 9 normal Not Available [facility] [address] [place] [address], [address], 12/29/2022 15:21:47 12/30/19 23 12/29/2022 COMPL ETE BLOOD COUNT nucleated RBCs, absolute 0.01 10*3/ uL not estab. normal Not Available [facility] [address] [place] [address], [address], 12/29/2022 15:21:47 12/30/19 23 12/29/2022 TESTO STERO NE, TOTAL testosterone , total 120 NG/dL 193-74 0 low Refer ence range is for age 50 years and over. Not Available [facility] [address] [place], [address], 12/29/2022 19:23:21 12/30/19 23 12/29/2022 PROST ATE SPECI FIC AG prostate specific Ag 0.340 NG/mL 0.000- 4.100 normal Test metho d is based on WHO-s tanda rdize d calib ratio n using the Emmett Sanya E801 aeb zer. PSA resul ts by diffe rent test proce dures canno t be direc tly michelle red with one anoth er. . Not Available [facility] [address] [place], [address], 12/29/2022 19:23:22 12/30/19 23 12/29/2022 COMP. METAB OLIC PANEL glucose 106 mg/dL 74-100 high Not Available [facility] [address] [place] [address], [address], 12/29/2022 19:25:19 12/30/19 23 12/29/2022 COMP. METAB OLIC PANEL blood urea nitrogen 21 mg/dL 6-20 high Not Available [facility] [address] [place] [address], [address], 12/29/2022 19:25:19 12/30/19 23 12/29/2022 COMP. METAB OLIC PANEL creatinine 0.92 mg/dL 0.70-1 .28 normal Not Available [facility] [address] [place] [address], [address], 12/29/2022 19:25:19 12/30/19 23 12/29/2022 COMP. METAB OLIC PANEL BUN/creatini ne ratio 23 (calc ) 10-20 high Not Available [facility] [address] [place] [address], [address], 12/29/2022 19:25:19 12/30/19 23 12/29/2022 COMP. METAB OLIC PANEL sodium 137 mmol/ L 136-14 5 normal Not Available [facility] [address] [place] [address], [address], 12/29/2022 19:25:19 12/30/19 23 12/29/2022 COMP. METAB OLIC PANEL potassium 4.4 mmol/ L 3.4-5. 0 normal Not Available [facility] [address] [place] [address], [id number], 12/29/2022 19:25:19 12/30/19 23 12/29/2022 COMP. METAB OLIC PANEL chloride 102 mmol/ L 98-107 normal Not Available [facility] [address] [place] [address], [id number], 12/29/2022 19:25:19 12/30/19 23 12/29/2022 COMP. METAB OLIC PANEL carbon dioxide 21 mmol/ L 22-31 low Not Available [facility] [address] [place] [address], [id number], 12/29/2022 19:25:19 12/30/19 23 12/29/2022 COMP. METAB OLIC PANEL anion gap 14 (calc ) 7-25 normal Not Available [facility] [address] [place] [address], [address], 12/29/2022 19:25:19 12/30/19 23 12/29/2022 COMP. METAB OLIC PANEL calcium 9.5 mg/dL 8.6-10 .2 normal Not Available [facility] [address] [place] [address], [address], 12/29/2022 19:25:19 12/30/19 23 12/29/2022 COMP. METAB OLIC PANEL total protein 7.3 g/dL 6.4-8. 3 normal Not Available [facility] [address] [place] [address], [address], 12/29/2022 19:25:19 12/30/19 23 12/29/2022 COMP. METAB OLIC PANEL albumin 4.3 g/dL 3.5-5. 2 normal Not Available [facility] [address] [place] [address], [address], 12/29/2022 19:25:19 12/30/19 23 12/29/2022 COMP. METAB OLIC PANEL globulin 3.0 1.5-4. 5 normal Not Available [facility] [address] [place] [address], [address], 12/29/2022 19:25:19 12/30/19 23 12/29/2022 COMP. METAB OLIC PANEL albumin/glob ulin ratio 1.4 (calc ) 1.1-2. 5 normal Not Available [facility] [address] [place] [address], [address], 12/29/2022 19:25:19 12/30/19 23 12/29/2022 COMP. METAB OLIC PANEL bilirubin, total 0.7 mg/dL 0.1-1. 2 normal Not Available [facility] [address] [place] [address], [address], 12/29/2022 19:25:19 12/30/19 23 12/29/2022 COMP. METAB OLIC PANEL alkaline phosphatase 54 U/L 40-129 normal Not Available [facility] [address] [place], [address], 12/29/2022 19:25:19 12/30/19 23 12/29/2022 COMP. METAB OLIC PANEL AST 39 U/L 0-40 normal Not Available [facility] [address] [place] [address], [address], 12/29/2022 19:25:19 12/30/19 23 12/29/2022 COMP. METAB OLIC PANEL ALT 44 U/L 0-41 high Not Available [facility] [address] [place] [address], [address], 12/29/2022 19:25:19 12/30/19 23 12/29/2022 COMP. METAB OLIC PANEL GFR 91 >= 60 normal NOT E New calcu latio n for GFR (CKD- EPI 2020) is formu lated witho ut race adjus tment facto rs at the [facility] menda tion of the [facility] and [facility] srivast[facility]phr olog[facility] . This calcu latio n has not been valid ated in pregn ant women . For pedia tric patie nts refer to https ://nadine dior.fei loomis/favio bray s/TONIAO QI/gf r_cal culat orPed Not Available [facility] [address] [place] [address], [address], 12/29/2022 19:25:19 12/30/19 23 01/02/2023 TESTO STERO NE, FREE testosterone , free 17.0 pg/mL 46.0-2 24.0 low (Note ) The henry ntrat ion of free testo stero ne is deriv ed from a ulices vega al model using total testo stero ne by LCMSM S, sex hormo ne donny ng globu ricci and album in. This test was devel oped and its abe tical perfo rmanc e ernesto cteri stics have been deter mined by [employer]. It has not been clear ed or appro niya by the FDA. This assay has been valid ated pursu ant to the CLIA regul ation s and is used for clini oliva purpo ses. MDF med fusio n [address] [facility] [address] [facility] [address] [phone] Karan navarro MD Not Available [facility] [address] [place], [address], 01/02/2023 02:52:13 12/30/19 23 12/29/2022 urina lysis panel , auto Unknown Analyte Clean Catch Not Available [facility] [address], [address], 12/29/2022 14:25:37 12/30/19 23 12/29/2022 urina lysis panel , auto Unknown Analyte Yellow Not Available [facility] [address] [facility] [address], [place], [address], 12/29/2022 14:25:37 12/30/19 23 12/29/2022 urina lysis panel , auto Unknown Analyte Clear Not Available [facility] [address] [facility] [address], [place], [address], 12/29/2022 14:25:37 12/30/19 23 12/29/2022 urina lysis panel , auto Unknown Analyte 1.020 Not Available [facility] [address], [place], [address], 12/29/2022 14:25:37 12/30/19 23 12/29/2022 urina lysis panel , auto Unknown Analyte 5.0 Not Available [facility] [address], [place], [address], 12/29/2022 14:25:37 12/30/19 23 12/29/2022 urina lysis panel , auto Unknown Analyte Negati ve Not Available [facility] [address], [place], [address], 12/29/2022 14:25:37 12/30/19 23 12/29/2022 urina lysis panel , auto Unknown Analyte Negati ve Not Available [facility] [address], [place], [address], 12/29/2022 14:25:37 12/30/19 23 12/29/2022 urina lysis panel , auto Unknown Analyte Negati ve Not Available [facility] [address], [place], [address], 12/29/2022 14:25:37 12/30/19 23 12/29/2022 urina lysis panel , auto Unknown Analyte Normal Not Available [facility] [address], [place], [address], 12/29/2022 14:25:37 12/30/19 23 12/29/2022 urina lysis panel , auto Unknown Analyte Negati ve Not Available [facility] [address], [place], [address], 12/29/2022 14:25:37 12/30/19 23 12/29/2022 urina lysis panel , auto Unknown Analyte Normal Not Available [facility] [address], [place], [address], 12/29/2022 14:25:37 12/30/19 23 12/29/2022 urina lysis panel , auto Unknown Analyte Negati ve Not Available [facility] [address], [place], [address], 12/29/2022 14:25:37 12/30/19 23 12/29/2022 urina lysis panel , auto Unknown Analyte Negati ve Not Available [facility] [address], [place], [address], 12/29/2022 14:25:37 07/06/19 24 07/06/2023 COMPL ETE BLOOD COUNT white blood cells 11.2 10*3/ uL 3.8-10 .8 high Not Available [facility] [address] [place] [address], [address], 07/06/2023 15:21:21 07/06/19 24 07/06/2023 COMPL ETE BLOOD COUNT red blood cells 6.04 10*6/ uL 4.20-5 .80 high Not Available [facility] [address] [place] [address], [address], 07/06/2023 15:21:21 07/06/19 24 07/06/2023 COMPL ETE BLOOD COUNT hemoglobin 18.0 g/dL 14.0-1 8.0 normal Not Available [facility] [address] [place] [address], [address], 07/06/2023 15:21:21 07/06/19 24 07/06/2023 COMPL ETE BLOOD COUNT hematocrit 54.0 % 40.0-5 2.0 high Not Available [facility] [address] [place] [address], [address], 07/06/2023 15:21:21 07/06/19 24 07/06/2023 COMPL ETE BLOOD COUNT MCV 90 fL 80-100 normal Not Available [facility] [address] [place] [address], [address], 07/06/2023 15:21:21 07/06/19 24 07/06/2023 COMPL ETE BLOOD COUNT MCH 30 pg 26-35 normal Not Available [facility] [address] [place] [address], [address], 07/06/2023 15:21:21 07/06/19 24 07/06/2023 COMPL ETE BLOOD COUNT MCHC 33 g/dL 32-36 normal Not Available [facility] [address] [place] [address], [address], 07/06/2023 15:21:21 07/06/19 24 07/06/2023 COMPL ETE BLOOD COUNT RDW 14.4 % 11.0-1 5.0 normal Not Available [facility] [address] [place] [address], [address], 07/06/2023 15:21:21 07/06/19 24 07/06/2023 COMPL ETE BLOOD COUNT MPV 7.9 fL 6.2-10 .5 normal Not Available [facility] [address] [place] [address], [address], 07/06/2023 15:21:21 07/06/19 24 07/06/2023 COMPL ETE BLOOD COUNT platelet count 232 10*3/ uL 150-40 0 normal Not Available [facility] [address] [place] [address], [address], 07/06/2023 15:21:21 07/06/19 24 07/06/2023 COMPL ETE BLOOD COUNT neutrophil,a bsolute 6.4 10*3/ uL 1.6-8. 4 normal Not Available [facility] [address] [place] [address], [address], 07/06/2023 15:21:21 07/06/19 24 07/06/2023 COMPL ETE BLOOD COUNT lymphocyte,a bsolute 3.6 10*3/ uL 0.4-5. 1 normal Not Available [facility] [address] [place] [address], [address], 07/06/2023 15:21:21 07/06/19 24 07/06/2023 COMPL ETE BLOOD COUNT monocyte,abs olute 0.8 10*3/ uL 0.0-1. 2 normal Not Available [facility] [address] [place] [address], [address], 07/06/2023 15:21:21 07/06/19 24 07/06/2023 COMPL ETE BLOOD COUNT eosinophil,a bsolute 0.2 10*3/ uL 0.0-0. 8 normal Not Available [facility] [address] [place] [address], [address], 07/06/2023 15:21:21 07/06/19 24 07/06/2023 COMPL ETE BLOOD COUNT basophil,abs olute 0.1 10*3/ uL 0.0-0. 3 normal Not Available [facility] [address] [place] [address], [address], 07/06/2023 15:21:21 07/06/19 24 07/06/2023 COMPL ETE BLOOD COUNT % neutrophils 57.7 % 42.0-7 8.0 normal Not Available [facility] [address] [place] [address], [address], 07/06/2023 15:21:21 07/06/19 24 07/06/2023 COMPL ETE BLOOD COUNT % lymphocytes 32.4 % 11.0-4 7.0 normal Not Available [facility] [address] [place] [address], [address], 07/06/2023 15:21:21 07/06/19 24 07/06/2023 COMPL ETE BLOOD COUNT % monocytes 7.4 % 0.0-11 .0 normal Not Available [facility] [address] [place] [address], [address], 07/06/2023 15:21:21 07/06/19 24 07/06/2023 COMPL ETE BLOOD COUNT % eosinophils 1.8 % 0.0-7. 0 normal Not Available [facility] [address] [place] [address], [address], 07/06/2023 15:21:21 07/06/19 24 07/06/2023 COMPL ETE BLOOD COUNT % basophils 0.7 % 0.0-3. 0 normal Not Available [facility] [address] [place] [address], [address], 07/06/2023 15:21:21 07/06/19 24 07/06/2023 COMPL ETE BLOOD COUNT nucleated red cells 0.2 % 0.0-0. 9 normal Not Available [facility] [address] [place] [address], [address], 07/06/2023 15:21:21 07/06/19 24 07/06/2023 COMPL ETE BLOOD COUNT nucleated RBCs, absolute 0.02 10*3/ uL not estab. normal Not Available [facility] [address] [place] [address], [address], 07/06/2023 15:21:21 07/06/19 24 07/06/2023 COMP. METAB OLIC PANEL glucose 131 mg/dL 74-100 high Not Available [facility] [address] [place] [address], [address], 07/06/2023 16:48:24 07/06/19 24 07/06/2023 COMP. METAB OLIC PANEL blood urea nitrogen 13 mg/dL 6-20 normal Not Available [facility] [address] [place] [address], [address], 07/06/2023 16:48:24 07/06/19 24 07/06/2023 COMP. METAB OLIC PANEL creatinine 0.95 mg/dL 0.70-1 .28 normal Not Available [facility] [address] [place] [address], [address], 07/06/2023 16:48:24 07/06/19 24 07/06/2023 COMP. METAB OLIC PANEL BUN/creatini ne ratio 14 (calc ) 10-20 normal Not Available [facility] [address] [place] [address], [address], 07/06/2023 16:48:24 07/06/19 24 07/06/2023 COMP. METAB OLIC PANEL sodium 137 mmol/ L 136-14 5 normal Not Available [facility] [address] [place] [address], [address], 07/06/2023 16:48:24 07/06/19 24 07/06/2023 COMP. METAB OLIC PANEL potassium 4.2 mmol/ L 3.4-5. 0 normal Not Available [facility] [address] [place] [address], [address], 07/06/2023 16:48:24 07/06/19 24 07/06/2023 COMP. METAB OLIC PANEL chloride 99 mmol/ L 98-107 normal Not Available [facility] [address] [place] [address], [address], 07/06/2023 16:48:24 07/06/19 24 07/06/2023 COMP. METAB OLIC PANEL carbon dioxide 28 mmol/ L 22-31 normal Not Available [facility] [address] [place] [address], [address], 07/06/2023 16:48:24 07/06/19 24 07/06/2023 COMP. METAB OLIC PANEL anion gap 10 (calc ) 7-25 normal Not Available [facility] [address] [place] [address], [address], 07/06/2023 16:48:24 07/06/19 24 07/06/2023 COMP. METAB OLIC PANEL calcium 9.0 mg/dL 8.6-10 .2 normal Not Available [facility] [address] [place] [address], [address], 07/06/2023 16:48:24 07/06/19 24 07/06/2023 COMP. METAB OLIC PANEL total protein 6.9 g/dL 6.4-8. 3 normal Not Available [facility] [address] [place] [address], [address], 07/06/2023 16:48:24 07/06/19 24 07/06/2023 COMP. METAB OLIC PANEL albumin 3.9 g/dL 3.5-5. 2 normal Not Available [facility] [address] [place] [address], [address], 07/06/2023 16:48:24 07/06/19 24 07/06/2023 COMP. METAB OLIC PANEL globulin 3.0 1.5-4. 5 normal Not Available [facility] [address] [place] [address], [address], 07/06/2023 16:48:24 07/06/19 24 07/06/2023 COMP. METAB OLIC PANEL albumin/glob ulin ratio 1.3 (calc ) 1.1-2. 5 normal Not Available [facility] [address] [place] [address], [address], 07/06/2023 16:48:24 07/06/19 24 07/06/2023 COMP. METAB OLIC PANEL bilirubin, total 0.5 mg/dL 0.1-1. 2 normal Not Available [facility] [address] [place], [address], 07/06/2023 16:48:24 07/06/19 24 07/06/2023 COMP. METAB OLIC PANEL alkaline phosphatase 59 U/L 40-129 normal Not Available [facility] [address] [place], [address], 07/06/2023 16:48:24 07/06/19 24 07/06/2023 COMP. METAB OLIC PANEL AST 47 U/L 0-40 high Not Available [facility] [address] [place], [address], 07/06/2023 16:48:24 07/06/19 24 07/06/2023 COMP. METAB OLIC PANEL ALT 67 U/L 0-41 high Not Available [facility] [address] [place], [address], 07/06/2023 16:48:24 07/06/19 24 07/06/2023 COMP. METAB OLIC PANEL GFR 87 >= 60 normal NOT E New calcu latio n for GFR (CKD- EPI 2020) is formu lated witho ut race adjus tment facto rs at the recom menda tion of the [facility] and Marcelo srivastava [facility] of Nephr ology . This calcu latio n has not been valid ated in pregn ant women . For pedia tric patie nts refer to https ://nadine w.karlee dior.o rg/pr gino bray s/KDO QI/gf r_cal culat orPed Not Available [facility] [address] [place], [address], 07/06/2023 16:48:24 07/06/19 24 07/06/2023 TESTO STERO NE, TOTAL testosterone , total 182 NG/dL 193-74 0 low Refer ence range is for age 50 years and over. Not Available [facility] [address] [place], [address], 07/06/2023 16:51:00 07/06/19 24 07/06/2023 PSA, serum or plasm a PSA 0.43 NG/mL 0.0 - 4.0 Not Available [facility] [address] [facility] [address], [place], [address], 07/06/2023 13:23:56 01/11/20 24 01/11/2024 COMPL ETE BLOOD COUNT white blood cells 9.6 10*3/ uL 3.8-10 .8 normal Not Available [facility] [address] [place] [address], [address], 01/11/2024 14:52:01 01/11/20 24 01/11/2024 COMPL ETE BLOOD COUNT red blood cells 5.97 10*6/ uL 4.20-5 .80 high Not Available [facility] [address] [place] [address], [address], 01/11/2024 14:52:01 01/11/20 24 01/11/2024 COMPL ETE BLOOD COUNT hemoglobin 18.1 g/dL 14.0-1 8.0 high Not Available [facility] [address] [place] [address], [address], 01/11/2024 14:52:01 01/11/20 24 01/11/2024 COMPL ETE BLOOD COUNT hematocrit 52.7 % 40.0-5 2.0 high Not Available [facility] [address] [place] [address], [address], 01/11/2024 14:52:01 01/11/20 24 01/11/2024 COMPL ETE BLOOD COUNT MCV 88 fL 80-100 normal Not Available [facility] [address] [place] [address], [address], 01/11/2024 14:52:01 01/11/20 24 01/11/2024 COMPL ETE BLOOD COUNT MCH 30 pg 26-35 normal Not Available [facility] [address] [place] [address], [address], 01/11/2024 14:52:01 01/11/20 24 01/11/2024 COMPL ETE BLOOD COUNT MCHC 34 g/dL 32-36 normal Not Available [facility] [address] [place] [address], [address], 01/11/2024 14:52:01 01/11/20 24 01/11/2024 COMPL ETE BLOOD COUNT RDW 13.7 % 11.0-1 5.0 normal Not Available [facility] [address] [place] [address], [address], 01/11/2024 14:52:01/11/20 24 01/11/2024 COMPL ETE BLOOD COUNT MPV 7.6 fL 6.2-10 .5 normal Not Available [facility] [address] [place] [address], [address], 01/11/2024 14:52:01 01/11/20 24 01/11/2024 COMPL ETE BLOOD COUNT platelet count 231 10*3/ uL 150-40 0 normal Not Available [facility] [address] [place] [address], [address], 01/11/2024 14:52:01 01/11/20 24 01/11/2024 COMPL ETE BLOOD COUNT neutrophil,a bsolute 4.9 10*3/ uL 1.6-8. 4 normal Not Available [facility] [address] [place] [address], [address], 01/11/2024 14:52:01 01/11/20 24 01/11/2024 COMPL ETE BLOOD COUNT lymphocyte,a bsolute 3.7 10*3/ uL 0.4-5. 1 normal Not Available [facility] [address] [place] [address], [address], 01/11/2024 14:52:01 01/11/20 24 01/11/2024 COMPL ETE BLOOD COUNT monocyte,abs olute 0.7 10*3/ uL 0.0-1. 2 normal Not Available [facility] [address] [place] [address], [address], 01/11/2024 14:52:01 01/11/20 24 01/11/2024 COMPL ETE BLOOD COUNT eosinophil,a bsolute 0.2 10*3/ uL 0.0-0. 8 normal Not Available [facility] [address] [place] [address], [address], 01/11/2024 14:52:01 01/11/20 24 01/11/2024 COMPL ETE BLOOD COUNT basophil,abs olute 0.1 10*3/ uL 0.0-0. 3 normal Not Available [facility] [address] [place] [address], [address], 01/11/2024 14:52:01 01/11/20 24 01/11/2024 COMPL ETE BLOOD COUNT % neutrophils 50.8 % 42.0-7 8.0 normal Not Available [facility] [address] [place] [address], [address], 01/11/2024 14:52:01 01/11/20 24 01/11/2024 COMPL ETE BLOOD COUNT % lymphocytes 38.7 % 11.0-4 7.0 normal Not Available [facility] [address] [place] [address], [address], 01/11/2024 14:52:01 01/11/20 24 01/11/2024 COMPL ETE BLOOD COUNT % monocytes 7.8 % 0.0-11 .0 normal Not Available [facility] [address] [place] [address], [address], 01/11/2024 14:52:01 01/11/20 24 01/11/2024 COMPL ETE BLOOD COUNT % eosinophils 1.8 % 0.0-7. 0 normal Not Available [facility] [address] [place] [address], [address], 01/11/2024 14:52:01 01/11/20 24 01/11/2024 COMPL ETE BLOOD COUNT % basophils 0.9 % 0.0-3. 0 normal Not Available [facility] [address] [place] [address], [address], 01/11/2024 14:52:01 01/11/20 24 01/11/2024 COMPL ETE BLOOD COUNT nucleated red cells 0.1 % 0.0-0. 9 normal Not Available [facility] [address] [place] [address], [address], 01/11/2024 14:52:01 01/11/20 24 01/11/2024 COMPL ETE BLOOD COUNT nucleated RBCs, absolute 0.01 10*3/ uL not estab. normal Not Available [facility] [address] [place] [address], [address], 01/11/2024 14:52:01 01/11/20 24 01/11/2024 TESTO STERO NE, TOTAL testosterone , total 147 NG/dL 193-74 0 low Refer ence range is for age 50 years and over. Not Available [facility] [address] [place] [address], [address], 01/11/2024 15:12:24 01/11/20 24 01/11/2024 COMP. METAB OLIC PANEL glucose 120 mg/dL 74-100 high Not Available [facility] [address] [place] [address], [address], 01/11/2024 15:37:34 01/11/20 24 01/11/2024 COMP. METAB OLIC PANEL blood urea nitrogen 19 mg/dL 6-20 normal Not Available [facility] [address] [place] [address], [address], 01/11/2024 15:37:34 01/11/20 24 01/11/2024 COMP. METAB OLIC PANEL creatinine 1.04 mg/dL 0.70-1 .28 normal Not Available [facility] [address] [place] [address], [address], 01/11/2024 15:37:34 01/11/20 24 01/11/2024 COMP. METAB OLIC PANEL BUN/creatini ne ratio 18 (calc ) 10-20 normal Not Available [facility] [address] [place] [address], [address], 01/11/2024 15:37:34 01/11/20 24 01/11/2024 COMP. METAB OLIC PANEL sodium 138 mmol/ L 136-14 5 normal Not Available [facility] [address] [place] [address], [address], 01/11/2024 15:37:34 01/11/20 24 01/11/2024 COMP. METAB OLIC PANEL potassium 4.3 mmol/ L 3.4-5. 0 normal Not Available [facility] [address] [place] [address], [address], 01/11/2024 15:37:34 01/11/20 24 01/11/2024 COMP. METAB OLIC PANEL chloride 101 mmol/ L 98-107 normal Not Available [facility] [address] [place] [address], [address], 01/11/2024 15:37:34 01/11/20 24 01/11/2024 COMP. METAB OLIC PANEL carbon dioxide 26 mmol/ L 22-31 normal Not Available [facility] [address] [place] [address], [address], 01/11/2024 15:37:34 01/11/20 24 01/11/2024 COMP. METAB OLIC PANEL anion gap 11 (calc ) 7-25 normal Not Available [facility] [address] [place] [address], [address], 01/11/2024 15:37:34 01/11/20 24 01/11/2024 COMP. METAB OLIC PANEL calcium 9.1 mg/dL 8.6-10 .2 normal Not Available [facility] [address] [place] [address], [address], 01/11/2024 15:37:34 01/11/20 24 01/11/2024 COMP. METAB OLIC PANEL total protein 7.3 g/dL 6.4-8. 3 normal Not Available [facility] [address] [place] [address], [address], 01/11/2024 15:37:34 01/11/20 24 01/11/2024 COMP. METAB OLIC PANEL albumin 4.0 g/dL 3.5-5. 2 normal Not Available [facility] [address] [place] [address], [address], 01/11/2024 15:37:34 01/11/20 24 01/11/2024 COMP. METAB OLIC PANEL globulin 3.3 1.5-4. 5 normal Not Available [facility] [address] [place] [address], [address], 01/11/2024 15:37:34 01/11/20 24 01/11/2024 COMP. METAB OLIC PANEL albumin/glob ulin ratio 1.2 (calc ) 1.1-2. 5 normal Not Available [facility] [address] [place] [address], [address], 01/11/2024 15:37:34 01/11/20 24 01/11/2024 COMP. METAB OLIC PANEL bilirubin, total 0.6 mg/dL 0.1-1. 2 normal Not Available [facility] [address] [place] [address], [address], 01/11/2024 15:37:34 01/11/20 24 01/11/2024 COMP. METAB OLIC PANEL alkaline phosphatase 60 U/L 40-129 normal Not Available [facility] [address] [place] [address], [address], 01/11/2024 15:37:34 01/11/20 24 01/11/2024 COMP. METAB OLIC PANEL AST 33 U/L 0-40 normal Not Available [facility] [address] [place], [address], 01/11/2024 15:37:34 01/11/20 24 01/11/2024 COMP. METAB OLIC PANEL ALT 36 U/L 0-41 normal Not Available [facility] [address] [place], [address], 01/11/2024 15:37:34 01/11/20 24 01/11/2024 COMP. METAB OLIC PANEL GFR 78 >= 60 normal NOT E New calcu latio n for GFR (CKD- EPI 2020) is formu lated witho ut race adjus tment facto rs at the recom menda tion of the [facility] and Marcelo Melendeze ty of Nephr ology . This calcu latio n has not been valid ated in pregn ant women . For pedia tric patie nts refer to https ://nadine dior.fei loomis/favio bray s/TONIAO QI/gf r_cal culat orPed Not Available [facility] [address] [place], [address], 01/11/2024 15:37:34 01/11/20 24 01/20/2024 TESTO STERO NE, FREE testosterone , free 20.1 pg/mL 46.0-2 24.0 low MDF med fusio n [address] [facility] [address] [facility] [address] [phone] Ap Ward MD, PhD Not Available [facility] [address] [place], [address], 01/20/2024 04:13:13 01/11/20 24 01/11/2024 PSA, serum or plasm a PSA 0.47 NG/mL 0.0 - 4.0 Not Available [facility] [address] [facility] [address], [place], [address], 01/11/2024 13:55:48 08/26/19 25 08/25/2024 COMPL ETE BLOOD COUNT white blood cells 10.0 10*3/ uL 3.8-10 .8 normal Not Available [facility] [address] [place] [address], [address], 08/25/2024 12:45:57 08/26/19 25 08/25/2024 COMPL ETE BLOOD COUNT red blood cells 5.71 10*6/ uL 4.20-5 .80 normal Not Available [facility] [address] [place] [address], [address], 08/25/2024 12:45:57 08/26/19 25 08/25/2024 COMPL ETE BLOOD COUNT hemoglobin 17.1 g/dL 14.0-1 8.0 normal Not Available [facility] [address] [place] [address], [address], 08/25/2024 12:45:57 08/26/19 25 08/25/2024 COMPL ETE BLOOD COUNT hematocrit 50.8 % 40.0-5 2.0 normal Not Available [facility] [address] [place] [address], [address], 08/25/2024 12:45:57 08/26/19 25 08/25/2024 COMPL ETE BLOOD COUNT MCV 89 fL 80-100 normal Not Available [facility] [address] [place] [address], [address], 08/25/2024 12:45:57 08/26/19 25 08/25/2024 COMPL ETE BLOOD COUNT MCH 30 pg 26-35 normal Not Available [facility] [address] [place] [address], [address], 08/25/2024 12:45:57 08/26/19 25 08/25/2024 COMPL ETE BLOOD COUNT MCHC 34 g/dL 32-36 normal Not Available [facility] [address] [place] [address], [address], 08/25/2024 12:45:57 08/26/19 25 08/25/2024 COMPL ETE BLOOD COUNT RDW 14.7 % 11.0-1 5.0 normal Not Available [facility] [address] [place] [address], [address], 08/25/2024 12:45:57 08/26/19 25 08/25/2024 COMPL ETE BLOOD COUNT MPV 7.5 fL 6.2-10 .5 normal Not Available [facility] [address] [place] [address], [address], 08/25/2024 12:45:57 08/26/19 25 08/25/2024 COMPL ETE BLOOD COUNT platelet count 226 10*3/ uL 150-40 0 normal Not Available [facility] [address] [place] [address], [address], 08/25/2024 12:45:57 08/26/19 25 08/25/2024 COMPL ETE BLOOD COUNT neutrophil,a bsolute 4.7 10*3/ uL 1.6-8. 4 normal Not Available [facility] [address] [place] [address], [address], 08/25/2024 12:45:57 08/26/19 25 08/25/2024 COMPL ETE BLOOD COUNT lymphocyte,a bsolute 4.1 10*3/ uL 0.4-5. 1 normal Not Available [facility] [address] [place] [address], [address], 08/25/2024 12:45:57 08/26/19 25 08/25/2024 COMPL ETE BLOOD COUNT monocyte,abs olute 1.0 10*3/ uL 0.0-1. 2 normal Not Available [facility] [address] [place] [address], [address], 08/25/2024 12:45:57 08/26/19 25 08/25/2024 COMPL ETE BLOOD COUNT eosinophil,a bsolute 0.2 10*3/ uL 0.0-0. 8 normal Not Available [facility] [address] [place] [address], [address], 08/25/2024 12:45:57 08/26/19 25 08/25/2024 COMPL ETE BLOOD COUNT basophil,abs olute 0.1 10*3/ uL 0.0-0. 3 normal Not Available [facility] [address] [place] [address], [address], 08/25/2024 12:45:57 08/26/19 25 08/25/2024 COMPL ETE BLOOD COUNT % neutrophils 46.6 % 42.0-7 8.0 normal Not Available [facility] [address] [place] [address], [address], 08/25/2024 12:45:57 08/26/19 25 08/25/2024 COMPL ETE BLOOD COUNT % lymphocytes 40.6 % 11.0-4 7.0 normal Not Available [facility] [address] [place] [address], [address], 08/25/2024 12:45:57 08/26/19 25 08/25/2024 COMPL ETE BLOOD COUNT % monocytes 10.3 % 0.0-11 .0 normal Not Available [facility] [address] [place] [address], [address], 08/25/2024 12:45:57 08/26/19 25 08/25/2024 COMPL ETE BLOOD COUNT % eosinophils 1.5 % 0.0-7. 0 normal Not Available [facility] [address] [place] [address], [address], 08/25/2024 12:45:57 08/26/19 25 08/25/2024 COMPL ETE BLOOD COUNT % basophils 1.0 % 0.0-3. 0 normal Not Available [facility] [address] [place] [address], [address], 08/25/2024 12:45:57 08/26/19 25 08/25/2024 COMPL ETE BLOOD COUNT nucleated red cells 0.1 % 0.0-0. 9 normal Not Available [facility] [address] [place] [address], [address], 08/25/2024 12:45:57 08/26/19 25 08/25/2024 COMPL ETE BLOOD COUNT nucleated RBCs, absolute 0.01 10*3/ uL not estab. normal Not Available [facility] [address] [place] [address], [address], 08/25/2024 12:45:57 08/26/19 25 08/25/2024 COMP. METAB OLIC PANEL glucose 110 mg/dL 74-100 high Not Available [facility] [address] [place] [address], [address], 08/25/2024 18:04:45 08/26/19 25 08/25/2024 COMP. METAB OLIC PANEL blood urea nitrogen 19 mg/dL 6-20 normal Not Available [facility] [address] [place] [address], [address], 08/25/2024 18:04:45 08/26/19 25 08/25/2024 COMP. METAB OLIC PANEL creatinine 1.07 mg/dL 0.70-1 .28 normal Not Available [facility] [address] [place] [address], [address], 08/25/2024 18:04:45 08/26/19 25 08/25/2024 COMP. METAB OLIC PANEL BUN/creatini ne ratio 18 (calc ) 10-20 normal Not Available [facility] [address] [place] [address], [address], 08/25/2024 18:04:45 08/26/19 25 08/25/2024 COMP. METAB OLIC PANEL sodium 139 mmol/ L 136-14 5 normal Not Available [facility] [address] [place] [address], [address], 08/25/2024 18:04:45 08/26/19 25 08/25/2024 COMP. METAB OLIC PANEL potassium 5.0 mmol/ L 3.4-5. 0 normal Not Available [facility] [address] [place] [address], [address], 08/25/2024 18:04:45 08/26/19 25 08/25/2024 COMP. METAB OLIC PANEL chloride 101 mmol/ L 98-107 normal Not Available [facility] [address] [place] [address], [address], 08/25/2024 18:04:45 08/26/19 25 08/25/2024 COMP. METAB OLIC PANEL carbon dioxide 28 mmol/ L 22-31 normal Not Available [facility] [address] [place] [address], [address], 08/25/2024 18:04:45 08/26/19 25 08/25/2024 COMP. METAB OLIC PANEL anion gap 10 (calc ) 7-25 normal Not Available [facility] [address] [place] [address], [address], 08/25/2024 18:04:45 08/26/19 25 08/25/2024 COMP. METAB OLIC PANEL calcium 9.1 mg/dL 8.6-10 .2 normal Not Available [facility] [address] [place] [address], [address], 08/25/2024 18:04:45 08/26/19 25 08/25/2024 COMP. METAB OLIC PANEL total protein 7.3 g/dL 6.4-8. 3 normal Not Available [facility] [address] [place] [address], [address], 08/25/2024 18:04:45 08/26/19 25 08/25/2024 COMP. METAB OLIC PANEL albumin 4.1 g/dL 3.5-5. 2 normal Not Available [facility] [address] [place] [address], [address], 08/25/2024 18:04:45 08/26/19 25 08/25/2024 COMP. METAB OLIC PANEL globulin 3.2 1.5-4. 5 normal Not Available [facility] [address] [place] [address], [address], 08/25/2024 18:04:45 08/26/19 25 08/25/2024 COMP. METAB OLIC PANEL albumin/glob ulin ratio 1.3 (calc ) 1.1-2. 5 normal Not Available [facility] [address] [place] [address], [address], 08/25/2024 18:04:45 08/26/19 25 08/25/2024 COMP. METAB OLIC PANEL bilirubin, total 0.4 mg/dL 0.1-1. 2 normal Not Available [facility] [address] [place] [address], [address], 08/25/2024 18:04:45 08/26/19 25 08/25/2024 COMP. METAB OLIC PANEL alkaline phosphatase 59 U/L 40-129 normal Not Available [facility] [address] [place] [address], [address], 08/25/2024 18:04:45 08/26/19 25 08/25/2024 COMP. METAB OLIC PANEL AST 36 U/L 0-40 normal Not Available [facility] [address] [place] [address], [address], 08/25/2024 18:04:45 08/26/19 25 08/25/2024 COMP. METAB OLIC PANEL ALT 45 U/L 0-41 high Not Available [facility] [address] [place] [address], [address], 08/25/2024 18:04:45 08/26/19 25 08/25/2024 COMP. METAB OLIC PANEL GFR 75 >= 60 normal NOT E New calcu latio n for GFR (CKD- EPI 2020) is formu lated witho ut race adjus tment facto rs at the recom menda tion of the Natio nal Kidne y Found ation and [place] can Socie ty of Nephr ology . This calcu latio n has not been valid ated in pregn ant women . For pedia tric patie nts refer to https ://nadine w.karlee ovi.o rg/pr ofess ional s/KDO QI/gf r_cal culat orPed Not Available [facility] [address] [place], [address], 08/25/2024 18:04:45 08/26/19 25 08/25/2024 PROST ATE SPECI FIC AG prostate specific Ag 0.342 NG/mL 0.000- 4.100 normal This test was perfo rmed using Emmett e801 Elect emmett milum inesc ent metho d. The test metho d is based on WHO-s tanda rdize d calib ratio n. Value s obtai luis daniel from diffe rent assay metho ds or manuf actur ers may not be michelle rable . Not Available [facility] [address] [place], [address], 08/25/2024 18:11:13 08/26/19 25 08/25/2024 TESTO STERO NE, TOTAL testosterone , total 449 NG/dL 193-74 0 normal Refer ence range is for age 50 years and over. Not Available [facility] [address] [place], [address], 08/25/2024 18:11:14 Result Notes None recorded. Problems Name Problem SNOMED Code Status Onset Date Resolution Date Notes Provider Name and Address Organization Details Recorded Time Testicula r hypofunct ion 632267789 Active 2015 From Automated Load;Provi en: Mellissa Macdonald;Sta tus: Active Not Available [employer] 6 04:00:35 Problem Notes None recorded. Procedures Surgical History Date Name Laterality Status Provider Name and Address Organization Details Recorded Time 021 Tympanogram completed BESSIE BURCH, AUD [address], [place], [address], [place] [facility] 03/13/2021 15:11:54 021 Cerumen removal - Instruments, Unilateral completed Kirsten Keller [facility] 03/13/2021 15:52:28 018 Electromyography (EMG) with Nerve Conduction Study (NCV) completed Kirsten (Elba) Clemente [facility] 11/15/2017 15:01:44 Vasectomy completed Davidson Dunne [facility] 11/05/2016 14:38:08 procedure on hand completed Luli Lemons [facility] 03/13/2021 14:52:03 Imaging Results None recorded. Procedure [...] 2023 active Not Available Not Available Not Gil ortiz carvedilo l active Medicati on Descript ion: [...] 2024 active Not Available Not Available Not Gil ortiz Vitals Date Recorded Body height Body mass index (BMI) Body weight Provider Name and Address Organization Details Last Updated DateTime 06/23/2022 180.34 cm 2.1 kg/m2 6803.89 g Alejandra RAIN L [facility] 06/23/2022 12:06:09 Date Recorded Body height Body mass index (BMI) Body weight Provider Name and Address Organization Details Last Updated DateTime 08/25/2024 179.07 cm 31.8 kg/m2 503217.28 g Alejandra RAIN [facility] 08/25/2024 10:59:53 Date Recorded Body height Body mass index (BMI) Body weight Provider Name and Address Organization Details Last Updated DateTime 12/29/2022 180.34 cm 31.4 kg/m2 684242.28 g Maryellen Ball [facility] 12/29/2022 14:25:06 Date Recorded Body height Body mass index (BMI) Body weight Provider Name and Address Organization Details Last Updated DateTime 01/11/2024 180.34 cm 31.4 kg/m2 921650.28 g Alejandra Neil [facility] 01/11/2024 11:27:16 Social History Question Answer Notes LastModified by [employer] Details LastModified Time Tobacco Smoking Status [facility]/05/2016 14:37:44 How Much Tobacco Do You Chew? None [email or web address] Information not available 07/12/2018 Marital Status [email or web address] Informati on not available 11/05/2016 What Was The Date Of Your Most Recent Tobacco Screening? 07/12/2018 Information not available 07/25/2019 What Is Your Relationship Status? [email or web address] Information not available 04/15/2021 How Much Tobacco Do You Smoke? No [email or web address] Information not available 01/27/2019 Has Tobacco Cessation Counseling Been Provided? No [email or web address] Information not available 04/15/2021 Have You Recently Traveled Abroad? No [email or web address] Information not available 04/15/2021 Sex: Unknown Functional Status Question Answer Note LastModified by [email or web address] Details LastModified Time Do you use any illicit or recreational drugs? No [email or web address] Information not available 04/15/2021 Do you or have you ever used any other forms of tobacco or nicotine? No [email or web address] Information not available 04/15/2021 What is your level of alcohol consumption? Occasional [email or web address] Information not available 03/13/2021 Mental Status None recorded. Family History Relationship Description Onset Age of this Age Resolved Age Notes LastModified by Organization Details LastModified Time Father No current problems or disability [email or web address] Not available 06/2016 14:37:40 Mother No current problems or disability [email or web address] Not available 06/2016 14:37:40 Sister Family history of malignant neoplasm [email or web address] Not available 03/13 14:58:53 Medical History Condition Response Arthritis Y Sleep Disorder Y Allergies/Hayfever Y Sleep Apnea Y Hypertension Y Past Encounters Encounter ID Performer Location Encounter Start Date Encounter Closed Date Diagnosis/Indication Diagnosis SNOMED-CT Code Diagnosis ICD10 Code Diagnosis Note [id number] MELLISSA MACDONALD MD [facility] [address] [address] 11/05/2016 14:28:19 11/10/2016 11:29:09 Testicular hypofunction 945623148 E29.1 Impotence of organic origin 085295458 N52.9 [id number] JENNIFER CONN JR, MD [facility] [address] [place] [address] 11/20/2016 09:35:00 11/20/2016 11:31:26 Testicular hypofunction 177536289 E29.1 [id number] MELLISSA MACDONALD MD [facility] [address] [place] [address] 05/03/2017 13:24:54 07/17/2017 03:46:37 Testicular hypofunction 474683098 E29.1 [id number] MELLISSA MACDONALD MD [facility] [address],[place] [address] 05/27/2017 14:27:09 06/03/2017 12:11:17 Testicular hypofunction 338095346 E29.1 [id number] INGE ORTIZ MD [facility] [address] [place] [address] 10/04/2017 12:12:51 10/04/2017 12:52:59 Testicular hypofunction 042124530 E29.1 [id number] SARAH MCKEON MD [facility] [address] [place] [address] 11/15/2017 13:49:46 11/15/2017 16:27:13 Carpal tunnel syndrome of right wrist 5696861859 81262 G56.01 Idiopathic peripheral neuropathy 38361856 G60.9 Skin sensa tion disturbance 14803206 R20.9 Neck pain 28059934 M54.2 Tremor 69070788 R25.1 [id number] MELLISSA MACDONALD MD [facility] [address] [facility],[place] [address] 01/13/2018 14:26:41 01/14/2018 08:20:33 Testicular hypofunction 716263345 E29.1 [id number] DONA WHITAKER MD [facility] [address] [id number] 01/18/2018 13:04:43 01/18/2018 13:29:51 Testicular hypofunction 920336714 E29.1 [id number] [facility] [address] [facility] [address] [place] [id number] 07/12/2018 10:59:43 07/12/2018 12:37:52 Testicular hypofunction 189516870 E29.1 Secondary polycythemia 37404984 D75.1 Liver func tion tests outside reference range 257132364 R94.5 Benign pro static hyperplasia 035096485 N40.1 Impotence of organic origin 357708511 N52.9 [id number] MELLISSA MACDONALD MD [facility] [address] [facility] [address] [place] [address] 01/27/2019 15:02:29 01/27/2019 16:42:01 Testicular hypofunction 504642567 E29.1 Benign pro static hyperplasia with outflow obstruction 332673532 N40.1 Impotence of organic origin 182633565 N52.9 [id number] MELLISSA MACDONALD MD [facility] [address] [facility] [address] [place] [address] 08/02/2019 13:10:09 08/02/2019 14:00:56 Testicular hypofunction 591483722 E29.1 Secondary polycythemia 49763156 D75.1 Liver func tion tests outside reference range 228839118 R94.5 Benign pro static hyperplasia 724492590 N40.1 Benign pro static hyperplasia with outflow obstruction 363990813 N40.1 Impotence of organic origin 148317712 N52.9 [id number] MELLISSA MACDONALD MD [facility] [address] [place] [address] 01/31/2020 13:26:26 01/31/2020 14:28:27 Testicular hypofunction 545252574 E29.1 Secondary polycythemia 02987769 D75.1 Liver func tion tests outside reference range 997924019 R94.5 Benign pro static hyperplasia 670483913 N40.1 Impotence of organic origin 155407870 N52.9 [id number] MELLISSA MACDONALD MD [facility] [address] [facility] [address] [address] [place] [address] 08/28/2020 16:19:34 08/28/2020 16:51:30 Testicular hypofunction 349680234 E29.1 Benign pro static hyperplasia with outflow obstruction 848493015 N40.1 Impotence of organic origin 746818727 N52.9 [id number] HIPOLITO RAMOS MD [facility] [address] [facility] [place] [address] 03/13/2021 14:02:29 03/13/2021 15:58:28 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 Deviated nasal septum 12 3292819 J34.2 Acute otit is externa of left ear 3563711375 597234 H60.502 03/13/2021 -left microscopi c debridemen t of impacted wax and acute external otitis Lymphadenopathy 24650226 R59.0 Tender left level 2 lymphadeno ashley Impacted c erumen in left ear 1202075562 100574 H61.22 03/13/2021 -left microscopi c debridemen t of impacted wax and acute external otitis [id number] [facility] [address] [facility] [address] [place] [address] 03/13/2021 15:11:25 03/13/2021 17:09:41 Bilateral earache 385659922 H92.03 [id number] MELLISSA MACDONALD MD [facility] [address] [facility] [address] [address] [place] [address] 04/15/2021 11:22:24 04/15/2021 13:25:45 Testicular hypofunction 254764125 E29.1 Secondary polycythemia 06514990 D75.1 Liver func tion tests outside reference range 346330186 R94.5 Benign pro static hyperplasia 576057477 N40.0 Primary er ectile dysfunction 153306980 N52.9 [id number] MELLISSA MACDONALD MD [facility] [address] [facility] [address] 11/26/2021 10:57:46 11/26/2021 12:07:08 Primary erectile dysfunction 931384995 N52.9 Benign pro static hyperplasia with outflow obstruction 179277805 N40.1 Testicular hypofunction 037954287 E29.1 [id number] MELLISSA MACDONALD MD [facility] [address] [facility],[place] [address] 06/23/2022 11:08:57 06/23/2022 12:01:05 Testicular hypofunction 858476592 E29.1 Benign pro static hyperplasia with outflow obstruction 489203890 N40.1 Primary er ectile dysfunction 853493690 N52.9 [id number] MELLISSA MACDONALD MD [facility] [address] [facility],[place] [address] 12/29/2022 11:24:06 12/29/2022 12:45:14 Testicular hypofunction 870319000 E29.1 Benign pro static hyperplasia with outflow obstruction 923366807 N40.1 Primary er ectile dysfunction 671080195 N52.9 [id number] MELLISSA MACDONALD MD [facility] [address] [facility],[address] [place] [address] 07/06/2023 11:35:38 07/06/2023 12:17:10 Male hypogonadism 74379369 E29.1 Benign pro static hyperplasia with outflow obstruction 958571084 N40.1 Testicular hypofunction 670921315 E29.1 Primary er ectile dysfunction 075598777 N52.9 [id number] MELLISSA MACDONALD MD [facility] [address] [place] [address] 01/11/2024 11:20:40 01/11/2024 12:24:48 Testicular hypofunction 096974783 E29.1 Benign pro static hyperplasia with outflow obstruction 168311700 N40.1 Primary er ectile dysfunction 410154070 N52.9 [id number] MD [facility] [address] [place] [address] 08/25/2024 10:24:09 08/25/2024 11:33:35 Testicular hypofunction 001380653 E29.1 Benign pro static hyperplasia with outflow obstruction 571910515 N40.1 Primary er ectile dysfunction 658771738 N52.9 Health Concerns Section Related Observation LastModified by Organization Detai ls LastModified Time None Recorded Concern Status LastModified by Organization Details LastModified Time None Recorded Advance Directives Directive None Recorded Payers Insurance Date Sequence Insurance Name Policy Number Policy Guevara Covered Member ID Guevara Member ID Guarantor Name 01/11/2024 2 [place] Elpidio Bromagen [id number] 1 [place] Elpidio Bromagen 03/08/2020 PAYMENT PLAN [place] Elpidio Bromagen 01/11/2024 2 [place] Elpidio Bromagen [id number] 1 [place] Elpidio Bromagen 11/20/2016 1 *SELF PAY* Do nald A Bromagen 08/28/2024 1 [place] [facility] [id number] 0 Opal Meier [id number] [place] A Bromagen 01/11/2024 2 [place] A Bromagen [id number] 1 [place] Elpidio Bromagen Notes Date Note Type Note Provider Name and Address Organization Details Recorded Time 06/23/2022 text/html 67-year-old male in the office for follow-up evaluation of testicular hypofunction, benign prostatic hyperplasia with lower urinary symptoms, and erectile dysfunction. He uses Axiron 2 pumps daily. Energy level and libido remain good. He uses sildenafil as needed for erectile dysfunction. He uses tadalafil for management of lower urinary symptoms. He denies hesitancy or intermittency. Force of stream is adequate. MELLISSA MACDONALD MD [address] [place] [address], [phone], [facility] 06/30/2022 18:23:07 12/29/2022 text/html 67-year-old male in the office for follow-up evaluation of testicular hypofunction, benign prostatic hyperplasia with lower urinary symptoms, and erectile dysfunction. He uses Axiron 2 pumps daily. He uses sildenafil as needed for erectile dysfunction. He uses tadalafil for management of lower urinary symptoms. He denies any specific troubles with urination. MELLISSA MACDONALD MD [address] [place] [address], [phone], [facility] hospital 01/10/2023 16:21:29 07/06/2023 text/html 68-year-old male in the office for follow-up evaluation of testicular hypofunction, benign prostatic hyperplasia with lower urinary symptoms, and erectile dysfunction. He uses Axiron 2 pumps daily. He uses sildenafil as needed for erectile dysfunction. He uses tamsulosin for management of lower urinary symptoms. He denies any specific troubles with urination. Intermittent hesitancy, nocturia 0, no dysuria, no hematuria. MELLISSA MACDONALD MD [address] [place] [address], [phone], Critical [facility] hospital 07/18/2023 08:14:33 01/11/2024 text/html 69-year-old male in the office for follow-up evaluation of testicular hypofunction, benign prostatic hyperplasia with lower urinary symptoms, and erectile dysfunction. He uses Axiron 2 pumps daily and reports good energy level. He uses sildenafil as needed for erectile dysfunction. He uses tamsulosin for management of lower urinary symptoms. He denies any specific troubles with urination. Patient notes that when he drinks a dark-colored carbonated beverages his urine stream slows down significantly. Daytime frequency every 3-4 hours, nocturia rare-1x, no pushing/straining, no urgency, no dysuria, [place] [address] [place] [address], [phone], Critical access hospital 01/16/2024 11:33:47 08/25/2024 text/html 69-year-old male in the office [...] nocturia. No gross hematuria. No dysuria. MELLISSA MACDONALD MD [address] [place], [address], [facility] 08/27/2024 10:51:55
--- OUTSIDE RECORDS SUMMARY | 2024-11-23 13:33 | XMS_ITS | Data Portability ---
Author Organization [facility], [facility] Address [address] [place] [address] Care Team Providers Care Youth Career Specialist Name Role Phone MELLISSA MINAYA Referring Provider DONA JENKINS Referring Provider [phone] Assessment Encounter Date Assessment Date Assessment LastModified by Organization Details LastModified Time 10/08/2017 10/08/2017 Mr. Cheney is having worsening issues with the right hand with pain and weakness. He has had previous surgery after an injury of the right hand several years ago. The hand is markedly worse without any recent history of trauma. We recommend he follow up with his orthopedist. Labs are also due ad pending. [email or web address] Not available 10/08/2017 21:56:43 04/04/2019 04/04/2019 Mr Cheney presents for a wellness check. 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 He also has been diagnosed with a [...] ago. He had a cardiac evaluation at [facility] four years ago and it was fine [...] Not available 04/06/2019 00:08:15 04/16/2020 04/16/2020 Mr. Cheney presents for a wellness check. 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 He also has been diagnosed with a [...] factors. He had a cardiac evaluation at [facility] five years ago and it was fine. [...] Not available 04/18/2020 00:04:38 07/21/2021 07/21/2021 Mr. Cheney has had a bout of acute covid. [...] Not available 07/23/2021 09:12:12 03/25/2023 03/25/2023 Mr. Cheney presents for a wellness check. 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 He also has been [...] factors. He had a cardiac evaluation at [facility] 7 years ago and it was fine. [...] HbA1c (hemoglo bin A1c), blood 2017 018 [facility], [address] [place], [address], 10/09/2017 05:57:20 CMP, serum or plasma 2017 018 [facility], [address] [place], [address], 10/09/2017 05:57:19 lipid panel, serum 2017 018 [facility], [address] [place], [address], 10/09/2017 05:57:19 Referral hand surgeon referral 2017 018 BERNARD Thompson, [address] [facility], [address], [place], [address], 05/08/2018 05:00:17 Procedures None recorded . Surgeries None recorded . Imaging XR, chest, 2 view 2021 022 [email or web address] 2 [facility] [address] [place], [address], 07/24/2021 08:42:04 Medication Orders tizanidi ne 4 mg tablet 2022 023 [facility], [address] [place] [address], [address], 03/25/2023 17:27:12 albutero l sulfate HFA 90 mcg/actu ation aerosol inhaler 2022 023 [facility] [address], [address] [place] [address], [address], 03/25/2023 17:27:14 carvedil ol 25 mg tablet 2022 023 [facility] [address], [address] [place] [address], [address], 03/25/2023 17:27:13 ceftriax one 1 gram solution for injectio n 2021 022 [facility], [address] [place], [address], 03/25/2023 17:11:54 albutero l sulfate HFA 90 mcg/actu ation aerosol inhaler 2021 022 [facility] [address], [address] [place] [address], [address], 07/21/2021 16:49:48 prometha zine-DM 6.25 mg-15 mg/5 mL oral syrup 2021 022 [facility] [address], [address] [place] [address] [place], [address], 07/21/2021 16:49:49 amoxicil ricci 875 mg-potas sium clavulan ate 125 mg tablet [address] [facility], [address] [place], [address], 03/25/2023 17:10:54 dexameth asone sodium phosphat e 4 mg/mL injectio n syringe [address] [facility], [address] [place], [address], 03/25/2023 17:12:07 methylpr ednisolo ne 4 mg tablets in a dose pack 2018 [email or web address] 5 [facility] [address], [address] [place] [address], [address], 07/21/2021 15:34:06 albutero l sulfate HFA 90 mcg/actu ation aerosol inhaler 2018 INTERFACE [facility] [address], [address] [place] [address], [address], 04/04/2019 14:48:08 doxycycl ine hyclate 100 mg capsule [address] [facility] [address], [address] [place] [address], [address], 04/16/2020 16:43:01 dexameth asone sodium phosphat e 4 mg/mL injectio n solution [address] [facility] [address], [address] [place] [address], [address], 04/16/2020 16:42:56 ceftriax one 1 gram solution for injectio n [address] [facility], [address] [place], [address], 03/25/2023 17:11:54 fluticas one propiona te 50 mcg/actu ation nasal spray,lepe spension 2018 019 INTERFACE [facility], [address] [place], [address], 04/04/2019 14:48:06 dexameth asone sodium phosphat e 4 mg/mL injectio n solution 2017 018 [facility] [address], [address] [place] [address], [address], 04/16/2020 16:42:56 methylpr ednisolo ne 4 mg tablets in a dose pack 2017 018 [email or web address] 5 [facility] [address], [address] [place] [address], [address], 07/21/2021 15:34:06 Patient TargetsNo targets recorded. Patient Instructions Encounter Date Encounter Id Patient Instructions Last Modified By Organization Details Last Modified Time 03/25/2023 [id number] dash diet: care instructions Not available 03/25/2023 [...] 168 mg/dL <200 normal Not Available [facility] [place] [facility] [address] [place], [address], 10/09/2017 05:57:19 10/09/19 18 10/09/2017 lipid panel , serum HDL cholesterol 29 mg/dL >40 low Not Available [facility] [place] [facility] [address], [place], [address], 10/09/2017 05:57:19 10/09/19 18 10/09/2017 lipid panel , serum triglyceride s 206 mg/dL <150 high Not Available [facility] [place] [facility] [address] [facility], [place], [address], 10/09/2017 05:57:19 10/09/19 18 10/09/2017 lipid panel , serum LDL-choleste rol 107 mg/dL _(oliva c) high Refer ence range : <100 Jenae able [...] 2061- 2068 (http ://ed ucati on.Qu Anny Siperian. com/f aq/FA Q164) Not Available [facility] [place] [facility] [address], [place], [address], 10/09/2017 05:57:19 10/09/19 18 10/09/2017 lipid panel , serum chol/HDLC ratio 5.8 (calc ) <5.0 high Not Available [facility] [place] [facility] [address] [facility], [place], [address], 10/09/2017 05:57:19 10/09/19 18 10/09/2017 lipid panel , serum non HDL cholesterol 139 mg/dL _(oliva c) <130 high For patie nts with diabe adam plus 1 major ASCVD risk facto r, treat ing to a non-H DL-C goal of <100 mg/dL (LDL- C of <70 mg/dL ) is consi dered a thera peuti c optio n. Not Available [facility] [place] [facility] [address], [place], [address], 10/09/2017 05:57:19 10/09/19 18 10/09/2017 CMP, serum or plasm a glucose 103 mg/dL 65-139 normal Non-f astin g refer ence inter merle Not Available [facility] [place] [facility] [address] [facility] [place], [address], 10/09/2017 05:57:19 10/09/19 18 10/09/2017 CMP, serum or plasm a urea nitrogen (BUN) 19 mg/dL 7-25 normal Not Available [facility] [place] [facility] [address] [place], [address], 10/09/2017 05:57:19 10/09/19 18 10/09/2017 CMP, serum or plasm a creatinine 0.93 mg/dL 0.70-1 .25 normal For patie nts >49 years of age, the refer ence limit for Creat inine is appro ximat nigel 13% highe r for peopl e ident ified as Afric an-Am micah n. Not Available [facility] [place] [facility] [address] [facility], [address], 10/09/2017 05:57:19 10/09/19 18 10/09/2017 CMP, serum or plasm a eGFR non-afr. gabonese 88 mL/mi n/1.7 3m2 > or = 60 normal Not Available [facility] [place] [facility] [address] [facility] [place], [address], 10/09/2017 05:57:19 10/09/19 18 10/09/2017 CMP, serum or plasm a eGFR 102 mL/mi n/1.7 3m2 > or = 60 normal Not Available [facility] [place] [facility] [address] [place], [address], 10/09/2017 05:57:19 10/09/19 18 10/09/2017 CMP, serum or plasm a BUN/creatini ne ratio NOT APPLIC ABLE (calc ) 6-22 Not Available [facility] [place] [facility] [address] [place], [address], 10/09/2017 05:57:19 10/09/19 18 10/09/2017 CMP, serum or plasm a sodium 139 mmol/ L 135-14 6 normal Not Available [facility] [address] [place], [place] [address], [address], 10/09/2017 05:57:19 10/09/19 18 10/09/2017 CMP, serum or plasm a potassium 5.0 mmol/ L 3.5-5. 3 normal Not Available [facility] [address] [place], [place] [address], [address], 10/09/2017 05:57:19 10/09/19 18 10/09/2017 CMP, serum or plasm a chloride 103 mmol/ L 98-110 normal Not Available [facility] [address] [place], [place] [address], [place], [address], 10/09/2017 05:57:19 10/09/19 18 10/09/2017 CMP, serum or plasm a carbon dioxide 29 mmol/ L 20-31 normal Not Available [facility] [address] [place], [place] [address], [address], 10/09/2017 05:57:19 10/09/19 18 10/09/2017 CMP, serum or plasm a calcium 10.1 mg/dL 8.6-10 .3 normal Not Available [facility] [address] [place], [place] [address], [address], 10/09/2017 05:57:19 10/09/19 18 10/09/2017 CMP, serum or plasm a protein, total 7.5 g/dL 6.1-8. 1 normal Not Available [facility] [address] [place], [place] [address], [address], 10/09/2017 05:57:19 10/09/19 18 10/09/2017 CMP, serum or plasm a albumin 4.6 g/dL 3.6-5. 1 normal Not Available [facility] [place], [address], 10/09/2017 05:57:19 10/09/19 18 10/09/2017 CMP, serum or plasm a globulin 2.9 g/dL_ (calc ) 1.9-3. 7 normal Not Available [facility] [place], [address], 10/09/2017 05:57:19 10/09/19 18 10/09/2017 CMP, serum or plasm a albumin/glob ulin ratio 1.6 (calc ) 1.0-2. 5 normal Not Available [facility] [place], [address], 10/09/2017 05:57:19 10/09/19 18 10/09/2017 CMP, serum or plasm a bilirubin, total 0.8 mg/dL 0.2-1. 2 normal Not Available [facility] [place], [address], 10/09/2017 05:57:19 10/09/19 18 10/09/2017 CMP, serum or plasm a alkaline phosphatase 45 U/L 40-115 normal Not Available [facility] [place] [address] [place], [address], 10/09/2017 05:57:19 10/09/19 18 10/09/2017 CMP, serum or plasm a AST 33 U/L 10-35 normal Not Available [facility] [place], [address], 10/09/2017 05:57:19 10/09/19 18 10/09/2017 CMP, serum or plasm a ALT 42 U/L 9-46 normal Not Available [facility] [place], [address], 10/09/2017 05:57:19 10/09/19 18 10/09/2017 HbA1c (hemo globi n A1c), blood hemoglobin A1C 5.8 %_of_ total _HGB <5.7 high For someo ne witho ut known diabe daam, a hemog lobin A1c value betwe en [...] diabe adam for child carmen. Not Available [facility] [address] [place], [address], 10/09/2017 05:57:20 03/31/20 19 04/01/2019 lipid panel , serum cholesterol, total 150 mg/dL <200 normal Not Available [facility] [place] [facility] [address] [facility], [place], [address], 04/01/2019 08:35:15 03/31/20 19 04/01/2019 lipid panel , serum HDL cholesterol 35 mg/dL >40 low Not Available [facility] [place] [facility] [address] [facility], [place], [address], 04/01/2019 08:35:15 03/31/20 19 04/01/2019 lipid panel , serum triglyceride s 118 mg/dL <150 normal Not Available [facility] [place] [facility] [address], [place], [address], 04/01/2019 08:35:15 1004/01/2019 lipid panel , serum [...] n SS et al. KENNEDY. 2013; 310(1 ): 2061- 2068 (http ://ed ucati onFlight Steward. Doocuments/f aq/FA Q164) Not Available [facility] [address] [employer], [place], [address], 04/01/2019 08:35:15 03/31/2004/01/2019 lipid panel , serum chol/HDLC ratio 4.3 (calc ) <5.0 normal Not Available [facility] [place] [facility] [address] [employer], [place], [address], 04/01/2019 08:35:15 03/31/2004/01/2019 lipid panel , serum non HDL cholesterol 115 mg/dL _(oliva c) <130 normal For patie nts with diabe adam plus 1 major ASCVD risk facto r, treat ing to a non-H DL-C goal of <100 mg/dL (LDL- C of <70 mg/dL ) is consi dered a thera peuti c optio n. Not Available [facility] [address], [place], [address], 04/01/2019 08:35:15 03/31/2004/01/2019 CMP, serum or plasm a glucose 96 mg/dL 65-139 normal Non-f astin g refer ence inter merle Not Available [facility] [address] [place], [address], 04/01/2019 08:35:16 03/31/20 19 04/01/2019 CMP, serum or plasm a urea nitrogen (BUN) 24 mg/dL 7-25 normal Not Available [facility] [address] [place], [address], 04/01/2019 08:35:16 03/31/20 19 04/01/2019 CMP, serum or plasm a creatinine 0.99 mg/dL 0.70-1 .25 normal For patie nts >49 years of age, the refer ence limit for Creat inine is appro ximat nigel 13% highe r for peopl e ident ified as Afric an-Am micah n. Not Available [facility] [address] [place], [address], 04/01/2019 08:35:16 03/31/2004/01/2019 CMP, serum or plasm a eGFR non-afr. gabonese 81 mL/mi n/1.7 3m2 > or = 60 normal Not Available [facility] [address] [place], [address], 04/01/2019 08:35:16 03/31/20 19 04/01/2019 CMP, serum or plasm a eGFR 94 mL/mi n/1.7 3m2 > or = 60 normal Not Available [facility] [address] [place], [address], 04/01/2019 08:35:16 03/31/2004/01/2019 CMP, serum or plasm a BUN/creatini ne ratio NOT APPLIC ABLE (calc ) 6-22 Not Available [facility] [address] [place], [address], 04/01/2019 08:35:16 03/31/20 19 04/01/2019 CMP, serum or plasm a sodium 140 mmol/ L 135-14 6 normal Not Available [facility] [address] [facility] [place], [address], 04/01/2019 08:35:16 03/31/2004/01/2019 CMP, serum or plasm a potassium 4.5 mmol/ L 3.5-5. 3 normal Not Available [facility] [address] [place] [address], [address], 04/01/2019 08:35:16 03/31/2004/01/2019 CMP, serum or plasm a chloride 103 mmol/ L 98-110 normal Not Available [facility] [address] [place], [place] [address], [address], 04/01/2019 08:35:16 03/31/2004/01/2019 CMP, serum or plasm a carbon dioxide 29 mmol/ L 20-32 normal Not Available [facility] [address] [place], [place] [address], [address], 04/01/2019 08:35:16 03/31/2004/01/2019 CMP, serum or plasm a calcium 10.0 mg/dL 8.6-10 .3 normal Not Available [facility], [address], 04/01/2019 08:35:16 03/31/2004/01/2019 CMP, serum or plasm a protein, total 7.3 g/dL 6.1-8. 1 normal Not Available [facility] [address] [place], [place] [address], [address], 04/01/2019 08:35:16 03/31/2004/01/2019 CMP, serum or plasm a albumin 4.4 g/dL 3.6-5. 1 normal Not Available [facility] [address] [place], [place] [address], [address], 04/01/2019 08:35:16 03/31/202019 CMP, serum or plasm a globulin 2.9 g/dL_ (calc ) 1.9-3. 7 normal Not Available [facility] [place] [facility] [address] [place], [address], 04/01/2019 08:35:16 03/31/2004/01/2019 CMP, serum or plasm a albumin/glob ulin ratio 1.5 (calc ) 1.0-2. 5 normal Not Available [facility] [address] [place], [address], 04/01/2019 08:35:16 03/31/2004/01/2019 CMP, serum or plasm a bilirubin, total 0.7 mg/dL 0.2-1. 2 normal Not Available [facility] [place] [address] [place], [address], 04/01/2019 08:35:16 03/31/2004/01/2019 CMP, serum or plasm a alkaline phosphatase 51 U/L 40-115 normal Not Available [facility] [address] [place], [address], 04/01/2019 08:35:16 03/31/2004/01/2019 CMP, serum or plasm a AST 17 U/L 10-35 normal Not Available [facility] [address], [address], 04/01/2019 08:35:16 03/31/2004/01/2019 CMP, serum or plasm a ALT 16 U/L 9-46 normal Not Available [facility] [place], [address], 04/01/2019 08:35:16 03/31/2004/01/2019 HbA1c (hemo globi n [...] child carmen. Not Available [facility] [place] [facility] [address] [place], [address], 04/01/2019 08:35:16 03/31/2004/01/2019 TSH, serum or plasm a TSH 2.64 mIU/L 0.40-4 .50 normal Not Available [facility] [address] [place], [address], 04/01/2019 08:35:16 03/31/20 19 04/01/2019 CBC w/ auto diff white blood cell count 17.2 thous and/u L 3.8-10 .8 high Not Available [facility] [address] [place], [address], 04/01/2019 08:35:17 03/31/2004/01/2019 CBC w/ auto diff red blood cell count 6.19 keysha on/uL 4.20-5 .80 high Not Available [facility] [place] [facility] [address] [place], [address], 04/01/2019 08:35:17 03/31/20 19 04/01/2019 CBC w/ auto diff hemoglobin 19.2 g/dL 13.2-1 7.1 high Verif ied by repea t abe sis. Not Available [facility] [place] [facility] [address] [place], [address], 04/01/2019 08:35:17 03/31/2004/01/2019 CBC w/ auto diff hematocrit 54.3 % 38.5-5 0.0 high Not Available [facility] [address] [place], [address], 04/01/2019 08:35:17 03/31/2004/01/2019 CBC w/ auto diff MCV 87.7 fL 80.0-1 00.0 normal Not Available [facility] [address] [place], [address], 04/01/2019 08:35:17 03/31/2004/01/2019 CBC w/ auto diff MCH 31.0 pg 27.0-3 3.0 normal Not Available [facility] [place] [facility] [address] [place], [address], 04/01/2019 08:35:17 03/31/2004/01/2019 CBC w/ auto diff MCHC 35.4 g/dL 32.0-3 6.0 normal Not Available [facility] [place] [facility] [address] [place], [address], 04/01/2019 08:35:17 03/31/2004/01/2019 CBC w/ auto diff RDW 13.3 % 11.0-1 5.0 normal Not Available [facility] [address] [place], [address], 04/01/2019 08:35:17 03/31/2004/01/2019 CBC w/ auto diff platelet count 275 thous and/u L 140-40 0 normal Not Available [facility] [address] [place], [address], 04/01/2019 08:35:17 03/31/2004/01/2019 CBC w/ auto diff MPV 10.4 fL 7.5-12 .5 normal Not Available [facility] [address], [place], [address], 04/01/2019 08:35:17 03/31/20 19 04/01/2019 CBC w/ auto diff absolute neutrophils 15625 cells /uL 1500-7 800 high Not Available [facility] [place] [facility] [address], [place], [address], 04/01/2019 08:35:17 03/31/2004/01/2019 CBC w/ auto diff absolute lymphocytes 4197 cells /uL 850-39 00 high Not Available [facility] [place] [facility] [address], [place], [address], 04/01/2019 08:35:17 03/31/2004/01/2019 CBC w/ auto diff absolute monocytes 1084 cells /uL 200-95 0 high Not Available [facility] [place] [facility] [address], [place], [address], 04/01/2019 08:35:17 03/31/20 19 04/01/2019 CBC w/ auto diff absolute eosinophils 310 cells /uL 15-500 normal Not Available [facility] [place] [facility] [address], [place], [address], 04/01/2019 08:35:17 03/31/2004/01/2019 CBC w/ auto diff absolute basophils 86 cells /uL 0-200 normal Not Available [facility] [place] [facility] [address], [place], [address], 04/01/2019 08:35:17 03/31/2004/01/2019 CBC w/ auto diff neutrophils 67 % normal Not Available [facility] [place] [facility] [address], [place], [address], 04/01/2019 08:35:17 03/31/20 19 04/01/2019 CBC w/ auto diff lymphocytes 24.4 % normal Not Available [facility] [place] [facility] [address] [facility], [address], 04/01/2019 08:35:17 03/31/20 19 04/01/2019 CBC w/ auto diff monocytes 6.3 % normal Not Available [facility] [place] [facility] [address] [place], [address], 04/01/2019 08:35:17 03/31/20 19 04/01/2019 CBC w/ auto diff eosinophils 1.8 % normal Not Available [facility] [place] [facility] [address] [place], [address], 04/01/2019 08:35:17 03/31/20 19 04/01/2019 CBC w/ auto diff basophils 0.5 % normal Not Available [facility] [place], [address], 04/01/2019 08:35:17 04/12/20 20 04/13/2020 lipid panel , serum cholesterol, total 151 mg/dL <200 normal Not Available [facility] [place], [address], 04/13/2020 08:06:49 04/12/2004/13/2020 lipid panel , serum HDL cholesterol 32 mg/dL > or = 40 low Not Available [facility] [address] [place] [address], [address], 04/13/2020 08:06:49 04/12/2004/13/2020 lipid panel , serum triglyceride s 203 mg/dL <150 high If a non-f astin g speci men was colle cted, consi en repea t trigl yceri de testi ng on a fasti ng speci men if clini nichelle indic ated. Rick torres et al. J. of Clin. Lipid ol. 2015; 9:129 -169. Not Available [facility] [place] [facility] [address], [place], [address], 04/13/2020 08:06:49 04/12/20 20 04/13/2020 lipid panel [...] 9): 2061- 2068 (http ://ed ucati on.Qu darrellMargherita Inventions. Doocuments/f aq/FA Q164) Not Available [facility] [place] [facility] [address], [place], [address], 04/13/2020 08:06:49 04/12/2004/13/2020 lipid panel , serum chol/HDLC ratio 4.7 (calc ) <5.0 normal Not Available [facility] [place] [facility] [address] [facility], [place], [address], 04/13/2020 08:06:49 04/12/20 20 04/13/2020 lipid panel , serum non HDL cholesterol 119 mg/dL _(oliva c) <130 normal For patie nts with diabe adam plus 1 major ASCVD risk facto r, treat ing to a non-H DL-C goal of <100 mg/dL (LDL- C of <70 mg/dL ) is consi dered a therladi huerta c optio n. Not Available [facility] [place] [facility] [address], [place], [address], 04/13/2020 08:06:49 04/12/2004/13/2020 CMP, serum or plasm a glucose 112 mg/dL 65-99 high Fasti ng refer ence inter merle For someo ne witho ut known diabe adam, a gluco se value betwe en 100 and 125 mg/dL is consi stent with predi abete s and shoul d be confi rmed with a follo w-up test. Not Available [facility] [place] [facility] [address] [place], [address], 04/13/2020 08:06:50 04/12/2004/13/2020 CMP, serum or plasm a urea nitrogen (BUN) 19 mg/dL 7-25 normal Not Available [facility] [place] [facility] [address] [place], [address], 04/13/2020 08:06:50 04/12/2004/13/2020 CMP, serum or plasm a creatinine 1.03 mg/dL 0.70-1 .25 normal For patie nts >49 years of age, the refer ence limit for Creat inine is appro ximat nigel 13% highe r for peopl e ident ified as Afric an-Am micah n. Not Available [facility] [place] [facility] [address] [place], [address], 04/13/2020 08:06:50 04/12/2004/13/2020 CMP, serum or plasm a eGFR non-afr. gabonese 76 mL/mi n/1.7 3m2 > or = 60 normal Not Available [facility] [place] [facility] [address] [place], [address], 04/13/2020 08:06:50 04/12/2004/13/2020 CMP, serum or plasm a eGFR 89 mL/mi n/1.7 3m2 > or = 60 normal Not Available [facility] [place] [facility] [address] [place], [address], 04/13/2020 08:06:50 04/12/2004/13/2020 CMP, serum or plasm a BUN/creatini ne ratio NOT APPLIC ABLE (calc ) 6-22 Not Available [facility] [place], [address], 04/13/2020 08:06:50 04/12/2004/13/2020 CMP, serum or plasm a sodium 142 mmol/ L 135-14 6 normal Not Available [facility] [address] [place], [place] [address], [address], 04/13/2020 08:06:50 04/12/2004/13/2020 CMP, serum or plasm a potassium 4.5 mmol/ L 3.5-5. 3 normal Not Available [facility] [address] [place], [place] [address], [address], 04/13/2020 08:06:50 04/12/2004/13/2020 CMP, serum or plasm a chloride 105 mmol/ L 98-110 normal Not Available [facility] [address] [place], [place] [address], [address], 04/13/2020 08:06:50 04/12/2004/13/2020 CMP, serum or plasm a carbon dioxide 30 mmol/ L 20-32 normal Not Available [facility] [address] [place], [place] [address], [place], [address], 04/13/2020 08:06:50 04/12/2004/13/2020 CMP, serum or plasm a calcium 10.0 mg/dL 8.6-10 .3 normal Not Available [facility] [address] [place], [place] [address], [address], 04/13/2020 08:06:50 04/12/2004/13/2020 CMP, serum or plasm a protein, total 6.8 g/dL 6.1-8. 1 normal Not Available [facility] [address] [place], [place] [address], [address], 04/13/2020 08:06:50 04/12/2004/13/2020 CMP, serum or plasm a albumin 4.5 g/dL 3.6-5. 1 normal Not Available [facility] [address] [facility] [place], [address], 04/13/2020 08:06:50 04/12/2004/13/2020 CMP, serum or plasm a globulin 2.3 g/dL_ (calc ) 1.9-3. 7 normal Not Available [facility] [address] [place], [place] [address], [address], 04/13/2020 08:06:50 04/12/2004/13/2020 CMP, serum or plasm a albumin/glob ulin ratio 2.0 (calc ) 1.0-2. 5 normal Not Available [facility] [address] [place], [place] [address], [address], 04/13/2020 08:06:50 04/12/2004/13/2020 CMP, serum or plasm a bilirubin, total 0.8 mg/dL 0.2-1. 2 normal Not Available [facility], [address], 04/13/2020 08:06:50 04/12/2004/13/2020 CMP, serum or plasm a alkaline phosphatase 46 U/L 35-144 normal Not Available [facility] [address] [place], [place] [address], [address], 04/13/2020 08:06:50 04/12/2004/13/2020 CMP, serum or plasm a AST 26 U/L 10-35 normal Not Available [facility], [address], 04/13/2020 08:06:50 04/12/2004/13/2020 CMP, serum or plasm a ALT 32 U/L 9-46 normal Not Available [facility] [address] [place], [address], 04/13/2020 08:06:50 04/12/2004/13/2020 HbA1c (hemo globi n [...] diabe adam for child carmen. Not Available [facility] [address] [place], [address], 04/13/2020 08:06:50 04/12/2004/13/2020 TSH, serum or plasm a TSH 3.04 mIU/L 0.40-4 .50 normal Not Available [facility] [address] [place], [address], 04/13/2020 08:06:50 04/12/2004/13/2020 CBC w/ auto diff white blood cell count 9.6 thous and/u L 3.8-10 .8 normal Not Available [facility] [address] [place], [address], 04/13/2020 08:06:51 04/12/2004/13/2020 CBC w/ auto diff red blood cell count 6.14 keysha on/uL 4.20-5 .80 high Not Available [facility] [address] [facility], [address], 04/13/2020 08:06:51 04/12/2004/13/2020 CBC w/ auto diff hemoglobin 18.6 g/dL 13.2-1 7.1 high Not Available [facility] [address] [facility], [address], 04/13/2020 08:06:51 04/12/2004/13/2020 CBC w/ auto diff hematocrit 55.0 % 38.5-5 0.0 high Not Available [facility] [address] [facility], [address], 04/13/2020 08:06:51 04/12/2004/13/2020 CBC w/ auto diff MCV 89.6 fL 80.0-1 00.0 normal Not Available [facility] [address] [place], [place] [address], [address], 04/13/2020 08:06:51 04/12/2004/13/2020 CBC w/ auto diff MCH 30.3 pg 27.0-3 3.0 normal Not Available [facility] [address] [place] [address], [address], 04/13/2020 08:06:51 04/12/2004/13/2020 CBC w/ auto diff MCHC 33.8 g/dL 32.0-3 6.0 normal Not Available [facility] [address] [place], [place] [address], [address], 04/13/2020 08:06:51 04/12/2004/13/2020 CBC w/ auto diff RDW 13.1 % 11.0-1 5.0 normal Not Available [facility] [address] [place] [address], [address], 04/13/2020 08:06:51 04/12/2004/13/2020 CBC w/ auto diff platelet count 231 thous and/u L 140-40 0 normal Not Available [facility] [address] [place], [address], 04/13/2020 08:06:51 04/12/2004/13/2020 CBC w/ auto diff MPV 10.3 fL 7.5-12 .5 normal Not Available [facility] [address] [place], [address], 04/13/2020 08:06:51 04/12/2004/13/2020 CBC w/ auto diff absolute neutrophils 4934 cells /uL 1500-7 800 normal Not Available [facility] [address] [place], [address], 04/13/2020 08:06:51 04/12/2004/13/2020 CBC w/ auto diff absolute lymphocytes 3600 cells /uL 850-39 00 normal Not Available [facility] [address] [place], [address], 04/13/2020 08:06:51 04/12/2004/13/2020 CBC w/ auto diff absolute monocytes 787 cells /uL 200-95 0 normal Not Available [facility] [address] [place], [address], 04/13/2020 08:06:51 04/12/2004/13/2020 CBC w/ auto diff absolute eosinophils 221 cells /uL 15-500 normal Not Available [facility] [address] [place], [address], 04/13/2020 08:06:51 04/12/2004/13/2020 CBC w/ auto diff absolute basophils 58 cells /uL 0-200 normal Not Available [facility] [address] [place], [address], 04/13/2020 08:06:51 04/12/20 20 04/13/2020 CBC w/ auto diff neutrophils 51.4 % normal Not Available [facility] [address] [place], [address], 04/13/2020 08:06:51 04/12/20 20 04/13/2020 CBC w/ auto diff lymphocytes 37.5 % normal Not Available [facility] [address] [place], [address], 04/13/2020 08:06:51 04/12/20 20 04/13/2020 CBC w/ auto diff monocytes 8.2 % normal Not Available [facility] [address] [place], [address], 04/13/2020 08:06:51 04/12/20 20 04/13/2020 CBC w/ auto diff eosinophils 2.3 % normal Not Available [facility] [address] [place], [address], 04/13/2020 08:06:51 04/12/2004/13/2020 CBC w/ auto diff basophils 0.6 % normal Not Available [facility] [address] [place], [address], 04/13/2020 08:06:51 06/24/19 22 06/24/2021 CBC AUTO W DIFF WBC 8.2 10 4.5-11 .5 Not Available [facility] (Lab Registration) [address] [place], [address], 06/24/2021 13:47:08 06/24/19 22 06/24/2021 CBC AUTO W DIFF RBC 5.93 10 4.25-5 .57 high Not Available [facility] (Lab Registration) [address] [place], [address], 06/24/2021 13:47:08 06/24/19 22 06/24/2021 CBC AUTO W DIFF HGB 17.8 g/dL 13.5-1 7.2 high Not Available [facility] (Lab Registration) [address] [place], [address], 06/24/2021 13:47:08 06/24/19 22 06/24/2021 CBC AUTO W DIFF HCT 53.0 % 42.0-5 2.0 high Not Available [facility] (Lab Registration) [address] [place], [address], 06/24/2021 13:47:08 06/24/19 22 06/24/2021 CBC AUTO W DIFF MCV 89.4 fL 80-95 Not Available [facility] (Lab Registration) [address] [place], [address], 06/24/2021 13:47:08 06/24/19 22 06/24/2021 CBC AUTO W DIFF MCH 30.0 pg 27.0-3 4.0 Not Available [facility] (Lab Registration) [address] [place], [address], 06/24/2021 13:47:08 06/24/19 22 06/24/2021 CBC AUTO W DIFF MCHC 33.6 g/dL 32.0-3 6.0 Not Available [facility] (Lab Registration) [address] [place], [address], 06/24/2021 13:47:08 06/24/19 22 06/24/2021 CBC AUTO W DIFF platelet count 214 10 150-45 0 Not Available [facility] (Lab Registration) [address] [place], [address], 06/24/2021 13:47:08 06/24/19 22 06/24/2021 CBC AUTO W DIFF RDW 12.6 % 12.3-1 5.1 Not Available [facility] (Lab Registration) [address] [place], [address], 06/24/2021 13:47:08 06/24/19 22 06/24/2021 CBC AUTO W DIFF MPV 10.5 fL 7.4-10 .4 high Not Available [facility] (Lab Registration) [address] [place], [address], 06/24/2021 13:47:08 06/24/19 22 06/24/2021 CBC AUTO W DIFF granulocyte% 61.6 % 40-75 Not Available [facility] (Lab Registration) [address] [place], [address], 06/24/2021 13:47:08 06/24/19 22 06/24/2021 CBC AUTO W DIFF lymphocyte% 27.4 % 15-57 Not Available [facility] (Lab Registration) [address] [place], [address], 06/24/2021 13:47:08 06/24/19 22 06/24/2021 CBC AUTO W DIFF monocyte% 10.3 % 4.0-12 .0 Not Available [facility] (Lab Registration) [address] [place], [address], 06/24/2021 13:47:08 06/24/19 22 06/24/2021 CBC AUTO W DIFF eosinophil% 0.0 % 0.0-4. 0 Not Available [facility] (Lab Registration) [address] [place], [address], 06/24/2021 13:47:08 06/24/19 22 06/24/2021 CBC AUTO W DIFF basophil% 0.1 % 0.0-1. 0 Not Available [facility] (Lab Registration) [address] [place], [address], 06/24/2021 13:47:08 06/24/19 22 06/24/2021 CBC AUTO W DIFF immature granulocytes % 0.6 % 0.0-0. 8 Not Available [facility] (Lab Registration) [address] [place], [address], 06/24/2021 13:47:08 06/24/19 22 06/24/2021 CBC AUTO W DIFF granulocyte# 5.02 10 Not Available [facility] (Lab Registration) [address] [place], [address], 06/24/2021 13:47:08 06/24/19 22 06/24/2021 CBC AUTO W DIFF lymphocyte# 2.23 10 Not Available [facility] (Lab Registration) [address] [place], [address], 06/24/2021 13:47:08 06/24/19 22 06/24/2021 CBC AUTO W DIFF monocyte# 0.84 10 Not Available [facility] (Lab Registration) [address] [place], [address], 06/24/2021 13:47:08 06/24/19 22 06/24/2021 CBC AUTO W DIFF eosinophil# 0.00 10 Not Available [facility] (Lab Registration) [address] [place], [address], 06/24/2021 13:47:08 06/24/19 22 06/24/2021 CBC AUTO W DIFF basophil# 0.01 10 Not Available [facility] (Lab Registration) [address] [place], [address], 06/24/2021 13:47:08 06/24/19 22 06/24/2021 CBC AUTO W DIFF immature granulocytes # 0.05 10 Not Available [facility] (Lab Registration) [address] [place], [address], 06/24/2021 13:47:08 06/24/19 22 06/24/2021 CBC AUTO W DIFF manual differential NO Not Available [facility] (Lab Registration) [address] [place], [address], 06/24/2021 13:47:08 06/24/19 22 06/24/2021 CBC AUTO W DIFF note Unles s other sequeira noted testi ng perfo rmed at: [facility] [address] [place] [address] [phone] Dez haley MD CLIA: [id number] Not Available [facility] (Lab Registration) [address] [place], [address], 06/24/2021 13:47:08 06/24/19 22 06/24/2021 COMP METAB OLIC PANEL sodium 138 mmol/ L 136-14 5 Not Available [facility] (Lab Registration) [address] [place], [address], 06/24/2021 14:03:51 06/24/19 22 06/24/2021 COMP METAB OLIC PANEL potassium 4.3 mmol/ L 3.5-5. 1 Not Available [facility] (Lab Registration) [address] [place], [address], 06/24/2021 14:03:51 06/24/19 22 06/24/2021 COMP METAB OLIC PANEL chloride 99 mmol/ L 98-107 Not Available [facility] (Lab Registration) [address] [place], [address], 06/24/2021 14:03:51 06/24/19 22 06/24/2021 COMP METAB OLIC PANEL carbon dioxide 26 mmol/ L 21-32 Not Available [facility] (Lab Registration) [address] [place], [address], 06/24/2021 14:03:51 06/24/19 22 06/24/2021 COMP METAB OLIC PANEL anion gap 13.0 Not Available [facility] (Lab Registration) [address] [place], [address], 06/24/2021 14:03:51 06/24/19 22 06/24/2021 COMP METAB OLIC PANEL glucose 102 mg/dL 70-110 Not Available [facility] (Lab Registration) [address] [place], [address], 06/24/2021 14:03:51 06/24/19 22 06/24/2021 COMP METAB OLIC PANEL blood urea nitrogen 30 mg/dL 7-18 high Not Available [facility] (Lab Registration) [address] [place], [address], 06/24/2021 14:03:51 06/24/19 22 06/24/2021 COMP METAB OLIC PANEL creatinine 1.3 mg/dL 0.8-1. 3 Not Available [facility] (Lab Registration) [address] [place], [address], 06/24/2021 14:03:51 06/24/19 22 06/24/2021 COMP METAB OLIC PANEL BUN/creatini ne ratio 23.1 ratio 9-21 high Not Available [facility] (Lab Registration) [address] [place], [address], 06/24/2021 14:03:51 06/24/19 22 06/24/2021 COMP METAB OLIC PANEL estimated glom filtration rate 59 mL/mi n >60- low Not Available [facility] (Lab Registration) [address] [place], [address], 06/24/2021 14:03:51 06/24/19 22 06/24/2021 COMP METAB OLIC PANEL total protein 8.2 g/dL 6.4-8. 2 Not Available [facility] (Lab Registration) [address] [place], [address], 06/24/2021 14:03:51 06/24/19 22 06/24/2021 COMP METAB OLIC PANEL albumin 3.4 g/dL 3.4-5. 0 Not Available [facility] (Lab Registration) [address] [place], [address], 06/24/2021 14:03:51 06/24/19 22 06/24/2021 COMP METAB OLIC PANEL calcium 9.0 mg/dL 8.5-10 .1 Not Available [facility] (Lab Registration) [address] [place], [address], 06/24/2021 14:03:51 06/24/19 22 06/24/2021 COMP METAB OLIC PANEL corrected calcium 9.5 mg/dL 8.5-10 .1 Not Available [facility] (Lab Registration) [address] [place], [address], 06/24/2021 14:03:51 06/24/19 22 06/24/2021 COMP METAB OLIC PANEL bilirubin total 0.9 mg/dL 0.4-1. 5 Not Available [facility] (Lab Registration) [address] [place], [address], 06/24/2021 14:03:51 06/24/19 22 06/24/2021 COMP METAB OLIC PANEL AST (SGOT) 104 U/L 15-37 high Not Available [facility] (Lab Registration) [address] [place], [address], 06/24/2021 14:03:51 06/24/19 22 06/24/2021 COMP METAB OLIC PANEL ALT (SGPT) 67 U/L 12-78 Not Available [facility] (Lab Registration) [address] [place], [address], 06/24/2021 14:03:51 06/24/19 22 06/24/2021 COMP METAB OLIC PANEL alk phosphatase 41 U/L 56-119 low Not Available [facility] (Lab Registration) [address] [place], [address], 06/24/2021 14:03:51 06/24/19 22 06/24/2021 COMP METAB OLIC PANEL note Unles s other sequeira noted testi ng perfo rmed at: [facility] [address] [place] [address] [phone] Dez haley MD CLIA: [id number] Not Available [facility] (Lab Registration) [address] [place], [place], [address], 06/24/2021 14:03:51 06/24/19 22 06/24/2021 TROPO LONDON [...] IRVING L INDIV IDUAL S Not Available [facility] (Lab Registration) [address], [place], [address], 06/24/2021 14:26:56 06/24/19 22 06/24/2021 [place]O [place] QUANT note Unles s other sequeira noted testi ng perfo rmed at: [facility] [address] [id number] [phone] Dez perry haley MD CLIA: [id number] Not Available [facility] (Lab Registration) [address] [place], [address], 06/24/2021 14:26:56 06/24/19 22 06/24/2021 D-DIM ER QUANT ITATI VE D-dimer quantitative 587 NG/mL 0-500 critical high Not Available [facility] (Lab Registration) [address] [place], [address], 06/24/2021 14:52:16 06/24/19 22 06/24/2021 D-DIM ER QUANT ITATI VE note Unles s other sequeira noted testi ng perfo rmed at: [facility] [address] [place] [address] [phone] Dez haley MD CLIA: [id number] Not Available [facility] (Lab Registration) [address], [place], [address], 06/24/2021 14:52:16 06/24/19 22 06/24/2021 TROPO LONDON [...] IRVING L INDIV IDUAL S Not Available [facility] (Lab Registration) [address], [place], [address], 06/24/2021 15:57:27 06/24/19 22 06/24/2021 TROPO LONDON I 2 HOUR MARIANNA COL note Unles s other sequeira noted testi ng perfo rmed at: [facility] [address] [place] [address] [phone] Dez haley MD CLIA: [id number] Not Available [facility] (Lab Registration) [address] [place], [address], 06/24/2021 15:57:27 06/24/19 22 06/24/2021 RVP PANEL WITH COVID 19 - [facility] adenovirus NOT DETECT ED not detect ed Not Available [facility] (Lab Registration) [address], [place], [address], 06/24/2021 16:07:58 06/24/19 22 06/24/2021 RVP PANEL WITH COVID 19 - [facility] coronavirus 229E NOT DETECT ED not detect ed Not Available [facility] (Lab Registration) [address] [place], [address], 06/24/2021 16:07:58 06/24/19 22 06/24/2021 RVP PANEL WITH COVID 19 - [facility] coronavirus hku1 NOT DETECT ED not detect ed Not Available [facility] (Lab Registration) [address] [place], [address], 06/24/2021 16:07:58 06/24/19 22 06/24/2021 RVP PANEL WITH COVID 19 - [facility] coronavirus nl63 NOT DETECT ED not detect ed Not Available [facility] (Lab Registration) [address] [place], [address], 06/24/2021 16:07:58 06/24/19 22 06/24/2021 RVP PANEL WITH COVID 19 - [facility] coronavirus oc43 NOT DETECT ED not detect ed Not Available [facility] (Lab Registration) [address] [place], [address], 06/24/2021 16:07:58 06/24/19 22 06/24/2021 RVP PANEL WITH COVID 19 - [facility] coronavirus 2 (sars-cov-2) DETECT ED not detect ed delta Not Available [facility] (Lab Registration) [address] [place], [address], 06/24/2021 16:07:58 06/24/19 22 06/24/2021 RVP PANEL WITH COVID 19 - [facility] human metapneumovi roxi NOT DETECT ED not detect ed Not Available [facility] (Lab Registration) [address] [place], [address], 06/24/2021 16:07:58 06/24/19 22 06/24/2021 RVP PANEL WITH COVID 19 - [facility] human rhinovirus/e nterovirus NOT DETECT ED not detect ed Not Available [facility] (Lab Registration) [address] [place], [address], 06/24/2021 16:07:58 06/24/19 22 06/24/2021 RVP PANEL WITH COVID 19 - [facility] influenza A NOT DETECT ED not detect ed Not Available [facility] (Lab Registration) [address] [place], [address], 06/24/2021 16:07:58 06/24/19 22 06/24/2021 RVP PANEL WITH COVID 19 - [facility] influenza A/H1 N/A not detect ed Not Available [facility] (Lab Registration) [address] [place], [address], 06/24/2021 16:07:58 06/24/19 22 06/24/2021 RVP PANEL WITH COVID 19 - [facility] influenza A/H1 2009 N/A not detect ed Not Available [facility] (Lab Registration) [address] [place], [address], 06/24/2021 16:07:58 06/24/19 22 06/24/2021 RVP PANEL WITH COVID 19 - [facility] influenza A/H3 N/A not detect ed Not Available [facility] (Lab Registration) [address] [place], [address], 06/24/2021 16:07:58 06/24/19 22 06/24/2021 RVP PANEL WITH COVID 19 - [facility] influenza B NOT DETECT ED not detect ed Not Available [facility] (Lab Registration) [address] [place], [address], 06/24/2021 16:07:58 06/24/19 22 06/24/2021 RVP PANEL WITH COVID 19 - [facility] parainfluenz a 1 (piv1) NOT DETECT ED not detect ed Not Available [facility] (Lab Registration) [address] [place], [address], 06/24/2021 16:07:58 06/24/19 22 06/24/2021 RVP PANEL WITH COVID 19 - [facility] parainfluenz a 2 (piv2) NOT DETECT ED not detect ed Not Available [facility] (Lab Registration) [address], [place], [address], 06/24/2021 16:07:58 06/24/19 22 06/24/2021 RVP PANEL WITH COVID 19 - [facility] parainfluenz a 3 (piv3) NOT DETECT ED not detect ed Not Available [facility] (Lab Registration) [address], [place], [address], 06/24/2021 16:07:58 06/24/19 22 06/24/2021 RVP PANEL WITH COVID 19 - [facility] parainfluenz a 4 (piv4) NOT DETECT ED not detect ed Not Available [facility] (Lab Registration) [address], [place], [address], 06/24/2021 16:07:58 06/24/19 22 06/24/2021 RVP PANEL WITH COVID 19 - [facility] respiratory syncytial virus NOT DETECT ED not detect ed Not Available [facility] (Lab Registration) [address] [place], [address], 06/24/2021 16:07:58 06/24/19 22 06/24/2021 RVP PANEL WITH COVID 19 - [facility] bordetella parapertussi s NOT DETECT ED not detect ed Not Available [facility] (Lab Registration) [address] [place], [address], 06/24/2021 16:07:58 06/24/19 22 06/24/2021 RVP PANEL WITH COVID 19 - [facility] bordetella pertussis NOT DETECT ED not detect ed Not Available [facility] (Lab Registration) [address] [place], [address], 06/24/2021 16:07:58 06/24/19 22 06/24/2021 RVP PANEL WITH COVID 19 - [facility] chlamydophil a pneumoniae NOT DETECT ED not detect ed Not Available [facility] (Lab Registration) [address] [place], [address], 06/24/2021 16:07:58 06/24/19 22 06/24/2021 RVP PANEL WITH COVID 19 - [facility] mycoplasma pneumoniae NOT DETECT ED not detect ed Not Available [facility] (Lab Registration) [address] , [place], [address], 06/24/2021 16:07:58 06/24/19 22 06/24/2021 RVP PANEL WITH COVID 19 - [facility] note Unles s other sequeira noted testi ng perfo rmed at: [facility] [address] [place] [address] [phone] Dez haley MD CLIA: [id number] Not Available [facility] (Lab Registration) [address] , [place], [address], 06/24/2021 16:07:58 03/19/20 23 03/22/2023 LIPID PANEL , STAND SARAN cholesterol, total 152 mg/dL <200 normal Not Available [facility] [address] [place], [address], 03/22/2023 12:35:59 03/19/2003/22/2023 LIPID PANEL , STAND SARAN HDL cholesterol 29 mg/dL > or = 40 low Not Available [facility] [address] [email or web address], [address], 03/22/2023 12:35:59 03/19/2003/22/2023 LIPID PANEL , STAND SARAN triglyceride s 233 mg/dL <150 high If a non-f astin g speci men was colle cted, consi en repea t trigl yceri de testi ng on a fasti ng speci men if clini nichelle indic ated. Rick torres et al. J. of Clin. Lipid ol. 2015; 9:129 -169. Not Available [facility] [address], [place], [address], 03/22/2023 12:35:59 03/19/2003/22/2023 LIPID PANEL , STAND [...] 310(1 9): 2061- 2068 (http ://ed ucati on.[employer] darrellMargher[employer]. Doocuments/f aq/FA Q164) Not Available [facility] [address], [place], [address], 03/22/2023 12:35:59 03/19/2003/22/2023 LIPID PANEL , STAND SARAN chol/HDLC ratio 5.2 (calc ) <5.0 high Not Available [facility] [address], [place], [address], 03/22/2023 12:35:59 03/19/2003/22/2023 LIPID PANEL , STAND SARAN non HDL cholesterol 123 mg/dL _(oliva c) <130 normal For patie nts with diabe adam plus 1 major ASCVD risk facto r, treat ing to a non-H DL-C goal of <100 mg/dL (LDL- C of <70 mg/dL ) is consi rachana huerta c optio n. Not Available [facility] [address], [place], [address], 03/22/2023 12:35:59 03/19/2003/22/2023 COMPR EHENS EMELY METAB OLIC PANEL glucose 113 mg/dL 65-99 high Fasti ng refer ence inter merle For someo ne witho ut known diabe adam, a gluco se value betwe en 100 and 125 mg/dL is consi stent with predi abete s and shoul d be confi rmed with a follo w-up test. Not Available [facility] [address] [place], [address], 03/22/2023 12:36:00 03/19/2003/22/2023 COMPR EHENS EMELY METAB OLIC PANEL urea nitrogen (BUN) 13 mg/dL 7-25 normal Not Available [facility] [address] [place], [address], 03/22/2023 12:36:00 03/19/2003/22/2023 COMPR EHENS EMELY METAB OLIC PANEL creatinine 1.03 mg/dL 0.70-1 .35 normal Not Available [facility] [address] [place], [address], 03/22/2023 12:36:00 03/19/2003/22/2023 COMPR EHENS EMELY METAB OLIC PANEL eGFR 80 mL/mi n/1.7 3m2 > or = 60 normal Not Available [facility] [address] [place], [address], 03/22/2023 12:36:00 03/19/2003/22/2023 COMPR EHENS EMELY METAB OLIC PANEL BUN/creatini ne ratio SEE NOTE: (calc ) 6-22 Not Repor carmen: BUN and Creat inine are withi n refer ence range . Not Available [facility] [address] [place], [address], 03/22/2023 12:36:00 03/19/2003/22/2023 COMPR EHENS EMELY METAB OLIC PANEL sodium 134 mmol/ L 135-14 6 low Not Available [facility] [address] [facility] [place], [address], 03/22/2023 12:36:00 03/19/2003/22/2023 COMPR EHENS EMELY METAB OLIC PANEL potassium 4.5 mmol/ L 3.5-5. 3 normal Not Available [facility] [address] [facility] [place], [address], 03/22/2023 12:36:00 03/19/2003/22/2023 COMPR EHENS EMELY METAB OLIC PANEL chloride 99 mmol/ L 98-110 normal Not Available [facility] [address] [facility] [place], [address], 03/22/2023 12:36:00 03/19/2003/22/2023 COMPR EHENS EMELY METAB OLIC PANEL carbon dioxide 26 mmol/ L 20-32 normal Not Available [facility] [address] [facility] [place], [address], 03/22/2023 12:36:00 03/19/2003/22/2023 COMPR EHENS EMELY METAB OLIC PANEL calcium 9.6 mg/dL 8.6-10 .3 normal Not Available [facility] [address] [place], [address], 03/22/2023 12:36:00 03/19/2003/22/2023 COMPR EHENS EMELY METAB OLIC PANEL protein, total 6.9 g/dL 6.1-8. 1 normal Not Available [facility] [address] [place], [address], 03/22/2023 12:36:00 03/19/2003/22/2023 COMPR EHENS EMELY METAB OLIC PANEL albumin 4.4 g/dL 3.6-5. 1 normal Not Available [facility] [address] [place], [address], 03/22/2023 12:36:00 03/19/2003/22/2023 COMPR EHENS EMELY METAB OLIC PANEL globulin 2.5 g/dL_ (calc ) 1.9-3. 7 normal Not Available [facility] [address] [facility], [address], 03/22/2023 12:36:00 03/19/2003/22/2023 COMPR EHENS EMELY METAB OLIC PANEL albumin/glob ulin ratio 1.8 (calc ) 1.0-2. 5 normal Not Available [facility] [address] [facility] [place], [address], 03/22/2023 12:36:00 03/19/2003/22/2023 COMPR EHENS EMELY METAB OLIC PANEL bilirubin, total 0.7 mg/dL 0.2-1. 2 normal Not Available [facility] [address] [facility] [place], [address], 03/22/2023 12:36:00 03/19/2003/22/2023 COMPR EHENS EMELY METAB OLIC PANEL alkaline phosphatase 57 U/L 35-144 normal Not Available [facility] [address] [facility] [place], [address], 03/22/2023 12:36:00 03/19/2003/22/2023 COMPR EHENS EMELY METAB OLIC PANEL AST 42 U/L 10-35 high Not Available [facility] [address] [facility] [place], [address], 03/22/2023 12:36:00 03/19/2003/22/2023 COMPR EHENS EMELY METAB OLIC PANEL ALT 58 U/L 9-46 high Not Available [facility] [address] [place], [address], 03/22/2023 12:36:00 03/19/2003/22/2023 HEMOG LOBIN A1C hemoglobin A1C 5.9 %_of_ total _HGB <5.7 high For someo ne witho ut known diabe daam, a hemog lobin A1c value betwe en [...] child carmen. Not Available [facility] [address] [place], [address], 03/22/2023 12:36:01 03/19/2003/22/2023 TSH TSH 2.75 mIU/L 0.40-4 .50 normal Not Available [facility] [address] [place], [address], 03/22/2023 12:36:01 03/19/2003/22/2023 CBC (INCL UDES DIFF/ PLT) white blood cell count 9.1 thous and/u L 3.8-10 .8 normal Not Available [facility] [address] [place], [address], 03/22/2023 12:36:02 03/19/2003/22/2023 CBC (INCL UDES DIFF/ PLT) red blood cell count 6.01 keysha on/uL 4.20-5 .80 high Not Available [facility] [address] [place], [address], 03/22/2023 12:36:02 03/19/2003/22/2023 CBC (INCL UDES DIFF/ PLT) hemoglobin 18.5 g/dL 13.2-1 7.1 high Not Available [facility] [address] [place], [address], 03/22/2023 12:36:02 03/19/2003/22/2023 CBC (INCL UDES DIFF/ PLT) hematocrit 56.1 % 38.5-5 0.0 high Not Available [facility] [address] [place], [address], 03/22/2023 12:36:02 03/19/2003/22/2023 CBC (INCL UDES DIFF/ PLT) MCV 93.3 fL 80.0-1 00.0 normal Not Available [facility] [address] [place], [address], 03/22/2023 12:36:02 03/19/2003/22/2023 CBC (INCL UDES DIFF/ PLT) MCH 30.8 pg 27.0-3 3.0 normal Not Available [facility] [address] [place] [address], [address], 03/22/2023 12:36:02 03/19/2003/22/2023 CBC (INCL UDES DIFF/ PLT) MCHC 33.0 g/dL 32.0-3 6.0 normal Not Available [facility] [address] [place], [address], 03/22/2023 12:36:02 03/19/2003/22/2023 CBC (INCL UDES DIFF/ PLT) RDW 13.3 % 11.0-1 5.0 normal Not Available [facility] [address] [place], [address], 03/22/2023 12:36:02 03/19/2003/22/2023 CBC (INCL UDES DIFF/ PLT) platelet count 238 thous and/u L 140-40 0 normal Not Available [facility] [address] [facility] [address], [place], [address], 03/22/2023 12:36:02 03/19/2003/22/2023 CBC (INCL UDES DIFF/ PLT) MPV 10.1 fL 7.5-12 .5 normal Not Available [facility] [address] [facility] [address], [place], [address], 03/22/2023 12:36:02 03/19/2003/22/2023 CBC (INCL UDES DIFF/ PLT) absolute neutrophils 3804 cells /uL 1500-7 800 normal Not Available [facility] [address], [place], [address], 03/22/2023 12:36:02 03/19/2003/22/2023 CBC (INCL UDES DIFF/ PLT) absolute lymphocytes 4213 cells /uL 850-39 00 high Not Available [facility] [address], [place], [address], 03/22/2023 12:36:02 03/19/2003/22/2023 CBC (INCL UDES DIFF/ PLT) absolute monocytes 810 cells /uL 200-95 0 normal Not Available [facility] [address], [place], [address], 03/22/2023 12:36:02 03/19/2003/22/2023 CBC (INCL UDES DIFF/ PLT) absolute eosinophils 209 cells /uL 15-500 normal Not Available [facility] [address], [place], [address], 03/22/2023 12:36:02 03/19/2003/22/2023 CBC (INCL UDES DIFF/ PLT) absolute basophils 64 cells /uL 0-200 normal Not Available [facility] [address] [place], [address], 03/22/2023 12:36:02 03/19/2003/22/2023 CBC (INCL UDES DIFF/ PLT) neutrophils 41.8 % normal Not Available [facility] [address] [place], [address], 03/22/2023 12:36:02 03/19/2003/22/2023 CBC (INCL UDES DIFF/ PLT) lymphocytes 46.3 % normal Not Available [facility] [address] [place], [address], 03/22/2023 12:36:02 03/19/2003/22/2023 CBC (INCL UDES DIFF/ PLT) monocytes 8.9 % normal Not Available [facility] [address] [place], [address], 03/22/2023 12:36:02 03/19/2003/22/2023 CBC (INCL UDES DIFF/ PLT) eosinophils 2.3 % normal Not Available [facility] [address] [place], [address], 03/22/2023 12:36:02 03/19/2003/22/2023 CBC (INCL UDES DIFF/ PLT) basophils 0.7 % normal Not Available [facility] [address] [place], [address], 03/22/2023 12:36:02 03/19/2003/22/2023 HEPAT ITIS C AB [...] a test for HCV RNA (test code 37999 ) is sugge sted. For addit ional infor juan josé kimbrough pleas e refer to http: //critical access hospitalmile n.que stdia gnost ics.c om/fa q/FAQ 22v1 (This link is being provi ded for infor juan josé nal/ educa hailey l purpo ses only. ) Not Available [facility] [address] [place], [address], 03/22/2023 12:36:03 11/22/19 25 11/22/2024 LIPID PANEL , STAND SARAN cholesterol, total 170 mg/dL <200 normal Not Available [facility] [address] [place], [address], 11/22/2024 10:08:16 11/22/19 25 11/22/2024 LIPID PANEL , STAND SARAN HDL cholesterol 35 mg/dL > or = 40 low Not Available [facility] [address] [place], [address], 11/22/2024 10:08:16 11/22/19 25 11/22/2024 LIPID PANEL , STAND SARAN triglyceride s 212 mg/dL <150 high If a non-f astin g speci men was colle cted, consi en repea t trigl yceri de testi ng on a fasti ng speci men if clini nichelle indic ated. Rick torres et al. J. of Clin. Lipid ol. 2015; 9:129 -169. Not Available [facility] [address] [facility], [address], 11/22/2024 10:08:16 11/22/19 25 11/22/2024 LIPID PANEL , STAND SARAN LDL-choleste rol 102 mg/dL _(oliva c) high Refer ence range : <100 Jenae able range <100 mg/dL for prima ry preve ntion ; <70 mg/dL for patie nts with CHD or diabe tic patie nts with > or = 2 CHD risk facto rs. LDL-C is now calcu lated using the Sharri n-Hop kins calcu ronnie kimbrough, which is a valid ated novel metho d provi ding chaz r accur acy than the Fried micha equat ion in the estim ation of LDL-C . Sharri kimborugh SS et al. KENNEDY. 2013; 310(1 9): 2061- 206 (http ://ed ucati on.Your Office Agent. Doocuments/f aq/FA Q164) Not Available [facility] [address], [place], [address], 11/22/2024 10:08:16 11/22/19 25 11/22/2024 LIPID PANEL , STAND SARAN chol/HDLC ratio 4.9 (calc ) <5.0 normal Not Available [facility] [address], [place], [address], 11/22/2024 10:08:16 11/22/19 25 11/22/2024 LIPID PANEL , STAND SARAN non HDL cholesterol 135 mg/dL _(oliva c) <130 high For patie nts with diabe adam plus 1 major ASCVD risk facto r, treat ing to a non-H DL-C goal of <100 mg/dL (LDL- C of <70 mg/dL ) is consi dered a thera peuti c optio n. Not Available [facility] [address], [place], [address], 11/22/2024 10:08:16 11/22/19 25 11/22/2024 COMPR EHENS EMELY METAB OLIC PANEL glucose 117 mg/dL 65-99 high Fasti ng refer ence inter merle For someo ne witho ut known diabe adam, a gluco se value betwe en 100 and 125 mg/dL is consi stent with predi abete s and benjamin d be confi rmed with a follo w-up test. Not Available [facility] [address] [facility] [place], [address], 11/22/2024 10:08:17 11/22/19 25 11/22/2024 COMPR EHENS EMELY METAB OLIC PANEL urea nitrogen (BUN) 22 mg/dL 7-25 normal Not Available [facility] [address] [facility], [address], 11/22/2024 10:08:17 11/22/19 25 11/22/2024 COMPR EHENS EMELY METAB OLIC PANEL creatinine 0.92 mg/dL 0.70-1 .35 normal Not Available [facility] [address] [facility], [address], 11/22/2024 10:08:17 11/22/19 25 11/22/2024 COMPR EHENS EMELY METAB OLIC PANEL eGFR 91 mL/mi n/1.7 3m2 > or = 60 normal Not Available [facility] [address] [facility] [place], [address], 11/22/2024 10:08:17 11/22/19 25 11/22/2024 COMPR EHENS EMELY METAB OLIC PANEL BUN/creatini ne ratio SEE NOTE: (calc ) 6-22 Not Repor carmen: BUN and Creat inine are withi n refer ence range . Not Available [facility] [address] [facility] [place], [address], 11/22/2024 10:08:17 11/22/19 25 11/22/2024 COMPR EHENS EMELY METAB OLIC PANEL sodium 138 mmol/ L 135-14 6 normal Not Available [facility] [address] [place], [address], 11/22/2024 10:08:17 11/22/19 25 11/22/2024 COMPR EHENS EMELY METAB OLIC PANEL potassium 4.6 mmol/ L 3.5-5. 3 normal Not Available [facility] [address] [place], [address], 11/22/2024 10:08:17 11/22/19 25 11/22/2024 COMPR EHENS EMELY METAB OLIC PANEL chloride 103 mmol/ L 98-110 normal Not Available [facility] [address] [place], [address], 11/22/2024 10:08:17 11/22/19 25 11/22/2024 COMPR EHENS EMELY METAB OLIC PANEL carbon dioxide 26 mmol/ L 20-32 normal Not Available [facility] [address] [place], [address], 11/22/2024 10:08:17 11/22/19 25 11/22/2024 COMPR EHENS EMELY METAB OLIC PANEL calcium 9.7 mg/dL 8.6-10 .3 normal Not Available [facility] [address] [place], [address], 11/22/2024 10:08:17 11/22/19 25 11/22/2024 COMPR EHENS EMELY METAB OLIC PANEL protein, total 7.2 g/dL 6.1-8. 1 normal Not Available [facility] [address] [place], [address], 11/22/2024 10:08:17 11/22/19 25 11/22/2024 COMPR EHENS EMELY METAB OLIC PANEL albumin 4.5 g/dL 3.6-5. 1 normal Not Available [facility] [address] [place], [address], 11/22/2024 10:08:17 11/22/19 25 11/22/2024 COMPR EHENS EMELY METAB OLIC PANEL globulin 2.7 g/dL_ (calc ) 1.9-3. 7 normal Not Available [facility] [address] [facility] [facility] [place], [address], 11/22/2024 10:08:17 11/22/19 25 11/22/2024 COMPR EHENS EMELY METAB OLIC PANEL albumin/glob ulin ratio 1.7 (calc ) 1.0-2. 5 normal Not Available [facility] [address] [facility] [place], [address], 11/22/2024 10:08:17 11/22/19 25 11/22/2024 COMPR EHENS EMELY METAB OLIC PANEL bilirubin, total 0.9 mg/dL 0.2-1. 2 normal Not Available [facility] [address] [facility] [place], [address], 11/22/2024 10:08:17 11/22/19 25 11/22/2024 COMPR EHENS EMELY METAB OLIC PANEL alkaline phosphatase 58 U/L 35-144 normal Not Available [facility] [address] [facility] [place], [address], 11/22/2024 10:08:17 11/22/19 25 11/22/2024 COMPR EHENS EMELY METAB OLIC PANEL AST 50 U/L 10-35 high Not Available [facility] [address] [facility], [address], 11/22/2024 10:08:17 11/22/19 25 11/22/2024 COMPR EHENS EMELY METAB OLIC PANEL ALT 56 U/L 9-46 high Not Available [facility] [address] [facility] [place], [address], 11/22/2024 10:08:17 11/22/19 25 11/22/2024 HEMOG LOBIN A1C hemoglobin A1C 6.4 % <5.7 high For someo ne witho ut [...] child carmen. Not Available [facility] [address] [place], [address], 11/22/2024 10:08:18 11/22/1911/22/2024 TSH TSH 4.54 mIU/L 0.40-4 .50 high Not Available [facility] [address] [place], [address], 11/22/2024 10:08:19 11/22/19 25 11/22/2024 CBC (INCL UDES DIFF/ PLT) white blood cell count 9.6 thous and/u L 3.8-10 .8 normal Not Available [facility] [address] [place], [address], 11/22/2024 10:08:19 11/22/19 25 11/22/2024 CBC (INCL UDES DIFF/ PLT) red blood cell count 6.29 keysha on/uL 4.20-5 .80 high Not Available [facility] [address] [place], [address], 11/22/2024 10:08:19 11/22/19 25 11/22/2024 CBC (INCL UDES DIFF/ PLT) hemoglobin 19.2 g/dL 13.2-1 7.1 high Not Available [facility] [address] [place], [address], 11/22/2024 10:08:19 11/22/1911/22/2024 CBC (INCL UDES DIFF/ PLT) hematocrit 59.7 % 38.5-5 0.0 high Not Available [facility] [address] [place], [address], 11/22/2024 10:08:19 11/22/1911/22/2024 CBC (INCL UDES DIFF/ PLT) MCV 94.9 fL 80.0-1 00.0 normal Not Available [facility] [address] [place], [address], 11/22/2024 10:08:19 11/22/1911/22/2024 CBC (INCL UDES DIFF/ PLT) MCH 30.5 pg 27.0-3 3.0 normal Not Available [facility] [address] [place], [address], 11/22/2024 10:08:19 11/22/1911/22/2024 CBC (INCL UDES DIFF/ PLT) MCHC 32.2 g/dL 32.0-3 6.0 normal For adult s, a sligh t decre ase in the calcu lated MCHC value (in the range of 30 to 32 g/dL) is most likel y not clini nichelle signi fican t; noman er, it shoul d be inter prete d with cauti on in corre latio n with other red cell aye eters and the patie nt's clini oliva condi tion. Not Available [facility] [address] [place], [address], 11/22/2024 10:08:19 11/22/1911/22/2024 CBC (INCL UDES DIFF/ PLT) RDW 13.2 % 11.0-1 5.0 normal Not Available [facility] [address], [place], [address], 11/22/2024 10:08:19 11/22/1911/22/2024 CBC (INCL UDES DIFF/ PLT) platelet count 256 thous and/u L 140-40 0 normal Not Available [facility] [address], [place], [address], 11/22/2024 10:08:19 11/22/19 25 11/22/2024 CBC (INCL UDES DIFF/ PLT) MPV 9.2 fL 7.5-12 .5 normal Not Available [facility] [address], [place], [address], 11/22/2024 10:08:19 11/22/1911/22/2024 CBC (INCL UDES DIFF/ PLT) absolute neutrophils 4886 cells /uL 1500-7 800 normal Not Available [facility] [address], [place], [address], 11/22/2024 10:08:19 11/22/1911/22/2024 CBC (INCL UDES DIFF/ PLT) absolute lymphocytes 3677 cells /uL 850-39 00 normal Not Available [facility] [address] [facility], [address], 11/22/2024 10:08:19 11/22/1911/22/2024 CBC (INCL UDES DIFF/ PLT) absolute monocytes 768 cells /uL 200-95 0 normal Not Available [facility] [address], [place], [address], 11/22/2024 10:08:19 11/22/19 25 11/22/2024 CBC (INCL UDES DIFF/ PLT) absolute eosinophils 211 cells /uL 15-500 normal Not Available [facility] [address] [facility], [place], [address], 11/22/2024 10:08:19 11/22/19 25 11/22/2024 CBC (INCL UDES DIFF/ PLT) absolute basophils 58 cells /uL 0-200 normal Not Available [facility] [address], [place], [address], 11/22/2024 10:08:19 11/22/19 25 11/22/2024 CBC (INCL UDES DIFF/ PLT) neutrophils 50.9 % normal Not Available [facility] [address], [place], [address], 11/22/2024 10:08:19 11/22/19 25 11/22/2024 CBC (INCL UDES DIFF/ PLT) lymphocytes 38.3 % normal Not Available [facility] [address], [place], [address], 11/22/2024 10:08:19 11/22/19 25 11/22/2024 CBC (INCL UDES DIFF/ PLT) monocytes 8.0 % normal Not Available [facility] [address], [place], [address], 11/22/2024 10:08:19 11/22/19 25 11/22/2024 CBC (INCL UDES DIFF/ PLT) eosinophils 2.2 % normal Not Available [facility] [address], [place], [address], 11/22/2024 10:08:19 11/22/19 25 11/22/2024 CBC (INCL UDES DIFF/ PLT) basophils 0.6 % normal Not Available [facility] [address], [place], [address], 11/22/2024 10:08:19 06/24/19 22 06/24/2021 CT, chest , w/o contr ast [facility] [address] [place] [address] Phone: Fax: Name: HARMONY TILLEY Exam Date: : [birth year] Age 66 Gender : M Access ion: [id number] Physic nery: JESSICA MCLAUGHLIN Facili ty: [facility] Facili ty HSV: Outpat ient Exam: CT [...] you for referr ing HARMONY TILLEY to [facility]. Legall y authen ticate d by MELVIN MENDOSA IVO 06-24 16:27: 12 CC'ed Logic: Orderi ng Provid er: ELEUTERIO Rangel CC Provid er: KAVYA Magallanes Attend ing Provid er: ELEUTERIO Rangel Referr ing Provid er: ELEUTERIO Rangel Admitt ing Provid er: ELEUTERIO high [facility] [address] [place], [address], 06/24/2021 22:55:26 07/22/19 22 07/21/2021 XR, chest , 2 view [facility] [address] [facility] [place] [address] Phone: Fax: Name: HARMONY TILLEY Exam Date: : [birth year] Age 66 Gender : M Access ion: [id number] Physic nery: MIKEY ALEXIS Facili ty: [facility] Facili ty HSV: Outpat ient Exam: CHEST [...] you for referr ing HARMONY TILLEY to [facility]. Legall y authen ticate d by MELVIN GUTIERREZ 07-22 08:42: 16 CC'ed Logic: Orderi ng Provid er: KAVYA Magallanes CC Provid er: KAVYA Magallanes Attend ing Provid er: KAVYA Magallanes Referr ing Provid er: KAVYA Magallanes Admitt ing Provid er: KAVYA high [facility] [address] [place], [address], 03/25/2023 16:47:43 Result Notes Documentation Provider Name and Address Organization Details Recorded Time Ct, Chest, W/o Contrast : [address] [place] [address] Name: HARMONY CHENEY Exam Date: 06/24/2021 : 1955 Age 66 Gender: M Physician: CHIKIS MINAYA Facility: [facility] Facility HSV: Outpatient Exam: CT CHEST WO CONTRAST CT SCAN OF THE CHEST WITHOUT CONTRAST COMPARISON: None. HISTORY: Abnormal chest X-ray. PROCEDURE: Axial images were obtained from the lung apex to the mid abdomen by computed tomography. FINDINGS: CHEST: There is no axillary adenopathy. There is no hilar or mediastinal adenopathy. Heart size is normal. There is no pericardial or pleural effusion. Limited images of the upper abdomen demonstrate hepatic steatosis and distention of the gallbladder. There are multifocal peripheral groundglass opacities. IMPRESSION: Multifocal peripheral groundglass opacities consistent with Covid pneumonia. Films reviewed , interpreted and dictated by Dr. Paola Mendosa. Transcribed by Mohsen Vogt PA-C. Dictated By: MELVIN MENDOSA Transcribed By: MELVIN MENDOSA Transcribed On: 06/24/2021 4:27 PM Electronically signed by: MELVIN MENDOSA 06/24/2021 Thank you for referring HARMONY CHENEY to [facility]. Legally authenticated by MELVIN GUTIERREZ 2021-06-24 16:27:12 CC'ed Logic: Ordering Provider: REI DIOP CC Provider: MARYBETH OWEN Attending Provider: REI DIOP Referring Provider: REI DIOP Admitting Provider: REI Rueda MD [address] [facility], [address], [place], [address], [facility] 06/24/2021 22:55:26 Xr, Chest, 2 View : [address] [place] [address] Name: HARMONY CHENEY Exam Date: 07/21/2021 : 1955 Age 66 Gender: M Physician: SALENA RUEDA Facility: [facility] Facility HSV: Outpatient Exam: CHEST PA ^ LAT CHEST, 2 VIEWS HISTORY: Cough. Recent Covid pneumonia. COMPARISON: 08/16/2016 FINDINGS: The heart and mediastinum are unremarkable. The lungs demonstrate patchy bilateral airspace opacities that may represent the sequela of post Covid pneumonia. The bony structures are intact. IMPRESSION: Patchy bilateral airspace opacities that may represent the sequela of post Covid pneumonia. Films reviewed , interpreted and dictated by Dr. Paola Mendosa Transcribed by Mohsen Vogt PA-C. Dictated By: MELVIN MENDOSA Transcribed By: MELVIN MENDOSA Transcribed On: 07/22/2021 8:42 AM Electronically signed by: MELVIN MENDOSA 07/22/2021 Thank you for referring HARMONY CHENEY to [facility]. Legally authenticated by MELVIN GUTIERREZ 2021-07-22 08:42:16 CC'ed Logic: Ordering Provider: MARYBETH OWEN CC Provider: MARYBETH OWEN Attending Provider: MARYBETH OWEN Referring Provider: MARYBETH OWEN Admitting Provider: MARYBETH Rueda MD [address], [address], [facility] 03/25/2023 16:47:43 Problems Name Problem SNOMED Code Status Onset Date Resolution Date Notes Provider Name and Address Organization Details Recorded Time Blood glucose outside reference range [id number] Chepe Rueda MD [address], [address], [facility] 6 11:22:12 Fatigue [id number] Chepe Rueda MD [address] [facility] [address], [address], [facility] 6 11:22:12 Tremor 90269493 Active Salena Rueda MD [address], [address] [place] [address], [place] [facility] 6 11:22:12 Respiratory symptom 119495814 Active Salena Rueda MD [address] [place] [address], [facility] - [facility] 6 11:22:12 Abnormal testosterone 408556386 Active Talya Busby [facility], [place] - [facility] 6 12:11:00 Dyspnea 546686340 Active Salena Rueda MD [address] [place] [address], [facility] - [facility] 6 11:22:12 Carpal tunnel syndrome [id number] Active Salena Rueda MD [address] [address], [facility] - [facility] 6 11:22:12 Wheezing 07197199 Active Salena Rueda MD [address] [address], [facility] - [facility] 6 11:22:12 Benign essential hypertension [id number] Active Salena Rueda MD [address] [address], [facility] - [facility] 6 11:22:12 Chronic pain due to injury [id number] Chepe Rueda MD [address] [address], [facility] - [facility] 6 11:22:12 Allergic rhinitis [id number] Chepe Rueda MD [address] [address], [facility] 6 11:22:12 Disorder of peripheral autonomic nervous system [id number] Chepe Rueda MD [address] [address], [place] - [facility] 6 11:22:12 Shoulder joint pain [id number] Chepe Rueda MD [address] [address], [facility] 6 11:22:12 Acute sinusitis [id number] Chepe Rueda MD [address] [address], [place] - [facility] 6 11:22:12 Acute stress disorder [id number] Chepe Rueda MD [address] [address], [facility] 6 11:22:12 Verruca vulgaris [id number] Chepe Rueda MD [address] [address], [facility] 6 11:22:12 Electrocardiog sukhwinder abnormal [id number] Chepe Rueda MD [address] [address], [facility] 6 11:22:12 Chest pain [id number] Chepe Rueda MD [address] [address], [facility] 6 11:22:12 Spasm [id number] Chepe Rueda MD [address] [address], [facility] 6 11:22:12 Low back pain [id number] Chepe Rueda MD [address] [address], [facility] 6 11:22:12 Degeneration of cervical intervertebral disc 60813921 Active Salena Rueda MD [address] [address], [facility] - [facility] 6 11:22:12 Asthma 838442882 Active Salena Rueda MD [address] [address], [facility] 6 11:22:12 Acute asthma 145776853 Active Salena Rueda MD [address] [address], [facility] - [facility] 6 11:22:12 Acute bronchitis 89601421 Active Salena Rueda MD [address] [address], [facility] - [facility] 6 21:27:16 Multiple actinic keratoses 406225324 Active Salena Rueda MD [address] [address], [facility] - [facility] 6 11:22:12 Neoplasm of skin 283844454 Active Salena Rueda MD [address] [address], [facility] 6 11:22:12 Laryngitis 18276697 Active Salena Rueda MD [address] [address], [facility] - [facility] 6 21:27:16 Problem Notes None recorded. Procedures Surgical History Date Name Laterality Status Provider Name and Address Organization Details Recorded Time 04/14/20 17 Colonoscopy completed Salena Rueda MD [address] [id number], [facility] 05/08/2017 12:28:22 04/14/20 17 Colonoscopy completed Salena Rueda MD [address], [address] [place] [address], [facility] 06/23/2017 18:01:50 03/26/20 17 cryotherapy surgery completed Salena Rueda MD [address], [address] [place] [address] [facility] 03/28/2017 21:24:48 04/22/20 16 Hand tendon/muscle transfer completed [facility] 07/31/2016 10:21:26 08/03/19 15 cryotherapy surgery completed Salena Rueda MD [address], [address] [place] [address] [facility] 08/03/2014 17:35:11 07/28/19 14 cryotherapy surgery completed Salena Rueda MD [address], [address] [place] [address] [facility] 07/28/2013 16:46:57 01/07/20 12 cryotherapy surgery completed Salena Rueda MD [address] [facility] 01/07/2012 11:54:40 06/07/19 05 Vasectomy completed Not Available [facility] 1 04:58:32 Imaging Results None recorded. Procedure Notes None [...] azelastine 137 mcg (0.1 %) nasal spray [place] 2 sprays into each nostril twice a [...] Not Avai lable Vitals Date Recorded Body temperature Oxygen saturation Oxygen saturation in Arterial blood by Pulse oximetry Heart rate Body height Body mass index (BMI) Body weight Systolic blood pressure Diastolic blood pressure Provider Name and Address Organization Details Last Updated DateTime 2 96.9 [degF] 96 % 96 % 89 /min 180.34 cm 30 kg/m2 04818.4 6 g 107 mm[Hg] 74 mm[Hg] [facility] 2 15:32:28 Date Recorded Body height Body mass index (BMI) Body weight Heart rate Oxygen saturation Oxygen saturation in Arterial blood by Pulse oximetry Body temperature Systolic blood pressure Diastolic blood pressure Provider Name and Address Organization Details Last Updated DateTime 8 180.34 cm 30.3 kg/m2 26296.3 4 g 79 /min 96 % 96 % 98.7 [degF] 138 mm[Hg] 100 mm[Hg] [facility] 8 10:12:04 Date Recorded Body height Body mass index (BMI) Body weight Heart rate Oxygen saturation Oxygen saturation in Arterial blood by Pulse oximetry Body temperature Systolic blood pressure Diastolic blood pressure Provider Name and Address Organization Details Last Updated DateTime 3 180.34 cm 34.2 kg/m2 666028. 53 g 68 /min 97 % 97 % 98.2 [degF] 154 mm[Hg] 86 mm[Hg] [facility] 3 16:03:33 Date Recorded Body height Body mass index (BMI) Body weight Heart rate Oxygen saturation Oxygen saturation in Arterial blood by Pulse oximetry Body temperature Systolic blood pressure Diastolic blood pressure Provider Name and Address Organization Details Last Updated DateTime 9 180.34 cm 28.1 kg/m2 26457.7 7 g 74 /min 98 % 98 % 98 [degF] 110 mm[Hg] 80 mm[Hg] [facility] 9 14:07:49 Date Recorded Body height Body mass index (BMI) Body weight Heart rate Oxygen saturation Oxygen saturation in Arterial blood by Pulse oximetry Body temperature Systolic blood pressure Diastolic blood pressure Provider Name and Address Organization Details Last Updated DateTime 0 180.34 cm 31.6 kg/m2 157365. 68 g 76 /min 97 % 97 % 98.2 [degF] 105 mm[Hg] 79 mm[Hg] [facility] 0 15:42:24 Social History Question Answer Notes LastModified by Organizat ion Details LastModified Time Tobacco Smoking Status Former Smoker betwees [phone] Not Available [facility] 04/02/2020 03:11:19 Do You Have An Advance Directive? Yes [id number] Information not available 04/02/2020 Is Blood Transfusion Acceptable In An Emergency? Yes [id number] Information not available 04/02/2020 What Is Your Level Of Caffeine Consumption? Occasional [id number] Information not available 04/02/2020 How Much Tobacco Do You Chew? None [id number] Information not available 04/02/2020 Diabetes No [email or web address] Information not available 04/21/2011 What Type Of Diet Are You Following? REGULAR [id number] Information not available 04/02/2020 Which Illicit Or Recreational Drugs Have You Used? None [id number] Information not available 04/02/2020 Education 4 Year [...] How Many Children Do You Have? 4 [id number] Information not available 04/02/2020 What Is Your Relationship Status? Information not available 03/25/2023 Smoke Alarm In Home Yes [email or web address] Information not available 04/21/2011 How Much Tobacco Do You Smoke? No [id number] Information not available 04/02/2020 General Stress Level Medium Information not available 04/04/2019 How Many Years Have You Smoked Tobacco? 3 [id number] Information not available 04/02/2020 Sex: Male Functional Status Question Answer Note LastModified by Organizat ion Details LastModified Time What is your level of alcohol consumption? Occasional [id number] Information not available 04/02/2020 Do you or have you ever used smokeless tobacco? Former smokeless tobacco user used about 6 months remotely [id number] Information not available 04/02/2020 Are you currently employed? Yes [id number] Information not available 04/02/2020 Are you able to care for yourself? 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 Never used electronic cigarettes [id number] Information not available 04/02/2020 Mental Status None recorded. Family History Relationship Description Onset Age of this Age Resolved Age Notes LastModified by Organization Details LastModified Time Mother Dementia Hypert ension lennox Not available 08/03/2014 16:59:52 Medical History Condition Response Coronary Artery Disease N Gout N Kidney Stones N Blood Diseases N Hyperthyroidism N Depression N COPD N [...] virus, quadrivalent, preservative 7 completed Not Available [facility] 06/24/2019 02:12:14 Tdap 7 completed [facility] 07/31/2016 10:33:19 Pneumococcal conjugate PCV 13 7 completed [facility] 07/31/2016 10:33:32 Influenza, split virus, trivalent, preservative 2 completed Not Available [facility] 06/24/2019 02:12:11 Past Encounters Encounter ID Performer Location Encounter Start Date Encounter Closed Date Diagnosis/Indication Diagnosis SNOMED-CT Code Diagnosis ICD10 Code Diagnosis Note [id number] David De Souza MD [address] [id number] 03/10/2011 08:13:10 03/10/2011 15:32:27 [id number] Salena Rueda MD [address] [id number] 03/26/2011 10:33:14 03/27/2011 16:00:25 [id number] Salena Rueda MD [address] [id number] 7 05/12/2011 09:36:48 05/12/2011 11:11:52 [id number] Salena Rueda MD [address] [id number] 07/16/2011 11:22:29 07/16/2011 17:16:21 [id number] Salena Rueda MD [address] [id number] 08/10/2011 16:01:27 08/10/2011 18:09:10 [id number] Salena Rueda MD [address] [id number] 09/01/2011 09:45:38 09/03/2011 17:23:11 [id number] Salena Rueda MD [address] [id number] 09/22/2011 09:20:48 09/22/2011 14:08:48 [id number] Salena Rueda MD [address] [id number] 01/07/2012 09:53:20 01/07/2012 15:08:02 [id number] David De Souza MD [address] [id number] 02/25/2012 13:08:18 02/25/2012 14:33:26 [id number] Salena Rueda MD [address] [id number] 03/29/2012 14:50:51 03/29/2012 18:13:58 [id number] Salena Rueda MD [address] [id number] 05/20/2012 13:23:05 05/20/2012 21:41:13 [id number] Salena Rueda MD [address] [id number] 08/29/2012 14:39:05 08/29/2012 17:13:54 [id number] Salena Rueda MD [facility] [address] [id number] 11/18/2012 09:59:10 11/18/2012 16:52:21 [id number] Salena Rueda MD [address] [id number] 02/27/2013 10:06:07 02/27/2013 16:58:49 [id number] Salena Rueda MD [address] [id number] 07/28/2013 14:55:46 07/28/2013 17:03:59 Benign essential hypertension 8599129 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 543137175 Allergic rhinitis 28424950 Verruca vulgaris 88066052 Blood gluc ose outside reference range 859883431 History of male erectile disorder 021111834 Fatigue 60585809 Screening for cancer 20815822 [id number] Salena Rueda MD [address] [id number] 12/29/2013 14:54:17 12/29/2013 17:10:42 Adult health examination 523283448 [id number] Salena Rueda MD [address] [id number] 08/03/2014 15:52:37 08/12/2014 14:31:34 Benign essential hypertension 8175281 Abnormal testosterone 349671537 Degenerati on of cervical intervertebral disc 27892054 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 0 [id number] Salena Rueda MD [address] [address] 7 02/21/2016 13:52:00 02/21/2016 18:26:45 Injury of hand 357701668 S69.81XS Carpal mark mary syndrome 69621857 G56.01 Essential hypertension 88008927 I10 Fatigue 53193129 R53.83 Obstructiv e sleep apnea syndrome 24887161 G47.33 Glucose le jim outside reference range 505733534 R73.09 Allergic rhinitis 718375 04 J30.9 [id number] Salena Rueda MD [address] [address] 7 07/31/2016 10:02:06 08/03/2016 14:34:49 Essential hypertension 28508500 I10 Acute maxi llary sinusitis 40628483 J01.00 Allergic rhinitis 550696 04 J30.9 Glucose le jim outside reference range 758161552 R73.09 Hyperlipidemia 07800934 E78.5 Impotence 032740898 N52. 9 Body mass index 30+ - obesity 536301732 Z68.32 [id number] Salena Rueda MD [address] [address] 7 08/10/2016 15:50:51 08/10/2016 17:35:00 Influenza-like symptoms 582513139 R68.89 Lower resp iratory tract infection 04837545 J22 [id number] Salena Rueda MD [place] [id number] 08/25/2016 14:25:07 08/26/2016 09:05:52 Fatigue 28025756 R53.83 Influenza with respiratory manifestation other than pneumonia 41287188 J11.1 [id number] Salena Rueda MD [address] [address] 7 01/07/2017 10:28:55 01/07/2017 12:06:11 Acute sinusitis 36254884 J01.90 Essential hypertension 64874183 I10 [id number] Salena Rueda MD [facility] [address] [place] [id number] 7 02/19/2017 14:29:07 02/22/2017 08:15:30 Adult health examination 163446531 Z00.01 Essential hypertension 45790489 I10 Active or passive immunization 229603307 Z23 Prediabetes 398050705 R7 3.03 Knee pain 57596697 M25.5 69 Dyspnea on exertion 6084 5006 R06.09 Idiopathic peripheral neuropathy 79146526 G60.9 took gabapentin in the past. Much worse on right foot and some loss on left great toe. Acute sinusitis 93487820 J01.90 he has cefdinir to take. Acute otitis media 38559 03 H66.91 Screening for malignant neoplasm of colon 158188586 Z12.11 Hyperlipidemia 10869518 E78.5 Body mass index 30+ - obesity 166018013 Z68.33 [id number] Salena Rueda MD [facility] [address] [place] [id number] 7 03/26/2017 16:09:33 03/29/2017 10:05:37 Multiple actinic keratoses 011610243 L57.0 Screening for malignant neoplasm of colon 196032866 Z12.11 [id number] Salena Rueda MD [facility] [address] [place] [id number] 7 10/08/2017 10:01:41 10/12/2017 08:14:07 Hand pain 60761959 M79.641 Glucose le jim outside reference range 164246109 R73.09 Hyperlipidemia 94672335 E78.5 Weakness o f right hand 3539549729 4631116 R29.898 [id number] Salnea Rueda MD [facility] [address] [place] [id number] 7 04/04/2019 13:50:35 04/06/2019 07:57:15 Adult health examination 073575602 Z00.01 Essential hypertension 11610664 I10 Knee pain 80257381 M25.5 69 Dyspnea on exertion 6084 5006 R06.09 Idiopathic peripheral neuropathy 81340586 G60.9 took gabapentin in the past. Much worse on right foot and some loss on left great toe. 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 Has regular blood counts through urologist and has been advised to donate blood monthly Body mass index 25-29 - overweight 479513276 Z68.28 Prediabetes 684272115 R7 3.03 [id number] Salena Rueda MD [facility] [address] [place] [id number] 7 04/16/2020 15:09:22 04/18/2020 08:11:17 Adult health examination 039570632 Z00.01 Essential hypertension 78194111 I10 Knee pain 96833436 M25.5 69 Idiopathic peripheral neuropathy 97076977 G60.9 took gabapentin in the past. Much worse on right foot and some loss on left great toe. Hyperlipidemia 79826297 E78.5 Secondary hemochromatosis 84968531 E83.118 likely due to the testostero ne supplement and he had been doubling his dose at times and will stop that. 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 Much worse on right foot and some loss on left great toe. Hyperlipidemia 00198139 E78.5 Secondary hemochromatosis 47557996 E83.118 likely due to the testostero ne supplement and he had been doubling his dose at times and will stop that. Has regular blood counts through urologist and has been advised to donate blood monthly Prediabetes 191613860 R7 3.03 History of asthma 136025 007 Z87.09 Vaccine de clined by patient 0818219603 02 Z28.21 Body mass index 30+ - obesity 263967815 Z68.34 Screening for cardiovascular system disease 518881416 Z13.6 Health Concerns Section Related Observation LastModified by Organization Detai ls LastModified Time None Recorded Concern Status LastModified by Organization Details LastModified Time None Recorded Advance Directives Directive Y: Payers Insurance Date Sequence Insurance Name Policy Number Policy Guevara Covered Member ID Guevara Member ID Guarantor Name 08/27/2023 1 [employer] (O) [id number] Opal Cheney [id number] 5- [facility] 07/23/2014 1 [employer] - [place] [employer] [facility] (O) [id number] Opal Cheney [id number] 5- [facility] 03/25/2023 1 [employer]: [employer] [employer] [place] [id number] Opal Cheney [id number] [facility] Notes Date Note Type Note Provider Name [...] at that time. Salena Rueda MD [address] [facility], [address], [place], [address], [facility] 10/08/2017 21:58:19 04/16/2020 text/html he gets a PSA every 6 months at urologist appt Salena Rueda MD [address] [address], [place], [address], [facility] 04/18/2020 00:05:17 07/21/2021 text/html [...] takes opiates regularly. Salena Rueda MD [address] [address], [place], [address], [facility] 07/23/2021 09:12:48 03/25/2023 text/html he can walk no longer than 7 minutes and has significant spinal stenosis and his insurance will not cover the surgery although the pain management doctor recommends that as well as the neurosurgeon. We suggest he start swimming. Salena Rueda MD [address] [address], [place], [address], [facility] 03/28/2023 15:24:42
--- NOTE | 2024-11-23 13:56 | EXP.PAIN.SOA ---
[facility] Disclaimer: The information contained in this section may have been updated after the patient was seen, as this information can be updated by other users. Medical History Chronic pain Benign prostatic hyperplasia Hypertension Surgical History No significant past surgical history Family History Other No significant family history Social History Smoking Status: Never smoker alcohol intake: current substance use type: denies use current occupational status: other Travel in the last 8 weeks?: None PM Subjective & Objective Subjective Subjective:: Patient is a pleasant 69-year-old male who presents tonight for medication refill. He rates his pain as 7 out of 10. Patient is currently managed with Percocet 10 mg 5 times a day, gabapentin 600 mg 3 times a day and methocarbamol 500 mg twice a day. He denies any side effects or changes to his pharmacy. He does make mention today that they have not yet called [facility] to make sure that his medication was in stock. His Damian has been reviewed and is appropriate. Review of Systems: General: No recent weight changes, no fever, no sleep disturbances Respiratory: No cough, no shortness of air, no recurring pulmonary infections Cardiovascular/peripheral vascular: No chest pain, no palpitations, no edema, no shortness of breath Gastrointestinal: No new onset incontinence, normal bowel movements reported Genitourinary: No new onset incontinence Musculoskeletal: Low back pain Psychiatric: [Normal mood/affect] Neurological: [Denies weakness in extremities], [denies balance issues] Pain at rest (0-10 scale): 7 Objective Objective:: Physical Exam: General: Alert and oriented x3, no acute distress, pleasant and cooperative Lungs: Respirations even and unlabored, symmetrical chest expansion Eyes: PERRL Musculoskeletal: Flexion and extension of lumbar [spine] somewhat guarded secondary to pain, [antalgic gait noted] Neurological: Speech clear, no gross sensory deficit Has patient had previous pain injection?: No Conservative treatment options previously tried: Prescription medications Length of treatment: Longer than 12 weeks Meds Home Medications and Allergies Home Medications ?Medication ?Instructions ?Recorded ?Confirmed ?Type amlodipine 5 mg tablet 5 mg PO DAILY BLOOD PRESSURE 01/02/21 10/26/24 History carvedilol 25 mg tablet 25 mg PO BID BLOOD PRESSURE 01/02/21 10/26/24 History lisinopril 40 mg tablet 40 mg PO DAILY BLOOD PRESSURE 01/02/21 10/26/24 History sildenafil (pulm.hypertension) 20 20 mg PO DAILYP PRN . 01/02/21 10/26/24 History mg tablet tamsulosin 0.4 mg capsule 0.4 mg PO HS PROSTATE 01/02/21 10/26/24 History testosterone 30 mg/actuation (1.5 2 pump TD DAILY HRT 01/02/21 10/26/24 History mL) transderm solution metered pump tizanidine 4 mg capsule 4 mg PO Q6HP PRN MUSCLE SPASMS 01/02/21 10/26/24 History naloxone 4 mg/actuation nasal spray 4 mg NS ONCE . 08/11/21 10/26/24 History gabapentin 300 mg capsule 300 mg PO TID Pain #90 caps 02/18/23 10/26/24 Rx diclofenac sodium 1 % topical gel 4 g topical QID Pain #100 grams 04/22/23 10/26/24 Rx gabapentin 600 mg tablet 600 mg PO TID #90 tabs 09/27/24 10/26/24 Rx methocarbamol 500 mg tablet 500 mg PO BID #60 tabs 09/27/24 10/26/24 Rx oxycodone-acetaminophen 10 mg-325 1 tab PO 5XDAY #150 tabs 10/26/24 Rx mg tablet (Percocet) New Prescriptions to Start Prescriptions: Allergies Allergy/AdvReac Type Severity Reaction Status Date / Time No Known Allergies Allergy Verified 09/16/23 11:35 Assessment and Plan *Assessment and plan (1) Lumbar radiculopathy: Status: Acute Category: Medical Code(s): M54.16 - Radiculopathy, lumbar region (2) Degenerative disc disease, lumbar: Status: Acute Qualifiers: Disc-related pain type: discogenic back pain and lower extremity pain Qualified Code(s): M51.362 - Other intervertebral disc degeneration, lumbar region with discogenic back pain and lower extremity pain Category: Medical Code(s): M51.369 - Other intervertebral disc degeneration, lumbar region without mention of lumbar back pain or lower extremity pain (3) Spinal stenosis, lumbar region with neurogenic claudication: Status: Acute Category: Medical Code(s): M48.062 - Spinal stenosis, lumbar region with neurogenic claudication Plan I will refill his Percocet and supply 1 month supply of this medication. Patient will also be made sure that he does have refills on his methocarbamol and gabapentin. Patient will return to clinic in 1 month. Risks and benefits of the medication have been explained in detail to the patient. The patient does understand the risk of dependence on the medication when given over a prolonged period. Patient has been advised of risks of oversedation with the prescribed medication. Narcan has been offered to the paitent in the event of oversedation. Patient has been advised that a family member should also be educated regarding administration of Narcan. The patient has been advised to consult with his/her primary care provider and pharmacist regarding drug-drug interaction of medications currently prescribed. Patient has been prescribed a controlled substance after being counseled on the medication, medication safety, and possible side effects. Opioid contract was reviewed and signed by the patient, and that they have agreed to all of the terms set forth by our compliance program. A UDS is needed to verify patient's compliance with our office pain contract. This is ordered based off specific treatments related to chronic pain with the potential to abuse certain medications. Patient has been instructed to contact the clinic with any concerns before the next appointment. Dr. Rubio has reviewed this note and agrees with this plan of care. This note was dictated using voice recognition software and make contain errors or omissions.
[2024-11-23 14:00] VITALS: BP 150/77; PULSE 82; RESP 18; O2SAT 94; BMI 30.7
== END 2024-11-23 23:59 | disposition home or self-care (01) ==
PROVIDERS: PCP Family Medicine; Visit Provider Nurse Practitioner Family
DX: M48.062 Spinal stenosis, lumbar region with neurogenic claudication (principal); Z79.899 Other long term (current) drug therapy; Z79.891 Long term (current) use of opiate analgesic
CPT/HCPCS: 99212; G0463

== ENCOUNTER 2024-12-20 11:22 | Outpatient (POV) | payer BC, SELFPAY ==
--- OUTSIDE RECORDS SUMMARY | 2024-12-20 11:30 | XMS_ITS ---
Author Organization Unknown Medications Medication Instructions Effective Dates (start - stop) Status gabapentin 300 MG Oral Capsule [id number]:00:00.000+00:00 - Completed tizanidine 4 MG Oral Tablet 2021T:00:00.000+00:00 - Completed gabapentin 300 MG Oral Capsule 482-95-25A50:00:00.000+00:00 - Completed 0.5 ML varicella zoster viru s glycoprotein E, recombinant 0.1 MG/ML Injection [Shingrix] [id number]:00:00.000+00: 00 - Completed tizanidine 4 MG Oral Tablet 2022:00:00.000+00:00 - Completed tizanidine 4 MG Oral Tablet 2021:00:00.000+00:00 - Completed gabapentin 300 MG Oral Capsule 657-20-78H29:00:00.000+00:00 - Completed tizanidine 4 MG Oral Tablet 2022:00:00.000+00:00 - Completed tizanidine 4 MG Oral Tablet 2022:00:00.000+00:00 - Completed tizanidine 4 MG Oral Tablet 2022:00:00.000+00:00 - Completed 0.5 ML varicella zoster viru s glycoprotein E, recombinant 0.1 MG/ML Injection [Shingrix] 3179-28-72Q32:00:00.000+00: 00 - Completed amoxicillin 500 MG Oral Capsule 4991-33-90M93:00:00.000+00:00 - Completed azelastine hydrochloride 0.1 37 MG/ACTUAT Metered Dose Nasal [place] 6730-74-25T19:00:00.000+00:0 0 - Completed tizanidine 4 MG Oral Tablet 2021:00:00.000+00:00 - Completed gabapentin 300 MG Oral Capsule 2 748-74-05U44:00:00.000+00:00 - Completed {6 (azithromycin 250 MG Oral Tablet) } Pack 0567-05-54T57:00:00.000+00:0 0 - Completed gabapentin 300 MG Oral Capsule 2 253-73-93Y76:00:00.000+00:00 - Completed {21 (prednisone 5 MG Oral [place]) } Pack 8322-88-57N41:00:00.000+00:0 0 - Completed methocarbamol 500 MG Oral Tablet 1820-22-53V39:00:00.000+00:00 - Completed gabapentin 300 MG Oral Capsule 2 724-21-21O69:00:00.000+00:00 - Completed gabapentin 300 MG Oral Capsule 2 958-64-89D64:00:00.000+00:00 - Completed gabapentin 300 MG Oral Capsule 2 084-69-51A30:00:00.000+00:00 - Completed 60 ACTUAT testosterone 30 MG/ACTUAT Topical Solution 5270-01-47G02:00:00.000+00: 00 - Completed gabapentin 300 MG Oral Capsule 2 174-77-34B57:00:00.000+00:00 - Completed 60 ACTUAT testosterone 30 MG/ACTUAT Topical Solution 8068-51-72E86:00:00.000+00: 00 - Completed 60 ACTUAT testosterone 30 MG/ACTUAT Topical Solution 2650-33-24V45:00:00.000+00: 00 - Completed gabapentin 300 MG Oral Capsule 2 367-03-26N74:00:00.000+00:00 - Completed gabapentin 300 MG Oral Capsule 2 385-32-88Z38:00:00.000+00:00 - Completed gabapentin 300 MG Oral Capsule 2 667-47-89Y53:00:00.000+00:00 - Completed lisinopril 40 MG Oral Tablet 08-05-13T:00:00.000+00:00 - Completed lisinopril 40 MG Oral Tablet 202 08-09-23:00:00.000+00:00 - Completed tamsulosin hydrochloride 0.4 MG Oral Capsule 5884-38-63E09:00:00.000+00:0 0 - Completed tamsulosin hydrochloride 0.4 MG Oral Capsule 2551-74-55I16:00:00.000+00:0 0 - Completed 60 ACTUAT testosterone 30 MG/ACTUAT Topical Solution 7164-35-10G43:00:00.000+00: 00 - Completed 60 ACTUAT testosterone 30 MG/ACTUAT Topical Solution 3439-01-75M55:00:00.000+00: 00 - Completed 60 ACTUAT testosterone 30 MG/ACTUAT Topical Solution 5348-21-64P41:00:00.000+00: 00 - Completed 60 ACTUAT testosterone 30 MG/ACTUAT Topical Solution 1035-16-50H64:00:00.000+00: 00 - Completed lisinopril 40 MG Oral Tablet 07-17-19:00:00.000+00:00 - Completed fluticasone propionate 0.05 MG/ACTUAT Metered Dose Nasal [place] 2809-81-24Y75:00:00.000+00:0 0 - Completed 60 ACTUAT testosterone 30 MG/ACTUAT Topical Solution [id number]:00:00.000+00: 00 - Completed fluticasone propionate 0.05 MG/ACTUAT Metered Dose Nasal [place] 0615-92-16J18:00:00.000+00:0 0 - Completed fluticasone propionate 0.05 MG/ACTUAT Metered Dose Nasal [place] 1997-94-67H05:00:00.000+00:0 0 - Completed 60 ACTUAT testosterone 30 MG/ACTUAT Topical Solution 4825-29-18F10:00:00.000+00: 00 - Completed gabapentin 300 MG Oral Capsule 314-04-98X43:00:00.000+00:00 - Completed 60 ACTUAT testosterone 30 MG/ACTUAT Topical Solution 1024-05-37I20:00:00.000+00: 00 - Completed carvedilol 25 MG Oral Tablet 08-10-20:00:00.000+00:00 - Completed tamsulosin hydrochloride 0.4 MG Oral Capsule 2515-49-87R18:00:00.000+00:0 0 - Completed tamsulosin hydrochloride 0.4 MG Oral Capsule 0135-05-26R29:00:00.000+00:0 0 - Completed carvedilol 25 MG Oral Tablet 07-16-11T:00:00.000+00:00 - Completed carvedilol 25 MG Oral Tablet 07-19-30T:00:00.000+00:00 - Completed amlodipine 5 MG Oral Tablet 2022T:00:00.000+00:00 - Completed amlodipine 5 MG Oral Tablet 2022T:00:00.000+00:00 - Completed amlodipine 5 MG Oral Tablet 2022T:00:00.000+00:00 - Completed amlodipine 5 MG Oral Tablet 2021T:00:00.000+00:00 - Completed carvedilol 25 MG Oral Tablet 08-07-25T:00:00.000+00:00 - Completed 0.5 ML Streptococcus pneumon iae serotype 1 capsular antigen diphtheria [id number] protein conjugate vaccine 0.0044 MG/ML / Streptococcus pneumoniae serotype 10A capsular antigen diphtheria [id number] protein conjugate vaccine 0.0044 MG/ML / Streptococcus pneumoniae serotype 11A capsular antigen diphtheria HCV750 protein conjugate vaccine 0.0044 MG/ML / Streptococcus pneumoniae serotype 12F capsular antigen diphtheria [id number] protein conjugate vaccine 0.0044 MG/ML / Streptococcus pneumoniae serotype 14 capsular antigen diphtheria [id number] protein conjugate vaccine 0.0044 MG/ML / Streptococcus pneumoniae serotype 15B capsular antigen diphtheria [id number] protein conjugate vaccine 0.0044 MG/ML / Streptococcus pneumoniae serotype 18C capsular antigen diphtheria [id number] protein conjugate vaccine 0.0044 MG/ML / Streptococcus pneumoniae serotype 19A capsular antigen diphtheria [id number] protein conjugate vaccine 0.0044 MG/ML / Streptococcus pneumoniae serotype 19F capsular antigen diphtheria [id number] protein conjugate vaccine 0.0044 MG/ML / Streptococcus pneumoniae serotype 22F capsular antigen diphtheria [id number] protein conjugate vaccine 0.0044 MG/ML / Streptococcus pneumoniae serotype 23F capsular antigen diphtheria AFF704 protein conjugate vaccine 0.0044 MG/ML / Streptococcus pneumoniae serotype 3 capsular antigen diphtheria RTS703 protein conjugate vaccine 0.0044 MG/ML / Streptococcus pneumoniae serotype 33F capsular antigen diphtheria [id number] protein conjugate vaccine 0.0044 MG/ML / Streptococcus pneumoniae serotype 4 capsular antigen diphtheria RAS954 protein conjugate vaccine 0.0044 MG/ML / Streptococcus pneumoniae serotype 5 capsular antigen diphtheria AHI617 protein conjugate vaccine 0.0044 MG/ML / Streptococcus pneumoniae serotype 6A capsular antigen diphtheria [id number] protein conjugate vaccine 0.0044 MG/ML / Streptococcus pneumoniae serotype 6B capsular antigen diphtheria [id number] protein conjugate vaccine 0.0088 MG/ML / Streptococcus pneumoniae serotype 7F capsular antigen diphtheria [id number] protein conjugate vaccine 0.0044 MG/ML / Streptococcus pneumoniae serotype 8 capsular antigen diphtheria IRC102 protein conjugate vaccine 0.0044 MG/ML / Streptococcus pneumoniae serotype 9V capsular antigen diphtheria EVB461 protein conjugate vaccine 0.0044 MG/ML Prefilled Syringe [Prevnar 20] 5650-70-81N84:00:00.000+00:0 0 - Completed acetaminophen 325 MG / oxyco done hydrochloride 10 MG Oral Tablet 9320-92-57G70:00:00.00 0+00:00 - Completed acetaminophen 325 MG / oxyco done hydrochloride 10 MG Oral Tablet 1800-97-88K47:00:00.00 0+00:00 - Completed acetaminophen 325 MG / oxyco done hydrochloride 10 MG Oral Tablet 3447-80-45J10:00:00.00 0+00:00 - Completed acetaminophen 325 MG / oxyco done hydrochloride 10 MG Oral Tablet 4856-88-09K14:00:00.00 0+00:00 - Completed acetaminophen 325 MG / oxyco done hydrochloride 10 MG Oral Tablet 4125-97-06Y59:00:00.00 0+00:00 - Completed acetaminophen 325 MG / oxyco done hydrochloride 10 MG Oral Tablet 4518-28-74Y97:00:00.00 0+00:00 - Completed acetaminophen 325 MG / oxyco done hydrochloride 10 MG Oral Tablet 2958-21-84B75:00:00.00 0+00:00 - Completed acetaminophen 325 MG / oxyco done hydrochloride 10 MG Oral Tablet 9856-95-80C07:00:00.00 0+00:00 - Completed acetaminophen 325 MG / oxyco done hydrochloride 10 MG Oral Tablet 7487-61-63O97:00:00.00 0+00:00 - Completed acetaminophen 325 MG / oxyco done hydrochloride 10 MG Oral Tablet 9693-03-94L45:00:00.00 0+00:00 - Completed acetaminophen 325 MG / oxyco done hydrochloride 10 MG Oral Tablet 1776-82-00K77:00:00.00 0+00:00 - Completed acetaminophen 325 MG / oxyco done hydrochloride 10 MG Oral Tablet 5415-44-42L77:00:00.00 0+00:00 - Completed Patient Care team information Name Category Status Period Participants - - Proposed period not known -
--- OUTSIDE RECORDS SUMMARY | 2024-12-20 11:30 | XMS_ITS | Continuity of Care Document ---
Author Organization [facility], [facility] Address [address], [address] [place] [address] Care Team Providers Care Financial Investment Adviser Name Role Phone MELLISSA MINAYA Referring Provider DONA JENKINS Referring Provider Assessment Encounter Date Assessment Date Assessment LastModified by Organization Details LastModified Time 11/28/2024 11/28/2024 Mr. Meier presents for a wellness check. 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 He also has been [...] factors. He had a cardiac evaluation at [facility] 7 years ago and it was fine. He was diagnosed with ACE. He declines CPAP citing intolerance. He is followed by urology and is using supplemental testosterone and sildenafil. Labs are reviewed and cholesterol is at goal but the triglycerides are a little elevated. He admits to a lot of ice cream. His hemoglobin and hematocrit are still too high. He has been advised to donate blood and apparently his urologist is following this. He also needs to cut back the testosterone from 2 to 1 pump daily. He also has prediabetes and is now borderline diabetic with the A1C up to 6.4%. The TSH is slightly elevated so we recommend T4 and T3 levels as a precaution. He has gained weight and feels that his pain keeps him from any exercise. He can walk about 5 minutes before his back pain stops him.. We have suggested he start swimming or doing water exercises. 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 He also has an exercise bike that really does not work now so is considering getting a new one and we encourage that as well. 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 He had a positive cologuard screen in 2016 and had a subsequent colonoscopy showed some ulceration and fortunately was benign. He will continue to be followed by the gastroenterologi . He is due again in 2026 for a colonoscopy. He declines a flu vaccine. We recommend he consider the shingrix vaccine series. He declines pneumonia vaccine. A ten year calculated DV risk is high at 26.95%. We encourage healthy diet with weight reduction and some regular moderate exercise as tolerated. We recommend a follow up in the fall for spirometry, blood pressure, blood count and A1c. lennox Not available 11/30/2024 07:51:35 Plan of Treatment Reminders Order Date Submit Date Provider Last Modified By Organization Details Last Modified Time Details Appointments None recorded. Lab T4, free, serum 2024 025 [facility], [address], [place], [address], 07:48:18 T3, free, serum or plasma 2024 025 [facility], [address], [place], [address], 07:48:[address] referral 2024 025 [facility], [address] [place] [address], [place], [address], 15:19:32 Procedures None recorded. Surgeries None recorded. Imaging None recorded. Medication Orders doxycycline monohydrate 100 mg capsule 2024 025 [facility], [facility] [place], [address], 05:01:00 lisinopril 40 mg tablet 2024 025 [facility], [facility] [place], [address], 14:35:10 albuterol sulfate HFA 90 mcg/actuati on aerosol inhaler 2024 025 [facility] [address], [facility] [place], [address], 14:35:09 carvedilol 25 mg tablet 2024 025 [facility] [address], [facility] [place], [address], 14:35:08 Patient TargetsNo targets recorded. 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 6 11:22:12 Fatigue 13887702 Active Salena Rueda MD [address] [place] [address], [facility] 11:22:12 Tremor 12422712 Active Salena Rueda MD [address] [place] [address], [place] - [facility] 6 11:22:12 Respiratory symptom 809902021 Active Salena Rueda MD [address] [place] [address], [facility] 6 11:22:12 Abnormal testosterone 634967401 Active Talya Busby [facility], [facility] 6 12:11:00 Dyspnea 200905745 Active Salena Rueda MD [address] [place] [address], [facility] 6 11:22:12 Carpal tunnel syndrome 57071591 Active Salena Rueda MD [address] [place] [address], [facility] 6 11:22:12 Wheezing 47726317 Chepe Rueda MD [address] [place] [address], [facility] 6 11:22:12 Benign essential hypertension 2682142 Active Salena Rueda MD [address] [place] [address], [facility] 6 11:22:12 Chronic pain due to injury 668379600 Chepe Ruead MD [address] [place] [address], [facility] 6 11:22:12 Allergic rhinitis 15495110 Chepe Rueda MD [address] [place] [address], [facility] 6 11:22:12 Disorder of peripheral autonomic nervous system 858624720 Chepe Rueda MD [address] [place] [address], [facility] 6 11:22:12 Shoulder joint pain 928629743 Chepe Rueda MD [address] [place] [address], [facility] 6 11:22:12 Acute sinusitis 44740630 Chepe Rueda MD [address] [place] [address], [facility] 6 11:22:12 Acute stress disorder 61893619 Chepe Rueda MD [address] [place] [address], [facility] 6 11:22:12 Verruca vulgaris 82728061 Chepe Rueda MD [address] [place] [address], [facility] 6 11:22:12 Electrocardiog sukhwinder abnormal [id number] Chepe Rueda MD [address] [place] [address], [facility] 6 11:22:12 Chest pain 70197696 Chepe Rueda MD [address] [place] [address], [place] [facility] 6 11:22:12 Spasm 43803982 Active Salena Rueda MD [address] [place] [address], [place] [facility] 6 11:22:12 Low back pain 162405146 Active Salena Rueda MD [address] [place] [address], [place] [facility] 6 11:22:12 Degeneration of cervical intervertebral disc 65561742 Active Salena Rueda MD [address] [place] [address], [place] [facility] 6 11:22:12 Asthma 455464941 Active Salena Rueda MD [address] [place] [address], [place] [facility] 6 11:22:12 Acute asthma 455320861 Active Salena Rueda MD [address] [place] [address], [place] [facility] 6 11:22:12 Acute bronchitis 44540778 Active Salena Rueda MD [address] [place] [address], [place] [facility] 6 21:27:16 Multiple actinic keratoses 992117815 Active Salena Rueda MD [address] [place] [address], [place] [facility] 6 11:22:12 Neoplasm of skin 949758698 Chepe Rueda MD [address] [place] [address], [facility] 6 11:22:12 Laryngitis 47150903 Active Salena Rueda MD [address], [address] [place] [address], [facility] 6 21:27:16 Problem Notes None recorded. Procedures Surgical History Date Name Laterality Status Provider Name and Address Organization Details Recorded Time 04/14/20 17 Colonoscopy completed Salena Rueda MD [address], [address] [place] [address], [facility] 05/08/2017 12:28:22 04/14/20 17 Colonoscopy completed Salena Rueda MD [address], [address] [place] [address], [facility] 06/23/2017 18:01:50 03/26/20 17 cryotherapy surgery completed Salena Rueda MD [address], [address] [place] [address], [facility] 03/28/2017 21:24:48 04/22/20 16 Hand tendon/muscle transfer completed [facility] 07/31/2016 10:21:26 08/03/19 15 cryotherapy surgery completed Salena Rueda MD [address], [address], [facility] 08/03/2014 17:35:11 07/28/19 14 cryotherapy surgery completed Salena Rueda MD [address], [address], [facility] 07/28/2013 16:46:57 01/07/20 12 cryotherapy surgery completed Salena Rueda MD [address], [address], [facility] 01/07/2012 11:54:40 06/07/19 05 Vasectomy completed Not Available [facility] 1 04:58:32 Imaging Results None recorded. Procedure Notes None recorded. Medical Equipment None Reported. Allergies No known drug allergies Medications Name Sig Start Date Stop Date Status Note LastModified by Organization Details LastModified Time mupirocin (dispersapr o) 20mg capsule # EMPTY CONTENTS OF ONE CAPSULE INTO NETIFLO, ADD DISTILLED WATER AND IRRIGATE 2 TIMES DAILY 11/28 completed Not Available Not Available Not Available amantadine HCl 100 mg tablet 11/28 completed Not Available Not Available Not Available amoxicillin [...] ML BY MOUTH EVERY 4 HOURS NEEDED 11/28 completed Not Available Not Available Not Available carvedilol 25 mg tablet TAKE 1 TABLET BY MOUTH TWICE DAILY active Not Available Not Available No t Available cefprozil 500 mg tablet Take 1 tablet twice a day by oral route with meals for 10 days. 02/11 completed Not Available Not Available Not Available gabapentin 600 mg tablet TAKE 1 TABLET BY MOUTH THREE TIMES DAILY active Not Available Not Available No t Available doxycycline hyclate 100 mg capsule TAKE 1 CAPSULE BY MOUTH TWICE DAILY FOR 10 DAYS 11/28 completed Not Available Not Available Not Available nabumetone 750 mg tablet active Not Available Not Available Not Available azithromyci n 250 mg tablet TAKE 2 TABLETS BY MOUTH ON DAY 1, AND THEN TAKE 1 TABLET BY MOUTH ONCE A DAY ON DAY 2 THROUGH DAY 5. TAKE WITH FOOD. 11/28 completed Not Available Not Available Not Available tizanidine 4 mg tablet TAKE 1 TABLET BY MOUTH EVERY 6 TO 8 HOURS NEEDED active Not Available Not Available No t Available benzonatate 200 mg capsule Take 1 capsule [...] Available Not Available amlodipine 5 mg tablet TAKE 1 TABLET BY MOUTH ONCE DAILY active Not Available Not Available No t Available ciprofloxac in 500 mg tablet 07/21 completed [...] day by oral route for 10 days. 11/28 completed Not Available Not Available Not Available doxycycline monohydrate 100 mg capsule Take 1 capsule twice a day by oral route with meal(s) for 10 days. 12/15 completed Not Available Not Available Not Available oseltamivir 75 mg capsule Take 1 [...] EACH NOSTRIL TWICE DAILY FOR 14 DAYS 11/28 completed Not Available Not Available Not Available dexamethaso ne sodium phosphate 4 mg/mL injection solution Take 1 mL by injection route. 04/16 completed Not Available Not Available Not Available azelastine 137 mcg (0.1 %) nasal spray Nabb 2 sprays into each nostril twice a day. 11/28 completed Not Available Not Available Not Available Viagra 100 mg tablet Take 1 [...] t Available lisinopril 40 mg tablet TAKE ONE TABLET BY MOUTH ONCE DAILY 2024 active Not Available Not Available Not [...] MOUTH EVERY 12 HOURS FOR 7 DAYS 11/28 completed Not Available Not Available Not Available dexamethaso ne sodium phosphate 4 mg/mL [...] Not Available diclofenac 1 % topical gel 11/28 completed Not Available Not Available Not Available testosteron e 10 mg/0.5 gram/actuat ion transdermal gel pump APPLY 4 PUMPS (2 GRAMS) TOPICALLY DAILY DIRECTED 07/31 completed Not Available Not Available Not Available testosteron e 30 mg/actuatio n (1.5 mL) transderm solution metered pump APPLY 2 PUMPS EVERY DAY TOPICALLY FOR 30 DAYS. active Not Available Not Available No t [...] blood by Pulse oximetry Body temperature Systolic And Diastolic Provider Name and Address Organization Details Last Updated DateTime 5 180.34 cm 34.6 kg/m2 135374. 91 g 76 /min 96 % 96 % 97.5 [degF] 156/89 mm[Hg] [facility] 5 13:25:55 Social History Question Answer Notes LastModified by Organizat ion Details LastModified Time Tobacco Smoking Status Former Smoker ellen [id number] Not Available [facility] 04/02/2020 03:11:19 Do You Have An Advance Directive? Yes [id number] Information not available 04/02/2020 Is Blood Transfusion Acceptable In An Emergency? Yes [id number] Information not available 04/02/2020 What Is Your Level Of Caffeine Consumption? Occasional [id number] Information not available 04/02/2020 How Much Tobacco Do You Chew? None [id number] Information not available 04/02/2020 Diabetes No [email or web address] Information not available 04/21/2011 What Type Of Diet Are You Following? REGULAR [id number] Information not available 04/02/2020 Which Illicit Or Recreational Drugs Have You Used? None [id number] Information not available 04/02/2020 Education 4 Year College Information not available 04/21/2011 Family History Of Heart Disease? No [email or web address] Information not available 04/21/2011 High Blood Pressure Yes [email or web address] Information not available 04/21/2011 Live Alone Or With Others? With Others [email or web address] Information not available 04/21/2011 Marital Status Information not available 04/21/2011 What Was The Date Of Your Most Recent Tobacco Screening? 11/28/2024 Information not available 11/28/2024 How Many Children Do You Have? 4 [id number] Information not available 04/02/2020 What Is Your Relationship Status? Information not available 03/25/2023 Smoke Alarm In Home Yes Information not available 04/21/2011 How Much Tobacco Do You Smoke? No [id number] Information not available 04/02/2020 General Stress Level Medium Information not available 04/04/2019 How Many Years Have You Smoked Tobacco? 3 [id number] Information not available 04/02/2020 Sex: Male Functional Status Question Answer Note LastModified by Organizat ion Details LastModified Time What is your level of alcohol consumption? Occasional [id number] Information not available 04/02/2020 Do you or have you ever used smokeless tobacco? Former smokeless tobacco user used about 6 months remotely [id number] Information not available 04/02/2020 Are you currently employed? Yes [id number] Information not available 04/02/2020 Are you able to care for yourself? 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 Never used electronic cigarettes [id number] Information not available 04/02/2020 Mental Status None recorded. Family History Relationship Description Onset Age of this Age Resolved Age Notes LastModified by Organization Details LastModified Time Mother Dementia Hypert ension lennox Not available 08/03/2014 16:59:52 Medical History Condition Response Coronary Artery Disease N Gout N Kidney Stones N Blood Diseases N Hyperthyroidism N Hypothyroidism N COPD N Depression N Developmental or Behavioral Disorders N Eczema, [...] virus, quadrivalent, preservative 7 completed Not Available [facility] 06/24/2019 02:12:14 Tdap 7 completed [facility] 07/31/2016 10:33:19 Pneumococcal conjugate PCV 13 7 completed [facility] 07/31/2016 10:33:32 Influenza, split virus, trivalent, preservative 2 completed Not Available [facility] 06/24/2019 02:12:11 Past Encounters Encounter ID Performer Location Encounter Start Date Encounter Closed Date Diagnosis/Indication Diagnosis SNOMED-CT Code Diagnosis ICD10 Code Diagnosis Note [id number] Salena Rueda MD [facility] [address] [place] [address], [address] [place] [address] 11/28/2024 13:13:31 11/30/2024 09:01:06 Benign essential hypertension 9992146 I10 Essential hypertension 36100837 I10 Adult heal th examination 926469989 Z00.01 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 815067762 G89.21 Idiopathic peripheral neuropathy 13980715 G60.9 took gabapentin in the past. Much worse on right foot and some loss on left great toe. 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 Has regular blood counts through urologist and has been advised to donate blood monthly Prediabetes 908988479 R7 3.03 History of asthma 368756 007 Z87.09 Vaccine de clined by patient 3648651074 02 Z28.21 Body mass index 30+ - obesity 386693663 Z68.34 Screening for cardiovascular system disease 169597187 Z13.6 Acute bact erial sinusitis 33875235 J01.90 B96.89 Neoplasm of skin 2261756 04 D49.2 suspicious raised lesion left side of face/basal cell appearing Serum thyr oid stimulating hormone level outside reference range 570773084 R79.89 Health Concerns Section Related Observation LastModified by Organization Esteban ls LastModified Time None Recorded Concern Status LastModified by Organization Details LastModified Time None Recorded Payers Encounter Date Sequence Insurance Name Policy Number Policy Guevara Covered Member ID Guevara Member ID Guarantor Name 11/28/2024 1 [place] [id number] Opal Meier [id number] Bethel Meier
--- OUTSIDE RECORDS SUMMARY | 2024-12-20 11:30 | XMS_ITS | Data Portability ---
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 He also has been diagnosed with a [...] ago. He had a cardiac evaluation at [facility] four years ago and it was fine [...] be followed by the gastroenterologi . 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 He also has been diagnosed with a [...] factors. He had a cardiac evaluation at [facility] five years ago and it [...] be followed by the gastroenterologi . He declines a flu vaccine. 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 He also has been [...] factors. He had a cardiac evaluation at [facility] 7 years ago and it [...] be followed by the gastroenterologi . He declines a flu vaccine. We recommend he consider the shingrix vaccine series. A ten year calculated DV risk is high at 25.48%. We encourage healthy diet with weight reduction. [email or web address] Not available 03/28/2023 15:24:27 11/28/2024 11/28/2024 Mr. Cheney presents for a wellness check. 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 He also has been [...] factors. He had a cardiac evaluation at [facility] 7 years ago and it [...] has a suspicious lesion on the left denominational area for a basal cell carcinoma and he will make an appointment with his signal helper. He had a positive cologuard screen in [...] recorded. Lab T4, free, serum 2024 025 [facility], [address], [place], [address], 07:48:18 T3, free, serum or plasma 2024 025 [employer] [facility], [address], [place], [address], 07:48:17 Referral dermatolog ist referral 2024 025 [facility], [address] [facility], [place], [address], 5 15:19:32 Procedures None recorded. Surgeries None recorded. Imaging XR, chest, 2 view 2021 022 [email or web address] 2 [facility] (Radiology), [address] [place], [address], 2 08:42:04 Medication Orders doxycyclin e monohydrat e 100 mg capsule 2024 025 [facility], [address] [place] [address], [address], 5 05:01:00 lisinopril 40 mg tablet 2024 025 [facility] [address], [address] [place] [address], [address], 5 14:35:10 albuterol sulfate HFA 90 mcg/actuat ion aerosol inhaler 2024 025 [facility] [address], [address] [place] [address], [address], 5 14:35:09 carvedilol 25 mg tablet 2024 025 [facility] [address], [address] [place] [address], [address], 5 14:35:08 tizanidine 4 mg tablet [email or web address] [place] [address] Pharmacy [address], [address] [place] [address], [address], 5 14:01:40 albuterol sulfate HFA 90 mcg/actuat ion aerosol inhaler 2022 023 [facility] [address], [address] [place] [address], [address], 3 17:27:14 carvedilol 25 mg tablet 2022 023 [facility] [address], [address] [place] [address], [address], 3 17:27:13 ceftriaxon e 1 gram solution for injection [address], [address] [place] [address], [address], 3 17:11:54 albuterol sulfate HFA 90 mcg/actuat ion aerosol inhaler 2021 022 [place] [address], [address] [place] [address], [address], 2 16:49:48 promethazi ne-DM 6.25 mg-15 mg/5 mL oral syrup 2021 022 [place] [address], [address] [place] [address], [address], 5 14:02:38 amoxicilli n 875 mg-potassi um clavulanat e 125 mg tablet [address], [address] [place] [address], [address], 5 13:59:23 dexamethas one sodium phosphate 4 mg/mL injection syringe [address], [address] [place] [address], [address], 3 17:12:07 methylpred nisolone 4 mg tablets in a dose pack 2018 [email or web address] [place] [address] [address], [address] [place] [address], [address], 2 15:34:06 albuterol sulfate HFA 90 mcg/actuat ion aerosol inhaler 2018 INTERFACE [facility], [address] [place], [address], 9 14:48:08 doxycyclin e hyclate 100 mg capsule 2018 [facility], [address] [place], [address], 5 14:00:23 dexamethas one sodium phosphate 4 mg/mL injection solution 2018 [facility] 493, [address] [place], [address], 0 16:42:56 ceftriaxon e 1 gram solution for injection 2018 [facility], [address] [place], [address], 3 17:11:54 fluticason e propionate 50 mcg/actuat ion nasal spray,susp ension 2018 INTERFACE [facility], [address] [place], [address], 9 14:48:06 Patient TargetsNo targets recorded. 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 Referring Physician: Salena Rueda, Family Medicine, Encounter Date: 11/28/2024 Results Created Date Observation Date Name Description Value Unit Range Abnormal Flag Note LastModifiedBy Organization Detail LastModifiedTime 03/31/20 19 04/01/2019 lipid panel , serum cholesterol, total 150 mg/dL <200 normal Not Available [facility] [address] [facility], [place], [address], 04/01/2019 08:35:15 03/31/20 19 04/01/2019 lipid panel , serum HDL cholesterol 35 mg/dL >40 low Not Available [email or web address] [address] [facility], [place], [address], 04/01/2019 08:35:15 03/31/2004/01/2019 lipid panel , serum triglyceride s 118 mg/dL <150 normal Not Available [facility] [address] [place], [address], 04/01/2019 08:35:15 03/31/20 19 04/01/2019 lipid panel , serum LDL-choleste rol 94 [...] n, which is a valid ated novel harikao perry ware r accur acy than the Fried micha equat ion in the estim ation of LDL-C . Sharri DUMONT et al. KENNEDY. 2013; 310(1 9): 2061- 2068 (http ://ed ucati on.Qu estDi Jooobz!s. com/f aq/FA Q164) Not Available [facility] [place] [facility] [address] [facility] [place], [address], 04/01/2019 08:35:15 03/31/20 19 04/01/2019 lipid panel , serum chol/HDLC ratio 4.3 (calc ) <5.0 normal Not Available [facility] [place] [facility] [address] [place], [address], 04/01/2019 08:35:15 03/31/2004/01/2019 lipid panel , serum non HDL cholesterol 115 mg/dL _(oliva c) <130 normal For patie nts with diabe adam plus 1 major ASCVD risk facto r, treat ing to a non-H DL-C goal of <100 mg/dL (LDL- C of <70 mg/dL ) is consi dered a thera peuti c optio n. Not Available [facility] [place] [facility] [address] [place], [address], 04/01/2019 08:35:15 03/31/2004/01/2019 CMP, serum or plasm a glucose 96 mg/dL 65-139 normal Non-f astin g refer ence inter merle Not Available [facility] [address] [place], [address], 04/01/2019 08:35:16 03/31/2004/01/2019 CMP, serum or plasm a urea nitrogen (BUN) 24 mg/dL 7-25 normal Not Available [facility] [address] [place], [address], 04/01/2019 08:35:16 03/31/2004/01/2019 CMP, serum or plasm a creatinine 0.99 mg/dL 0.70-1 .25 normal For patie nts >49 years of age, the refer ence limit for Creat inine is appro ximat nigel 13% highe r for peopl e ident ified as Afric an-Am micah n. Not Available [facility] [place] [facility] [address] [place], [address], 04/01/2019 08:35:16 03/31/20 19 04/01/2019 CMP, serum or plasm a eGFR non-afr. afghan 81 mL/mi n/1.7 3m2 > or = 60 normal Not Available [facility] [place] [facility] [address] [place], [address], 04/01/2019 08:35:16 03/31/2004/01/2019 CMP, serum or plasm a eGFR 94 mL/mi n/1.7 3m2 > or = 60 normal Not Available [facility] [address] [place], [address], 04/01/2019 08:35:16 03/31/2004/01/2019 CMP, serum or plasm a BUN/creatini ne ratio NOT APPLIC ABLE (calc ) 6-22 Not Available [facility] [address] [facility] [place], [address], 04/01/2019 08:35:16 03/31/2004/01/2019 CMP, serum or plasm a sodium 140 mmol/ L 135-14 6 normal Not Available [facility] [place], [address], 04/01/2019 08:35:16 03/31/2004/01/2019 CMP, serum or plasm a potassium 4.5 mmol/ L 3.5-5. 3 normal Not Available [facility] [address] [facility] [place], [address], 04/01/2019 08:35:16 03/31/2004/01/2019 CMP, serum or plasm a chloride 103 mmol/ L 98-110 normal Not Available [facility] [place], [address], 04/01/2019 08:35:16 03/31/2004/01/2019 CMP, serum or plasm a carbon dioxide 29 mmol/ L 20-32 normal Not Available [facility] [address] [facility] [place], [address], 04/01/2019 08:35:16 03/31/2004/01/2019 CMP, serum or plasm a calcium 10.0 mg/dL 8.6-10 .3 normal Not Available [facility] [address], [address], 04/01/2019 08:35:16 03/31/2004/01/2019 CMP, serum or plasm a protein, total 7.3 g/dL 6.1-8. 1 normal Not Available [employer] [address], [address], 04/01/2019 08:35:16 03/31/2004/01/2019 CMP, serum or plasm a albumin 4.4 g/dL 3.6-5. 1 normal Not Available [facility] [address], [address], 04/01/2019 08:35:16 03/31/2004/01/2019 CMP, serum or plasm a globulin 2.9 g/dL_ (calc ) 1.9-3. 7 normal Not Available [facility] [address], [address], 04/01/2019 08:35:16 03/31/2004/01/2019 CMP, serum or plasm a albumin/glob ulin ratio 1.5 (calc ) 1.0-2. 5 normal Not Available [facility] [address], [address], 04/01/2019 08:35:16 03/31/2004/01/2019 CMP, serum or plasm a bilirubin, total 0.7 mg/dL 0.2-1. 2 normal Not Available [facility] [address], [address], 04/01/2019 08:35:16 03/31/2004/01/2019 CMP, serum or plasm a alkaline phosphatase 51 U/L 40-115 normal Not Available [facility] [email or web address] [address], [place], [address], 04/01/2019 08:35:16 03/31/20 19 04/01/2019 CMP, serum or plasm a AST 17 U/L 10-35 normal Not Available [facility] [place] [facility] [address] [facility] [place], [address], 04/01/2019 08:35:16 03/31/20 19 04/01/2019 CMP, serum or plasm a ALT 16 U/L 9-46 normal Not Available [facility] [place] [facility] [address] [place], [address], 04/01/2019 08:35:16 03/31/20 19 04/01/2019 HbA1c (hemo globi n A1c), blood hemoglobin [...] child carmen. Not Available [facility] [place] [facility] [address] [facility] [place], [address], 04/01/2019 08:35:16 03/31/20 19 04/01/2019 TSH, serum or plasm a TSH 2.64 mIU/L 0.40-4 .50 normal Not Available [facility] [place] [facility] [address] [facility], [place], [address], 04/01/2019 08:35:16 03/31/2004/01/2019 CBC w/ auto diff white blood cell count 17.2 thous and/u L 3.8-10 .8 high Not Available [facility] [address] [facility] [place], [address], 04/01/2019 08:35:17 03/31/2004/01/2019 CBC w/ auto diff red blood cell count 6.19 keysha on/uL 4.20-5 .80 high Not Available [facility] [place] [facility] [address] [place], [address], 04/01/2019 08:35:17 03/31/2004/01/2019 CBC w/ auto diff hemoglobin 19.2 g/dL 13.2-1 7.1 high Verif ied by fer de la cruz abe sis. Not Available [facility] [address] [facility] [place], [address], 04/01/2019 08:35:17 03/31/2004/01/2019 CBC w/ auto diff hematocrit 54.3 % 38.5-5 0.0 high Not Available [facility] [address] [facility] [place], [address], 04/01/2019 08:35:17 03/31/2004/01/2019 CBC w/ auto diff MCV 87.7 fL 80.0-1 00.0 normal Not Available [facility] [place] [facility] [address] [facility] [place], [address], 04/01/2019 08:35:17 03/31/2004/01/2019 CBC w/ auto diff MCH 31.0 pg 27.0-3 3.0 normal Not Available [facility] [address] [place], [address], 04/01/2019 08:35:17 03/31/2004/01/2019 CBC w/ auto diff MCHC 35.4 g/dL 32.0-3 6.0 normal Not Available [facility] [place] [facility] [address] [place], [address], 04/01/2019 08:35:17 03/31/20 19 04/01/2019 CBC w/ auto diff RDW 13.3 % 11.0-1 5.0 normal Not Available [facility] [place] [facility] [address] [place], [address], 04/01/2019 08:35:17 03/31/2004/01/2019 CBC w/ auto diff platelet count 275 thous and/u L 140-40 0 normal Not Available [facility] [place] [facility] [address] [place], [address], 04/01/2019 08:35:17 03/31/2004/01/2019 CBC w/ auto diff MPV 10.4 fL 7.5-12 .5 normal Not Available [facility] [place] [facility] [address] [place], [address], 04/01/2019 08:35:17 03/31/2004/01/2019 CBC w/ auto diff absolute neutrophils 70372 cells /uL 1500-7 800 high Not Available [facility] [place] [facility] [address] [place], [address], 04/01/2019 08:35:17 03/31/2004/01/2019 CBC w/ auto diff absolute lymphocytes 4197 cells /uL 850-39 00 high Not Available [facility] [place] [facility] [address] [place], [address], 04/01/2019 08:35:17 03/31/2004/01/2019 CBC w/ auto diff absolute monocytes 1084 cells /uL 200-95 0 high Not Available [facility] [place] [facility] [address] [place], [address], 04/01/2019 08:35:17 03/31/20 19 04/01/2019 CBC w/ auto diff absolute eosinophils 310 cells /uL 15-500 normal Not Available [facility] [place] [facility] [address], [place], [address], 04/01/2019 08:35:17 03/31/2004/01/2019 CBC w/ auto diff absolute basophils 86 cells /uL 0-200 normal Not Available [facility] [place] [facility] [address], [place], [address], 04/01/2019 08:35:17 03/31/2004/01/2019 CBC w/ auto diff neutrophils 67 % normal Not Available [facility] [place] [facility] [address] [facility], [place], [address], 04/01/2019 08:35:17 03/31/2004/01/2019 CBC w/ auto diff lymphocytes 24.4 % normal Not Available [facility] [place] [facility] [address], [place], [address], 04/01/2019 08:35:17 03/31/2004/01/2019 CBC w/ auto diff monocytes 6.3 % normal Not Available [facility] [place] [facility] [address], [place], [address], 04/01/2019 08:35:17 03/31/2004/01/2019 CBC w/ auto diff eosinophils 1.8 % normal Not Available [facility] [place] [facility] [address], [place], [address], 04/01/2019 08:35:17 03/31/2004/01/2019 CBC w/ auto diff basophils 0.5 % normal Not Available [facility] [place] [facility] [address], [place], [address], 04/01/2019 08:35:17 04/12/20 20 04/13/2020 lipid panel , serum cholesterol, total 151 mg/dL <200 normal Not Available [facility] [place] [facility] [address] [place], [address], 04/13/2020 08:06:49 04/12/20 20 04/13/2020 lipid panel , serum HDL cholesterol 32 mg/dL > or = 40 low Not Available [facility] [place] [facility] [address] [place], [address], 04/13/2020 08:06:49 04/12/20 20 04/13/2020 lipid panel , serum triglyceride s 203 mg/dL <150 high If a non-f astin g speci men was colle cted, consi en repea t trigl yceri de testi ng on a fasti ng speci men if clini nichelle indic ated. Rick torres et al. J. of Clin. Lipid ol. 2015; 9:129 -169. Not Available [facility] [place] [facility] [address] [facility], [place], [address], 04/13/2020 08:06:49 04/12/2004/13/2020 lipid panel , serum LDL-choleste rol 90 mg/dL _(oliva c) normal Refer ence range : <100 Jenae able range <100 mg/dL for prima ry preve ntion ; <70 mg/dL for patie nts with CHD or diabe tic patie nts with > or = 2 CHD risk facto rs. LDL-C is now calcu lated using the Sharri n-Hop kins calcu latmile n, which is a valid ated novel metho d provi ding chaz r accur acy than the Fried micha equat ion in the estim ation of LDL-C . Sharri kimbrough SS et al. KENNEDY. 2013; 310(1 9): 2061- 2068 (http ://ed ucati on.Qu estDi Jooobz!s. com/f aq/FA Q164) Not Available [facility] [place] [facility] [address] [place], [address], 04/13/2020 08:06:49 04/12/2004/13/2020 lipid panel , serum chol/HDLC ratio 4.7 (calc ) <5.0 normal Not Available [facility] [place] [facility] [address] [facility] [place], [address], 04/13/2020 08:06:49 04/12/2004/13/2020 lipid panel , serum non HDL cholesterol 119 mg/dL _(oliva c) <130 normal For patie nts with diabe adam plus 1 major ASCVD risk facto r, treat ing to a non-H DL-C goal of <100 mg/dL (LDL- C of <70 mg/dL ) is consi dered a thera peuti c optio n. Not Available [facility] [place] [facility] [address] [place], [address], 04/13/2020 08:06:49 04/12/2004/13/2020 CMP, serum or plasm a glucose 112 mg/dL 65-99 high Fasti ng refer ence inter merle For someo ne witho ut known diabe adam, a gluco se value betwe en 100 and 125 mg/dL is consi stent with predi abete s and shoul d be confi rmed with a follo w-up test. Not Available [employer] [facility] [address] [place], [address], 04/13/2020 08:06:50 04/12/2004/13/2020 CMP, serum or plasm a urea nitrogen (BUN) 19 mg/dL 7-25 normal Not Available [facility] [place] [facility] [address] [place], [address], 04/13/2020 08:06:50 04/12/2004/13/2020 CMP, serum or plasm a creatinine 1.03 mg/dL 0.70-1 .25 normal For patie nts >49 years of age, the refer ence limit for Creat inine is appro ximat nigel 13% highe r for peopl e ident ified as Afric an-Am micah n. Not Available [facility] [place] [facility] [address] [facility] [place], [address], 04/13/2020 08:06:50 04/12/2004/13/2020 CMP, serum or plasm a eGFR non-afr. afghan 76 mL/mi n/1.7 3m2 > or = 60 normal Not Available [facility] [address] [facility] [place], [address], 04/13/2020 08:06:50 04/12/2004/13/2020 CMP, serum or plasm a eGFR 89 mL/mi n/1.7 3m2 > or = 60 normal Not Available [facility] [place] [facility] [address] [facility] [place], [address], 04/13/2020 08:06:50 04/12/2004/13/2020 CMP, serum or plasm a BUN/creatini ne ratio NOT APPLIC ABLE (calc ) 6-22 Not Available [facility] [place] [facility] [address] [facility] [place], [address], 04/13/2020 08:06:50 04/12/2004/13/2020 CMP, serum or plasm a sodium 142 mmol/ L 135-14 6 normal Not Available [facility] [address] [facility] [place], [address], 04/13/2020 08:06:50 04/12/2004/13/2020 CMP, serum or plasm a potassium 4.5 mmol/ L 3.5-5. 3 normal Not Available [facility] [address] [facility] [place], [address], 04/13/2020 08:06:50 04/12/2004/13/2020 CMP, serum or plasm a chloride 105 mmol/ L 98-110 normal Not Available [facility] [place] [facility] [address] [place], [address], 04/13/2020 08:06:50 04/12/20 20 04/13/2020 CMP, serum or plasm a carbon dioxide 30 mmol/ L 20-32 normal Not Available [facility] [place], [address], 04/13/2020 08:06:50 04/12/2004/13/2020 CMP, serum or plasm a calcium 10.0 mg/dL 8.6-10 .3 normal Not Available [facility] [address] [place], [address], 04/13/2020 08:06:50 04/12/2004/13/2020 CMP, serum or plasm a protein, total 6.8 g/dL 6.1-8. 1 normal Not Available [address] [place], [address], 04/13/2020 08:06:50 04/12/2004/13/2020 CMP, serum or plasm a albumin 4.5 g/dL 3.6-5. 1 normal Not Available [facility] [address] [place], [address], 04/13/2020 08:06:50 04/12/2004/13/2020 CMP, serum or plasm a globulin 2.3 g/dL_ (calc ) 1.9-3. 7 normal Not Available [facility] [address] [place], [address], 04/13/2020 08:06:50 04/12/2004/13/2020 CMP, serum or plasm a albumin/glob ulin ratio 2.0 (calc ) 1.0-2. 5 normal Not Available [facility] [address] [place], [address], 04/13/2020 08:06:50 04/12/2004/13/2020 CMP, serum or plasm a bilirubin, total 0.8 mg/dL 0.2-1. 2 normal Not Available [facility] [place] [facility] [address] [place], [address], 04/13/2020 08:06:50 04/12/2004/13/2020 CMP, serum or plasm a alkaline phosphatase 46 U/L 35-144 normal Not Available [facility] [place] [facility] [address] [place], [address], 04/13/2020 08:06:50 04/12/20 20 04/13/2020 CMP, serum or plasm a AST 26 U/L 10-35 normal Not Available [facility] [place] [facility] [address] [place], [address], 04/13/2020 08:06:50 04/12/2004/13/2020 CMP, serum or plasm a ALT 32 U/L 9-46 normal Not Available [facility] [place] [facility] [address] [place], [address], 04/13/2020 08:06:50 04/12/2004/13/2020 HbA1c (hemo globi n [...] child carmen. Not Available [facility] [place] [facility] [address] [place], [address], 04/13/2020 08:06:50 04/12/2004/13/2020 TSH, serum or plasm a TSH 3.04 mIU/L 0.40-4 .50 normal Not Available [facility] [place] [facility] [address] [place], [address], 04/13/2020 08:06:50 04/12/2004/13/2020 CBC w/ auto diff white blood cell count 9.6 thous and/u L 3.8-10 .8 normal Not Available [facility] [place] [facility] [address] [place], [address], 04/13/2020 08:06:51 04/12/2004/13/2020 CBC w/ auto diff red blood cell count 6.14 keysha on/uL 4.20-5 .80 high Not Available [facility] [place] [facility] [address] [place], [address], 04/13/2020 08:06:51 04/12/2004/13/2020 CBC w/ auto diff hemoglobin 18.6 g/dL 13.2-1 7.1 high Not Available [facility] [place] [facility] [address] [place], [address], 04/13/2020 08:06:51 04/12/2004/13/2020 CBC w/ auto diff hematocrit 55.0 % 38.5-5 0.0 high Not Available [facility] [place] [facility] [address] [place], [address], 04/13/2020 08:06:51 04/12/2004/13/2020 CBC w/ auto diff MCV 89.6 fL 80.0-1 00.0 normal Not Available [facility] [place] [facility] [address] [place], [address], 04/13/2020 08:06:51 04/12/2004/13/2020 CBC w/ auto diff MCH 30.3 pg 27.0-3 3.0 normal Not Available [facility] [address] [facility] [place], [address], 04/13/2020 08:06:51 04/12/2004/13/2020 CBC w/ auto diff MCHC 33.8 g/dL 32.0-3 6.0 normal Not Available [facility] [address] [facility] [place], [address], 04/13/2020 08:06:51 04/12/2004/13/2020 CBC w/ auto diff RDW 13.1 % 11.0-1 5.0 normal Not Available [facility] [facility] [address] [place], [address], 04/13/2020 08:06:51 04/12/2004/13/2020 CBC w/ auto diff platelet count 231 thous and/u L 140-40 0 normal Not Available [facility] [address] [facility] [place], [address], 04/13/2020 08:06:51 04/12/2004/13/2020 CBC w/ auto diff MPV 10.3 fL 7.5-12 .5 normal Not Available [facility] [address] [facility] [place], [address], 04/13/2020 08:06:51 04/12/2004/13/2020 CBC w/ auto diff absolute neutrophils 4934 cells /uL 1500-7 800 normal Not Available [facility] [address] [facility] [place], [address], 04/13/2020 08:06:51 04/12/2004/13/2020 CBC w/ auto diff absolute lymphocytes 3600 cells /uL 850-39 00 normal Not Available [facility] [address] [place], [address], 04/13/2020 08:06:51 04/12/2004/13/2020 CBC w/ auto diff absolute monocytes 787 cells /uL 200-95 0 normal Not Available [facility] [place] [facility] [address] [place], [address], 04/13/2020 08:06:51 04/12/2004/13/2020 CBC w/ auto diff absolute eosinophils 221 cells /uL 15-500 normal Not Available [facility] [place] [facility] [address] [place], [address], 04/13/2020 08:06:51 04/12/2004/13/2020 CBC w/ auto diff absolute basophils 58 cells /uL 0-200 normal Not Available [facility] [place] [facility] [address] [place], [address], 04/13/2020 08:06:51 04/12/2004/13/2020 CBC w/ auto diff neutrophils 51.4 % normal Not Available [facility] [place] [facility] [address] [place], [address], 04/13/2020 08:06:51 04/12/2004/13/2020 CBC w/ auto diff lymphocytes 37.5 % normal Not Available [facility] [place] [facility] [address] [place], [address], 04/13/2020 08:06:51 04/12/2004/13/2020 CBC w/ auto diff monocytes 8.2 % normal Not Available [facility] [place] [facility] [address] [place], [address], 04/13/2020 08:06:51 04/12/20 20 04/13/2020 CBC w/ auto diff eosinophils 2.3 % normal Not Available [facility] [place] [facility] [address] [place], [address], 04/13/2020 08:06:51 04/12/20 20 04/13/2020 CBC w/ auto diff basophils 0.6 % normal Not Available [facility] [place] [facility] [address] [facility], [place], [address], 04/13/2020 08:06:51 06/24/19 22 06/24/2021 CBC AUTO W DIFF WBC 8.2 10 4.5-11 .5 Not Available [facility] (Lab Registration) [address] [place], [address], 06/24/2021 13:47:08 06/24/19 22 06/24/2021 CBC AUTO W DIFF RBC 5.93 10 4.25-5 .57 high Not Available [facility] (Lab Registration) [address] [place], [address], 06/24/2021 13:47:08 06/24/19 22 06/24/2021 CBC AUTO W DIFF HGB 17.8 g/dL 13.5-1 7.2 high Not Available [facility] (Lab Registration) [address] [place], [address], 06/24/2021 13:47:08 06/24/19 22 06/24/2021 CBC AUTO W DIFF HCT 53.0 % 42.0-5 2.0 high Not Available [facility] (Lab Registration) [address] [place], [address], 06/24/2021 13:47:08 06/24/19 22 06/24/2021 CBC AUTO W DIFF MCV 89.4 fL 80-95 Not Available [facility] (Lab Registration) [address] [place], [address], 06/24/2021 13:47:08 06/24/19 22 06/24/2021 CBC AUTO W DIFF MCH 30.0 pg 27.0-3 4.0 Not Available [facility] (Lab Registration) [address] [place], [address], 06/24/2021 13:47:08 06/24/19 22 06/24/2021 CBC AUTO W DIFF MCHC 33.6 g/dL 32.0-3 6.0 Not Available [facility] (Lab Registration) [address] [place], [address], 06/24/2021 13:47:08 06/24/19 22 06/24/2021 CBC AUTO W DIFF platelet count 214 10 150-45 0 Not Available [facility] (Lab Registration) [address] [place], [address], 06/24/2021 13:47:08 06/24/19 22 06/24/2021 CBC AUTO W DIFF RDW 12.6 % 12.3-1 5.1 Not Available [facility] (Lab Registration) [address] [place], [address], 06/24/2021 13:47:08 06/24/19 22 06/24/2021 CBC AUTO W DIFF MPV 10.5 fL 7.4-10 .4 high Not Available [facility] (Lab Registration) [address] [place], [address], 06/24/2021 13:47:08 06/24/19 22 06/24/2021 CBC AUTO W DIFF granulocyte% 61.6 % 40-75 Not Available [facility] [address] [place], [address], 06/24/2021 13:47:08 06/24/19 22 06/24/2021 CBC AUTO W DIFF lymphocyte% 27.4 % 15-57 Not Available [facility] (Lab Registration) [address] [place], [address], 06/24/2021 13:47:08 06/24/19 22 06/24/2021 CBC AUTO W DIFF monocyte% 10.3 % 4.0-12 .0 Not Available [facility] (Lab Registration) [address] [place], [address], 06/24/2021 13:47:08 06/24/19 22 06/24/2021 CBC AUTO W DIFF eosinophil% 0.0 % 0.0-4. 0 Not Available [facility] (Lab Registration) [address] [place], [address], 06/24/2021 13:47:08 06/24/19 22 06/24/2021 CBC AUTO W DIFF basophil% 0.1 % 0.0-1. 0 Not Available [facility] (Lab Registration) [address] [place], [address], 06/24/2021 13:47:08 06/24/19 22 06/24/2021 CBC AUTO W DIFF immature granulocytes % 0.6 % 0.0-0. 8 Not Available [facility] (Lab Registration) [address] [place], [address], 06/24/2021 13:47:08 06/24/19 22 06/24/2021 CBC AUTO W DIFF granulocyte# 5.02 10 Not Available [facility] ([facility]) [address] [place], [address], 06/24/2021 13:47:08 06/24/19 22 06/24/2021 CBC AUTO W DIFF lymphocyte# 2.23 10 Not Available [facility] (Lab Registration) [address] [place], [address], 06/24/2021 13:47:08 06/24/19 22 06/24/2021 CBC AUTO W DIFF monocyte# 0.84 10 Not Available [facility] (Lab Registration) [address] [place], [address], 06/24/2021 13:47:08 06/24/19 22 06/24/2021 CBC AUTO W DIFF eosinophil# 0.00 10 Not Available [facility] (Lab Registration) [address] [place], [address], 06/24/2021 13:47:08 06/24/19 22 06/24/2021 CBC AUTO W DIFF basophil# 0.01 10 Not Available [facility] (Lab Registration) [address], [place], [address], 06/24/2021 13:47:08 06/24/19 22 06/24/2021 CBC AUTO W DIFF immature granulocytes # 0.05 10 Not Available [facility] (Lab Registration) [address], [place], [address], 06/24/2021 13:47:08 06/24/19 22 06/24/2021 CBC AUTO W DIFF manual differential NO Not Available [facility] (Lab Registration) [address] [place], [address], 06/24/2021 13:47:08 06/24/19 22 06/24/2021 CBC AUTO W DIFF note Unles s other sequeira noted testi ng perfo rmed at: [facility] [address] [place] [address] [phone] Dez haley MD CLIA: [id number] Not Available [facility] (Lab Registration) [address] [place], [address], 06/24/2021 13:47:08 06/24/19 22 06/24/2021 COMP METAB OLIC PANEL sodium 138 mmol/ L 136-14 5 Not Available [facility] (Lab Registration) [address] [place], [address], 06/24/2021 14:03:51 06/24/19 22 06/24/2021 COMP METAB OLIC PANEL potassium 4.3 mmol/ L 3.5-5. 1 Not Available [facility] (Lab Registration) [address] [place], [address], 06/24/2021 14:03:51 06/24/19 22 06/24/2021 COMP METAB OLIC PANEL chloride 99 mmol/ L 98-107 Not Available [facility] (Lab Registration) [address] [place], [address], 06/24/2021 14:03:51 06/24/19 22 06/24/2021 COMP METAB OLIC PANEL carbon dioxide 26 mmol/ L 21-32 Not Available [facility] (Lab Registration) [address] [place], [address], 06/24/2021 14:03:51 06/24/19 22 06/24/2021 COMP METAB OLIC PANEL anion gap 13.0 Not Available [facility] (Lab Registration) [address] [place], [address], 06/24/2021 14:03:51 06/24/19 22 06/24/2021 COMP METAB OLIC PANEL glucose 102 mg/dL 70-110 Not Available [facility] (Lab Registration) [address] [place], [address], 06/24/2021 14:03:51 06/24/19 22 06/24/2021 COMP METAB OLIC PANEL blood urea nitrogen 30 mg/dL 7-18 high Not Available [facility] (Lab Registration) [address] [place], [address], 06/24/2021 14:03:51 06/24/19 22 06/24/2021 COMP METAB OLIC PANEL creatinine 1.3 mg/dL 0.8-1. 3 Not Available [facility] (Lab Registration) [address] [place], [address], 06/24/2021 14:03:51 06/24/19 22 06/24/2021 COMP METAB OLIC PANEL BUN/creatini ne ratio 23.1 ratio 9-21 high Not Available [facility] (Lab Registration) [address] [place], [address], 06/24/2021 14:03:51 06/24/19 22 06/24/2021 COMP METAB OLIC PANEL estimated glom filtration rate 59 mL/mi n >60- low Not Available [facility] (Lab Registration) [address] [place], [address], 06/24/2021 14:03:51 06/24/19 22 06/24/2021 COMP METAB OLIC PANEL total protein 8.2 g/dL 6.4-8. 2 Not Available [facility] (Lab Registration) [address] [place], [address], 06/24/2021 14:03:51 06/24/19 22 06/24/2021 COMP METAB OLIC PANEL albumin 3.4 g/dL 3.4-5. 0 Not Available [facility] (Lab Registration) [address] [place], [address], 06/24/2021 14:03:51 06/24/19 22 06/24/2021 COMP METAB OLIC PANEL calcium 9.0 mg/dL 8.5-10 .1 Not Available [facility] (Lab Registration) [address] [place], [address], 06/24/2021 14:03:51 06/24/19 22 06/24/2021 COMP METAB OLIC PANEL corrected calcium 9.5 mg/dL 8.5-10 .1 Not Available [facility] (Lab Registration) [address] [place], [address], 06/24/2021 14:03:51 06/24/19 22 06/24/2021 COMP METAB OLIC PANEL bilirubin total 0.9 mg/dL 0.4-1. 5 Not Available [facility] (Lab Registration) [address] [place], [address], 06/24/2021 14:03:51 06/24/19 22 06/24/2021 COMP METAB OLIC PANEL AST (SGOT) 104 U/L 15-37 high Not Available [facility] (Lab Registration) [address] [place], [address], 06/24/2021 14:03:51 06/24/19 22 06/24/2021 COMP METAB OLIC PANEL ALT (SGPT) 67 U/L 12-78 Not Available [facility] (Lab Registration) [address] [place], [address], 06/24/2021 14:03:51 06/24/19 22 06/24/2021 COMP METAB OLIC PANEL alk phosphatase 41 U/L 56-119 low Not Available [facility] (Lab Registration) [address] [place], [address], 06/24/2021 14:03:51 06/24/19 22 06/24/2021 COMP METAB OLIC PANEL note Unles s other sequeira noted testi ng perfo rmed at: [facility] [place] [address] [phone] Dez haley MD CLIA: [id number] Not Available [facility] (Lab Registration) [address], [place], [address], 06/24/2021 14:03:51 06/24/19 22 06/24/2021 [place]OP[place] QUANT troponin 12.2 pg/mL 0-5 critical high HIGH SENSI TVITY TROPO [place] I REFER ENCE RANGE LOW RISK OF CARDI AC EVENT IF RESUL TS ARE /= 75.1 PG/ML FOR MALE PATIE NTS >/= 50.1 PG/ML FOR FEMAL E PATIE NTS 2-JARDA R TROPO [place] IS RECOM VERENA D FOR ANY PATIE NT THAT FALLS INTO THE INDET ERMIN ATE OR HIGH RISK CATEG ORIES . BIO TIN AND OTHER SUPPL EMENT S HAVE BEEN KNOWN TO ELEVA TE TROPO [place] VAUES IN IRVING L INDIV IDUAL S Not Available [facility] (Lab Registration) [address] [place], [address], 06/24/2021 14:26:56 06/24/19 22 06/24/2021 TROPO [place] QUANT note Unles s other sequeira noted testi ng perfo rmed at: [facility] [address] [place] [address] [phone] Dez haley MD CLIA: [id number] Not Available [facility] (Lab Registration) [address], [place], [address], 06/24/2021 14:26:56 06/24/19 22 06/24/2021 D-DIM ER QUANT ITATI VE D-dimer quantitative 587 NG/mL 0-500 critical high Not Available [facility] (Lab Registration) [address] [place], [address], 06/24/2021 14:52:16 06/24/19 22 06/24/2021 D-DIM ER QUANT ITATI VE note Unles s other sequeira noted testi ng perfo rmed at: [facility] [address] [place] [address] [phone] Dez haley MD CLIA: [id number] Not Available [facility] (Lab Registration) [address] [place], [address], 06/24/2021 14:52:16 06/24/19 22 06/24/2021 TROPO [place] [...] IRVING L INDIV IDUAL S Not Available [facility] (Lab Registration) [address] [place], [address], 06/24/2021 15:57:27 06/24/19 22 06/24/2021 TROPO [place] I 2 HOUR MARIANNA COL note Unles s other sequeira noted testi ng perfo rmed at: [facility] [address] [place] [address] [phone] Dez haley MD CLIA: [id number] Not Available [facility] (Lab Registration) [address], [place], [address], 06/24/2021 15:57:27 06/24/19 22 06/24/2021 RVP PANEL WITH COVID 19 - BRBN adenovirus NOT DETECT ED not detect ed Not Available [facility] (Lab Registration) [address], [place], [address], 06/24/2021 16:07:58 06/24/19 22 06/24/2021 RVP PANEL WITH COVID 19 - [facility] coronavirus 229E NOT DETECT ED not detect ed Not Available [facility] (Lab Registration) [address] [place], [address], 06/24/2021 16:07:58 06/24/19 22 06/24/2021 RVP PANEL WITH COVID 19 - BR[facility] coronavirus hku1 NOT DETECT ED not detect ed Not Available [facility] (Lab Registration) [address] [place], [address], 06/24/2021 16:07:58 06/24/19 22 06/24/2021 RVP PANEL WITH COVID 19 - BRBN coronavirus nl63 NOT DETECT ED not detect ed Not Available [facility] (Lab Registration) [address] [place], [address], 06/24/2021 16:07:58 06/24/19 22 06/24/2021 RVP PANEL WITH COVID 19 - BRBN coronavirus oc43 NOT DETECT ED not detect ed Not Available [facility] (Lab Registration) [address] [place], [address], 06/24/2021 16:07:58 06/24/19 22 06/24/2021 RVP PANEL WITH COVID 19 - BRBN coronavirus 2 (sars-cov-2) DETECT ED not detect ed delta Not Available [facility] (Lab Registration) [address], [place], [address], 06/24/2021 16:07:58 06/24/19 22 06/24/2021 RVP PANEL WITH COVID 19 - BRBN human metapneumovi roxi NOT DETECT ED not detect ed Not Available [facility] (Lab Registration) [address], [place], [address], 06/24/2021 16:07:58 06/24/19 22 06/24/2021 RVP PANEL WITH COVID 19 - BRBN human rhinovirus/e nterovirus NOT DETECT ED not detect ed Not Available [facility] (Lab Registration) [address] [place], [address], 06/24/2021 16:07:58 06/24/19 22 06/24/2021 RVP PANEL WITH COVID 19 - BRBN influenza A NOT DETECT ED not detect ed Not Available [facility] (Lab Registration) [address] [place], [address], 06/24/2021 16:07:58 06/24/19 22 06/24/2021 RVP PANEL WITH COVID 19 - BRBN influenza A/H1 N/A not detect ed Not Available [facility] (Lab Registration) [address] [place], [address], 06/24/2021 16:07:58 06/24/19 22 06/24/2021 RVP PANEL WITH COVID 19 - BRBN influenza A/H1 2009 N/A not detect ed Not Available [facility] (Lab Registration) [address] [place], [address], 06/24/2021 16:07:58 06/24/19 22 06/24/2021 RVP PANEL WITH COVID 19 - BRBN influenza A/H3 N/A not detect ed Not Available [facility] (Lab Registration) [address], [place], [address], 06/24/2021 16:07:58 06/24/19 22 06/24/2021 RVP PANEL WITH COVID 19 - BRBN influenza B NOT DETECT ED not detect ed Not Available [facility] (Lab Registration) [address] [place], [address], 06/24/2021 16:07:58 06/24/19 22 06/24/2021 RVP PANEL WITH COVID 19 - BRBN parainfluenz a 1 (piv1) NOT DETECT ED not detect ed Not Available [facility] (Lab Registration) [address] [place], [address], 06/24/2021 16:07:58 06/24/19 22 06/24/2021 RVP PANEL WITH COVID 19 - BRBN parainfluenz a 2 (piv2) NOT DETECT ED not detect ed Not Available [facility] (Lab Registration) [address] [place], [address], 06/24/2021 16:07:58 06/24/19 22 06/24/2021 RVP PANEL WITH COVID 19 - BRBN parainfluenz a 3 (piv3) NOT DETECT ED not detect ed Not Available [facility] (Lab Registration) [address] [place], [address], 06/24/2021 16:07:58 06/24/19 22 06/24/2021 RVP PANEL WITH COVID 19 - BRBN parainfluenz a 4 (piv4) NOT DETECT ED not detect ed Not Available [facility] (Lab Registration) [address] [place], [address], 06/24/2021 16:07:58 06/24/19 22 06/24/2021 RVP PANEL WITH COVID 19 - BRBN respiratory syncytial virus NOT DETECT ED not detect ed Not Available [facility] (Lab Registration) [address] [place], [address], 06/24/2021 16:07:58 06/24/19 22 06/24/2021 RVP PANEL WITH COVID 19 - BRBN bordetella parapertussi s NOT DETECT ED not detect ed Not Available [facility] (Lab Registration) [address], [place], [address], 06/24/2021 16:07:58 06/24/19 22 06/24/2021 RVP PANEL WITH COVID 19 - BRBN bordetella pertussis NOT DETECT ED not detect ed Not Available [facility] (Lab Registration) [address], [place], [address], 06/24/2021 16:07:58 06/24/19 22 06/24/2021 RVP PANEL WITH COVID 19 - BRBN chlamydophil a pneumoniae NOT DETECT ED not detect ed Not Available [facility] (Lab Registration) [address], [place], [address], 06/24/2021 16:07:58 06/24/19 22 06/24/2021 RVP PANEL WITH COVID 19 - BRBN mycoplasma pneumoniae NOT DETECT ED not detect ed Not Available [facility] (Lab Registration) [address], [place], [address], 06/24/2021 16:07:58 06/24/19 22 06/24/2021 RVP PANEL WITH COVID 19 - BRBN note Unles s other sequeira noted testi ng perfo rmed at: [facility] [address] [place] [address] [phone] Dez haley MD CLIA: [id number] Not Available [facility] (Lab Registration) [address], [place], [address], 06/24/2021 16:07:58 03/19/20 23 03/22/2023 LIPID PANEL , STAND SARAN cholesterol, total 152 mg/dL <200 normal Not Available [facility] [place] [facility] [address] [facility], [place], [address], 03/22/2023 12:35:59 03/19/2003/22/2023 LIPID PANEL , STAND SARAN HDL cholesterol 29 mg/dL > or = 40 low Not Available [facility] [place] [facility] [address] [facility], [place], [address], 03/22/2023 12:35:59 03/19/2003/22/2023 LIPID PANEL , STAND SARAN triglyceride s 233 mg/dL <150 high If a non-f astin g speci men was colle cted, consi en repea t trigl yceri de testi ng on a fasti ng speci men if clini nichelle indic ated. Rick torres et al. J. of Clin. Lipid ol. 2015; 9:129 -169. Not Available [facility] [place] [facility] [address] [facility], [place], [address], 03/22/2023 12:35:59 03/19/2003/22/2023 LIPID PANEL , STAND [...] 2013; 310(1 9): 2061- 2068 (http ://ed kgati on.Qu Anny keating tics. com/f aq/FA Q164) Not Available [facility] [place] [facility] [address] [facility], [place], [address], 03/22/2023 12:35:59 03/19/2003/22/2023 LIPID PANEL , STAND SARAN chol/HDLC ratio 5.2 (calc ) <5.0 high Not Available [facility] [place] [facility] [address] [facility] [place], [address], 03/22/2023 12:35:59 03/19/2003/22/2023 LIPID PANEL , STAND SARAN non HDL cholesterol 123 mg/dL _(oliva c) <130 normal For patie nts with diabe adam plus 1 major ASCVD risk facto r, treat ing to a non-H DL-C goal of <100 mg/dL (LDL- C of <70 mg/dL ) is consi dered a thera peuti c optio n. Not Available [facility] [place] [facility] [address] [facility] [place], [address], 03/22/2023 12:35:59 03/19/2003/22/2023 COMPR EHENS EMELY METAB OLIC PANEL glucose 113 mg/dL 65-99 high Fasti ng refer ence inter merle For someo ne witho ut known diabe adam, a gluco se value betwe en 100 and 125 mg/dL is consi stent with predi abete s and shoul d be confi rmed with a follo w-up test. Not Available [facility] [place] [facility] [address] [facility] [place], [address], 03/22/2023 12:36:00 03/19/2003/22/2023 COMPR EHENS EMELY METAB OLIC PANEL urea nitrogen (BUN) 13 mg/dL 7-25 normal Not Available [facility] [place] [facility] [address] [facility] [place], [address], 03/22/2023 12:36:00 03/19/2003/22/2023 COMPR EHENS EMELY METAB OLIC PANEL creatinine 1.03 mg/dL 0.70-1 .35 normal Not Available [facility] [place] [facility] [address] [facility] [place], [address], 03/22/2023 12:36:00 03/19/2003/22/2023 COMPR EHENS EMELY METAB OLIC PANEL eGFR 80 mL/mi n/1.7 3m2 > or = 60 normal Not Available [facility] [place] [facility] [address] [facility] [place], [address], 03/22/2023 12:36:00 03/19/2003/22/2023 COMPR EHENS EMELY METAB OLIC PANEL BUN/creatini ne ratio SEE NOTE: (calc ) 6-22 Not Repor carmen: BUN and Creat inine are withi n refer ence range . Not Available [facility] [place] [facility] [address] [place], [address], 03/22/2023 12:36:00 03/19/2003/22/2023 COMPR EHENS EMELY METAB OLIC PANEL sodium 134 mmol/ L 135-14 6 low Not Available [facility] [place] [facility] [address] [place], [address], 03/22/2023 12:36:00 03/19/2003/22/2023 COMPR EHENS EMELY METAB OLIC PANEL potassium 4.5 mmol/ L 3.5-5. 3 normal Not Available [facility] [address] [place], [address], 03/22/2023 12:36:00 03/19/2003/22/2023 COMPR EHENS EMELY METAB OLIC PANEL chloride 99 mmol/ L 98-110 normal Not Available [facility] [place] [facility] [address] [place], [address], 03/22/2023 12:36:00 03/19/2003/22/2023 COMPR EHENS EMELY METAB OLIC PANEL carbon dioxide 26 mmol/ L 20-32 normal Not Available [facility] [place] [facility] [address] [place], [address], 03/22/2023 12:36:00 03/19/2003/22/2023 COMPR EHENS EMELY METAB OLIC PANEL calcium 9.6 mg/dL 8.6-10 .3 normal Not Available [facility] [address] [facility] [place], [address], 03/22/2023 12:36:00 03/19/2003/22/2023 COMPR EHENS EMELY METAB OLIC PANEL protein, total 6.9 g/dL 6.1-8. 1 normal Not Available [facility] [address] [facility] [place], [address], 03/22/2023 12:36:00 03/19/2003/22/2023 COMPR EHENS EMELY METAB OLIC PANEL albumin 4.4 g/dL 3.6-5. 1 normal Not Available [facility] [address] [facility] [place], [address], 03/22/2023 12:36:00 03/19/2003/22/2023 COMPR EHENS EMELY METAB OLIC PANEL globulin 2.5 g/dL_ (calc ) 1.9-3. 7 normal Not Available [facility] [address] [facility] [place], [address], 03/22/2023 12:36:00 03/19/2003/22/2023 COMPR EHENS EMELY METAB OLIC PANEL albumin/glob ulin ratio 1.8 (calc ) 1.0-2. 5 normal Not Available [facility] [address] [facility] [place], [address], 03/22/2023 12:36:00 03/19/2003/22/2023 COMPR EHENS EMELY METAB OLIC PANEL bilirubin, total 0.7 mg/dL 0.2-1. 2 normal Not Available [facility] [address] [facility] [place], [address], 03/22/2023 12:36:00 03/19/2003/22/2023 COMPR EHENS EMELY METAB OLIC PANEL alkaline phosphatase 57 U/L 35-144 normal Not Available [facility] [place] [facility] [address] [facility], [place], [address], 03/22/2023 12:36:00 03/19/2003/22/2023 COMPR EHENS EMELY METAB OLIC PANEL AST 42 U/L 10-35 high Not Available [facility] [place] [facility] [address] [facility], [place], [address], 03/22/2023 12:36:00 03/19/2003/22/2023 COMPR EHENS EMELY METAB OLIC PANEL ALT 58 U/L 9-46 high Not Available [facility] [place] [facility] [address] [facility], [place], [address], 03/22/2023 12:36:00 03/19/2003/22/2023 HEMOG LOBIN A1C hemoglobin [...] child carmen. Not Available [facility] [place] [facility] [address] [facility], [place], [address], 03/22/2023 12:36:01 03/19/2003/22/2023 TSH TSH 2.75 mIU/L 0.40-4 .50 normal Not Available [facility] [place] [facility] [address] [place], [address], 03/22/2023 12:36:01 03/19/2003/22/2023 CBC (INCL UDES DIFF/ PLT) white blood cell count 9.1 thous and/u L 3.8-10 .8 normal Not Available [facility] [address], [place], [address], 03/22/2023 12:36:02 03/19/2003/22/2023 CBC (INCL UDES DIFF/ PLT) red blood cell count 6.01 keysha on/uL 4.20-5 .80 high Not Available [facility] [place] [facility] [address], [place], [address], 03/22/2023 12:36:02 03/19/2003/22/2023 CBC (INCL UDES DIFF/ PLT) hemoglobin 18.5 g/dL 13.2-1 7.1 high Not Available [facility] [place] [facility] [address], [place], [address], 03/22/2023 12:36:02 03/19/2003/22/2023 CBC (INCL UDES DIFF/ PLT) hematocrit 56.1 % 38.5-5 0.0 high Not Available [facility] [address], [place], [address], 03/22/2023 12:36:02 03/19/2003/22/2023 CBC (INCL UDES DIFF/ PLT) MCV 93.3 fL 80.0-1 00.0 normal Not Available [facility] [place] [facility] [address] [facility] [place], [address], 03/22/2023 12:36:02 03/19/2003/22/2023 CBC (INCL UDES DIFF/ PLT) MCH 30.8 pg 27.0-3 3.0 normal Not Available [facility] [place] [facility] [address], [place], [address], 03/22/2023 12:36:02 03/19/2003/22/2023 CBC (INCL UDES DIFF/ PLT) MCHC 33.0 g/dL 32.0-3 6.0 normal Not Available [facility] [place] [facility] [address], [place], [address], 03/22/2023 12:36:02 03/19/2003/22/2023 CBC (INCL UDES DIFF/ PLT) RDW 13.3 % 11.0-1 5.0 normal Not Available [facility] [place] [facility] [address], [place], [address], 03/22/2023 12:36:02 03/19/2003/22/2023 CBC (INCL UDES DIFF/ PLT) platelet count 238 thous and/u L 140-40 0 normal Not Available [facility] [place] [facility] [address], [place], [address], 03/22/2023 12:36:02 03/19/2003/22/2023 CBC (INCL UDES DIFF/ PLT) MPV 10.1 fL 7.5-12 .5 normal Not Available [facility] [place] [facility] [address], [place], [address], 03/22/2023 12:36:02 03/19/2003/22/2023 CBC (INCL UDES DIFF/ PLT) absolute neutrophils 3804 cells /uL 1500-7 800 normal Not Available [facility] [place] [facility] [address], [place], [address], 03/22/2023 12:36:02 03/19/2003/22/2023 CBC (INCL UDES DIFF/ PLT) absolute lymphocytes 4213 cells /uL 850-39 00 high Not Available [facility] [place] [facility] [address], [place], [address], 03/22/2023 12:36:02 03/19/2003/22/2023 CBC (INCL UDES DIFF/ PLT) absolute monocytes 810 cells /uL 200-95 0 normal Not Available [facility] [place] [facility] [address], [place], [address], 03/22/2023 12:36:02 03/19/2003/22/2023 CBC (INCL UDES DIFF/ PLT) absolute eosinophils 209 cells /uL 15-500 normal Not Available [facility] [place] [facility] [address], [place], [address], 03/22/2023 12:36:02 03/19/2003/22/2023 CBC (INCL UDES DIFF/ PLT) absolute basophils 64 cells /uL 0-200 normal Not Available [facility] [place] [facility] [address], [place], [address], 03/22/2023 12:36:02 03/19/2003/22/2023 CBC (INCL UDES DIFF/ PLT) neutrophils 41.8 % normal Not Available [facility] [place] [facility] [address], [place], [address], 03/22/2023 12:36:02 03/19/2003/22/2023 CBC (INCL UDES DIFF/ PLT) lymphocytes 46.3 % normal Not Available [facility] [place] [facility] [address], [place], [address], 03/22/2023 12:36:02 03/19/2003/22/2023 CBC (INCL UDES DIFF/ PLT) monocytes 8.9 % normal Not Available [facility] [place] [facility] [address], [place], [address], 03/22/2023 12:36:02 03/19/2003/22/2023 CBC (INCL UDES DIFF/ PLT) eosinophils 2.3 % normal Not Available [facility] [place] [facility] [address] [place], [address], 03/22/2023 12:36:02 03/19/2003/22/2023 CBC (INCL UDES DIFF/ PLT) basophils 0.7 % normal Not Available [facility] [place] [facility] [address] [place], [address], 03/22/2023 12:36:02 03/19/2003/22/2023 HEPAT ITIS C AB [...] a test for HCV RNA (test code 52133 ) is sugramon jenningsd. For addit ional infor juan josé albright e refer to http: //[facility] miguel toledoque stdia gnost ics.c om/fa q/FAQ 22v1 (This link is being provi ded for infor juan josé webb/ educa hailey l purpo ses only. ) Not Available [facility] [place] [facility] [address] [place], [address], 03/22/2023 12:36:03 11/22/1911/22/2024 LIPID PANEL , STAND SARAN cholesterol, total 170 mg/dL <200 normal Not Available [facility] [place] [facility] [address] [place], [address], 11/22/2024 10:08:16 11/22/19 25 11/22/2024 LIPID PANEL , STAND SARAN HDL cholesterol 35 mg/dL > or = 40 low Not Available [facility] [place] [facility] [address], [place], [address], 11/22/2024 10:08:16 11/22/19 25 11/22/2024 LIPID PANEL , STAND SARAN triglyceride s 212 mg/dL <150 high If a non-f astin g speci men was colle cted, consi en repea t trigl yceri de testi ng on a fasti ng speci men if clini nichelle indic ated. Rick torres et al. J. of Clin. Lipid ol. 2015; 9:129 -169. Not Available [facility] [place] [facility] [address], [place], [address], 11/22/2024 10:08:16 11/22/19 25 11/22/2024 LIPID PANEL [...] n, which is a valid ated novel harikao d provi ding chaz r accur acy than the Fried [place] equat ion in the estim ation of LDL-C . Sharri kimbrough SS et al. KENNEDY. 2013; 310(1 9): 2061- 2068 (http ://ed ucati on.Qu estDi [place]. com/f aq/FA Q164) Not Available [facility] [place] [facility] [address], [place], [address], 11/22/2024 10:08:16 11/22/19 25 11/22/2024 LIPID PANEL , STAND SARAN chol/HDLC ratio 4.9 (calc ) <5.0 normal Not Available [facility] [place] [facility] [address], [place], [address], 11/22/2024 10:08:16 11/22/19 25 11/22/2024 LIPID PANEL , STAND SARAN non HDL cholesterol 135 mg/dL _(oliva c) <130 high For patie nts with diabe adam plus 1 major ASCVD risk facto r, treat ing to a non-H DL-C goal of <100 mg/dL (LDL- C of <70 mg/dL ) is consi dered a thera peuti c optio n. Not Available [facility] [place] [facility] [address] [facility] [place] [place], [address], 11/22/2024 10:08:16 11/22/19 25 11/22/2024 COMPR EHENS EMELY METAB OLIC PANEL glucose 117 mg/dL 65-99 high Fasti ng refer ence inter merle For someo ne witho ut known diabe adam, a gluco se value betwe en 100 and 125 mg/dL is consi stent with predi abete s and shoul d be confi rmed with a follo w-up test. Not Available [facility] [place] [facility] [address] [facility] [place], [address], 11/22/2024 10:08:17 11/22/19 25 11/22/2024 COMPR EHENS EMELY METAB OLIC PANEL urea nitrogen (BUN) 22 mg/dL 7-25 normal Not Available [facility] [place] [facility] [address] [place], [address], 11/22/2024 10:08:17 11/22/19 25 11/22/2024 COMPR EHENS EMELY METAB OLIC PANEL creatinine 0.92 mg/dL 0.70-1 .35 normal Not Available [facility] [place] [facility] [address] [place], [address], 11/22/2024 10:08:17 11/22/19 25 11/22/2024 COMPR EHENS EMELY METAB OLIC PANEL eGFR 91 mL/mi n/1.7 3m2 > or = 60 normal Not Available [facility] [place] [facility] [address] [facility] [place], [address], 11/22/2024 10:08:17 11/22/19 25 11/22/2024 COMPR EHENS EMELY METAB OLIC PANEL BUN/creatini ne ratio SEE NOTE: (calc ) 6-22 Not Repor carmen: BUN and Creat inine are withi n refer ence range . Not Available [facility] [employer] [facility] [address] [facility] [place], [address], 11/22/2024 10:08:17 11/22/19 25 11/22/2024 COMPR EHENS EMELY METAB OLIC PANEL sodium 138 mmol/ L 135-14 6 normal Not Available [facility] [address] [facility] [place], [address], 11/22/2024 10:08:17 11/22/19 25 11/22/2024 COMPR EHENS EMELY METAB OLIC PANEL potassium 4.6 mmol/ L 3.5-5. 3 normal Not Available [facility] [employer] [facility] [address] [facility] [place], [address], 11/22/2024 10:08:17 11/22/19 25 11/22/2024 COMPR EHENS EMELY METAB OLIC PANEL chloride 103 mmol/ L 98-110 normal Not Available [facility] [address] [facility] [place], [address], 11/22/2024 10:08:17 11/22/19 25 11/22/2024 COMPR EHENS EMELY METAB OLIC PANEL carbon dioxide 26 mmol/ L 20-32 normal Not Available [facility] [address] [place], [address], 11/22/2024 10:08:17 11/22/19 25 11/22/2024 COMPR EHENS EMELY METAB OLIC PANEL calcium 9.7 mg/dL 8.6-10 .3 normal Not Available [facility] [address] [place], [address], 11/22/2024 10:08:17 11/22/19 25 11/22/2024 COMPR EHENS EMELY METAB OLIC PANEL protein, total 7.2 g/dL 6.1-8. 1 normal Not Available [facility] [address] [place], [address], 11/22/2024 10:08:17 11/22/19 25 11/22/2024 COMPR EHENS EMELY METAB OLIC PANEL albumin 4.5 g/dL 3.6-5. 1 normal Not Available [facility] [address] [place] [place], [address], 11/22/2024 10:08:17 11/22/19 25 11/22/2024 COMPR EHENS EMELY METAB OLIC PANEL globulin 2.7 g/dL_ (calc ) 1.9-3. 7 normal Not Available [facility] [address] [place], [address], 11/22/2024 10:08:17 11/22/19 25 11/22/2024 COMPR EHENS EMELY METAB OLIC PANEL albumin/glob ulin ratio 1.7 (calc ) 1.0-2. 5 normal Not Available [facility] [facility] [place], [address], 11/22/2024 10:08:17 11/22/19 25 11/22/2024 COMPR EHENS EMELY METAB OLIC PANEL bilirubin, total 0.9 mg/dL 0.2-1. 2 normal Not Available [facility] [place], [address], 11/22/2024 10:08:17 11/22/19 25 11/22/2024 COMPR EHENS EMELY METAB OLIC PANEL alkaline phosphatase 58 U/L 35-144 normal Not Available [facility] [employer] [facility] [address], [place], [address], 11/22/2024 10:08:17 11/22/19 25 11/22/2024 COMPR EHENS EMELY METAB OLIC PANEL AST 50 U/L 10-35 high Not Available [facility] [address] [place], [address], 11/22/2024 10:08:17 11/22/19 25 11/22/2024 COMPR EHENS EMELY METAB OLIC PANEL ALT 56 U/L 9-46 high Not Available [facility] [place] [facility] [address] [place], [address], 11/22/2024 10:08:17 11/22/19 25 11/22/2024 HEMOG LOBIN [...] child carmen. Not Available [facility] [address] [place], [address], 11/22/2024 10:08:18 11/22/1911/22/2024 TSH TSH 4.54 mIU/L 0.40-4 .50 high Not Available [facility] [place] [facility] [address] [place], [address], 11/22/2024 10:08:19 11/22/19 25 11/22/2024 CBC (INCL UDES DIFF/ PLT) white blood cell count 9.6 thous and/u L 3.8-10 .8 normal Not Available [facility] [place] [facility] [address] [facility], [place], [address], 11/22/2024 10:08:19 11/22/19 25 11/22/2024 CBC (INCL UDES DIFF/ PLT) red blood cell count 6.29 keysha on/uL 4.20-5 .80 high Not Available [facility] [place] [facility] [address] [facility], [place], [address], 11/22/2024 10:08:19 11/22/1911/22/2024 CBC (INCL UDES DIFF/ PLT) hemoglobin 19.2 g/dL 13.2-1 7.1 high Not Available [facility] [place] [facility] [address], [place], [address], 11/22/2024 10:08:19 11/22/1911/22/2024 CBC (INCL UDES DIFF/ PLT) hematocrit 59.7 % 38.5-5 0.0 high Not Available [facility] [place] [facility] [address] [place], [address], 11/22/2024 10:08:19 11/22/1911/22/2024 CBC (INCL UDES DIFF/ PLT) MCV 94.9 fL 80.0-1 00.0 normal Not Available [facility] [place] [facility] [address] [place], [address], 11/22/2024 10:08:19 11/22/19 25 11/22/2024 CBC (INCL UDES DIFF/ PLT) MCH 30.5 pg 27.0-3 3.0 normal Not Available [facility] [place] [facility] [address], [place], [address], 11/22/2024 10:08:19 11/22/19 25 11/22/2024 CBC (INCL UDES DIFF/ PLT) MCHC 32.2 g/dL 32.0-3 6.0 normal For adult s, a sligh t decre ase in the calcu lated MCHC value (in the range of 30 to 32 g/dL) is most likel y not clini nichelle signi fican t; noman er, it shoul d be inter prete d with cauti on in corre [facility] n with other red cell aye eters and the patie nt's clini oliva condi tion. Not Available [facility] [place] [facility] [address], [place], [address], 11/22/2024 10:08:19 11/22/1911/22/2024 CBC (INCL UDES DIFF/ PLT) RDW 13.2 % 11.0-1 5.0 normal Not Available [facility] [place] [facility] [address], [place], [address], 11/22/2024 10:08:19 11/22/1911/22/2024 CBC (INCL UDES DIFF/ PLT) platelet count 256 thous and/u L 140-40 0 normal Not Available [facility] [place] [facility] [address], [place], [address], 11/22/2024 10:08:19 11/22/19 25 11/22/2024 CBC (INCL UDES DIFF/ PLT) MPV 9.2 fL 7.5-12 .5 normal Not Available [facility] [place] [facility] [address], [place], [address], 11/22/2024 10:08:19 11/22/19 25 11/22/2024 CBC (INCL UDES DIFF/ PLT) absolute neutrophils 4886 cells /uL 1500-7 800 normal Not Available [facility] [place] [facility] [address], [place], [address], 11/22/2024 10:08:19 11/22/19 25 11/22/2024 CBC (INCL UDES DIFF/ PLT) absolute lymphocytes 3677 cells /uL 850-39 00 normal Not Available [facility] [place] [facility] [address], [place], [address], 11/22/2024 10:08:19 11/22/19 25 11/22/2024 CBC (INCL UDES DIFF/ PLT) absolute monocytes 768 cells /uL 200-95 0 normal Not Available [facility] [place] [facility] [address], [place], [address], 11/22/2024 10:08:19 11/22/19 25 11/22/2024 CBC (INCL UDES DIFF/ PLT) absolute eosinophils 211 cells /uL 15-500 normal Not Available [facility] [place] [facility] [address] [facility], [place], [address], 11/22/2024 10:08:19 11/22/19 25 11/22/2024 CBC (INCL UDES DIFF/ PLT) absolute basophils 58 cells /uL 0-200 normal Not Available [facility] [place] [facility] [address], [place], [address], 11/22/2024 10:08:19 11/22/19 25 11/22/2024 CBC (INCL UDES DIFF/ PLT) neutrophils 50.9 % normal Not Available [facility] [place] [facility] [address], [place], [address], 11/22/2024 10:08:19 11/22/19 25 11/22/2024 CBC (INCL UDES DIFF/ PLT) lymphocytes 38.3 % normal Not Available [facility] [place] [facility] [address], [place], [address], 11/22/2024 10:08:19 11/22/19 25 11/22/2024 CBC (INCL UDES DIFF/ PLT) monocytes 8.0 % normal Not Available [facility] [place] [facility] [address] [facility], [place], [address], 11/22/2024 10:08:19 11/22/19 25 11/22/2024 CBC (INCL UDES DIFF/ PLT) eosinophils 2.2 % normal Not Available [facility] [place] [facility] [address] [facility], [place], [address], 11/22/2024 10:08:19 11/22/19 25 11/22/2024 CBC (INCL UDES DIFF/ PLT) basophils 0.6 % normal Not Available [facility] [place] [facility] [address] [facility], [place], [address], 11/22/2024 10:08:19 06/24/19 22 06/24/2021 CT, chest , w/o contr [facility] [address] [place] [address] Phone: Fax: Name: HARMONY TILLEY Exam Date: 022 : [birth year] Age 66 Gender : M Access ion: [id number] Physic nery: JESSICA MCLAUGHLIN [place]ili ty: [place] Fac[place] HSV: Outpat ient Exam: CT [...] you for referr ing HARMONY TILLEY to [facility]. Legall y authen ticate d by MELVIN MENDOSA IVO 06-24 16:27: 12 CC'ed Logic: Orderi ng Provid er: ELEUTERIO Rangel CC Provid er: KAVYA Magallanes Attend ing Provid er: ELEUTERIO Rangel Referr ing Provid er: ELEUTERIO Rangel Admitt ing Provid er: ELEUTERIO high [facility] (Radiology) [address] [place], [address], 06/24/2021 22:55:26 07/22/19 22 07/21/2021 XR, chest , [address] [place] [address] Phone: Fax: Name: HARMONY TILLEY Exam Date: : [birth year] Age 66 Gender : M Access ion: [id number] Physic nery: MIKEY ALEXIS Facili ty: [facility] Facili ty HSV: Outpat ient Exam: [...] Thank you for referr HARMONY Alvarado to [facility]. Legall y authen ticate d by MELVIN MENDOSA IVO 07-22 08:42: 16 CC'ed Logic: Orderi ng Provid er: KAVYA Magallanes CC Provid er: KAVYA Magallanes Attend ing Provid er: KAVYA Magallanes Referr ing Provid er: KAVYA Magallanes Admitt ing Provid er: KAVYA haney[address] [place] [address] (Radiology) [address] [place] [address] [place], [address], 03/25/2023 16:47:43 Result Notes Documentation Provider Name and Address Organization Details Recorded Time Ct, Chest, W/o Contrast : [address] [place] [address] Name: HARMONY CHENEY Exam Date: 06/24/2021 : 1955 Age 66 Gender: M Physician: CHIKIS MINAYA Facility: [facility] Facility HSV: Outpatient Exam: CT CHEST WO [...] Thank you for referring HARMONY CHENEY to [facility]. Legally authenticated by MELVIN GUTIERREZ 2021-06-24 16:27:12 CC'ed Logic: Ordering Provider: REI DIOP CC Provider: MARYBETH OWEN Attending Provider: REI DIOP Referring Provider: REI DIOP Admitting Provider: REI Rueda MD [address] [place] [address], [address], [place], [address] pA [email or web address] 06/24/2021 22:55:26 Xr, Chest, 2 View : [address] [place] [address] Name: HARMONY CHENEY Exam Date: 07/21/2021 : 1955 Age 66 Gender: M Physician: SALENA RUEDA Facility: [facility] Facility HSV: Outpatient Exam: CHEST PA ^ [...] Thank you for referring HARMONY CHENEY to [facility]. Legally authenticated by MELVIN GUTIERREZ 2021-07-22 08:42:16 CC'ed Logic: Ordering Provider: MARYBETH OWEN CC Provider: MARYBETH OWEN Attending Provider: MARYBETH OWEN Referring Provider: MARYBETH OWEN Admitting Provider: MARYBETH Rueda MD [address], [address] [place] [address], [facility] 03/25/2023 16:47:43 Problems Name Problem SNOMED Code Status Onset Date Resolution Date Notes Provider Name and Address Organization Details Recorded Time Blood glucose outside reference range [id number] Chepe Rueda MD [address] [place] [address], [facility] 6 11:22:12 Fatigue [id number] Chepe Rueda MD [address] [address], [facility] 6 11:22:12 Tremor [id number] Chepe Rueda MD [address] [address], [facility] 6 11:22:12 Respiratory symptom [id number] Chepe Rueda MD [address] [address], [facility] 6 11:22:12 Abnormal testosterone 683928730 Active [facility] 12:11:00 Dyspnea 652062071 Chepe Rueda MD [address] [address], [facility] 6 11:22:12 Carpal tunnel syndrome 88018018 Chepe Rueda MD [address] [place] [address], [facility] 6 11:22:12 Wheezing 10974639 Chepe Rueda MD [address], [address] [place] [address], [place] [facility] 6 11:22:12 Benign essential hypertension 8047467 Chepe Rueda MD [address] [place] [address], [place] [facility] 6 11:22:12 Chronic pain due to injury [id number] Chepe Rueda MD [address] [place] [address], [place] [facility] 6 11:22:12 Allergic rhinitis 10918723 Chepe Rueda MD [address] [place] [address], [place] [facility] 6 11:22:12 Disorder of peripheral autonomic nervous system 961301255 Chepe Rueda MD [address] [place] [address], [place] [facility] 6 11:22:12 Shoulder joint pain [id number] Chepe Rueda MD [address] [place] [address], [place] [facility] 6 11:22:12 Acute sinusitis 43791067 Chepe Rueda MD [address] [address], [place] [facility] 6 11:22:12 Acute stress disorder 90473644 Chepe Rueda MD [address] [place] [address], [place] [facility] 6 11:22:12 Verruca vulgaris 26649567 Chepe Rueda MD [address] [place] [address], [place] [facility] 6 11:22:12 Electrocardiog sukhwinder abnormal [id number] Chepe Rueda MD [address] [place] [address], [place] [facility] 6 11:22:12 Chest pain [id number] Chepe Rueda MD [address] [place] [address], [place] [facility] 6 11:22:12 Spasm 29057126 Chepe Rueda MD [address] [address], [facility] 6 11:22:12 Low back pain [id number] Chepe Rueda MD [address] [address], [place] [facility] 6 11:22:12 Degeneration of cervical intervertebral disc [id number] Chepe Rueda MD [address] [place] [address], [facility] 6 11:22:12 Asthma 168609666 Chepe Rueda MD [address] [address], [facility] 6 11:22:12 Acute asthma 031272558 Chepe Rueda MD [address] [address], [facility] 6 11:22:12 Acute bronchitis [id number] Chepe Rueda MD [address] [address], [facility] 6 21:27:16 Multiple actinic keratoses 462247287 Active Salena Rueda MD [address], [address] [place] [address], [facility] 6 11:22:12 Neoplasm of skin 164347393 Active Salena Rueda MD [address] [address], [facility] 6 11:22:12 Laryngitis 75956018 Active Salnea Rueda MD [address] [address], [facility] 6 21:27:16 Problem Notes None recorded. Procedures Surgical History Date Name Laterality Status Provider Name and Address Organization Details Recorded Time 04/14/20 17 Colonoscopy completed Salena Rueda MD [address] [place] [address], [facility] 05/08/2017 12:28:22 04/14/20 17 Colonoscopy completed Salena Rueda MD [address], [address] [place] [address], [facility] 06/23/2017 18:01:50 03/26/20 17 cryotherapy surgery completed Salena Rueda MD [address] [place] [address], [facility] 03/28/2017 21:24:48 04/22/20 16 Hand tendon/muscle transfer completed [facility] 07/31/2016 10:21:26 08/03/19 15 cryotherapy surgery completed Salena Rueda MD [address], [address] [place] [address], [facility] 08/03/2014 17:35:11 07/28/19 14 cryotherapy surgery completed Salena Rueda MD [address] [place], [address], [facility] 07/28/2013 16:46:57 01/07/20 12 cryotherapy surgery completed Salena Rueda MD 2017 [facility], [address], [place], [address], [facility] 01/07/2012 11:54:40 06/07/19 05 Vasectomy completed Not Available [facility] 1 04:58:32 Imaging Results None recorded. Procedure [...] azelastine 137 mcg (0.1 %) nasal spray [place] 2 sprays into each nostril twice a [...] Body mass index (BMI) Body weight Systolic And Diastolic Provider Name and Address Organization Details Last Updated DateTime 2 96.9 [degF] 96 % 96 % 89 /min 180.34 cm 30 kg/m2 60146.4 6 g 107/74 mm[Hg] [facility] 2 15:32:28 Date Recorded Body height Body mass index (BMI) Body weight Heart rate Oxygen saturation Oxygen saturation in Arterial blood by Pulse oximetry Body temperature Systolic And Diastolic Provider Name and Address Organization Details Last Updated DateTime 5 180.34 cm 34.6 kg/m2 752659. 91 g 76 /min 96 % 96 % 97.5 [degF] 156/89 mm[Hg] [facility] 5 13:25:55 Date Recorded Body height Body mass index (BMI) Body weight Heart rate Oxygen saturation Oxygen saturation in Arterial blood by Pulse oximetry Body temperature Systolic And Diastolic Provider Name and Address Organization Details Last Updated DateTime 3 180.34 cm 34.2 kg/m2 293253. 53 g 68 /min 97 % 97 % 98.2 [degF] 154/86 mm[Hg] [facility] 3 16:03:33 Date Recorded Body height Body mass index (BMI) Body weight Heart rate Oxygen saturation Oxygen saturation in Arterial blood by Pulse oximetry Body temperature Systolic And Diastolic Provider Name and Address Organization Details Last Updated DateTime 9 180.34 cm 28.1 kg/m2 81681.7 7 g 74 /min 98 % 98 % 98 [degF] 110/80 mm[Hg] [facility] 9 14:07:49 Date Recorded Body height Body mass index (BMI) Body weight Heart rate Oxygen saturation Oxygen saturation in Arterial blood by Pulse oximetry Body temperature Systolic And Diastolic Provider Name and Address Organization Details Last Updated DateTime 0 180.34 cm 31.6 kg/m2 826359. 68 g 76 /min 97 % 97 % 98.2 [degF] 105/79 mm[Hg] [facility] 0 15:42:24 Social History Question Answer Notes LastModified by Organizat ion Details LastModified Time Tobacco Smoking Status Former Smoker ellen [id number] Not Available [facility] 03:11:19 Do You Have An Advance Directive? Yes [id number] Information not available 04/02/2020 Is Blood Transfusion Acceptable In An Emergency? Yes [id number] Information not available 04/02/2020 What Is Your Level Of Caffeine Consumption? Occasional [id number] Information not available 04/02/2020 How Much Tobacco Do You Chew? None [id number] Information not available 04/02/2020 Diabetes No [email or web address] Information not available 04/21/2011 What Type Of Diet Are You Following? REGULAR [id number] Information not available 04/02/2020 Which Illicit Or Recreational Drugs Have You Used? None [id number] Information not available 04/02/2020 Education 4 Year College [email or web address] Information not available 04/21/2011 Family History Of Heart Disease? No [email or web address] Information not available 04/21/2011 High Blood Pressure Yes [email or web address] Information not available 04/21/2011 Live Alone Or With Others? With Others [email or web address] Information not available 04/21/2011 Marital Status [email or web address] 115 Information not available 04/21/2011 What Was The Date Of Your Most Recent Tobacco Screening? 11/28/2024 Information not available 11/28/2024 How Many Children Do You Have? 4 [id number] Information not available 04/02/2020 What Is Your Relationship Status? Information not available 03/25/2023 Smoke Alarm In Home Yes Information not available 04/21/2011 How Much Tobacco Do You Smoke? No [id number] Information not available 04/02/2020 General Stress Level Medium [facility] Information not available 04/04/2019 How Many Years Have You Smoked Tobacco? 3 [id number] Information not available 04/02/2020 Sex: Male Functional Status Question Answer Note LastModified by Organizat ion Details LastModified Time What is your level of alcohol consumption? Occasional [id number] Information not available 04/02/2020 Do you or have you ever used smokeless tobacco? Former smokeless tobacco user used about 6 months remotely [id number] Information not available 04/02/2020 Are you currently employed? Yes [id number] Information not available 04/02/2020 Are you able to care for yourself? 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 Never used electronic cigarettes [id number] Information not available 04/02/2020 Mental Status None recorded. Family History Relationship Description Onset Age of this Age Resolved Age Notes LastModified by Organization Details LastModified Time Mother Dementia Hypert ension [facility] Not available 08/03/2014 16:59:52 Medical History Condition [...] virus, quadrivalent, preservative 7 completed Not Available [facility] 06/24/2019 02:12:14 Tdap 7 completed [facility] 07/31/2016 10:33:19 Pneumococcal conjugate PCV 13 7 completed [facility] 07/31/2016 10:33:32 Influenza, split virus, trivalent, preservative 2 completed Not Available [facility] 06/24/2019 02:12:11 Past Encounters Encounter ID Performer Location Encounter Start Date Encounter Closed Date Diagnosis/Indication Diagnosis SNOMED-CT Code Diagnosis ICD10 Code Diagnosis Note [id number] David De Souza MD [address] [id number] 03/10/2011 08:13:10 03/10/2011 15:32:27 [id number] Salena Rueda MD [facility] [address] [id number] 03/26/2011 10:33:14 03/27/2011 16:00:25 [id number] Salena Rueda MD [facility] [address] [id number] 7 05/12/2011 09:36:48 05/12/2011 11:11:52 [id number] Salena Rueda MD [facility] [address] [id number] 07/16/2011 11:22:29 07/16/2011 17:16:21 [id number] Salena Rueda MD [facility] [address] [id number] 7 08/10/2011 16:01:27 08/10/2011 18:09:10 [id number] Salena Rueda MD [address] [id number] 09/01/2011 09:45:38 09/03/2011 17:23:11 [id number] Salena Rueda MD [address] [address] 7 09/22/2011 09:20:48 09/22/2011 14:08:48 [id number] Salena Rueda MD [address] [id number] 7 01/07/2012 09:53:20 01/07/2012 15:08:02 [id number] [place] [address] 02/25/2012 13:08:18 02/25/2012 14:33:26 [id number] Salena Rueda MD [address] [address] 7 03/29/2012 14:50:51 03/29/2012 18:13:58 [id number] Salena Rueda MD [address] [id number] 7 05/20/2012 13:23:05 05/20/2012 21:41:13 [id number] Salena Rueda MD [address] [address] 7 08/29/2012 14:39:05 08/29/2012 17:13:54 [id number] Salena Rueda MD [address] [id number] 7 11/18/2012 09:59:10 11/18/2012 16:52:21 [id number] Salena Rueda MD [address] [id number] 7 02/27/2013 10:06:07 02/27/2013 16:58:49 [id number] Salena Rueda MD [facility] [address] [id number] 07/28/2013 14:55:46 07/28/2013 17:03:59 Benign essential hypertension 7646211 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 143499625 Allergic rhinitis 23640916 Verruca vulgaris 78560818 Blood gluc ose outside reference range 223847881 History of male erectile disorder 917742848 Fatigue 81009088 Screening for cancer 64644258 [id number] Salena Rueda MD [facility] [address] [address] 12/29/2013 14:54:17 12/29/2013 17:10:42 Adult health examination 534739482 [id number] Salena Rueda MD [facility] [address] [id number] 08/03/2014 15:52:37 08/12/2014 14:31:34 Benign essential hypertension 0000254 Abnormal testosterone 001672343 Degenerati on of cervical intervertebral disc 02794207 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 318888605 Multiple a ctinic keratoses 557369127 Neoplasm of skin 303981777 [id number] Salena Rueda MD [facility] [place] [id number] 7 08/08/2015 10:08:05 08/09/2015 08:02:49 Acute bronchitis 08473710 J20.9 Laryngitis 54898638 J04. 0 [id number] Salena Rueda MD [place] [id number] 7 02/21/2016 13:52:00 02/21/2016 18:26:45 Injury of hand 691021540 S69.81XS Carpal mark mary syndrome 00161893 G56.01 Essential hypertension 16461007 I10 Fatigue 99845359 R53.83 Obstructiv e sleep apnea syndrome 36046109 G47.33 Glucose le jim outside reference range 178710480 R73.09 Allergic rhinitis 305886 04 J30.9 [id number] Salena Rueda MD [facility] [address] [address] 7 07/31/2016 10:02:06 08/03/2016 14:34:49 Essential hypertension 79526614 I10 Acute maxi llary sinusitis 87673932 J01.00 Allergic rhinitis 456723 04 J30.9 Glucose le jim outside reference range 870705373 R73.09 Hyperlipidemia 41390734 E78.5 Impotence 322762397 N52. 9 Body mass index 30+ - obesity 477693471 Z68.32 [id number] Salena Rueda MD [facility] [place] [id number] 7 08/10/2016 15:50:51 08/10/2016 17:35:00 Influenza-like symptoms 617881915 R68.89 Lower resp iratory tract infection 72231195 J22 [id number] Salena Rueda MD [facility] [place] [address] 7 08/25/2016 14:25:07 08/26/2016 09:05:52 Fatigue 15381525 R53.83 Influenza with respiratory manifestation other than pneumonia 12705296 J11.1 [id number] Salena Rueda MD [place] [address] 7 01/07/2017 10:28:55 01/07/2017 12:06:11 Acute sinusitis 17460260 J01.90 Essential hypertension 07925817 I10 [id number] Salena Rueda MD [place] [id number] 7 02/19/2017 14:29:07 02/22/2017 08:15:30 Adult health examination 608436697 Z00.01 Essential hypertension 10916610 I10 Active or passive immunization 764839719 Z23 Prediabetes 113016126 R7 3.03 Knee pain 23704098 M25.5 69 Dyspnea on exertion 6084 5006 R06.09 Idiopathic peripheral neuropathy 47662373 G60.9 took gabapentin in the past. Much worse on right foot and some loss on left great toe. Acute sinusitis 56682573 J01.90 he has cefdinir to take. Acute otitis media 87329 03 H66.91 Screening for malignant neoplasm of colon 721751996 Z12.11 Hyperlipidemia 46150108 E78.5 Body mass index 30+ - obesity 627083879 Z68.33 [id number] Salena Rueda MD [facility] [place] [id number] 03/26/2017 16:09:33 03/29/2017 10:05:37 Multiple actinic keratoses 472704985 L57.0 Screening for malignant neoplasm of colon 964815384 Z12.11 [id number] Salena Rueda MD [facility] [address] [place] [id number] 7 10/08/2017 10:01:41 10/12/2017 08:14:07 Hand pain 56117812 M79.641 Glucose le jim outside reference range 595533240 R73.09 Hyperlipidemia 37924624 E78.5 Weakness o f right hand 3877923201 2895881 R29.898 [id number] Salena Rueda MD [facility] [address] [place] [id number] 7 04/04/2019 13:50:35 04/06/2019 07:57:15 Adult health examination 922943238 Z00.01 Essential hypertension 22142711 I10 Knee pain 33013063 M25.5 69 Dyspnea on exertion 6084 5006 R06.09 Idiopathic peripheral neuropathy 27094431 G60.9 took gabapentin in the past. Much worse on right foot and some loss on left great toe. 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 Has regular blood counts through urologist and has been advised to donate blood monthly Body mass index 25-29 - overweight 522603182 Z68.28 Prediabetes 277352154 R7 3.03 [id number] Salena Rueda MD [facility] [address] [address] 04/16/2020 15:09:22 04/18/2020 08:11:17 Adult health examination 677552156 Z00.01 Essential hypertension 11089993 I10 Knee pain 97018747 M25.5 69 Idiopathic peripheral neuropathy 01152292 G60.9 took gabapentin in the past. Much worse on right foot and some loss on left great toe. 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 Much worse on right foot and some loss on left great toe. Hyperlipidemia 70905453 E78.5 Secondary hemochromatosis 11771814 E83.118 likely due to the testostero ne supplement and he had been doubling his dose at times and will stop that. 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 Much worse on right foot and some loss on left great toe. Hyperlipidemia 89519171 E78.5 Secondary hemochromatosis 83632479 E83.118 likely due to the testostero ne supplement and he had been doubling his dose at times and will stop that. Has regular blood counts through urologist and has been advised to donate blood monthly Prediabetes 237842687 R7 3.03 History of asthma 273871 007 Z87.09 Vaccine de clined by patient 9636348535 02 Z28.21 Body mass index 30+ - obesity 988166317 Z68.34 Screening for cardiovascular system disease 400540442 Z13.6 Acute bact erial sinusitis 34546151 J01.90 B96.89 Neoplasm of skin 5409357 04 D49.2 suspicious raised lesion left side of face/basal cell appearing Serum thyr oid stimulating hormone level outside reference range 471074711 R79.89 Health Concerns Section Related Observation LastModified by Organization Detai ls LastModified Time None Recorded Concern Status LastModified by Organization Details LastModified Time None Recorded Advance Directives Directive Y: Payers Insurance Date Sequence Insurance Name Policy Number Policy Guevara Covered Member ID Guevara Member ID Guarantor Name 08/27/2023 1 [employer] (PPO) [id number] Opal Cheney [id number] Harmony Cheney 07/23/2014 1 [employer] - [place] [employer] [facility] (PPO) [id number] Opal Cheney [id number] Harmony Cheney 11/25/2024 1 [place] [employer] [place] [id number] Opal Cheney [id number] Harmony Cheney Notes Date Note Type Note Provider Name and Address Organization Details Recorded Time 04/16/2020 text/html he gets a PSA every 6 months at urologist appt Salena Rueda MD [address] [facility], [address], [place], [address], [facility] 04/18/2020 00:05:17 07/21/2021 text/html thinks he [...] takes opiates regularly. Salena Rueda MD [address] [facility], [address], [place], [address], [facility] 07/23/2021 09:12:48 03/25/2023 text/html he can walk no longer than 7 minutes and has significant spinal stenosis and his insurance will not cover the surgery although the pain management doctor recommends that as well as the neurosurgeon. We suggest he start swimming. Salena Rueda MD [address] [facility], [address], [place], [address], [facility] 03/28/2023 15:24:42
--- OUTSIDE RECORDS SUMMARY | 2024-12-20 11:30 | XMS_ITS | Data Portability ---
Author Organization [facility] Address [address] [place] [id number] Care Team Providers Care Basin Tender Name Role Phone ELI BRAYDEN Primary Care Provider Assessment No assessment recorded. Plan of Treatment Reminders Order Date Submit Date Provider Last Modified By Organization Details Last Modified Time Details Appointments None recorded. Lab None recorded. Referral None recorded. Procedures None recorded. Surgeries None recorded. Imaging None recorded. Medication Orders mupirocin 2 % topical ointment 2023 [facility], [address] [place] [address], [address], 15:29:00 Augmentin 875 mg-125 mg tablet 2023 [facility] [address], [address] [place] [address], [address], 09:30:54 Patient TargetsNo targets recorded. Patient InstructionsNo instructions recorded. Reason for Referral None Reported. Problems Name Problem SNOMED Code Status Onset Date Resolution Date Notes Provider Name and Address Organization Details Recorded Time Acute sinusitis 68197223 Active 2023 NAVEEN BENITO MD [address], [address], [place], [address], [facility] [place] 09:36:14 Nasal vestibulitis 42801175 Active 2023 NAVEEN BENITO MD [address], [address], [place], [address], [facility] [place] 16:02:53 Anterior epistaxis 326527106 Active 2023 NAVEEN BENITO MD [address], [address], [place], [address], [facility] [place] 09:17:27 Problem Notes None recorded. Procedures Surgical History Date Name Laterality Status Provider Name and Address Organization Details Recorded Time 4 Nasal Endoscopy completed NAVEEN BENITO MD [address], [address], [place], [address], [facility] [place] 03/24/2024 15:36:32 Control Nasal Hemorrhage, Simple completed NAVEEN BENITO MD [address] [facility], [address], [place], [address], [facility] [place] 03/15/2024 14:41:56 4 Control Nasal Hemorrhage, Complex completed NAVEEN BENITO MD [address], [address], [place], [address], [facility] [place] 03/13/2024 11:54:07 Imaging Results None recorded. Procedure [...] Updated DateTime 4 180.34 cm 31.4 kg/m2 939791. 56 g 97.8 [degF] 98 % 98 % Marilu RAIN [facility] [place] 4 08:30:13 Date Recorded Body height Body mass index (BMI) Body weight Body temperature Oxygen saturation Oxygen saturation in Arterial blood by Pulse oximetry Provider Name and Address Organization Details Last Updated DateTime 4 180.34 cm 31.4 kg/m2 923367. 92 g 98.2 [degF] 99 % 99 % Marilu TRAMMELL [facility] [place] 4 13:55:20 Date Recorded Body height Body mass index (BMI) Body weight Body temperature Oxygen saturation Oxygen saturation in Arterial blood by Pulse oximetry Provider Name and Address Organization Details Last Updated DateTime 4 180.34 cm 31.4 kg/m2 001422. 28 g 97.8 [degF] 99 % 99 % Marilu [facility] [place] 4 15:11:09 Date Recorded Body height Body mass index (BMI) Body weight Body temperature Oxygen saturation Oxygen saturation in Arterial blood by Pulse oximetry Provider Name and Address Organization Details Last Updated DateTime 4 180.34 cm 35.1 kg/m2 173827. 28 g 98.1 [degF] 98 % 98 % Marilu [facility] [place] 4 15:05:10 Social History Question Answer Notes LastModified by [employer] Details LastModified Time Tobacco Smoking Status Never Smoker [facility] [place] 03/13/2024 08:23:41 Has Tobacco Cessation Counseling Been Provided? No Information not available 03/13/2024 Sex: Unknown Functional Status Question Answer Note LastModified by [employer] Details LastModified Time Do you use any [...] N Thyroid Problems N Developmental Delay N Glaucoma N Depression N Anemia N Immune System Disorder N Anesthesia Complications N Heart Attack (DE) N Anxiety Disorder N Diabetes N Bleeding Disorder N Arthritis N Hearing Loss N Tuberculosis N Acid Reflux (GERD) N Hyperlipidemia N Cancer N Stroke N Asthma N Sleep Disorder N GERD/Reflux N Heart Disease N Headaches N Fibromyalgia N Hypertension N Speech Delay N Kidney Disease N Past Encounters Encounter ID Performer Location Encounter Start Date Encounter Closed Date Diagnosis/Indication Diagnosis SNOMED-CT Code Diagnosis ICD10 Code Diagnosis Note [id number] NAVEEN BENITO MD [facility] [address] [place] [id number] 03/13/2024 08:26:05 03/13/2024 09:37:33 Anterior epistaxis 632125449 R04.0 - Left sided rhinorocke t removed [...] daily- Return to clinic in 2 weeks [id number] NAVEEN BENITO MD [facility] [address] [place] [id number] 03/15/2024 13:50:04 03/15/2024 14:20:03 Anterior epistaxis 820098092 R04.0 - Left anterior nasal cavity cauterized in office today- Continue Augmentin- Start vaseline and saline spray tomorrow- Continue sinus precaution s x 2 weeks- Return to clinic in 2 weeks [id number] NAVEEN BENITO MD [facility] [address] [place] [id number] 03/24/2024 15:03:02 03/24/2024 15:33:54 Anterior epistaxis 279037327 R04.0 - Significan t crusting in the left nasal cavity which was debrided in office today. No further bleeding- Continue saline and Vaseline use- Get a humidifier - Return to clinic in 3-4 weeks [id number] NAVEEN BENITO MD [facility] [address] [place] [id number] 04/21/2024 15:05:18 04/21/2024 15:31:22 Anterior epistaxis 318384690 R04.0 - Significan t crusting in the left nasal cavity which was debrided in office today. No further bleeding- Continue saline and Vaseline use- Get a humidifier - Return to clinic in 3-4 weeks Nasal vestibulitis 10968 000 J34.89 [id number] NAVEEN BENITO MD [facility] [address] [facility] [place] [address] 05/26/2024 15:01:12 05/26/2024 15:10:47 Anterior epistaxis 188278246 R04.0 - Nose looks the best I [...] Guevara Member ID Guarantor Name 05/29/2024 1 [place] [facility] [id number] Bethel Meier [id number] Opal Meier Notes Date Note Type Note Provider Name and Address Organization Details Recorded Time 03/13/2024 text/html Patient presents to clinic for evaluation and management of epistaxis. Bleeding started on Wednesday night. Symptoms worsened Wednesday night which prompted him to present to the ED in [place] where his nose was ultimately packed. He has had issues with nosebleeds for several years. Mainly the right side. This is the first time he has had issues on the left. He is currently on flonase on a daily basis. He is not currently on anticoagulation. NAVEEN BENITO MD [address] [place] [address], [address], [place], [address], [facility] [place] 03/13/2024 11:54:51 03/15/2024 text/html Patient presents to clinic for follow up of epistaxis. Had some issues with bleeding yesterday. This stopped on its own with use of Afrin. NAVEEN BENITO MD [address] [place] [address] Drive, [address], [place], [address], [facility] [place] 03/15/2024 14:43:00 03/24/2024 text/html Patient presents to clinic for follow up of epistaxis. No bleeding since last visit. Has been using saline spray and Vaseline in his nose. Isn't breathing well through the left side of his nose. NAVEEN BENITO MD [address] [place] [address], [address], [place], [address], [facility] [place] 03/24/2024 15:37:51 04/21/2024 text/html Patient presents to clinic for follow up of epistaxis. No recent bleeding from the nose. Has a lot of crusting in his left nostril however which he frequently has to blow out. He is currently using nasal rinses and saline spray. NAVEEN BENITO MD [address] [facility], [address], [place], [address], [facility] [place] 04/21/2024 16:03:10 05/26/2024 text/html Patient presents to clinic for follow up of epistaxis. Nose has been doing very well. No bleeding. Feels like he is breathing much better through the left side. NAVEEN BENITO MD [address] [facility], [address], [place], [address], [facility] [place] 05/26/2024 15:12:23
--- OUTSIDE RECORDS SUMMARY | 2024-12-20 11:30 | XMS_ITS | Data Portability ---
Author Organization [facility] Mustafa POTTER CLOSED Address [address] [facility] [place] [address] Care Team Providers Care Hospital Admissions Officer Name Role Phone BRAYDEN BENITEZ Primary Care Provider ROGER WYATT Referring Provider Assessment Encounter Date Assessment Date Assessment LastModified by Organization Details LastModified Time 06/23/2022 06/23/2022 Medical management of testicular hypofunction with topical transdermal testosterone placement therapy. Medical management of erectile dysfunction with sildenafil and BPH symptoms with tamsulosin. [email or web address] Not available 06/30/2022 18:22:08 12/29/2022 12/29/2022 Medical management of testicular hypofunction with topical transdermal testosterone placement therapy. Medical management of erectile dysfunction with sildenafil and BPH symptoms with tamsulosin. [email or web address] Not available 12/29/2022 12:35:01 07/06/2023 07/06/2023 We reviewed the risks of testosterone replacement therapy including cardiovascular disease, stroke risk, hepatic dysfunction, polycythemia, prostate growth - benign and cancerous, decreased sperm count, etc. Medical management of lower urinary symptoms with tamsulosin. Sildenafil for erectile dysfunction as needed. He [email or web address] Not available 07/18/2023 08:14:00 01/11/2024 01/11/2024 We reviewed the risks of testosterone replacement therapy including cardiovascular disease, stroke risk, hepatic dysfunction, polycythemia, prostate growth - benign and cancerous, decreased sperm count, etc. Medical management of testicular hypofunction with Axiron. Medical management of erectile dysfunction with sildenafil and tamsulosin for treatment of lower urinary symptoms. [email or web address] Not available 01/16/2024 11:32:23 08/25/2024 08/25/2024 We [...] Organization Details Last Modified Time Details Appointments NEW PATIENT DAK 2024 03:00P Juan Carlos JARA PA-C Not available Not available Not available RECHECK 2024 11:30A M MELLISSA MACDONALD MD Not available Not available Not available Lab CBC w/ auto diff 2024 025 [email or web address] 4 [facility], [address] [place] [address], [address], 08/25/2024 16:28:21 CMP, serum or plasma 2024 025 [facility], [address] [place] [address], [address], 08/25/2024 18:04:45 testoster one, total, serum 2024 025 [facility], [address] [place] [address], [address], 08/25/2024 18:11:14 PSA, total, serum or plasma 2024 025 [facility], [address] [place] [address], [address], 08/25/2024 18:11:13 PSA, serum or plasma 2023 024 [email or web address] 4 [facility], [address] [place] [address], [address], [place], [address], 01/16/2024 11:33:22 CBC w/ auto diff 2023 024 [email or web address] 4 [facility], [address] [place] [address], [address], 01/11/2024 15:36:33 CMP, serum or plasma 2023 024 [facility], [address] [place] [address], [address], 01/11/2024 15:37:34 testoster one, total, serum 2023 024 4 [facility], [address] [place] [address], [address], 01/11/2024 15:36:33 testoster one, free, serum 2023 024 [facility], [address] [place] [address], [address], 01/20/2024 04:13:13 PSA, serum or plasma 2023 024 [email or web address] 4 [facility], [address] [facility], [address], [place], [address], 07/18/2023 08:13:38 CMP, serum or plasma 2023 024 [facility], [address] [place] [address], [address], 07/06/2023 16:48:24 CBC w/ auto diff 2023 024 [email or web address] 4 [facility], [address] [place] [address], [address], 07/06/2023 16:20:55 testoster one, total, serum 2023 024 [facility], [address] [place] [address], [address], 07/06/2023 16:51:00 PSA, total, serum or plasma 2022 023 [email or web address] 4 [facility], [address] [place] [address], [address], 2023 12:33:31 urinalysi s panel, auto 2022 023 [email or web address] 4 [facility], [address], [address], [place], [address], 01/10/2023 16:21:12 CMP, serum or plasma 2022 023 [email or web address] 4 [facility], [address] [place] [address], [address], 2023 12:33:31 CBC w/ auto diff 2022 023 4 [facility], [address] [place] [address], [address], 2023 12:33:31 testoster one, total, serum 2022 023 [email or web address] 4 [facility], [address] [place] [address], [address], 2023 12:33:31 testoster one, free, serum 2022 023 [email or web address] 4 [facility], [address] [place] [address], [address], 2023 12:33:31 testoster one, free + total, serum 2022 023 [email or web address] 4 [facility], [address] [place] [address], [address], 06/23/2022 17:01:24 CBC w/ auto diff 2022 023 [email or web address] 4 [facility], [address] [place], [address], 06/23/2022 17:01:24 CMP, serum or plasma 2022 023 [email or web address] 4 [facility], [address] [place], [address], 06/23/2022 17:01:24 PSA, serum or plasma 2022 023 [facility], [address], [facility] [address], [place], [address], 06/24/2022 08:35:13 Referral None recorded. Procedures None recorded. Surgeries None recorded. Imaging None recorded. Medication Orders testoster one 30 mg/actuat ion (1.5 mL) transderm solution metered pump 2024 025 [facility], [address] [place], [address], 08/27/2024 10:51:49 sildenafi l (pulmonar y hypertens ion) 20 mg tablet 2023 024 [facility], [address] [place], [address], 01/16/2024 11:33:29 tamsulosi n 0.4 mg capsule 2023 024 [facility], [address] [place], [address], 01/16/2024 11:33:30 testoster one 30 mg/actuat ion (1.5 mL) transderm solution metered pump 2023 024 [facility] [address], [address] [place], [address], 01/16/2024 11:33:33 sildenafi l (pulmonar y hypertens ion) 20 mg tablet 2023 024 [facility] [address], [address], [place], [address], 07/18/2023 08:13:41 tamsulosi n 0.4 mg capsule 2023 024 [facility] [address], [address], [place], [address], 07/18/2023 08:13:42 testoster one 30 mg/actuat ion (1.5 mL) transderm solution metered pump 2023 024 [facility], [address], [place], [address], 07/18/2023 08:13:42 testoster one 30 mg/actuat ion (1.5 mL) transderm solution metered pump 2022 023 [facility], [address], [place], [address], 01/10/2023 16:21:18 sildenafi l (pulmonar y hypertens ion) 20 mg tablet 2022 023 [facility], [address] [place], [address], 06/30/2022 18:22:52 tamsulosi n 0.4 mg capsule 2022 023 [facility], [address] [place], [address], 06/30/2022 18:22:57 testoster one 30 mg/actuat ion (1.5 mL) transderm solution metered pump 2022 023 [facility], [address] [place], [address], 06/30/2022 18:22:55 Patient TargetsNo targets recorded. Patient InstructionsNo instructions recorded. Reason for Referral None Reported. Results Created Date Observation Date Name Description Value Unit Range Abnormal Flag Note LastModifiedBy Organization Detail LastModifiedTime 06/23/1906/23/2022 COMPL ETE BLOOD COUNT white blood cells 9.3 K/uL 3.8-10 .8 normal Not Available [facility] [address] [place] [address], [address], 06/23/2022 14:49:19 06/23/19 23 06/23/2022 COMPL ETE BLOOD COUNT red blood cells 5.93 M/uL 4.20-5 .80 high Not Available [facility] [address] [place] [address], [address], 06/23/2022 14:49:19 06/23/19 23 06/23/2022 COMPL ETE BLOOD COUNT hemoglobin 17.7 g/dL 14.0-1 8.0 normal Not Available [facility] [address] [place] [address], [address], 06/23/2022 14:49:19 06/23/19 23 06/23/2022 COMPL ETE BLOOD COUNT hematocrit 51.6 % 40.0-5 2.0 normal Not Available [facility] [address] [place] [address], [address], 06/23/2022 14:49:19 06/23/19 23 06/23/2022 COMPL ETE BLOOD COUNT MCV 87 fL 80-100 normal Not Available [facility] [address] [place] [address], [address], 06/23/2022 14:49:19 06/23/1906/23/2022 COMPL ETE BLOOD COUNT MCH 30 pg 26-35 normal Not Available [facility] [address] [place] [address], [address], 06/23/2022 14:49:19 06/23/19 23 06/23/2022 COMPL ETE BLOOD COUNT MCHC 34 g/dL 32-36 normal Not Available [facility] [address] [place] [address], [address], 06/23/2022 14:49:19 06/23/19 23 06/23/2022 COMPL ETE BLOOD COUNT RDW 14.5 % 11.0-1 5.0 normal Not Available [facility] [address] [place] [address], [address], 06/23/2022 14:49:19 06/23/19 23 06/23/2022 COMPL ETE BLOOD COUNT MPV 8.0 fL 6.2-10 .5 normal Not Available [facility] [address] [place] [address], [address], 06/23/2022 14:49:06/23/19 23 06/23/2022 COMPL ETE BLOOD COUNT platelet count 217 K/uL 130-40 0 normal Not Available [facility] [address] [place] [address], [address], 06/23/2022 14:49:06/23/19 23 06/23/2022 COMPL ETE BLOOD COUNT neutrophil,a bsolute 4.2 K/uL 1.6-8. 4 normal Not Available [facility] [address] [place] [address], [address], 06/23/2022 14:49:19 06/23/19 23 06/23/2022 COMPL ETE BLOOD COUNT lymphocyte,a bsolute 4.0 K/uL 0.4-5. 1 normal Not Available [facility] [address] [place] [address], [address], 06/23/2022 14:49:06/23/1906/23/2022 COMPL ETE BLOOD COUNT monocyte,abs olute 0.8 K/uL 0.0-1. 2 normal Not Available [facility] [address] [place] [address], [address], 06/23/2022 14:49:20 23 06/23/2022 COMPL ETE BLOOD COUNT eosinophil,a bsolute 0.1 K/uL 0.0-0. 8 normal Not Available [facility] [address] [place] [address], [address], 06/23/2022 14:49:19 06/23/19 23 06/23/2022 COMPL ETE BLOOD COUNT basophil,abs olute 0.0 K/uL 0.0-0. 3 normal Not Available [facility] [address] [place] [address], [address], 06/23/2022 14:49:06/23/19 23 06/23/2022 COMPL ETE BLOOD COUNT % neutrophils 45.7 % 42.0-7 8.0 normal Not Available [facility] [address] [place] [address], [address], 06/23/2022 14:49:19 06/23/19 23 06/23/2022 COMPL ETE BLOOD COUNT % lymphocytes 43.2 % 11.0-4 7.0 normal Not Available [facility] [address] [place] [address], [address], 06/23/2022 14:49:19 06/23/19 23 06/23/2022 COMPL ETE BLOOD COUNT % monocytes 9.0 % 0.0-11 .0 normal Not Available [facility] [address] [place] [address], [address], 06/23/2022 14:49:06/23/19 23 06/23/2022 COMPL ETE BLOOD COUNT % eosinophils 1.6 % 0.0-7. 0 normal Not Available [facility] [address] [place] [address], [address], 06/23/2022 14:49:06/23/19 23 06/23/2022 COMPL ETE BLOOD COUNT % basophils 0.5 % 0.0-3. 0 normal Not Available [facility] [address] [place] [address], [address], 06/23/2022 14:49:19 06/23/19 23 06/23/2022 COMPL ETE BLOOD COUNT nucleated red cells 0.1 % 0.0-0. 9 normal Not Available [facility] [address] [place], [address], 06/23/2022 14:49:19 06/23/19 23 06/23/2022 COMPL ETE BLOOD COUNT nucleated RBCs, absolute 0.01 K/uL not estab. normal Not Available [facility] [address] [place], [address], 06/23/2022 14:49:19 06/23/19 23 06/23/2022 TESTO STERO NE,TO RED/F REE testosterone , total 159 NG/dL 193-74 0 low Refer ence range is for age 50 years and over. Not Available [facility] [address] [place], [address], 06/27/2022 13:47:01 06/23/19 23 06/27/2022 TESTO STERO [...] is used for clini oliva purpo ses. F med fusio n [address] [facility] [address] [place] [address] [phone] Fran esteban MD TEST PERFO RMED AT: [facility] [address] [facility] [address] [place] [address] FRAN Esteban MD Not Available [facility] [address] [place] [address], [address], 06/27/2022 13:47:01 06/23/19 23 06/23/2022 COMP. METAB OLIC PANEL glucose 111 mg/dL 74-100 high Not Available [facility] [address] [place] [address], [address], 06/23/2022 16:08:11 06/23/19 23 06/23/2022 COMP. METAB OLIC PANEL blood urea nitrogen 18 mg/dL 6-20 normal Not Available [facility] [address] [place] [address], [address], 06/23/2022 16:08:11 06/23/19 23 06/23/2022 COMP. METAB OLIC PANEL creatinine 0.97 mg/dL 0.70-1 .28 normal Not Available [facility] [address] [place] [address], [address], 06/23/2022 16:08:11 06/23/19 23 06/23/2022 COMP. METAB OLIC PANEL BUN/creatini ne ratio 19 (calc ) 10-20 normal Not Available [facility] [address] [place] [address], [address], 06/23/2022 16:08:11 06/23/19 23 06/23/2022 COMP. METAB OLIC PANEL sodium 139 mmol/ L 136-14 5 normal Not Available [facility] [address] [place] [address], [address], 06/23/2022 16:08:11 06/23/19 23 06/23/2022 COMP. METAB OLIC PANEL potassium 4.8 mmol/ L 3.4-5. 0 normal Not Available [facility] [address] [place] [address], [address], 06/23/2022 16:08:11 06/23/19 23 06/23/2022 COMP. METAB OLIC PANEL chloride 103 mmol/ L 98-107 normal Not Available [facility] [address] [place] [address], [address], 06/23/2022 16:08:11 06/23/19 23 06/23/2022 COMP. METAB OLIC PANEL carbon dioxide 25 mmol/ L 22-31 normal Not Available [facility] [address] [place] [address], [address], 06/23/2022 16:08:11 06/23/19 23 06/23/2022 COMP. METAB OLIC PANEL anion gap 11 (calc ) 7-25 normal Not Available [facility] [address] [place] [address], [address], 06/23/2022 16:08:11 06/23/19 23 06/23/2022 COMP. METAB OLIC PANEL calcium 9.6 mg/dL 8.6-10 .2 normal Not Available [facility] [address] [place] [address], [address], 06/23/2022 16:08:11 06/23/19 23 06/23/2022 COMP. METAB OLIC PANEL total protein 6.8 g/dL 6.4-8. 3 normal Not Available [facility] [address] [place] [address], [address], 06/23/2022 16:08:11 06/23/19 23 06/23/2022 COMP. METAB OLIC PANEL albumin 4.3 g/dL 3.5-5. 2 normal Not Available [facility] [address] [place] [address], [address], 06/23/2022 16:08:11 06/23/19 23 06/23/2022 COMP. METAB OLIC PANEL globulin 2.5 g/dL_ (calc ) 1.5-4. 5 normal Not Available [facility] [address] [place] [address], [address], 06/23/2022 16:08:11 06/23/19 23 06/23/2022 COMP. METAB OLIC PANEL albumin/glob ulin ratio 1.7 (calc ) 1.1-2. 5 normal Not Available [facility] [address] [place] [address], [address], 06/23/2022 16:08:11 06/23/19 23 06/23/2022 COMP. METAB OLIC PANEL bilirubin, total 0.6 mg/dL 0.1-1. 2 normal Not Available [facility] [address] [place] [address], [address], 06/23/2022 16:08:11 06/23/19 23 06/23/2022 COMP. METAB OLIC PANEL alkaline phosphatase 59 U/L 40-129 normal Not Available [facility] [address] [place] [address], [address], 06/23/2022 16:08:11 06/23/19 23 06/23/2022 COMP. METAB OLIC PANEL AST 54 U/L 0-40 high Not Available [facility] [address] [place] [address], [address], 06/23/2022 16:08:11 06/23/19 23 06/23/2022 COMP. METAB OLIC PANEL ALT 74 U/L 0-41 high Not Available [facility] [address] [place] [address], [address], 06/23/2022 16:08:11 06/23/19 23 06/23/2022 COMP. METAB [...] nts refer to https ://nadine dior.o rg/pr gino bray s/KDO QI/gf r_cal culat orPed Not Available [facility] [address] [place] [address], [address], 06/23/2022 16:08:11 06/24/19 23 06/24/2022 PSA, serum or plasm a PSA 0.23 NG/mL 0.0 - 4.0 Not Available [facility] [address] [facility] [address], [place], [address], 06/23/2022 11:52:57 12/30/19 23 12/29/2022 COMPL ETE BLOOD COUNT white blood cells 9.5 10*3/ uL 3.8-10 .8 normal Not Available [facility] [address] [place] [address], [address], 12/29/2022 15:21:47 12/30/19 23 12/29/2022 COMPL ETE BLOOD COUNT red blood cells 6.00 10*6/ uL 4.20-5 .80 high Not Available [facility] [place], [address], 12/29/2022 15:21:47 12/30/19 23 12/29/2022 COMPL ETE BLOOD COUNT hemoglobin 18.1 g/dL 14.0-1 8.0 high Not Available [facility] [place], [address], 12/29/2022 15:21:47 12/30/19 23 12/29/2022 COMPL ETE BLOOD COUNT hematocrit 52.4 % 40.0-5 2.0 high Not Available [facility] [place], [address], 12/29/2022 15:21:47 12/30/19 23 12/29/2022 COMPL ETE BLOOD COUNT MCV 87 fL 80-100 normal Not Available [facility] [place], [address], 12/29/2022 15:21:47 12/30/19 23 12/29/2022 COMPL ETE BLOOD COUNT MCH 30 pg 26-35 normal Not Available [facility] [address] [place] [address], [address], 12/29/2022 15:21:47 12/30/19 23 12/29/2022 COMPL ETE BLOOD COUNT MCHC 35 g/dL 32-36 normal Not Available [facility] [address] [place] [address], [address], 12/29/2022 15:21:47 12/30/19 23 12/29/2022 COMPL ETE BLOOD COUNT RDW 14.0 % 11.0-1 5.0 normal Not Available [facility] [address] [place] [address], [address], 12/29/2022 15:21:47 12/30/19 23 12/29/2022 COMPL ETE BLOOD COUNT MPV 8.2 fL 6.2-10 .5 normal Not Available [facility] [address] [place] [address], [address], 12/29/2022 15:21:47 12/30/19 23 12/29/2022 COMPL ETE BLOOD COUNT platelet count 211 10*3/ uL 130-40 0 normal Not Available [facility] [address] [place] [address], [address], 12/29/2022 15:21:47 12/30/19 23 12/29/2022 COMPL ETE BLOOD COUNT neutrophil,a bsolute 4.5 10*3/ uL 1.6-8. 4 normal Not Available [facility] [address] [place] [address], [address], 12/29/2022 15:21:47 12/30/19 23 12/29/2022 COMPL ETE BLOOD COUNT lymphocyte,a bsolute 4.0 10*3/ uL 0.4-5. 1 normal Not Available [facility] [address] [place] [address], [address], 12/29/2022 15:21:47 12/30/19 23 12/29/2022 COMPL ETE BLOOD COUNT monocyte,abs olute 0.8 10*3/ uL 0.0-1. 2 normal Not Available [facility] [address] [place] [address], [address], 12/29/2022 15:21:47 12/30/19 23 12/29/2022 COMPL ETE BLOOD COUNT eosinophil,a bsolute 0.2 10*3/ uL 0.0-0. 8 normal Not Available [facility] [address] [place] [address], [address], 12/29/2022 15:21:47 12/30/19 23 12/29/2022 COMPL ETE BLOOD COUNT basophil,abs olute 0.0 10*3/ uL 0.0-0. 3 normal Not Available [facility] [address] [place] [address], [address], 12/29/2022 15:21:47 12/30/19 23 12/29/2022 COMPL ETE BLOOD COUNT % neutrophils 46.9 % 42.0-7 8.0 normal Not Available [facility] [address] [place] [address], [address], 12/29/2022 15:21:47 12/30/19 23 12/29/2022 COMPL ETE BLOOD COUNT % lymphocytes 41.9 % 11.0-4 7.0 normal Not Available [facility] [address] [place] [address], [address], 12/29/2022 15:21:47 12/30/19 23 12/29/2022 COMPL ETE BLOOD COUNT % monocytes 8.9 % 0.0-11 .0 normal Not Available [facility] [address] [place] [address], [address], 12/29/2022 15:21:47 12/30/19 23 12/29/2022 COMPL ETE BLOOD COUNT % eosinophils 1.8 % 0.0-7. 0 normal Not Available [facility] [address] [place] [address], [address], 12/29/2022 15:21:47 12/30/19 23 12/29/2022 COMPL ETE BLOOD COUNT % basophils 0.5 % 0.0-3. 0 normal Not Available [facility] [address] [place] [address], [address], 12/29/2022 15:21:47 12/30/19 23 12/29/2022 COMPL ETE BLOOD COUNT nucleated red cells 0.1 % 0.0-0. 9 normal Not Available [facility] [address] [place] [address], [address], 12/29/2022 15:21:47 12/30/19 23 12/29/2022 COMPL ETE BLOOD COUNT nucleated RBCs, absolute 0.01 10*3/ uL not estab. normal Not Available [facility] [address] [place] [address], [address], 12/29/2022 15:21:47 12/30/19 23 12/29/2022 TESTO STERO NE, TOTAL testosterone , total 120 NG/dL 193-74 0 low Refer ence range is for age 50 years and over. Not Available [facility] [address] [place] [address], [address], 12/29/2022 19:23:21 12/30/19 23 12/29/2022 PROST ATE SPECI FIC AG prostate specific Ag 0.340 NG/mL 0.000- 4.100 normal Test metho d is based on WHO-s tanda rdize d calib ratio n using the Emmett Sanya E801 abe zer. PSA resul ts by diffe rent test proce dures canno t be direc tly michelle red with one anoth er. . Not Available [facility] [address] [place] [address], [address], 12/29/2022 19:23:22 12/30/19 23 12/29/2022 COMP. METAB OLIC PANEL glucose 106 mg/dL 74-100 high Not Available [facility] [address] [place] [address], [address], 12/29/2022 19:25:19 12/30/19 23 12/29/2022 COMP. METAB OLIC PANEL blood urea nitrogen 21 mg/dL 6-20 high Not Available [facility] [address] [place] [address], [address], 12/29/2022 19:25:19 12/30/19 23 12/29/2022 COMP. METAB OLIC PANEL creatinine 0.92 mg/dL 0.70-1 .28 normal Not Available [facility] [address] [place] [address], [address], 12/29/2022 19:25:19 12/30/19 23 12/29/2022 COMP. METAB OLIC PANEL BUN/creatini ne ratio 23 (calc ) 10-20 high Not Available [facility] [address] [place] [address], [address], 12/29/2022 19:25:19 12/30/19 23 12/29/2022 COMP. METAB OLIC PANEL sodium 137 mmol/ L 136-14 5 normal Not Available [facility] [address] [place] [address], [address], 12/29/2022 19:25:19 12/30/19 23 12/29/2022 COMP. METAB OLIC PANEL potassium 4.4 mmol/ L 3.4-5. 0 normal Not Available [facility] [address] [place] [address], [address], 12/29/2022 19:25:19 12/30/19 23 12/29/2022 COMP. METAB OLIC PANEL chloride 102 mmol/ L 98-107 normal Not Available [facility] [address] [place] [address], [address], 12/29/2022 19:25:19 12/30/19 23 12/29/2022 COMP. METAB OLIC PANEL carbon dioxide 21 mmol/ L 22-31 low Not Available [facility] [address] [place] [address], [address], 12/29/2022 19:25:19 12/30/19 23 12/29/2022 COMP. METAB OLIC PANEL anion gap 14 (calc ) 7-25 normal Not Available [facility] [address] [place] [address], [address], 12/29/2022 19:25:19 12/30/19 23 12/29/2022 COMP. METAB OLIC PANEL calcium 9.5 mg/dL 8.6-10 .2 normal Not Available [facility] [address] [place] [address], [address], 12/29/2022 19:25:19 12/30/19 23 12/29/2022 COMP. METAB OLIC PANEL total protein 7.3 g/dL 6.4-8. 3 normal Not Available [facility] [address] [place] [address], [address], 12/29/2022 19:25:19 12/30/19 23 12/29/2022 COMP. METAB OLIC PANEL albumin 4.3 g/dL 3.5-5. 2 normal Not Available [facility] [address] [place] [address], [address], 12/29/2022 19:25:19 12/30/19 23 12/29/2022 COMP. METAB OLIC PANEL globulin 3.0 1.5-4. 5 normal Not Available [facility] [address] [place] [address], [address], 12/29/2022 19:25:19 12/30/19 23 12/29/2022 COMP. METAB OLIC PANEL albumin/glob ulin ratio 1.4 (calc ) 1.1-2. 5 normal Not Available [facility] [address] [place], [address], 12/29/2022 19:25:19 12/30/19 23 12/29/2022 COMP. METAB OLIC PANEL bilirubin, total 0.7 mg/dL 0.1-1. 2 normal Not Available [facility] [address] [place] [address], [address], 12/29/2022 19:25:19 12/30/19 23 12/29/2022 COMP. METAB OLIC PANEL alkaline phosphatase 54 U/L 40-129 normal Not Available [facility] [address] [place] [address], [address], 12/29/2022 19:25:19 12/30/19 23 12/29/2022 COMP. METAB OLIC PANEL AST 39 U/L 0-40 normal Not Available [facility] [address] [place] [address], [address], 12/29/2022 19:25:19 12/30/19 23 12/29/2022 COMP. METAB OLIC PANEL ALT 44 U/L 0-41 high Not Available [facility] [address] [place] [address], [address], 12/29/2022 19:25:19 12/30/19 23 12/29/2022 COMP. METAB OLIC PANEL GFR 91 >= 60 normal NOT E New calcu latio n for GFR (CKD- EPI 2020) is formu lated witho ut race adjus tment facto rs at the recom menda tion of the [employer] and [employer]i atif eM[employer]endeze ty of Nephr ology . This calcu latio n has not been valid ated in pregn ant women . For pedia tric patie nts refer to https ://nadine dior.o rg/pr ofess ional s/KDO QI/gf r_cal culat orPed Not Available [facility] [address] [place] [address], [address], 12/29/2022 19:25:19 12/30/19 23 01/02/2023 TESTO STERO NE, FREE testosterone , free 17.0 pg/mL 46.0-2 24.0 low (Note ) The henry ntrat ion of free testo stero ne is deriv ed from a mathe matneli al model using total testo stero ne by LCMSM S, sex hormo ne donny ng globu ricci and album in. This test was devel oped and its abe tical perfo rmanc e enresto cteri stics have been deter mined by [employer] ostic s. It has not been clear ed or appro niya by the FDA. This assay has been valid ated pursu ant to the CLIA regul ation s and is used for clini oliva purpo ses. MDF med fusio n [address] [facility] [address] [facility] [address] [phone] Karan navarro MD Not Available [facility] [address] [place], [address], 01/02/2023 02:52:13 12/30/19 23 12/29/2022 urina lysis panel , auto Unknown Analyte Clean Catch Not Available [facility] [address] [facility] [address], [place], [address], 12/29/2022 14:25:37 12/30/19 23 12/29/2022 urina lysis panel , auto Unknown Analyte Yellow Not Available [facility] [address] [facility] [address], [place], [address], 12/29/2022 14:25:37 12/30/19 23 12/29/2022 urina lysis panel , auto Unknown Analyte Clear Not Available [facility] [address], [place], [address], 12/29/2022 14:25:37 12/30/19 23 12/29/2022 urina lysis panel , auto Unknown Analyte 1.020 Not Available [facility] [address], [place], [address], 12/29/2022 14:25:37 12/30/19 23 12/29/2022 urina lysis panel , auto Unknown Analyte 5.0 Not Available [facility] [address], [place], [address], 12/29/2022 14:25:37 12/30/19 23 12/29/2022 urina lysis panel , auto Unknown Analyte Negati ve Not Available [facility] [address], [place], [address], 12/29/2022 14:25:37 12/30/19 23 12/29/2022 urina lysis panel , auto Unknown Analyte Negati ve Not Available [facility] [address], [place], [address], 12/29/2022 14:25:37 12/30/19 23 12/29/2022 urina lysis panel , auto Unknown Analyte Negati ve Not Available [facility] [address], [place], [address], 12/29/2022 14:25:37 12/30/19 23 12/29/2022 urina lysis panel , auto Unknown Analyte Normal Not Available [facility] [address], [place], [address], 12/29/2022 14:25:37 12/30/19 23 12/29/2022 urina lysis panel , auto Unknown Analyte Negati ve Not Available [facility] [address], [place], [address], 12/29/2022 14:25:37 12/30/19 23 12/29/2022 urina lysis panel , auto Unknown Analyte Normal Not Available [facility] [address], [place], [address], 12/29/2022 14:25:37 12/30/19 23 12/29/2022 urina lysis panel , auto Unknown Analyte Negati ve Not Available [facility] [address], [place], [address], 12/29/2022 14:25:37 12/30/19 23 12/29/2022 urina lysis panel , auto Unknown Analyte Negati ve Not Available [facility] [address] [place] [address] [address], [place], [address], 12/29/2022 14:25:37 07/06/19 24 07/06/2023 COMPL ETE BLOOD COUNT white blood cells 11.2 10*3/ uL 3.8-10 .8 high Not Available [facility] [address] [place] [address], [address], 07/06/2023 15:21:21 07/06/19 24 07/06/2023 COMPL ETE BLOOD COUNT red blood cells 6.04 10*6/ uL 4.20-5 .80 high Not Available [facility] [address] [place] [address], [address], 07/06/2023 15:21:21 07/06/19 24 07/06/2023 COMPL ETE BLOOD COUNT hemoglobin 18.0 g/dL 14.0-1 8.0 normal Not Available [facility] [address] [place] [address], [address], 07/06/2023 15:21:21 07/06/19 24 07/06/2023 COMPL ETE BLOOD COUNT hematocrit 54.0 % 40.0-5 2.0 high Not Available [facility] [address] [place] [address], [address], 07/06/2023 15:21:21 07/06/19 24 07/06/2023 COMPL ETE BLOOD COUNT MCV 90 fL 80-100 normal Not Available [facility] [address] [place] [address], [address], 07/06/2023 15:21:21 07/06/19 24 07/06/2023 COMPL ETE BLOOD COUNT MCH 30 pg 26-35 normal Not Available [facility] [address] [place] [address], [address], 07/06/2023 15:21:21 07/06/19 24 07/06/2023 COMPL ETE BLOOD COUNT MCHC 33 g/dL 32-36 normal Not Available [facility] [address] [place] [address], [address], 07/06/2023 15:21:21 07/06/19 24 07/06/2023 COMPL ETE BLOOD COUNT RDW 14.4 % 11.0-1 5.0 normal Not Available [facility] [address] [place] [address], [address], 07/06/2023 15:21:21 07/06/19 24 07/06/2023 COMPL ETE BLOOD COUNT MPV 7.9 fL 6.2-10 .5 normal Not Available [facility] [address] [place] [address], [address], 07/06/2023 15:21:21 07/06/19 24 07/06/2023 COMPL ETE BLOOD COUNT platelet count 232 10*3/ uL 150-40 0 normal Not Available [facility] [address] [place] [address], [address], 07/06/2023 15:21:21 07/06/19 24 07/06/2023 COMPL ETE BLOOD COUNT neutrophil,a bsolute 6.4 10*3/ uL 1.6-8. 4 normal Not Available [facility] [address] [place] [address], [address], 07/06/2023 15:21:21 07/06/19 24 07/06/2023 COMPL ETE BLOOD COUNT lymphocyte,a bsolute 3.6 10*3/ uL 0.4-5. 1 normal Not Available [facility] [address] [place] [address], [address], 07/06/2023 15:21:21 07/06/19 24 07/06/2023 COMPL ETE BLOOD COUNT monocyte,abs olute 0.8 10*3/ uL 0.0-1. 2 normal Not Available [facility] [address] [place] [address], [address], 07/06/2023 15:21:21 07/06/19 24 07/06/2023 COMPL ETE BLOOD COUNT eosinophil,a bsolute 0.2 10*3/ uL 0.0-0. 8 normal Not Available [facility] [address] [place] [address], [address], 07/06/2023 15:21:21 07/06/19 24 07/06/2023 COMPL ETE BLOOD COUNT basophil,abs olute 0.1 10*3/ uL 0.0-0. 3 normal Not Available [facility] [address] [place] [address], [address], 07/06/2023 15:21:21 07/06/19 24 07/06/2023 COMPL ETE BLOOD COUNT % neutrophils 57.7 % 42.0-7 8.0 normal Not Available [facility] [address] [place] [address], [address], 07/06/2023 15:21:21 07/06/19 24 07/06/2023 COMPL ETE BLOOD COUNT % lymphocytes 32.4 % 11.0-4 7.0 normal Not Available [facility] [address] [place] [address], [address], 07/06/2023 15:21:21 07/06/19 24 07/06/2023 COMPL ETE BLOOD COUNT % monocytes 7.4 % 0.0-11 .0 normal Not Available [facility] [address] [place] [address], [address], 07/06/2023 15:21:21 07/06/19 24 07/06/2023 COMPL ETE BLOOD COUNT % eosinophils 1.8 % 0.0-7. 0 normal Not Available [facility] [address] [place] [address], [address], 07/06/2023 15:21:21 07/06/19 24 07/06/2023 COMPL ETE BLOOD COUNT % basophils 0.7 % 0.0-3. 0 normal Not Available [facility] [address] [place] [address], [address], 07/06/2023 15:21:21 07/06/19 24 07/06/2023 COMPL ETE BLOOD COUNT nucleated red cells 0.2 % 0.0-0. 9 normal Not Available [facility] [address] [place] [address], [address], 07/06/2023 15:21:21 07/06/19 24 07/06/2023 COMPL ETE BLOOD COUNT nucleated RBCs, absolute 0.02 10*3/ uL not estab. normal Not Available [facility] [address] [place] [address], [address], 07/06/2023 15:21:21 07/06/19 24 07/06/2023 COMP. METAB OLIC PANEL glucose 131 mg/dL 74-100 high Not Available [facility] [address] [place] [address], [address], 07/06/2023 16:48:24 07/06/19 24 07/06/2023 COMP. METAB OLIC PANEL blood urea nitrogen 13 mg/dL 6-20 normal Not Available [facility] [address] [place] [address], [address], 07/06/2023 16:48:24 07/06/19 24 07/06/2023 COMP. METAB OLIC PANEL creatinine 0.95 mg/dL 0.70-1 .28 normal Not Available [facility] [address] [place] [address], [address], 07/06/2023 16:48:24 07/06/19 24 07/06/2023 COMP. METAB OLIC PANEL BUN/creatini ne ratio 14 (calc ) 10-20 normal Not Available [facility] [address] [place] [address], [address], 07/06/2023 16:48:24 07/06/19 24 07/06/2023 COMP. METAB OLIC PANEL sodium 137 mmol/ L 136-14 5 normal Not Available [facility] [address] [place] [address], [address], 07/06/2023 16:48:24 07/06/19 24 07/06/2023 COMP. METAB OLIC PANEL potassium 4.2 mmol/ L 3.4-5. 0 normal Not Available [facility] [address] [place] [address], [address], 07/06/2023 16:48:24 07/06/19 24 07/06/2023 COMP. METAB OLIC PANEL chloride 99 mmol/ L 98-107 normal Not Available [facility] [address] [place] [address], [address], 07/06/2023 16:48:24 07/06/19 24 07/06/2023 COMP. METAB OLIC PANEL carbon dioxide 28 mmol/ L 22-31 normal Not Available [facility] [address] [place] [address], [address], 07/06/2023 16:48:24 07/06/19 24 07/06/2023 COMP. METAB OLIC PANEL anion gap 10 (calc ) 7-25 normal Not Available [facility] [address] [place] [address], [address], 07/06/2023 16:48:24 07/06/19 24 07/06/2023 COMP. METAB OLIC PANEL calcium 9.0 mg/dL 8.6-10 .2 normal Not Available [facility] [address] [place] [address], [address], 07/06/2023 16:48:24 07/06/19 24 07/06/2023 COMP. METAB OLIC PANEL total protein 6.9 g/dL 6.4-8. 3 normal Not Available [facility] [address] [place] [address], [address], 07/06/2023 16:48:24 07/06/19 24 07/06/2023 COMP. METAB OLIC PANEL albumin 3.9 g/dL 3.5-5. 2 normal Not Available [facility] [address] [place] [address], [address], 07/06/2023 16:48:24 07/06/19 24 07/06/2023 COMP. METAB OLIC PANEL globulin 3.0 1.5-4. 5 normal Not Available [facility] [address] [place] [address], [address], 07/06/2023 16:48:24 07/06/19 24 07/06/2023 COMP. METAB OLIC PANEL albumin/glob ulin ratio 1.3 (calc ) 1.1-2. 5 normal Not Available [facility] [address] [place] [address], [address], 07/06/2023 16:48:24 07/06/19 24 07/06/2023 COMP. METAB OLIC PANEL bilirubin, total 0.5 mg/dL 0.1-1. 2 normal Not Available [facility] [address] [place] [address], [address], 07/06/2023 16:48:24 07/06/19 24 07/06/2023 COMP. METAB OLIC PANEL alkaline phosphatase 59 U/L 40-129 normal Not Available [facility] [address] [place] [address], [address], 07/06/2023 16:48:24 07/06/19 24 07/06/2023 COMP. METAB OLIC PANEL AST 47 U/L 0-40 high Not Available [facility] [address] [place] [address], [address], 07/06/2023 16:48:24 07/06/19 24 07/06/2023 COMP. METAB OLIC PANEL ALT 67 U/L 0-41 high Not Available [facility] [address] [place] [address], [address], 07/06/2023 16:48:24 07/06/19 24 07/06/2023 COMP. METAB OLIC PANEL GFR 87 >= 60 normal NOT E New calcu latio n for GFR (CKD- EPI 2020) is formu lated witho ut race adjus tment facto rs at the recom menda tion of the [employer] and [employer] ty of Nephr ology . This calcu latio n has not been valid ated in pregn ant women . For pedia tric patie nts refer to https ://nadine dior.fei loomis/favio bray s/TONIAO QI/gf r_cal culat orPed Not Available [facility] [address] [place] [address], [address], 07/06/2023 16:48:24 07/06/19 24 07/06/2023 TESTO STERO NE, TOTAL testosterone , total 182 NG/dL 193-74 0 low Refer ence range is for age 50 years and over. Not Available [facility] [address] [place] [address], [address], 07/06/2023 16:51:00 07/06/19 24 07/06/2023 PSA, serum or plasm a PSA 0.43 NG/mL 0.0 - 4.0 Not Available [facility] [address] [facility] [address], [place], [address], 07/06/2023 13:23:56 01/11/20 24 01/11/2024 COMPL ETE BLOOD COUNT white blood cells 9.6 10*3/ uL 3.8-10 .8 normal Not Available [facility] [address] [place] [address], [address], 01/11/2024 14:52:01 01/11/20 24 01/11/2024 COMPL ETE BLOOD COUNT red blood cells 5.97 10*6/ uL 4.20-5 .80 high Not Available [facility] [place], [address], 01/11/2024 14:52:01 01/11/20 24 01/11/2024 COMPL ETE BLOOD COUNT hemoglobin 18.1 g/dL 14.0-1 8.0 high Not Available [facility] [address] [place] [address], [address], 01/11/2024 14:52:01 01/11/20 24 01/11/2024 COMPL ETE BLOOD COUNT hematocrit 52.7 % 40.0-5 2.0 high Not Available [facility] [address] [place] [address], [address], 01/11/2024 14:52:01 01/11/20 24 01/11/2024 COMPL ETE BLOOD COUNT MCV 88 fL 80-100 normal Not Available [facility] [address] [place] [address], [address], 01/11/2024 14:52:01 01/11/20 24 01/11/2024 COMPL ETE BLOOD COUNT MCH 30 pg 26-35 normal Not Available [facility] [address] [place] [address], [address], 01/11/2024 14:52:01 01/11/20 24 01/11/2024 COMPL ETE BLOOD COUNT MCHC 34 g/dL 32-36 normal Not Available [facility] [address] [place] [address], [address], 01/11/2024 14:52:01 01/11/20 24 01/11/2024 COMPL ETE BLOOD COUNT RDW 13.7 % 11.0-1 5.0 normal Not Available [facility] [address] [place] [address], [address], 01/11/2024 14:52:01 01/11/20 24 01/11/2024 COMPL ETE BLOOD COUNT MPV 7.6 fL 6.2-10 .5 normal Not Available [facility] [address] [place] [address], [address], 01/11/2024 14:52:01 01/11/20 24 01/11/2024 COMPL ETE BLOOD COUNT platelet count 231 10*3/ uL 150-40 0 normal Not Available [facility] [address] [place] [address], [address], 01/11/2024 14:52:01 01/11/20 24 01/11/2024 COMPL ETE BLOOD COUNT neutrophil,a bsolute 4.9 10*3/ uL 1.6-8. 4 normal Not Available [facility] [address] [place] [address], [address], 01/11/2024 14:52:01 01/11/20 24 01/11/2024 COMPL ETE BLOOD COUNT lymphocyte,a bsolute 3.7 10*3/ uL 0.4-5. 1 normal Not Available [facility] [address] [place] [address], [address], 01/11/2024 14:52:01 01/11/20 24 01/11/2024 COMPL ETE BLOOD COUNT monocyte,abs olute 0.7 10*3/ uL 0.0-1. 2 normal Not Available [facility] [address] [place] [address], [address], 01/11/2024 14:52:01 01/11/20 24 01/11/2024 COMPL ETE BLOOD COUNT eosinophil,a bsolute 0.2 10*3/ uL 0.0-0. 8 normal Not Available [facility] [address] [place] [address], [address], 01/11/2024 14:52:01/11/20 24 01/11/2024 COMPL ETE BLOOD COUNT basophil,abs olute 0.1 10*3/ uL 0.0-0. 3 normal Not Available [facility] [address] [place] [address], [address], 01/11/2024 14:52:01/11/20 24 01/11/2024 COMPL ETE BLOOD COUNT % neutrophils 50.8 % 42.0-7 8.0 normal Not Available [facility] [address] [place] [address], [address], 01/11/2024 14:52:01/11/20 24 01/11/2024 COMPL ETE BLOOD COUNT % lymphocytes 38.7 % 11.0-4 7.0 normal Not Available [facility] [address] [place] [address], [address], 01/11/2024 14:52:01/11/20 24 01/11/2024 COMPL ETE BLOOD COUNT % monocytes 7.8 % 0.0-11 .0 normal Not Available [facility] [address] [place] [address], [address], 01/11/2024 14:52:01 01/11/20 24 01/11/2024 COMPL ETE BLOOD COUNT % eosinophils 1.8 % 0.0-7. 0 normal Not Available [facility] [address] [place] [address], [address], 01/11/2024 14:52:01 01/11/20 24 01/11/2024 COMPL ETE BLOOD COUNT % basophils 0.9 % 0.0-3. 0 normal Not Available [facility] [address] [place] [address], [address], 01/11/2024 14:52:01 01/11/20 24 01/11/2024 COMPL ETE BLOOD COUNT nucleated red cells 0.1 % 0.0-0. 9 normal Not Available [facility] [address] [place] [address], [address], 01/11/2024 14:52:01 01/11/20 24 01/11/2024 COMPL ETE BLOOD COUNT nucleated RBCs, absolute 0.01 10*3/ uL not estab. normal Not Available [facility] [address] [place] [address], [address], 01/11/2024 14:52:01 01/11/20 24 01/11/2024 TESTO STERO NE, TOTAL testosterone , total 147 NG/dL 193-74 0 low Refer ence range is for age 50 years and over. Not Available [facility] [address] [place] [address], [address], 01/11/2024 15:12:24 01/11/20 24 01/11/2024 COMP. METAB OLIC PANEL glucose 120 mg/dL 74-100 high Not Available [facility] [address] [place] [address], [address], 01/11/2024 15:37:34 01/11/20 24 01/11/2024 COMP. METAB OLIC PANEL blood urea nitrogen 19 mg/dL 6-20 normal Not Available [facility] [address] [place] [address], [address], 01/11/2024 15:37:34 01/11/20 24 01/11/2024 COMP. METAB OLIC PANEL creatinine 1.04 mg/dL 0.70-1 .28 normal Not Available [facility] [address] [place] [address], [address], 01/11/2024 15:37:34 01/11/20 24 01/11/2024 COMP. METAB OLIC PANEL BUN/creatini ne ratio 18 (calc ) 10-20 normal Not Available [facility] [address] [place] [address], [address], 01/11/2024 15:37:34 01/11/20 24 01/11/2024 COMP. METAB OLIC PANEL sodium 138 mmol/ L 136-14 5 normal Not Available [facility] [address] [place] [address], [address], 01/11/2024 15:37:34 01/11/20 24 01/11/2024 COMP. METAB OLIC PANEL potassium 4.3 mmol/ L 3.4-5. 0 normal Not Available [facility] [address] [place] [address], [address], 01/11/2024 15:37:34 01/11/20 24 01/11/2024 COMP. METAB OLIC PANEL chloride 101 mmol/ L 98-107 normal Not Available [facility] [facility] [address] [place] [address], [address], 01/11/2024 15:37:34 01/11/20 24 01/11/2024 COMP. METAB OLIC PANEL carbon dioxide 26 mmol/ L 22-31 normal Not Available [facility] [address] [place] [address], [address], 01/11/2024 15:37:34 01/11/20 24 01/11/2024 COMP. METAB OLIC PANEL anion gap 11 (calc ) 7-25 normal Not Available [facility] [address] [place] [address], [address], 01/11/2024 15:37:34 01/11/20 24 01/11/2024 COMP. METAB OLIC PANEL calcium 9.1 mg/dL 8.6-10 .2 normal Not Available [address], [address], 01/11/2024 15:37:34 01/11/20 24 01/11/2024 COMP. METAB OLIC PANEL total protein 7.3 g/dL 6.4-8. 3 normal Not Available [address], [address], 01/11/2024 15:37:34 01/11/20 24 01/11/2024 COMP. METAB OLIC PANEL albumin 4.0 g/dL 3.5-5. 2 normal Not Available [address], [address], 01/11/2024 15:37:34 01/11/20 24 01/11/2024 COMP. METAB OLIC PANEL globulin 3.3 1.5-4. 5 normal Not Available [address], [address], 01/11/2024 15:37:34 01/11/20 24 01/11/2024 COMP. METAB OLIC PANEL albumin/glob ulin ratio 1.2 (calc ) 1.1-2. 5 normal Not Available [address], [address], 01/11/2024 15:37:34 01/11/20 24 01/11/2024 COMP. METAB OLIC PANEL bilirubin, total 0.6 mg/dL 0.1-1. 2 normal Not Available [address], [address], 01/11/2024 15:37:34 01/11/20 24 01/11/2024 COMP. METAB OLIC PANEL alkaline phosphatase 60 U/L 40-129 normal Not Available [facility] [address] [place], [address], 01/11/2024 15:37:34 01/11/20 24 01/11/2024 COMP. METAB OLIC PANEL AST 33 U/L 0-40 normal Not Available [facility] [address] [place], [address], 01/11/2024 15:37:34 01/11/20 24 01/11/2024 COMP. METAB OLIC PANEL ALT 36 U/L 0-41 normal Not Available [facility] [address] [place], [address], 01/11/2024 15:37:34 01/11/20 24 01/11/2024 COMP. METAB OLIC PANEL GFR 78 >= 60 normal NOT E New calcu latio n for GFR (CKD- EPI 2020) is formu lated witho ut race adjus tment facto rs at the recom menda tion of the [employer] ation and Ameri can Socie ty of Nephr ology . This calcu latio n has not been valid ated in pregn ant women . For pedia tric patie nts refer to https ://nadine dior.o rg/pr mayraess ional s/KDO QI/gf r_cal culat orPed Not Available [facility] [address] [place], [address], 01/11/2024 15:37:34 01/11/20 24 01/20/2024 TESTO STERO NE, FREE testosterone , free 20.1 pg/mL 46.0-2 24.0 low MDF med fusio n [address] [facility] [address] [facility] [address] [phone] Ap Ward MD, PhD Not Available [facility] [address] [place], [address], 01/20/2024 04:13:13 01/11/20 24 01/11/2024 PSA, serum or plasm a PSA 0.47 NG/mL 0.0 - 4.0 Not Available [facility] [address], [place], [address], 01/11/2024 13:55:48 08/26/19 25 08/25/2024 COMPL ETE BLOOD COUNT white blood cells 10.0 10*3/ uL 3.8-10 .8 normal Not Available [facility] [address] [place] [address], [address], 08/25/2024 12:45:57 08/26/19 25 08/25/2024 COMPL ETE BLOOD COUNT red blood cells 5.71 10*6/ uL 4.20-5 .80 normal Not Available [facility] [address] [place] [address], [address], 08/25/2024 12:45:57 08/26/19 25 08/25/2024 COMPL ETE BLOOD COUNT hemoglobin 17.1 g/dL 14.0-1 8.0 normal Not Available [facility] [address] [place] [address], [address], 08/25/2024 12:45:57 08/26/19 25 08/25/2024 COMPL ETE BLOOD COUNT hematocrit 50.8 % 40.0-5 2.0 normal Not Available [facility] [address] [place] [address], [address], 08/25/2024 12:45:57 08/26/19 25 08/25/2024 COMPL ETE BLOOD COUNT MCV 89 fL 80-100 normal Not Available [facility] [address] [place] [address], [address], 08/25/2024 12:45:57 08/26/19 25 08/25/2024 COMPL ETE BLOOD COUNT MCH 30 pg 26-35 normal Not Available [facility] [address] [place] [address], [address], 08/25/2024 12:45:57 08/26/19 25 08/25/2024 COMPL ETE BLOOD COUNT MCHC 34 g/dL 32-36 normal Not Available [facility] [address] [place] [address], [address], 08/25/2024 12:45:57 08/26/19 25 08/25/2024 COMPL ETE BLOOD COUNT RDW 14.7 % 11.0-1 5.0 normal Not Available [facility] [address] [place] [address], [address], 08/25/2024 12:45:57 08/26/19 25 08/25/2024 COMPL ETE BLOOD COUNT MPV 7.5 fL 6.2-10 .5 normal Not Available [facility] [address] [place] [address], [address], 08/25/2024 12:45:57 08/26/19 25 08/25/2024 COMPL ETE BLOOD COUNT platelet count 226 10*3/ uL 150-40 0 normal Not Available [facility] [address] [place] [address], [address], 08/25/2024 12:45:57 08/26/19 25 08/25/2024 COMPL ETE BLOOD COUNT neutrophil,a bsolute 4.7 10*3/ uL 1.6-8. 4 normal Not Available [facility] [address] [place] [address], [address], 08/25/2024 12:45:57 08/26/19 25 08/25/2024 COMPL ETE BLOOD COUNT lymphocyte,a bsolute 4.1 10*3/ uL 0.4-5. 1 normal Not Available [facility] [address] [place] [address], [address], 08/25/2024 12:45:57 08/26/19 25 08/25/2024 COMPL ETE BLOOD COUNT monocyte,abs olute 1.0 10*3/ uL 0.0-1. 2 normal Not Available [facility] [address] [place] [address], [address], 08/25/2024 12:45:57 08/26/19 25 08/25/2024 COMPL ETE BLOOD COUNT eosinophil,a bsolute 0.2 10*3/ uL 0.0-0. 8 normal Not Available [facility] [address] [place] [address], [address], 08/25/2024 12:45:57 08/26/19 25 08/25/2024 COMPL ETE BLOOD COUNT basophil,abs olute 0.1 10*3/ uL 0.0-0. 3 normal Not Available [facility] [address] [place] [address], [address], 08/25/2024 12:45:57 08/26/19 25 08/25/2024 COMPL ETE BLOOD COUNT % neutrophils 46.6 % 42.0-7 8.0 normal Not Available [facility] [address] [place] [address], [address], 08/25/2024 12:45:57 08/26/19 25 08/25/2024 COMPL ETE BLOOD COUNT % lymphocytes 40.6 % 11.0-4 7.0 normal Not Available [facility] [address] [place] [address], [address], 08/25/2024 12:45:57 08/26/19 25 08/25/2024 COMPL ETE BLOOD COUNT % monocytes 10.3 % 0.0-11 .0 normal Not Available [facility] [address] [place] [address], [address], 08/25/2024 12:45:57 08/26/19 25 08/25/2024 COMPL ETE BLOOD COUNT % eosinophils 1.5 % 0.0-7. 0 normal Not Available [facility] [address] [place] [address], [address], 08/25/2024 12:45:57 08/26/19 25 08/25/2024 COMPL ETE BLOOD COUNT % basophils 1.0 % 0.0-3. 0 normal Not Available [facility] [address] [place] [address], [address], 08/25/2024 12:45:57 08/26/19 25 08/25/2024 COMPL ETE BLOOD COUNT nucleated red cells 0.1 % 0.0-0. 9 normal Not Available [facility] [address] [place] [address], [address], 08/25/2024 12:45:57 08/26/19 25 08/25/2024 COMPL ETE BLOOD COUNT nucleated RBCs, absolute 0.01 10*3/ uL not estab. normal Not Available [facility] [address] [place] [address], [address], 08/25/2024 12:45:57 08/26/19 25 08/25/2024 COMP. METAB OLIC PANEL glucose 110 mg/dL 74-100 high Not Available [facility] [address] [place] [address], [address], 08/25/2024 18:04:45 08/26/19 25 08/25/2024 COMP. METAB OLIC PANEL blood urea nitrogen 19 mg/dL 6-20 normal Not Available [facility] [address] [place] [address], [address], 08/25/2024 18:04:45 08/26/19 25 08/25/2024 COMP. METAB OLIC PANEL creatinine 1.07 mg/dL 0.70-1 .28 normal Not Available [facility] [address] [place] [address], [address], 08/25/2024 18:04:45 08/26/19 25 08/25/2024 COMP. METAB OLIC PANEL BUN/creatini ne ratio 18 (calc ) 10-20 normal Not Available [facility] [address] [place] [address], [address], 08/25/2024 18:04:45 08/26/19 25 08/25/2024 COMP. METAB OLIC PANEL sodium 139 mmol/ L 136-14 5 normal Not Available [facility] [address] [place] [address], [address], 08/25/2024 18:04:45 08/26/19 25 08/25/2024 COMP. METAB OLIC PANEL potassium 5.0 mmol/ L 3.4-5. 0 normal Not Available [facility] [address] [place] [address], [address], 08/25/2024 18:04:45 08/26/19 25 08/25/2024 COMP. METAB OLIC PANEL chloride 101 mmol/ L 98-107 normal Not Available [facility] [address] [place] [address], [address], 08/25/2024 18:04:45 08/26/19 25 08/25/2024 COMP. METAB OLIC PANEL carbon dioxide 28 mmol/ L 22-31 normal Not Available [facility] [address] [place] [address], [address], 08/25/2024 18:04:45 08/26/19 25 08/25/2024 COMP. METAB OLIC PANEL anion gap 10 (calc ) 7-25 normal Not Available [facility] [address] [place] [address], [address], 08/25/2024 18:04:45 08/26/19 25 08/25/2024 COMP. METAB OLIC PANEL calcium 9.1 mg/dL 8.6-10 .2 normal Not Available [facility] [address] [place] [address], [address], 08/25/2024 18:04:45 08/26/19 25 08/25/2024 COMP. METAB OLIC PANEL total protein 7.3 g/dL 6.4-8. 3 normal Not Available [facility] [address] [place] [address], [address], 08/25/2024 18:04:45 08/26/19 25 08/25/2024 COMP. METAB OLIC PANEL albumin 4.1 g/dL 3.5-5. 2 normal Not Available [facility] [address] [place] [address], [address], 08/25/2024 18:04:45 08/26/19 25 08/25/2024 COMP. METAB OLIC PANEL globulin 3.2 1.5-4. 5 normal Not Available [facility] [address] [place] [address], [address], 08/25/2024 18:04:45 08/26/19 25 08/25/2024 COMP. METAB OLIC PANEL albumin/glob ulin ratio 1.3 (calc ) 1.1-2. 5 normal Not Available [facility] [address] [place] [address], [address], 08/25/2024 18:04:45 08/26/19 25 08/25/2024 COMP. METAB OLIC PANEL bilirubin, total 0.4 mg/dL 0.1-1. 2 normal Not Available [facility] [address] [place] [address], [address], 08/25/2024 18:04:45 08/26/19 25 08/25/2024 COMP. METAB OLIC PANEL alkaline phosphatase 59 U/L 40-129 normal Not Available [facility] [address] [place] [address], [address], 08/25/2024 18:04:45 08/26/19 25 08/25/2024 COMP. METAB OLIC PANEL AST 36 U/L 0-40 normal Not Available [facility] [address] [place] [address], [address], 08/25/2024 18:04:45 08/26/19 25 08/25/2024 COMP. METAB OLIC PANEL ALT 45 U/L 0-41 high Not Available [facility] [address] [place], [address], 08/25/2024 18:04:45 08/26/19 25 08/25/2024 COMP. METAB OLIC PANEL GFR 75 >= 60 normal NOT E New calcu latio n for GFR (CKD- EPI 2020) is formu lated witho ut race adjus tment facto rs at the recom menda tion of the [employer] ation and Ameri can Socie ty of Nephr ology . This calcu latio n has not been valid ated in pregn ant women . For pedia tric patie nts refer to https ://nadine dior.fei rg/pr mayraess ional s/KDO QI/gf r_cal culat orPed Not Available [facility] [address] [place], [address], 08/25/2024 18:04:45 08/26/19 25 08/25/2024 PROST ATE [...] not be michelle rable . Not Available [facility] [address] [place], [address], 08/25/2024 18:11:13 08/26/19 25 08/25/2024 TESTO STERO NE, TOTAL testosterone , total 449 NG/dL 193-74 0 normal Refer ence range is for age 50 years and over. Not Available [facility] [address] [place], [address], 08/25/2024 18:11:14 Result Notes None recorded. Problems Name Problem SNOMED Code Status Onset Date Resolution Date Notes Provider Name and Address Organization Details Recorded Time Testicula r hypofunct ion 961074147 Active 2015 From Automated Load;Provi en: Mellissa Macdonald;Sta tus: Active Not Available [facility] 6 04:00:35 Problem Notes None recorded. Procedures Surgical History Date Name Laterality Status Provider Name and Address Organization Details Recorded Time Tympanogram completed BESSIE BURCH, AUD [address] [place], [address], [facility] 03/13/2021 15:11:54 021 Cerumen removal - Instruments, Unilateral completed Kirsten Krishna [facility] 03/13/2021 15:52:28 018 Electromyography (EMG) with Nerve Conduction Study (NCV) completed Kirsten Cornejo (Nicky) [facility] 11/15/2017 15:01:44 Vasectomy completed Davidson Dunne [facility] 11/05/2016 14:38:08 procedure on hand completed Luli Lemons [facility] 03/13/2021 14:52:03 Imaging Results None recorded. Procedure [...] cm 2.1 kg/m2 6803.89 g Alejandra RAIN [facility] 06/23/2022 12:06:09 Date Recorded Body height Body mass index (BMI) Body weight Provider Name and Address Organization Details Last Updated DateTime 08/25/2024 179.07 cm 31.8 kg/m2 728213.28 g Alejandar Neil [facility] 08/25/2024 10:59:53 Date Recorded Body height Body mass index (BMI) Body weight Provider Name and Address Organization Details Last Updated DateTime 12/29/2022 180.34 cm 31.4 kg/m2 954589.28 g Maryellen Ball [facility] 12/29/2022 14:25:06 Date Recorded Body height Body mass index (BMI) Body weight Provider Name and Address Organization Details Last Updated DateTime 01/11/2024 180.34 cm 31.4 kg/m2 292234.28 maria e Neil [facility] 01/11/2024 11:27:16 Social History Question Answer Notes LastModified by Organizat Exposed Vocals Details LastModified Time Tobacco Smoking Status [facility]/05/2016 14:37:44 How Much Tobacco Do You Chew? None [email or web address] Information not available 07/12/2018 Marital Status [email or web address] Informati on not available 11/05/2016 What Was The Date Of Your Most Recent Tobacco Screening? 07/12/2018 Information not available 07/25/2019 What Is Your Relationship Status? Information not available 04/15/2021 How Much Tobacco Do You Smoke? No [email or web address] Information not available 01/27/2019 Has Tobacco Cessation Counseling Been Provided? No [email or web address] Information not available 04/15/2021 Have You Recently Traveled Abroad? No [email or web address] Information not available 04/15/2021 Sex: Unknown Functional Status Question Answer Note LastModified by Organizat Exposed Vocals Details LastModified Time Do you use any illicit or recreational drugs? No Information not available 04/15/2021 Do you or have you ever used any other forms of tobacco or nicotine? No [email or web address] Information not available 04/15/2021 What is your level of alcohol consumption? Occasional [email or web address] Information not available 03/13/2021 Mental Status None recorded. Family History Relationship Description Onset Age of this Age Resolved Age Notes LastModified by Organization Details LastModified Time Father No current problems or disability [email or web address] Not available 06/2016 14:37:40 Mother No current problems or disability [email or web address] Not available 06/2016 14:37:40 Sister Family history of malignant neoplasm [email or web address] Not available 03/13 14:58:53 Medical History Condition Response Allergies/Hayfever Y Arthritis Y Hypertension Y Sleep Apnea Y Sleep Disorder Y Past Encounters Encounter ID Performer Location Encounter Start Date Encounter Closed Date Diagnosis/Indication Diagnosis SNOMED-CT Code Diagnosis ICD10 Code Diagnosis Note [id number] MELLISSA MACDONALD MD [facility] [address] [address] 11/05/2016 14:28:19 11/10/2016 11:29:09 Testicular hypofunction 160516832 E29.1 Impotence of organic origin 294515105 N52.9 [id number] JENNIFER CONN JR, MD [facility] [address] [place] [address] 0 11/20/2016 09:35:00 11/20/2016 11:31:26 Testicular hypofunction 190206958 E29.1 [id number] MELLISSA MACDONALD MD [facility] [address] [place] [address] 05/03/2017 13:24:54 07/17/2017 03:46:37 Testicular hypofunction 999173521 E29.1 [id number] MELLISSA MACDONALD MD [facility] [address] [address] 05/27/2017 14:27:09 06/03/2017 12:11:17 Testicular hypofunction 558132229 E29.1 [id number] INGE ORTIZ MD [facility] [address] [place] [address] 10/04/2017 12:12:51 10/04/2017 12:52:59 Testicular hypofunction 102079819 E29.1 [id number] SARAH MCKEON MD NEUROLOGY [facility] [address] [place] [address] 11/15/2017 13:49:46 11/15/2017 16:27:13 Carpal tunnel syndrome of right wrist 0889970452 96724 G56.01 Idiopathic peripheral neuropathy 41407657 G60.9 Skin sensa tion disturbance 54870112 R20.9 Neck pain 30414797 M54.2 Tremor 18284063 R25.1 [id number] MELLISSA MACDONALD MD [facility] [address] [facility],[place] [address] 01/13/2018 14:26:41 01/14/2018 08:20:33 Testicular hypofunction 899074956 E29.1 [id number] DONA WHITAKER MD [facility] [address] [place] [address],[place] [address] 01/18/2018 13:04:43 01/18/2018 13:29:51 Testicular hypofunction 791429345 E29.1 [id number] MELLISSA MACDONALD MD [facility] [address] [place] [address],[place] [address] 07/12/2018 10:59:43 07/12/2018 12:37:52 Testicular hypofunction 608378595 E29.1 Secondary polycythemia 45008615 D75.1 Liver func tion tests outside reference range 620043379 R94.5 Benign pro static hyperplasia 112561617 N40.1 Impotence of organic origin 232016602 N52.9 [id number] MELLISSA MACDONALD MD [facility] [address] [facility],[address] [place] [address] 01/27/2019 15:02:29 01/27/2019 16:42:01 Testicular hypofunction 848550611 E29.1 Benign pro static hyperplasia with outflow obstruction 234670561 N40.1 Impotence of organic origin 967359047 N52.9 [id number] MELLISSA MACDONALD MD [facility] [address] [facility] [address] [address] 08/02/2019 13:10:09 08/02/2019 14:00:56 Testicular hypofunction 417886588 E29.1 Secondary polycythemia 31296254 D75.1 Liver func tion tests outside reference range 104050745 R94.5 Benign pro static hyperplasia 556070597 N40.1 Benign pro static hyperplasia with outflow obstruction 056849942 N40.1 Impotence of organic origin 232744162 N52.9 [id number] MD [facility] [address] [address] [place] [address] 01/31/2020 13:26:26 01/31/2020 14:28:27 Testicular hypofunction 288310998 E29.1 Secondary polycythemia 08366437 D75.1 Liver func tion tests outside reference range 039241767 R94.5 Benign pro static hyperplasia 619992076 N40.1 Impotence of organic origin 261604996 N52.9 [id number] MD [facility] [address] [facility] [facility] [place] [address] 08/28/2020 16:19:34 08/28/2020 16:51:30 Testicular hypofunction 365405638 E29.1 Benign pro static hyperplasia with outflow obstruction 844776691 N40.1 Impotence of organic origin 641383411 N52.9 [id number] HIPOLITO RAMOS MD [facility] [address] [place] [address] 03/13/2021 14:02:29 03/13/2021 15:58:28 Stenosis of external auditory canal 134489394 H61.309 Bilateral stenosis of the bony ear canals Deviated nasal septum 12 2695525 J34.2 Acute otit is externa of left ear 3165506973 731141 H60.502 03/13/2021 -left microscopi c debridemen t of impacted wax and acute external otitis Lymphadenopathy 47292732 R59.0 Tender left level 2 lymphadeno ashley Impacted c erumen in left ear 1265281725 117687 H61.22 03/13/2021 -left microscopi c debridemen t of impacted wax and acute external otitis [id number] [facility]Y [place] [address] [place] [address] 03/13/2021 15:11:25 03/13/2021 17:09:41 Bilateral earache 974324565 H92.03 [id number] MELLISSA MACDONALD MD [facility] [address] [address] [facility] [address] [address] 04/15/2021 11:22:24 04/15/2021 13:25:45 Testicular hypofunction 488594794 E29.1 Secondary polycythemia 42988802 D75.1 Liver func tion tests outside reference range 447610550 R94.5 Benign pro static hyperplasia 074590068 N40.0 Primary er ectile dysfunction 522143610 N52.9 [id number] MELLISSA MACDNOALD MD [facility] [address],[place] [address] 11/26/2021 10:57:46 11/26/2021 12:07:08 Primary erectile dysfunction 735089261 N52.9 Benign pro static hyperplasia with outflow obstruction 720301901 N40.1 Testicular hypofunction 661435767 E29.1 [id number] MELLISSA MACDONALD MD [facility] [address],[place] [address] 06/23/2022 11:08:57 06/23/2022 12:01:05 Testicular hypofunction 841195516 E29.1 Benign pro static hyperplasia with outflow obstruction 097497072 N40.1 Primary er ectile dysfunction 948736705 N52.9 [id number] MELLISSA MACDONALD MD [facility] [address],[place] [address] 0 12/29/2022 11:24:06 12/29/2022 12:45:14 Testicular hypofunction 471864480 E29.1 Benign pro static hyperplasia with outflow obstruction 693382354 N40.1 Primary er ectile dysfunction 563461128 N52.9 [id number] MELLISSA MACDONALD MD [facility] [address],[place] [address] 07/06/2023 11:35:38 07/06/2023 12:17:10 Male hypogonadism 18209520 E29.1 Benign pro static hyperplasia with outflow obstruction 777273946 N40.1 Testicular hypofunction 694022654 E29.1 Primary er ectile dysfunction 310596587 N52.9 [id number] MELLISSA MACDONALD MD [facility] [address] [place] [address] 01/11/2024 11:20:40 01/11/2024 12:24:48 Testicular hypofunction 188696670 E29.1 Benign pro static hyperplasia with outflow obstruction 702260092 N40.1 Primary er ectile dysfunction 681880723 N52.9 [id number] MELLISSA MACDONALD MD [facility] [address] [place] [address] 08/25/2024 10:24:09 08/25/2024 11:33:35 Testicular hypofunction 071447350 E29.1 Benign pro static hyperplasia with outflow obstruction 715942081 N40.1 Primary er ectile dysfunction 696857733 N52.9 Health Concerns Section Related Observation LastModified by Organization Detai ls LastModified Time None Recorded Concern Status LastModified by Organization Details LastModified Time None Recorded Advance Directives Directive None Recorded Payers Insurance Date Sequence Insurance Name Policy Number Policy Guevara Covered Member ID Guevara Member ID Guarantor Name 01/11/2024 2 [place] Bethel Magallanes Bromagen [id number] 1 Bethel A Bromagen 03/08/2020 PAYMENT PLAN Bethel Elpidio Bromagen 01/11/2024 2 [place] Bethel Elpidio Bromagen [id number] 1 Bethel Elpidio Bromagen 11/20/2016 1 *SELF PAY* Do jond A Bromagen 12/11/2024 1 [place] [facility] [id number] Opal E Bromagen [id number] Bethel A Bromagen 01/11/2024 2 [place] Bethel A Bromagen [id number] 1 Bethel Elpidio Bromagen Notes Date Note [...] of stream is adequate. MELLISSA MACDONALD MD [address] [place] [address], [phone], [facility] 06/30/2022 18:23:07 12/29/2022 text/html 67-year-old male in the office for follow-up evaluation of testicular hypofunction, benign prostatic hyperplasia with lower urinary symptoms, and erectile dysfunction. He uses Axiron 2 pumps daily. He uses sildenafil as needed for erectile dysfunction. He uses tadalafil for management of lower urinary symptoms. He denies any specific troubles with urination. MELLISSA MACDONALD MD [address] [place] [address], [id number] 01/10/2023 16:21:29 07/06/2023 text/html 68-year-old male in [...] no dysuria, no hematuria. MELLISSA MACDONALD MD [address] [place] [address], [phone], [facility] 07/18/2023 08:14:33 01/11/2024 text/html 69-year-old male in [...] no dysuria, no hematuria. MELLISSA MACDONALD MD [address] [place] [address], [phone], [facility] 01/16/2024 11:33:47 08/25/2024 text/html 69-year-old male in [...] gross hematuria. No dysuria. MELLISSA MACDONALD MD [address] [place] [address], [phone], [facility] 08/27/2024 10:51:55
[2024-12-20 11:34] VITALS: BP 132/79; PULSE 73; RESP 14; O2SAT 95; BMI 32.1
--- NOTE | 2024-12-20 11:55 | EXP.PAIN.SOA ---
[facility] Disclaimer: The information contained in this section may have been updated after the patient was seen, as this information can be updated by other users. Medical History Chronic pain Benign prostatic hyperplasia Hypertension Surgical History No significant past surgical history Family History Other No significant family history Social History Smoking Status: Never smoker alcohol intake: current substance use type: denies use current occupational status: other Travel in the last 8 weeks?: None PM Subjective & Objective Subjective Subjective:: Patient is a pleasant 69-year-old male who presents today for medication refill and follow-up. Today he rates his pain a 7 out of 10. He is still having the same chronic low back pain. He is currently managed with Percocet 10 mg 5 times a day, gabapentin 600 mg 3 times a day and methocarbamol 500 mg twice a day. He denies any side effects. His Damian has been reviewed and is appropriate. Review of Systems: General: No recent weight changes, no fever, no sleep disturbances Respiratory: No cough, no shortness of air, no recurring pulmonary infections Cardiovascular/peripheral vascular: No chest pain, no palpitations, no edema, no shortness of breath Gastrointestinal: No new onset incontinence, normal bowel movements reported Genitourinary: No new onset incontinence Musculoskeletal: Low back pain Psychiatric: [Normal mood/affect] Neurological: [Denies weakness in extremities], [denies balance issues] Pain at rest (0-10 scale): 7 Objective Objective:: Physical Exam: General: Alert and oriented x3, no acute distress, pleasant and cooperative Lungs: Respirations even and unlabored, symmetrical chest expansion Eyes: PERRL Musculoskeletal: Flexion and extension of lumbar [spine] somewhat guarded secondary to pain, [antalgic gait noted] Neurological: Speech clear, no gross sensory deficit Has patient had previous pain injection?: No Conservative treatment options previously tried: Prescription medications Length of treatment: Longer than 12 weeks Meds Home Medications and Allergies Home Medications ?Medication ?Instructions ?Recorded ?Confirmed ?Type amlodipine 5 mg tablet 5 mg PO DAILY BLOOD PRESSURE 01/02/21 12/20/24 History carvedilol 25 mg tablet 25 mg PO BID BLOOD PRESSURE 01/02/21 12/20/24 History lisinopril 40 mg tablet 40 mg PO DAILY BLOOD PRESSURE 01/02/21 12/20/24 History sildenafil (pulm.hypertension) 20 20 mg PO DAILYP PRN . 01/02/21 12/20/24 History mg tablet tamsulosin 0.4 mg capsule 0.4 mg PO HS PROSTATE 01/02/21 12/20/24 History testosterone 30 mg/actuation (1.5 2 pump TD DAILY HRT 01/02/21 12/20/24 History mL) transderm solution metered pump tizanidine 4 mg capsule 4 mg PO Q6HP PRN MUSCLE SPASMS 01/02/21 12/20/24 History naloxone 4 mg/actuation nasal spray 4 mg NS ONCE . 08/11/21 12/20/24 History gabapentin 300 mg capsule 300 mg PO TID Pain #90 caps 02/18/23 12/20/24 Rx diclofenac sodium 1 % topical gel 4 g topical QID Pain #100 grams 04/22/23 12/20/24 Rx gabapentin 600 mg tablet 600 mg PO TID #90 tabs 11/23/24 12/20/24 Rx methocarbamol 500 mg tablet 500 mg PO BID #60 tabs 11/23/24 12/20/24 Rx oxycodone-acetaminophen 10 mg-325 1 tab PO 5XDAY #150 tabs 11/23/24 12/20/24 Rx mg tablet (Percocet) New Prescriptions to Start Prescriptions: Allergies Allergy/AdvReac Type Severity Reaction Status Date / Time No Known Allergies Allergy Verified 09/16/23 11:35 Assessment and Plan *Assessment and plan (1) Lumbar radiculopathy: Status: Acute Category: Medical Code(s): M54.16 - Radiculopathy, lumbar region (2) Degenerative disc disease, lumbar: Status: Acute Qualifiers: Disc-related pain type: discogenic back pain and lower extremity pain Qualified Code(s): M51.362 - Other intervertebral disc degeneration, lumbar region with discogenic back pain and lower extremity pain Category: Medical Code(s): M51.369 - Other intervertebral disc degeneration, lumbar region without mention of lumbar back pain or lower extremity pain (3) Spinal stenosis, lumbar region with neurogenic claudication: Status: Acute Category: Medical Code(s): M48.062 - Spinal stenosis, lumbar region with neurogenic claudication Plan I will make sure that he does have refills on his Percocet, gabapentin and methocarbamol. Patient will return to clinic in 1 month for reevaluation of symptoms and plan of care. Risks and benefits of the medication have been explained in detail to the patient. The patient does understand the risk of dependence on the medication when given over a prolonged period. Patient has been advised of risks of oversedation with the prescribed medication. Narcan has been offered to the paitent in the event of oversedation. Patient has been advised that a family member should also be educated regarding administration of Narcan. The patient has been advised to consult with his/her primary care provider and pharmacist regarding drug-drug interaction of medications currently prescribed. Patient has been prescribed a controlled substance after being counseled on the medication, medication safety, and possible side effects. Opioid contract was reviewed and signed by the patient, and that they have agreed to all of the terms set forth by our compliance program. A UDS is needed to verify patient's compliance with our office pain contract. This is ordered based off specific treatments related to chronic pain with the potential to abuse certain medications. Patient has been instructed to contact the clinic with any concerns before the next appointment. Dr. Rubio has reviewed this note and agrees with this plan of care. This note was dictated using voice recognition software and make contain errors or omissions.
== END 2024-12-20 23:59 | disposition home or self-care (01) ==
PROVIDERS: PCP Family Medicine; Visit Provider Nurse Practitioner Family
DX: M51.360 Other intervertebral disc degeneration, lumbar region with discogenic back pain only (principal); M48.062 Spinal stenosis, lumbar region with neurogenic claudication; Z79.891 Long term (current) use of opiate analgesic; Z79.899 Other long term (current) drug therapy
CPT/HCPCS: 99212; G0463

== ENCOUNTER 2025-01-18 11:23 | Outpatient (POV) | payer BC, SELFPAY ==
--- OUTSIDE RECORDS SUMMARY | 2025-01-18 11:26 | XMS_ITS | Clinical Summary ---
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 Not on file 02/2023 Does Anyone Keep You from Co ntacting Others or Doint Things Outside the Home? Not on file 03/15/2023 Physical Sign of Abuse Present Not on file 1 Housing Stability Answer Date Recorded Current Living Arrangements Not on file 02/2023 Potentially Unsafe Housing Conditions Not on anne marie e 03/15/2023 Family and Community Support Answer Bruno e Recorded Help with Day-to-Day Activities Not on file 03/15/2023 Lonely or Isolated Not on file 03/15/2023 Employment Answer Date Recorded Do you want help finding or keeping work or a maria m b? Not on file 03/15/2023 Disabilities Answer Date Recorded Concentrating, Remembering, or Making Decisions Difficulty Not on file 03/15/2023 Doing Errands Independently Difficulty Not on fi le 03/15/2023 Education Answer Date Recorded Help with school or training? Not on file Preferred Language Not on file 03/15/2023 Sex and Gender Information Value Date Recorded Sex Assigned at Not on file Legal Sex Male 1:33 PM EDT Gender Identity Not on file Sexual Orientation Not on file Plan of Treatment Health Maintenance Due Date Last Done Comments ANNUAL PHYSICAL 1955 HEPATITIS C SCREENING 1955 TDAP/TD VACCINES (1 - Tdap) 01/03/1975 COLOGUARD 01/03/2001 COLON CANCER SCREENING 5 YEAR SIGMOIDOSCOPY 01/03/2001 COLONOSCOPY 01/03/2001 COLORECTAL CANCER SCREENING 01/03/2001 CT COLONOGRAPHY 01/03/2001 FECAL OCCULT BLOOD TEST 01/03/2001 FIT Testing (1 year) 01/03/2001 Pneumococcal Vaccine 50+ (1 of 1 - PCV) 01/03/2006 ZOSTER VACCINE (1 of 2) 01/03/2006 AAA SCREEN ONCE 01/03/2021 COVID-19 Vaccine ( - 2023- season) 2024 INFLUENZA VACCINE 03/07/2025 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
--- NOTE | 2025-01-18 11:27 | EXP.PAIN.SOA ---
[facility] Disclaimer: The information contained in this section may have been updated after the patient was seen, as this information can be updated by other users. Medical History Chronic pain Benign prostatic hyperplasia Hypertension Surgical History No significant past surgical history Family History Other No significant family history Social History Smoking Status: Never smoker alcohol intake: current substance use type: denies use current occupational status: other Travel in the last 8 weeks?: None PM Subjective & Objective Subjective Subjective:: Patient is a 70-year-old male who presents today for his medication refill and 1 month follow-up. He denies any new falls or injuries. Patient is prescribed Percocet 10 mg 5 times, gabapentin 600 mg 3 times daily, methocarbamol 500 mg twice daily.. He denies any side effects or changes to his pharmacy. His Damian has been reviewed and is appropriate. Review of Systems: General: No recent weight changes, no fever, no sleep disturbances Respiratory: No cough, no shortness of air, no recurring pulmonary infections Cardiovascular/peripheral vascular: No chest pain, no palpitations, no edema, no shortness of breath Gastrointestinal: No new onset incontinence, normal bowel movements reported Genitourinary: No new onset incontinence Musculoskeletal: Chronic back pain Psychiatric: [Normal mood/affect] Neurological: [Denies weakness in extremities], [denies balance issues] Pain at rest (0-10 scale): 6 Objective Objective:: Physical Exam: General: Alert and oriented x3, no acute distress, pleasant and cooperative Lungs: Respirations even and unlabored, symmetrical chest expansion Eyes: PERRL Musculoskeletal: Flexion and extension of lumbar [spine] somewhat guarded secondary to pain, [antalgic gait noted] Neurological: Speech clear, no gross sensory deficit Has patient had previous pain injection?: No Conservative treatment options previously tried: Prescription medications Length of treatment: Longer than 12 weeks Meds Home Medications and Allergies Home Medications ?Medication ?Instructions ?Recorded ?Confirmed ?Type amlodipine 5 mg tablet 5 mg PO DAILY BLOOD PRESSURE 01/02/21 01/18/25 History carvedilol 25 mg tablet 25 mg PO BID BLOOD PRESSURE 01/02/21 01/18/25 History lisinopril 40 mg tablet 40 mg PO DAILY BLOOD PRESSURE 01/02/21 01/18/25 History sildenafil (pulm.hypertension) 20 20 mg PO DAILYP PRN . 01/02/21 01/18/25 History mg tablet tamsulosin 0.4 mg capsule 0.4 mg PO HS PROSTATE 01/02/21 01/18/25 History testosterone 30 mg/actuation (1.5 2 pump TD DAILY HRT 01/02/21 01/18/25 History mL) transderm solution metered pump tizanidine 4 mg capsule 4 mg PO Q6HP PRN MUSCLE SPASMS 01/02/21 01/18/25 History naloxone 4 mg/actuation nasal spray 4 mg NS ONCE . 08/11/21 01/18/25 History gabapentin 300 mg capsule 300 mg PO TID Pain #90 caps 02/18/23 01/18/25 Rx diclofenac sodium 1 % topical gel 4 g topical QID Pain #100 grams 04/22/23 01/18/25 Rx gabapentin 600 mg tablet 600 mg PO TID #90 tabs 01/18/25 Rx methocarbamol 500 mg tablet 500 mg PO BID #60 tabs 01/18/25 Rx oxycodone-acetaminophen 10 mg-325 1 tab PO 5XDAY #150 tabs 01/18/25 Rx mg tablet (Percocet) New Prescriptions to Start Prescriptions: gabapentin Young,Fabienne A methocarbamol Young,Fabienne A oxycodone-acetaminophen [Percocet] Bux,Wiley Allergies Allergy/AdvReac Type Severity Reaction Status Date / Time No Known Allergies Allergy Verified 09/16/23 11:35 Assessment and Plan *Assessment and plan (1) Spinal stenosis, lumbar region with neurogenic claudication: Status: Acute Category: Medical Code(s): M48.062 - Spinal stenosis, lumbar region with neurogenic claudication (2) Lumbar radiculopathy: Status: Acute Category: Medical Code(s): M54.16 - Radiculopathy, lumbar region (3) Degenerative disc disease, lumbar: Status: Acute Qualifiers: Disc-related pain type: discogenic back pain and lower extremity pain Qualified Code(s): M51.362 - Other intervertebral disc degeneration, lumbar region with discogenic back pain and lower extremity pain Category: Medical Code(s): M51.369 - Other intervertebral disc degeneration, lumbar region without mention of lumbar back pain or lower extremity pain Plan I will refill the patient's Percocet and provide a 1 month supply of this medication. I will send a 3-month supply of his gabapentin and methocarbamol. Patient will return to clinic in 1 month. Risks and benefits of the medication have been explained in detail to the patient. The patient does understand the risk of dependence on the medication when given over a prolonged period. Patient has been advised of risks of oversedation with the prescribed medication. Narcan has been offered to the paitent in the event of oversedation. Patient has been advised that a family member should also be educated regarding administration of Narcan. The patient has been advised to consult with his/her primary care provider and pharmacist regarding drug-drug interaction of medications currently prescribed. Patient has been prescribed a controlled substance after being counseled on the medication, medication safety, and possible side effects. Opioid contract was reviewed and signed by the patient, and that they have agreed to all of the terms set forth by our compliance program. A UDS is needed to verify patient's compliance with our office pain contract. This is ordered based off specific treatments related to chronic pain with the potential to abuse certain medications. Patient has been instructed to contact the clinic with any concerns before the next appointment. Dr. Rubio has reviewed this note and agrees with this plan of care. This note was dictated using voice recognition software and make contain errors or omissions.
[2025-01-18 11:36] VITALS: BP 124/89; PULSE 75; RESP 14; O2SAT 96; BMI 30.7
== END 2025-01-18 23:59 | disposition home or self-care (01) ==
PROVIDERS: PCP Family Medicine; Visit Provider Nurse Practitioner Family
DX: M48.062 Spinal stenosis, lumbar region with neurogenic claudication (principal); M54.16 Radiculopathy, lumbar region; M51.362 Other intervertebral disc degeneration, lumbar region with discogenic back pain and lower extremity pain; Z79.891 Long term (current) use of opiate analgesic; Z79.899 Other long term (current) drug therapy
CPT/HCPCS: 99212; G0463